=== PATIENT | male | born 1940 | race Caucasian/White ===

== ENCOUNTER 2019-08-12 15:34 | Outpatient (CLI) | payer MEDICARE, OTHER, SELFPAY ==
--- NOTE | 2019-08-12 21:04 | ONC CON_ITS ---
Dr. Noriega New Patient Note Patient: Isaiah Snyder Unit #: [id number]: 1940 Dicatated By: Jony Noriega M.D.Date of Visit: Aug 12, 2019 Onc MED New Patient/Consult Referring Physician: Dylon Perla MD Chief Complaint: Lung cancer. 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 He was found to have a 2.5 cm right upper lobe lung mass in 2011. He had mediastinal and hilar node involvement by trans-bronchial needle aspiration biopsy in May of 2011, with pathology reporting metastatic poorly differentiated non-small cell carcinoma. He was given neoadjuvant chemotherapy with 2 cycles of carboplatin/Taxol. He was found to have a complete pathologic response at [facility] He completed 2 additional cycles of chemotherapy postoperatively, and he was then given radiation to the hilar/mediastinal node regions to a total dose of 50.4 Gy, which he completed on 02/13/12. He did have problems following his surgery, mainly due to a prolonged post thoracotomy pain syndrome. He also developed significant neuropathy with the chemotherapy, but he did show gradual recovery during subsequent follow-up on observation/expectant management. His surveillance CT of the chest on 08/15/2016 showed postoperative changes of right upper lobectomy. There was stable loculated pleural effusion at the right lung base with chronic right atelectasis. There ws no mediastinal or hilar lymphadenopathy or other evidence of disease progression. He was advised to continue observation/expectant anagement. As he was 5 years out from completion of his treatment, I had recommended that he just continue his regular follow-up at the [facility]. I had seen him for a visit again on 01/19/2018. [facility] abnormalitites at the right lung base, but on review these were not significantly changed compared to prior studies. He continued on observation/expectant management. He has otherwise been in good health. 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 He does have a history of smoking 2 packs of cigarettes daily for approximately 40 years. He quit smoking in 1999. He indicated that he had significant asbestos exposure during service in the [employer]. INTERIM HISTORY: He had seen Dr. Perla in June with complaints of pain on both sides of his mid back radiating around to the epigastric area. Evaluation was delayed to the pandemic restrictions. His CT abdomen/pelvis on 08/09/2019 showed a 3.1 x 2.8 x 2.6 cm mass near the gregory hepatis, concerning for neoplasm. An osteolytic lesion in the T8 vertebral body was concerning for metastatic disease. There was moderate sized right pleural effusion. There was a small amount of atelectasis or consolidation in the right lower lobe and the lingula, pneumonia not excluded. A 2.0 x 1.3 x 1.7 cm heterogeneous lesion in the inferior pole of the left kidney was indeterminate. An L4 vertebral compression fracture was of indeterminate age. He is seen now for a followup visit. He continues to have significant pain up and down his back, from the base of his skull to his lower back. The most signicant pain is in the mid back area and on both sides of the rib cage. He says it feels like muscle spasms. It is worse when he bends over. It limits his activity, but he is still doing work outside. His ECOG score is 1. He does not have much appetite. His weight is down about 5 lbs. He thinks he may have some low-grade fever last weekend. He says he had sweating last night. He has shortness of breath with activity. He has a little bit of phlegm, but otherwise he does not have cough. He does not complain of chest pain. He has had some constipation since he started his pain medication. He has no other GI complaints. Has some urinary frequency and he also complains of some dribbling. He does not complain of headache or dizziness. He has had some numbness in his right ring finger since undergoing shoulder surgery in April. He has no other focal neurologic symptoms. Past Medical History: Mr. Snyder's medical history consists of hstory of pancreatitis, Meniere's Disease, peripheral neuropathy due to chemotherapy, and non-small cell lung cancer in 2011 (Treated: surgery,chemo/readition). Past Surgical History: His surgical/procedural history includes right shoulder surgery in 2019, thoractotomy with right upper lobectomy and mediastinal lymph node dissection in 2011, bronchoscopy in 2011, and TURP in 2002. Medications: Flonase 2 [place](s) (of 50 mcg/act) Suspension Nasal daily PRN, HYDROcodone-Acetaminophen 1 Tablet (of 5-325 mg) Oral q 8 hours PRN, Neurontin 2 Tablet (of 300 mg) Oral t.i.d., Pantoprazole Sodium 1 Tablet (of 40 mg) Tablet, enteric coated Oral daily, Vitamin B6 1 Tablet Oral daily, Vitamin D3 1 Tablet (of 50 mcg ) Oral daily Allergies: Flomax Social History: Mr. Snyder is and he is retired. He has a history of smoking 2 packs of cigarettes daily for 40 years. He quit smoking in 1999. Alcohol use is estimated 2 beers daily. He reports having had asbestos exposure during the [employer]. Family History: Father of stroke at age 89. A brother of lung cancer and another brother of melanoma. Review Of Symptoms: Constitutional - His energy level is okay. His activity is limited by pain, but he still does some outside work. His appetite is okay and weight is stable. He has had a recent low grade fever with chills. He is having sweating episodes. ECOG score is 1, ENMT - He has some sinus drainage. His mouth is dry. No sore throat or difficulty swallowing, Hematologic/Lymphatic - He bruises easily, Respiratory - He has shortness of breath with exertion. He has an occasional cough. No pleuritic pain or hemoptysis, Cardiovascular - No angina pain. No palpitations, Gastrointestinal - No nausea or vomiting. His heartburn is well controlled with Protonix. No diarrhea. He has had constipation with his pain medication. No blood in the stool. He had episode of black stool on Te[place], Genitourinary (M) - No dysuria or hematuria. He has urinary frequency and he has dribbling. No urgency or incontinence, Musculoskeletal - He is having significant pain in his back from the base of his skull all the way into lower back, Integumentary - No skin complications, Neurologic - No headache or dizziness. He has some numbness in his right ring finger. He has no other focal neurologic symptoms, Psychiatric - No anxiety or depression. No insomnia. Vital Signs: Performed on Aug 12, 2019 15:45: 2, 25.91, 2.00 sq.m, 70.00 in, 97 %, 82 /min, 26 /min, 132/76 mm(hg), 97.7 F (LOW), 180.6 lbs (LOW), and Performed on Aug 16, 2015 11:10: 0. Physical Examination: Constitutional - He appears to be in some discomfort, but he does not appear acutely ill, Eyes - Sclerae nonicteric. Conjunctivae clear, ENMT - No lesions noted in the oral cavity, Hematologic/Lymphatic - No cervical, clavicular or axillary adenopathy, Respiratory - Lungs sound clear with good air movement bilaterally, Cardiovascular - Heart rhythm is regular. There is no murmur, gallop, or rub noted, Abdomen - Soft. Liver and spleen are not enlarged. There is no abdominal mass or ascites noted and there is no inguinal adenopathy, Back/Spine - There is no significant bony tenderness in the spine, Extremities - No edema, Neurologic - He does not appear to have any focal neurologic deficit. Impression: 1. Patient with poorly differentiated non-small cell carcinoma of the right lung, stage IIIA. 2. He had a complete pathologic response to neoadjuvant chemotherapy with 2 cycles of carboplatin/Taxol. 3. He underwent right upper lobectomy/mediastinal lymph node dissection in August 2011. 4. Postoperatively he was given 2 additional cycles of chemotherapy followed by radiation to the hilar/mediastinal node region, which he completed in January 2012. 5. He initially had difficulty following the surgery due to post thoracotomy pain and to chemotherapy-induced neuropathy. He eventually did have a good recovery. 6. He has since then been followed on observation/expectant mangement. His other medical pulses include: 7. 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 8. Benign prostatic hypertrophy. For the past month he has had increasing pain in his entire back, but mainly in the mid back on both sides radiating around to the abdomen. The pain is significant enough to limit his activity. His CT abdomen/pelvis shows a mass in the area of the hepatic John which is suspicious for neoplasm. An osteolytic lesion in the T8 vertebral body appeared suspicious for metastasis, and it appears to correlate with his pain. Overall, the probability is very high that he has metastatic disease. At this point it is uncertain whether this is metastatic lung cancer or from some other primary source. Plan: He will be scheduled for MRI of the cervical, thoracic, and lumbar spine and he will be scheduled for a restaging PET/CT. He will have further evaluation as indicated. Ideally, he should have a biopsy to establish a tissue diagnosis and to help guide his further treatment. In the meantime, his pain medication will be increased to hydrocodone 7.5, and he will be given instructions for a bowel regimen. Signed By: Jony Noriega M.D. <<Signature on File>>
== END 2019-08-12 15:35 | disposition home or self-care (01) ==
LOC: ONCMED 15:42
PROVIDERS: PCP Family Medicine; Visit Provider Internal Medicine Medical Oncology
DX: R93.7 Abnormal findings on diagnostic imaging of other parts of musculoskeletal system (principal); R93.3 Abnormal findings on diagnostic imaging of other parts of digestive tract; M54.6 Pain in thoracic spine; M54.5 Low back pain; Z85.118 Personal history of other malignant neoplasm of bronchus and lung; H81.09 Meniere's disease, unspecified ear; N40.1 Benign prostatic hyperplasia with lower urinary tract symptoms; R35.0 Frequency of micturition; Z90.2 Acquired absence of lung [part of]; Z92.3 Personal history of irradiation; Z92.21 Personal history of antineoplastic chemotherapy; Z79.891 Long term (current) use of opiate analgesic; Z87.891 Personal history of nicotine dependence
CPT/HCPCS: 99215

== ENCOUNTER 2019-08-16 07:45 | Outpatient (CLI) | payer MEDICARE, OTHER, SELFPAY ==
--- NOTE | 2019-08-16 | MR_ITS ---
WS: [id number] MRI THORACIC SPINE with and without contrast HISTORY: LUNG CANCER, BACK PAIN, DESTRUCTIVE LESION T8 COMPARISON: PET CT 08/14/2019 TECHNIQUE: Multiplanar sequences are performed in sagittal and axial planes. Study performed with and without contrast. Abnormal signal within the majority of the T8 vertebral body. Marked decreased signal intensity on th e T1 sequences with increased on the STIR and T2 sequences and enhancement. There is enhancement thro ughout the majority of the T8 vertebral body with extension of the tumor into the posterior elements. There is retropulsion of the posterior endplate by 3 mm with mild compression upon the RIGHT lateral thecal sac. Moderate stenosis of the T8-9 foramen due to tumor and bone expansion. Significant soft tissue tumor enhancement within the T8-9 foramen. Extension of tumor enhancement into the superior endplate of T9. Abnormal signal extends across the T 8-9 disc space. There is dural enhancement at the T7-8 through T8-9 levels. Mild facet joint arthritis throughout the thoracic spine. No large disc herniations. Superior pole RIGHT renal cyst measures 3.0 cm. Pleural thickening and nodularity in the RIGHT upper thorax. Small to moderate layering RIGHT pleural effusion. Visualized adrenal glands are negative. MR/MR thoracic spine wo/w [id number] IMPRESSION: 1. Metastatic involvement throughout the T8 vertebral body with extension into the posterior elements. Expansion of the vertebral body with mild compression along the RIGHT lateral thecal sac and moderate narrowing of the T8-9 foramen. Very minimal deformity and compression of the RIGHT lateral thecal sac. Signifi cant tumor in burden within the RIGHT T8-9 foramen. 2. Extension of tumor involvement across the disc space to involve the superio r aspect of the T9 vertebral body. 3. Dural enhancement from the T7-8 disc level through the T9 vertebral body le carole. 4. [id number] RIGHT pleural effusion with pleural thickening and nodula rity on the RIGHT. This has been previously described on a recent PET/CT from .
--- NOTE | 2019-08-16 | MR_ITS ---
WS: [id number] MRI CERVICAL SPINE with and without contrast HISTORY: LUNG CANCER, BACK PAIN, DESTRUCTIVE LESION T8 COMPARISON: PET CT 08/14/2019 MRI cervical spine is performed with and without contrast. Normal cervical alignment. Small amount of reactive marrow edema in the superior endplate of C7. No c ompression fractures. Mild disc space narrowing and desiccation at C5-6, C6-7 and C7-T1. Signal within the cervical cord is normal. Visualized posterior fossa is unremarkable. Craniocervical junction, C1 and C2 relationship, odontoid process and soft tissues are normal. C2-C3: Small central disc protrusion and mild osteophytic ridging. No stenosis. C3-C4: Small LEFT paracentral osteophyte. No stenosis. C4-C5: Normal. C5-C6: Mild annular disc bulging and osteophytic ridging. Minimal narrowing of the LEFT foramen. C6-C7: Mild osteophytic ridging and annular disc bulge. No significant stenosis. Very mild effacement of ventral CSF. C7-T1: Mild osteophytic ridging. There is no significant stenosis. Less than 2 mm anterolisthesis of C7. Paraspinal soft tissues are normal. There is no evidence for enhancement of the vertebral bodies or t he discs. No evidence for osteomyelitis or metastatic disease. MR/MR cervical spine wo/w [id number] IMPRESSION: 1. No evidence for metastatic disease to the cervical spine. 2. Mild multilevel degenerative disc disease and osteophytic ridging without s ignificant stenosis. 3. Mild effacement of ventral CSF at C6-7.
== END 2019-08-16 07:46 | disposition home or self-care (01) ==
PROVIDERS: PCP Family Medicine; Visit Provider Internal Medicine Medical Oncology
DX: C79.51 Secondary malignant neoplasm of bone (principal); M50.30 Other cervical disc degeneration, unspecified cervical region; Z85.118 Personal history of other malignant neoplasm of bronchus and lung
CPT/HCPCS: 72156; 72157; A9579

== ENCOUNTER 2019-08-18 09:01 | Outpatient (CLI) | payer MEDICARE, OTHER, SELFPAY ==
--- NOTE | 2019-08-18 | MR_ITS ---
WS: [id number] MRI LUMBAR SPINE WITH AND WITHOUT CONTRAST HISTORY: LUNG CANCER, BACK PAIN, DESTRUCTIVE LESION T8 COMPARISON: PET/CT 08/14/2019 TECHNIQUE: Sagittal and axial multisequence imaging is submitted. Sagittal and axial T1 fat sat seque nces post-ProHance 17 cc IV. Normal lumbar alignment. Disc space narrowing and mild desiccation throughout the lumbar spine. Signal changes within the post erior inferior L2 endplate and the superior posterior L3 endplate. There is some enhancement within t he vertebral body changes. The largest area of involvement is the posterior superior L3 endplate asif uring 10 mm. There is mild sclerosis noted on the CT. Slight increased uptake on the PET scan. Simila r finding in the inferior endplate of L1. Conus terminates normally at L1-2 disc level. L1-L2: Mild disc bulging with facet and ligamentum flavum arthritis. L2-L3: Diffuse osteophytic ridging. Mild ligamentum flavum disease and facet arthritis. Mild encroach ment upon the subarticular recesses. L3-L4: Mild facet and ligamentum flavum arthritis. L4-L5: Mild annular disc bulging with ligamentum flavum arthritis and facet disease. There is a very shallow central disc protrusion. Mild RIGHT foraminal stenosis. L5-S1: Shallow central disc protrusion. There is slight contact on the S1 nerve roots bilaterally, RI GHT greater than LEFT. No foraminal stenosis. No retroperitoneal adenopathy. MR/MR lumbar spine wo/w con [id number] IMPRESSION: 1. Minimal marrow signal changes with mild enhancement involving the endplates of L1, L2 and L3. Suspicious but not diagnostic for metastatic disease. Most c oncerning endplate changes are minimal at the L2-3 level. No retropulsion of ve rtebral bodies. These changes may represent early metastatic disease or acute S chmorl's node defects or acute reactive inflammatory changes. 2. Mild RIGHT foraminal stenosis at L4-5. 3. Minimal encroachment upon the S1 nerve roots bilaterally. 4. Mild encroachment upon the subarticular recesses at L2-3.
== END 2019-08-18 09:02 | disposition home or self-care (01) ==
LOC: ONCMED 09:06 → RADSHAW 09:17
PROVIDERS: PCP Family Medicine; Visit Provider Internal Medicine Medical Oncology
DX: C34.11 Malignant neoplasm of upper lobe, right bronchus or lung (principal); C79.51 Secondary malignant neoplasm of bone; M54.5 Low back pain; M48.061 Spinal stenosis, lumbar region without neurogenic claudication
CPT/HCPCS: 72158; A9579

== ENCOUNTER 2019-08-27 07:59 | Outpatient (CLI) | payer MEDICARE, OTHER, SELFPAY ==
--- NOTE | 2019-08-28 16:59 | ONC FU_ITS ---
Dr. Noriega Patient Follow-Up Note Patient: Isaiah Snyder Unit #: [id number]: 1940 Dicatated By: Jony Noriega M.D.Date of Visit:August 27, 2019 Onc Med Follow-up/Prog Note Chief Complaint: Lung cancer. 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 He now has evidence of metastatic disease on imaging studies. He was found to have a 2.5 cm right upper lobe lung mass in 2011. He had mediastinal and hilar node involvement by trans-bronchial needle aspiration biopsy in May of 2011, with pathology reporting metastatic poorly differentiated non-small cell carcinoma. He was given neoadjuvant chemotherapy with 2 cycles of carboplatin/Taxol. He was found to have a complete pathologic response at [facility] He completed 2 additional cycles of chemotherapy postoperatively, and he was then given radiation to the hilar/mediastinal node regions to a total dose of 50.4 Gy, which he completed on 02/13/12. He did have problems following his surgery, mainly due to a prolonged post thoracotomy pain syndrome. He also developed significant neuropathy with the chemotherapy, but he did show gradual recovery during subsequent follow-up on observation/expectant management. His surveillance CT of the chest on 08/15/2016 showed postoperative changes of right upper lobectomy. There was stable loculated pleural effusion at the right lung base with chronic right atelectasis. There ws no mediastinal or hilar lymphadenopathy or other evidence of disease progression. He was advised to continue observation/expectant anagement. As he was 5 years out from completion of his treatment, I had recommended that he just continue his regular follow-up at the [facility]. I had seen him for a visit again on 01/19/2018. [facility] abnormalitites at the right lung base, but on review these were not significantly changed compared to prior studies. He continued on observation/expectant management. He has otherwise been in good health. 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 He does have a history of smoking 2 packs of cigarettes daily for approximately 40 years. He quit smoking in 1999. He indicated that he had significant asbestos exposure during service in the [employer]. INTERIM HISTORY: He had seen Dr. Perla in June with complaints of pain on both sides of his mid back radiating around to the epigastric area. Evaluation was delayed to the pandemic restrictions. His CT abdomen/pelvis on 08/09/2019 showed a 3.1 x 2.8 x 2.6 cm mass near the gregory hepatis, concerning for neoplasm. An osteolytic lesion in the T8 vertebral body was concerning for metastatic disease. There was moderate sized right pleural effusion. There was a small amount of atelectasis or consolidation in the right lower lobe and the lingula, pneumonia not excluded. A 2.0 x 1.3 x 1.7 cm heterogeneous lesion in the inferior pole of the left kidney was indeterminate. An L4 vertebral compression fracture was of indeterminate age. He was seen for a visit here on 08/12/2019. He had further evaluation with PET/CT on 08/14/2019. It showed evidence of an FDG avid spiculated left upper lobe mass measuring 3.4 x 2.2 cm, SUV 20.8. A medial right middle lobe subcentimeter nodule adjacent to the mediastinum was also FDG positive as were bilateral hilar lymph nodes, consistent with metastatic adenopathy. There were 2 sites of diffuse activity in the body of the pancreas, felt to be more likely inflammatory in origin. A 3 cm hypodense mass in the central right hepatic lobe at the gregory hepatis head SUV 9.2, consistent with metastatic disease. A lytic osseous lesion at T8 had SUV of 17.2, consistent with metastatic disease. There were no other osseous lesions noted. MRI of the spine on 08/16/2019 showed abnormal signal within the majority of the T8 vertebral body with extension of tumor into the posterior elements. There was retropulsion of the posterior endplate by 3 mm with mild compression on the right lateral thecal sac. There was moderate stenosis of the T8-9 foramen due to tumor and bone expansion. There was significant soft tissue tumor enhancement within the T8-9 foramen. There was mild facet joint arthritis throughout the thoracic spine and there were degenerative changes noted in the cervical and lumbar spine. There were no other sites of metastatic disease noted. He is seen for a follow-up visit. He is still having significant pain despite taking 2 tablets of hydrocodone 7.5/APAP 325 on a very regular basis. The medication does take the edge off, the point that he is getting by. However, it is still in significant discomfort. He says his bowels and bladder are not working. He has had some bowel movement since he started taking MiraLAX. He continues to have difficulty voiding. He has had some bladder problems in the past and at one point he was treated with Flomax, but he did stop taking it because of side effects, mainly joint pain. He is still doing light work outside, and he has good appetite. He has no shortness of breath, cough, or chest pain. He does not complain of headache or dizziness, and he has no focal neurologic symptoms. Medications: Flonase 2 [place](s) (of 50 mcg/act) Suspension Nasal daily PRN, HYDROcodone-Acetaminophen 1 Tablet (of 7.5-325 mg) Oral q 8 hours PRN, Neurontin 2 Tablet (of 300 mg) Oral t.i.d., Pantoprazole Sodium 1 Tablet (of 40 mg) Tablet, enteric coated Oral daily, Vitamin B6 1 Tablet Oral daily, Vitamin D3 1 Tablet (of 50 mcg ) Oral daily Allergies: Flomax Review of Systems: Constitutional - His energy level is okay. His activity is limited by pain, but he still does some outside work. His appetite is okay and weight is stable. ECOG score is 1, ENMT - He has some sinus drainage. His mouth is dry. No sore throat or difficulty swallowing, Hematologic/Lymphatic - He bruises easily, Respiratory - He has shortness of breath with exertion. No cough. No pleuritic pain or hemoptysis, Cardiovascular - No angina pain. No palpitations, Gastrointestinal - No nausea or vomiting. His heartburn is well controlled with Protonix. No diarrhea. He has had constipation with his pain medication. No blood in the stool. He had episode of black stool on Friday, Genitourinary (M) - He is having difficulty voiding. No dysuria or hematuria. No urgency or incontinence, Musculoskeletal - He is having significant pain in his back from the base of his skull all the way into lower back, Integumentary - No skin complications, Neurologic - No headache or dizziness. He has no focal neurologic symptoms, Psychiatric - No anxiety or depression. He states that he only sleeps for 2-3 hours at a time. Vital Signs: Performed on August 27, 2019 08:15 Height - 70.00 in Weight - 178.8 lbs (LOW) BSA - 1.99 sq.m BMI - 25.66 Temperature - 97.7 F (LOW) Pulse - 63 /min Respiration - 18 /min BP - 132/68 mm(hg) O2 Sat - 96 % Pain - 5 Physical Examination: Constitutional - He still appears to be in significant discomfort, Eyes - Sclerae nonicteric. Conjunctivae clear, ENMT - No lesions noted in the oral cavity, Hematologic/Lymphatic - No cervical, clavicular, or axillary adenopathy, Respiratory - Lungs sound clear with good air movement bilaterally, Cardiovascular - Heart rhythm is regular. There is no murmur, gallop, or rub noted, Abdomen - Mildly distended and tympanic. Liver and spleen are not enlarged. There is no abdominal mass or ascites noted and there is no inguinal adenopathy, Extremities - No edema, Neurologic - No focal neurologic deficits noted. Impression: 1. Patient with poorly differentiated non-small cell carcinoma of the right lung, stage IIIA. 2. He had a complete pathologic response to neoadjuvant chemotherapy with 2 cycles of carboplatin/Taxol. 3. He underwent right upper lobectomy/mediastinal lymph node dissection in August 2011. 4. Postoperatively he was given 2 additional cycles of chemotherapy followed by radiation to the hilar/mediastinal node region, which he completed in January 2012. 5. He initially had difficulty following the surgery due to post thoracotomy pain and to chemotherapy-induced neuropathy. He eventually did have a good recovery. 6. He was then followed on observation/expectant mangement. His other medical pulses include: 7. 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 8. Benign prostatic hypertrophy. For the past month he has had increasing pain in his entire back, but mainly in the mid back on both sides radiating around to the abdomen. The pain is significant enough to limit his activity. His CT abdomen/pelvis shows a mass in the area of the hepatic John which is suspicious for neoplasm. An osteolytic lesion in the T8 vertebral body appeared suspicious for metastasis, and it appeared to correlate with his pain. Restaging PET/CT on 08/14/2019 showed new FDG avid mass in the upper lobe of the left lung and some associated hilar and mediastinal adenopathy. This is most likely new primary malignancy. An FDG avid lesion was noted in the area of the gregory hepatis, and a T8 lesion was also FDG avid. There were no other sites of metastatic bone involvement either by PET/CT or by MRI of the spine. The MRI, though, did show significant metastatic involvement at the T8/T9 level. Plan: I will arrange for him to be seen by the radiation oncologist on Friday for palliative radiation to the thoracic spine lesion. I also will review the PET/CT with Dr. Puckett, as I would like to get a biopsy to verify the tissue diagnosis on the left lung lesion. In the meantime, his pain medication will be changed to immediate release oxycodone 30 mg. He is also advised that he can restart ibuprofen 800 mg up to 3 times a day. He is advised to continue taking senna along with the MiraLAX. For now he prefers not to try any other medication for his bladder symptoms. Signed By: Jony Noriega M.D. <<Signature on File>>
== END 2019-08-27 08:00 | disposition home or self-care (01) ==
LOC: ONCMED 07:59
PROVIDERS: PCP Family Medicine; Visit Provider Internal Medicine Medical Oncology
DX: C79.51 Secondary malignant neoplasm of bone (principal); H81.03 Meniere's disease, bilateral; N40.0 Benign prostatic hyperplasia without lower urinary tract symptoms; M54.9 Dorsalgia, unspecified; G89.3 Neoplasm related pain (acute) (chronic); R91.8 Other nonspecific abnormal finding of lung field; Z85.118 Personal history of other malignant neoplasm of bronchus and lung; Z90.2 Acquired absence of lung [part of]; Z92.21 Personal history of antineoplastic chemotherapy; Z92.3 Personal history of irradiation
CPT/HCPCS: 99214

== ENCOUNTER 2019-09-03 06:04 | Day surgery (SDC) | payer MEDICARE, OTHER, SELFPAY ==
[2019-09-02 13:25] VITALS: BMI 25.1
[2019-09-03] VITALS (8 sets, daily range): BP systolic 121–141; BP diastolic 73–119; PULSE 57–73; RESP 12–18; TEMP 36.2–36.8; O2SAT 97–100
--- NOTE | 2019-09-03 05:48 | ECG_ITS ---
Measurements Intervals Curtis Rate: 69 P: 45 MS: 192 QRS: -29 QRSD: 86 T: 41 QT: 371 QTc: 398 SINUS RHYTHM BORDERLINE LEFT AXIS DEVIATION [QRS AXIS < -20] LOW QRS VOLTAGE IN PRECORDIAL LEADS [QRS DEFLECTION < 1.0 mV IN CHEST LEADS] No previous ECG available for comparison Electronically Signed On 09-03-2019 13:09:40 CDT by Alfredo So M.D. [email or web address]
[2019-09-03] MEDS: sodium chloride 0.9% 1,000 ML 30 ML IV (05:59)
--- NOTE | 2019-09-03 06:21 | P.ANESASSM_ITS ---
Pre-Anesthetic Assessment Pre-Anesthetic Assessment: Height/Weight: Height 1.78 m Weight 79.379 kg Temp Pulse Resp BP Pulse Ox 98.2 F 72 18 134/73 97 09/03/19 05:42 09/03/19 05:42 09/03/19 05:42 09/03/19 05:42 09/03/19 05:42 Preop Diagnosis: Lung mass Proposed Procedure: Operation Date: 09/03/19 07:00 Proposed Procedures p Navigational Bronchoscopy(Not Applicable) - Tim Puckett MD s Ebus(Not Applicable) - Tim Puckett MD Familial anesthetic complications: None Was Beta Zahra taken within 24 hours: N/A Last intake: Intake Last Liquid Date 09/02/19 Last Liquid Time 19:00 Last Solid Date 09/02/19 Last Solid Time 19:00 Social: Social History: Alcohol (1-2 beers a day) Comment: former Exam: Pre-Anes Outpt Exam: alert, oriented x 3, clear to auscultation bilaterally and regular rate & rhythm Airway: Cervical ROM: WNL MP: 4 Dentition: False Pulmonary: Comments: lung cancer s/p chemo, ,radiation and surgery 2011 CV/HEM: CV/HEM: None reported : : None reported Hepatic: Hepatic: None reported GI: GI: GERD Metabolic: Metabolic: None reported Musc/skel: Musc/skel: None reported Neuropsych: Neuropsych: None reported Anesthetic Plan: ASA status: 3 Anesthesia: General Risk of > 500 ml blood loss (7ml/kg in children): No Meds/Allergies Current Medications: Current Medications Generic Name Dose Route Start Last Admin Trade Name Freq PRN Reason Stop Dose Admin Sodium Chloride 1,000 mls @ 30 ml s/hr 09/03/19 05:45 09/03/19 05:59 Sodium Chloride 0.9% IV 09/04/19 05:44 30 mls/hr .Q24H BJ Administration PFSH Anesthesia 2 PFSH: Medical History (Updated 09/02/19 @ 09:21 by Tim Puckett MD) Collagen vascular disease Malignant neoplasm of upper lobe, right bronchus or lung Meniere disease Nicotine dependence, cigarettes, in remission Non-small cell lung cancer Peripheral neuropathy due to chemotherapy Personal history of other malignant neoplasm of bronchus and lung Secondary malignant neoplasm of bone Surgical History H/O shoulder surgery History of bronchoscopy History of thoracotomy Family History Father , Age 89 Stroke Brother , Age 70 - Lung Cancer Cancer Brother , Age 32 - Melanoma Cancer Brother , Prostate Cancer Cancer Social History Smoking and tobacco status: former smoker Quit status (tobacco): has quit using tobacco Year quit tobacco: 2006 - 2PPD x 40 Years Alcohol intake: current Alcohol intake frequency: 0-2 Drinks per Day Lives independently: Yes Household members: spouse Marital status: service: Yes Current occupational status: retired History of recent travel: No Current gender identity: Male Data Anesthesia Cardiac Studies: No Data to Display
--- NOTE | 2019-09-03 06:43 | CT_ITS ---
WS: [id number] Chest CT noncontrast. Study was performed for Dr. Puckett prior to navigational bronchoscopy.
--- NOTE | 2019-09-03 06:55 | W.PM.OPSUD ---
Surgery/Procedure H&P Update DATE OF PROCEDURE: September 03, 2019 DATE H&P PERFORMED: 09/02/19 H&P UPDATE INFORMATION: I have reviewed H&P completed within last 30 days, I have examined patient prior to procedure and No changes to prior documentation PREOP DIAGNOSIS: Lung mass PLANNED PROCEDURE: Operation Date: 09/03/19 07:00 Proposed Procedures p Navigational Bronchoscopy(Not Applicable) - Tim Puckett MD s Ebus(Not Applicable) - Tim Puckett MD
[2019-09-03] MEDS: lidocaine 1% INJ 20 mL INJECTION (07:26)
--- NOTE | 2019-09-03 08:33 | PM.OP ---
Operative Report Date of procedure: September 03, 2019 Pre-op Diagnosis: Lung mass Post-op diagnosis: same Brief History: 79-year-old gentleman with history of lung cancer diagnosed in 2012 now comes in with a left upper lobe lung mass. Procedure: Name of the procedure: Bronchoscopy with inspection of the airway, bronchoalveolar lavage, endobronchial biopsies, transbronchial core biopsies, endobronchial ultrasound-guided transbronchial needle aspiration of lymph nodes, navigational bronchoscopy guided fine-needle aspiration and control of bleeding. Indication: Left upper lobe lung mass Anesthesia: General anesthesia. Local anesthesia: The fanny in the right and left mainstem bronchi were anesthetized with 1% lidocaine, 3 mL. Description of the procedure: The procedure was explained to the patient and the consent was obtained. The patient was brought to the OR. The patient underwent endotracheal intubation for general anesthesia. Following induction of general anesthesia, the bronchoscope was advanced through the ET tube. The lower trachea appeared to be normal. The fanny was sharp. The fanny, the right and left mainstem bronchi are anesthetized with 1% lidocaine. In a systematic manner bilateral bronchial tree was then examined. The bronchoscope was advanced into the left mainstem bronchus. There was no erythema or cobblestoning, mild mucus noted. The left upper lobe proper appeared normal. There was mucosal irregularity in the lingular bronchus. The left lower lobe bronchus was normal. The bronchoscope was then introduced into the right mainstem bronchus. The right upper lobe and middle lobe bronchi stump was noted consistent with prior right upper and middle lobectomy. The right lower lobe bronchus and the segments were examined up to the third subsegmental level and no abnormalities were identified. Endobronchial biopsies were performed from the lingula. 3 samples are obtained. Using navigational bronchoscopy core needle biopsies were obtained from the left upper lobe lung mass. Fine-needle aspiration was performed from the left upper lobe lung mass. Bronchoalveolar lavage was performed from the superior segment of the lingula. 60 mL of normal saline is instilled 5 mL of bloody fluid return. The endobronchial ultrasound was introduced through the ET tube. Left mediastinal mass was identified. Transbronchial needle aspiration was performed from the left hilar mass and 10 L lymph node groups. Samples: 1. Bronchoalveolar lavage specimen was sent for cytology. 2. The endobronchial biopsies were sent for histopathology. 3. The transbronchial core needle biopsies were sent for histopathology. 4. The transbronchial needle aspiration of the aforementioned lymph node groups were sent for cytology. 5. The fine-needle aspiration from left upper lobe nodule was sent for cytology. Complications: There was no immediate complications. The patient was extubated and brought to the PACU in stable condition. Follow-up: 1. Please follow-up with me in 2 weeks time.
--- NOTE | 2019-09-03 08:53 | SUR.PHASEI ---
PT ON RA TRIAL PT AWAKE ALERT VERBALIZES APPROP VSS NO OBVIOUS DISTRESS , NO COUGHING , WITH GOOD RESP NOTED PT SATS ARE 98%
== END 2019-09-03 09:45 | disposition home or self-care (01) ==
PROVIDERS: PCP Family Medicine; Visit Provider Internal Medicine Critical Care Medicine
PROC: 0BJ08ZZ Inspection of Tracheobronchial Tree, Via Natural or Artificial Opening Endoscopic (ICD-10-PCS; CPT 31622; principal; 2019-09-03 07:00)
PROC: BB4BZZZ Ultrasonography of Pleura (ICD-10-PCS; 2019-09-03 07:00)
DX: R91.1 Solitary pulmonary nodule (principal); K21.9 Gastro-esophageal reflux disease without esophagitis; Z80.1 Family history of malignant neoplasm of trachea, bronchus and lung; H81.09 Meniere's disease, unspecified ear; Z85.830 Personal history of malignant neoplasm of bone; Z87.891 Personal history of nicotine dependence
CPT/HCPCS: 12345; 31625; 31627; 71250; 80500; 88112; 88305; 88307; 88341; 88342; 93005; J0330; J1100; J2001; J2370; J2704; J3010; J3490; J7030

== ENCOUNTER 2019-09-16 06:46 | Outpatient (RCR) | payer MEDICARE, OTHER, SELFPAY ==
--- NOTE | 2019-08-30 | CT_ITS ---
Radiation Therapy Planning CT images; total exam DLP: 389.93 mGy-cm MTDD
--- NOTE | 2019-08-31 14:25 | N.ONRAD NP_ITS ---
Radiation Oncology New Patient Visit Patient: Isaiah Snyder MR#: [id number] : 1940> Age: 79> Sex: Male> Dictated by: Dr. Dayton Fontaine Date of Service: 08/30/2019 Referring Physician(s) : Jony Noriega M.D. 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 Radiotherapy to date: Previous treatment here December to January 2012 treating the right hilar and mediastinal region to 50.4 Gy following chemotherapy and surgical resection. Chief Complaint / History of Present Illness: Previous history of stage IIIa (T1b N2 M0) non-small cell carcinoma of the right upper lobe. In 2011 he underwent 2 cycles of neoadjuvant chemotherapy followed by lobectomy and mediastinal and hilar resection at [facility] with a CR followed by additional postoperative chemotherapy for 2 cycles and 50.4 Gy of right hilar and mediastinal radiation therapy completed here in January 2012. Following this he was free of recurrence and did well. Now since April 2019 he has had bilateral mid chest pain along the ribs and mid thoracic back initially felt to be muscle spasm pain occurring after rotator cuff and biceps repair of the right shoulder done earlier in April 2019. His back pain is gotten progressively worse. He has had no lower extremity numbness tingling or weakness. Pain is worse when bending over. Despite pain he has been relatively active at home. He is active chopping firewood that he gives away to other people. He is weight and appetite and energy level are stable. He has some chronic shortness of breath. He has no headache nausea or vomiting. Since beginning narcotic pain medications he has had some constipation. He underwent a CT scan of the abdomen and pelvis on August 09, 2019 this revealed a 3 cm mass in the gregory-hepatis concerning for malignancy there was an osteolytic lesion of T8 vertebral body worrisome for metastatic disease, right pleural effusion Follow-up PET CT scan from August 14, 2019 was reviewed as well it revealed a 3.4 cm spiculated left upper lobe mass with an SUV of 20.8 likely likely representing malignancy of medial right middle lobe subcentimeter nodule adjacent to the mediastinum which was FDG avid bilateral hilar adenopathy FDG positive consistent with malignant adenopathy,- a 3 cm mass in the central right hepatic lobe at the gregory hepatis SUV of 9.2 and obvious lytic osseous metastatic disease at T8 with an SUV of 17.2 all these findings were consistent with malignancy on my review MRI of the thoracic spine from August 18, 2019 revealed revealed abnormal signal with enhancement at T8 and T9 consistent with metastatic disease extending into the posterior elements bilaterally worse on the right side with mild compression along the right lateral thecal sac narrowing of the T8-T9 foramen consistent with metastatic disease involving both T8 and T9 and modest compromise of the canal due to compression of the thecal sac. Dr. Noriega has reviewed these findings with me and he now has scheduled the patient to undergo pulmonary evaluation for possible lung biopsy most likely along the left hilar region Current Medications: Flonase, hYDROcodone-Acetaminophen, neurontin, oxyCODONE HCl, pantoprazole Sodium, uroxatral, vitamin B6, vitamin D3. Allergies: Flomax. Medical History: - History of pancreatitis, - Meniere's Disease, - non-small cell lung cancer on 05/28/2011, - peripheral neuropathy due to chemotherapy. No history of collagen vascular disease. No previous radiation therapy. Surgical History: Bronchoscopy on 06/13/2011, right shoulder surgery in 04/2019, thoractotomy with right upper lobectomy and mediastinal lymph node dissection on 09/18/2011 and tURP in 2002. Family History: Father is at age 89 having experienced stroke. Brother is at age 70 having experienced Lung Cancer. Brother is at age 32 having experienced Melanoma Cancer. Father of stroke at age 89. A brother of lung cancer and another brother of melanoma. Social History: Last screened on 08/27/2019 - Yes - but has quit for 13 years. Smoked 2.0 packs/day for 40 years (80 pack years). Last screened on 08/27/2019 - Active drinker 2 drinks/day. Contact indicated with the following hazardous materials: asbestos. Patient indicated use of the following products: cigarettes. Patient indicated access to the following support systems: Lives with spouse, significant other, family, or friends, Lives in own house, Supportive family/friends willing to assist with needs, and Adequate transportation available for expected visits. Patient indicated the following nutritional habits: Regular meals. Patient indicated participation in the following forms of activity: Daily activities. 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 Denies lack of appetite, fever, night sweats and change in weight. Eyes - Denies blurred vision and double vision. ENMT - Complains of mouth dryness and tinnitus. Denies dysphagia, ear pain, stomatitis and altered taste. Neck - Denies neck pain. Integumentary - Denies rash. Cardiovascular - Complains of arrhythmias. Denies chest pain and edema. Respiratory - Complains of dyspnea associated with normal activity. Complains of mild wheezing. Gastrointestinal - Complains of constipation and heartburn / dyspepsia. Denies abdominal pain, diarrhea, hemorrhoids, nausea and vomiting. Genitourinary (M) - Denies dysuria, frequency, hematuria, incontinence, nocturia and urgency. Musculoskeletal - Complains of bone pain In the middle to lower spine. Complains of severe joint pain mid to lower back that radiates the front. Started around 2019. Denies muscle weakness. Neurologic - Denies dizziness, abnormal gait and headaches. Endocrine - Denies diabetes and thyroid disease. Hematologic/Lymphatic - Complains of easy bruising. Denies tender or enlarged lymph nodes.. Vital Signs: Performed on 08/30/2019 1:20 PM BMI - 25.627 kg/m2 (high), Height - 70.00 in, Weight - 178.6 lbs, Temperature - 98.4 f, Pulse - 72, Respiration - 18, O2 Sat - 95 % (low), Pain - 6 and BP - 130/ 74 mm(hg). Physical Exam: Pleasant conversant alert gentleman in no acute distress HEENT examination unremarkable. He had no scleral icterus. Lymph nodes he had no palpable cervical or supraclavicular adenopathy. Lungs clear to auscultation. Heart regular without murmur gallop. Abdominal examination unremarkable no hepatomegaly masses or tenderness. Spine no percussion or palpation tenderness across the thoracic spine. Extremities revealed no clubbing cyanosis or edema. Neurologic examination lower extremity strength reflexes and sensation intact. Gait intact no antalgia Performance Status: 90 Pathology: Primary, c79.51 - secondary malignant neoplasm of bone, Diagnosed 08/27/2019 (active), Primary, z85.118 - personal history of other malignant neoplasm of bronchus and lung, Diagnosed 01/19/2018 (active), Primary, f17.211 - nicotine dependence, cigarettes, in remission, Diagnosed 08/16/2015 (active) and Primary, c34.11 - malignant neoplasm of upper lobe, right bronchus or lung, Diagnosed 12/16/2011 (active) stage iiia, t1b, n2, m0. Lab: Current laboratory studies not available. Imaging: See HPI Impression: In summary my impression is that of prior history of stage IIIa non-small cell carcinoma of the right upper lobe. He had a complete response to neoadjuvant chemotherapy at the time of surgical resection in 2011. Following surgical resection he had additional chemotherapy and consolidative hilar and mediastinal radiation therapy. He then was followed with no evidence of recurrence. He now has malignancy involving both hilar regions gregory hepatis and T8-T9. This could be a de caesar lung cancer or carcinoma of unknown primary. Given the 8 years since his last diagnosis it is unlikely product support representative of recurrence from his prior malignancy. He has significant pain and risk for neurologic compromise due to his T8-T9 metastasis. This is an area that has received previous radiation. I have reviewed the dosimetry and he reviewed received at most 40 Gy to this region 12 years ago. Previous treatment planning did exclude the spinal cord from the full 50 Burden of treatment prescribed at that time. I do feel it is important to retreat him to this site to preserve bone integrity reduce pain and prevent neurologic compromise due to disease progression. Retreatment does entail some risk of transverse myelopathy which could result in paralysis or paresis sometime in the future. Given his short anticipated prognosis from this advanced malignancy I feel the short-term benefit of retreatment outweighs the long-term risk of retreatment with regard to chronic spinal cord toxicity. I reviewed this in detail with the patient and his as well. We anticipate simulation to occur soon as possible and following this proceed with a 10-day course of palliative radiation. During this time Dr. Noriega will proceed with securing a tissue diagnosis to allow for appropriate systemic treatment management. I had discussed the treatability but incurability of his overall presentation I advised that he pursue advanced directives to pursue a conservative treatment management approach. I recommended a DNR status and he agreed . I also discuss his as his DURABLE POWER OF FIGURE MODEL for medical decision-making in the future. He apparently has already made these decisions as a part of his general life planning. Plan: Signed by: 08/31/2019 2:23:35 PM <<Signature on File>> Time spent with patient: 60 min 60 CPT Code: CPT Code:
--- NOTE | 2019-09-08 13:03 | ONCRAD TMN_ITS ---
Radiation Oncology Weekly Treatment Management Patient: Isaiah Snyder MR#: [id number] : 1940> Age: 79> Sex: Male Dictated by: Dr. Dayton Fontaine Date of Service: 09/08/2019 Referring Physician(s) : Jony Noriega M.D. Primary Diagnosis: C79.51 - Secondary malignant neoplasm of bone, Diagnosed 08/27/2019 (Active) Z85.118 - Personal history of other malignant neoplasm of bronchus and lung, Diagnosed 01/19/2018 (Active) F17.211 - Nicotine dependence, cigarettes, in remission, Diagnosed 08/16/2015 (Active) C34.11 - Malignant neoplasm of upper lobe, right bronchus or lung, Diagnosed 12/16/2011 (Active) Stage IIIA, T1b, N2, M0 Radiotherapy to date: Course: [id number], Treatment Site: [id number], Ref. ID: [id number], Energy: 15X, Dose/Fx (cGy): 300, #Fx: 5 / 10, Dose Correction (cGy): 0, Total Dose (cGy): 1,500, Start Date: 09/02/2019, Elapsed Days: 6 Current Complaints/Interval History: Since completing palliative treatment to his T8-T9 region his pain is markedly improved from 8-9 down to 4 on a 10 scale. He manages his pain with ibuprofen 800 mg 3 times a day. He is eating well with no sore throat his energy level remains stable. He underwent bronchoscopy here on September 03, 2019 it revealed left upper lobe normal mucosal irregularity in the lingular bronchus. Endoscopic endobronchial biopsies were performed of the lingula. 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 He is scheduled to see Dr. Noriega on August 2019 to address systemic treatment. Constitutional Complains of mild fatigue. Complains of night sweats which occur occasionally. Denies lack of appetite, fever and change in weight. Cardiovascular Denies chest pain. Respiratory Complains of a moderate cough which is productive. Complains of a scant amount of hemoptysis over the weekend after the bronchoscopy.. Complains of wheezing. Musculoskeletal Complains of bone pain in the middle back that has improved significantly. Denies muscle weakness. Current Medications: Flonase, hYDROcodone-Acetaminophen, miraLax, neurontin, oxyCODONE HCl, pantoprazole Sodium, uroxatral, vitamin B6, vitamin D3. Allergies: Flomax. Vital Signs: Performed on 09/08/2019 11:11 AM BMI - 25.541 kg/m2 (high), Height - 70.00 in, Weight - 178.0 lbs, Temperature - 98.2 f, Pulse - 80, Respiration - 20, O2 Sat - 95 % (low), Pain - 4 and BP - 135/ 81 mm(hg). Physical Exam: Appears stable, no skin erythema or desquamation. Performance Status: 0 - Fully active, able to carry on all predisease activities without restrictions. (ECOG) Lab: None pending in Radiation Oncology. Imaging: No new diagnostic imaging was performed since the last weekly treatment visit. All radiation therapy related imaging (including but not limited to kV, MV, and CBCT generated images) was reviewed. Appropriate changes, if any, were made to assure accurate target localization. Impression/Plan: Tolerating treatment well with expected side effects. Continue treatment as planned. He has exhibited pain improvement already. 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 He has disease involvement in the left lung and liver as well as thoracic spine. He will see Dr. Noriega to address systemic treatment with follow-up scheduled on September 15 CPT: 95409 Signed by: Dr. Dayton Fontaine>09/08/2019 1:03:02 PM <<Signature on File>>
--- NOTE | 2019-09-14 15:00 | ONCRAD TMN_ITS ---
Radiation Oncology Weekly Treatment Management Patient: Isaiah Snyder MR#: [id number] : 1940> Age: 79> Sex: Male Dictated by: Dr. Dayton Fontaine Date of Service: 09/14/2019 Referring Physician(s) : Jony Noriega M.D. Primary Diagnosis: C79.51 - Secondary malignant neoplasm of bone, Diagnosed 08/27/2019 (Active) Z85.118 - Personal history of other malignant neoplasm of bronchus and lung, Diagnosed 01/19/2018 (Active) F17.211 - Nicotine dependence, cigarettes, in remission, Diagnosed 08/16/2015 (Active) C34.11 - Malignant neoplasm of upper lobe, right bronchus or lung, Diagnosed 12/16/2011 (Active) Stage IIIA, T1b, N2, M0 Radiotherapy to date: Course: [id number], Treatment Site: [id number], Ref. ID: [id number], Energy: 15X, Dose/Fx (cGy): 300, #Fx: , Dose Correction (cGy): 0, Total Dose (cGy): 2,400, Start Date: 09/02/2019, Elapsed Days: 12 Current Complaints/Interval History: Back pain comes and goes. Overall it is much better.. He rates it as 4 on a 10 scale of pain. He uses 800 mg of ibuprofen 3 times a day. He is eating well with no sore throat. 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 He was careful not to lift heavy objects. He is scheduled to see Dr. Noriega in follow-up on September 15 Constitutional Complains of mild fatigue. Complains of night sweats which occur every night. Denies lack of appetite and fever. ENMT Denies dysphagia. Cardiovascular Denies chest pain. Respiratory Complains of cough. Complains of mild dyspnea. Denies wheezing. Musculoskeletal Complains of bone pain in the middle of the back but the pain has improved significantly. Current Medications: Flonase, hYDROcodone-Acetaminophen, miraLax, neurontin, oxyCODONE HCl, pantoprazole Sodium, uroxatral, vitamin B6, vitamin D3. Allergies: Flomax. Vital Signs: Performed on 09/14/2019 11:11 AM BMI - 28.353 kg/m2 (high), Height - 70.00 in, Weight - 197.6 lbs, Temperature - 97.8 f, Pulse - 85, Respiration - 18, O2 Sat - 95 % (low), Pain - 4 and BP - 149/ 74 mm(hg)(high/). Physical Exam: Appears stable, no skin erythema or desquamation. Performance Status: 1 - No physically strenuous activity, but ambulatory and able to carry out light or sedentary work (e.g. office work, light house work). (ECOG) Lab: None pending in Radiation Oncology. Imaging: No new diagnostic imaging was performed since the last weekly treatment visit. All radiation therapy related imaging (including but not limited to kV, MV, and CBCT generated images) was reviewed. Appropriate changes, if any, were made to assure accurate target localization. Impression/Plan: Tolerating treatment well with expected side effects. Continue treatment as planned. He will return to Dr. Noriega to address systemic treatment and follow-up as scheduled on September 15 CPT: 51479 Signed by: Dr. Dayton Fontaine>09/14/2019 2:58:55 PM <<Signature on File>>
== END 2019-09-19 23:59 | disposition home or self-care (01) ==
LOC: ONCMED 06:46
PROVIDERS: Absent Provider Radiology Radiation Oncology; PCP Family Medicine; Visit Provider Internal Medicine Medical Oncology
DX: Z51.0 Encounter for antineoplastic radiation therapy (principal); C34.11 Malignant neoplasm of upper lobe, right bronchus or lung; R93.3 Abnormal findings on diagnostic imaging of other parts of digestive tract; R93.7 Abnormal findings on diagnostic imaging of other parts of musculoskeletal system; H81.03 Meniere's disease, bilateral; G62.9 Polyneuropathy, unspecified; F17.211 Nicotine dependence, cigarettes, in remission; K86.1 Other chronic pancreatitis; Z85.118 Personal history of other malignant neoplasm of bronchus and lung
CPT/HCPCS: 77290; 77295; 77300; 77334; 77336; 77387; 77412; 99205

== ENCOUNTER 2019-10-19 15:00 | Outpatient (CLI) | payer MEDICARE, OTHER, SELFPAY ==
--- NOTE | 2019-10-20 13:01 | ONC FU_ITS ---
Dr. Noriega Patient Follow-Up Note Patient: Isaiah Snyder Unit #: [id number]: 1940 Dicatated By: Jony Noriega M.D.Date of Visit:Oct 19, 2019 Onc Med Follow-up/Prog Note Chief Complaint: Lung cancer. 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 He now has evidence of metastatic disease on imaging studies. He was found to have a 2.5 cm right upper lobe lung mass in 2011. He had mediastinal and hilar node involvement by trans-bronchial needle aspiration biopsy in May of 2011, with pathology reporting metastatic poorly differentiated non-small cell carcinoma. He was given neoadjuvant chemotherapy with 2 cycles of carboplatin/Taxol. He was found to have a complete pathologic response at [facility]. He completed 2 additional cycles of chemotherapy postoperatively, and he was then given radiation to the hilar/mediastinal node regions to a total dose of 50.4 Gy, which he completed on 02/13/12. He did have problems following his surgery, mainly due to a prolonged post thoracotomy pain syndrome. He also developed significant neuropathy with the chemotherapy, but he did show gradual recovery during subsequent follow-up on observation/expectant management. His surveillance CT of the chest on 08/15/2016 showed postoperative changes of right upper lobectomy. There was stable loculated pleural effusion at the right lung base with chronic right atelectasis. There ws no mediastinal or hilar lymphadenopathy or other evidence of disease progression. He was advised to continue observation/expectant anagement. As he was 5 years out from completion of his treatment, I had recommended that he just continue his regular follow[place] [facility] [place]. I had seen him for a visit again on 01/19/2018. [facility] abnormalitites at the right lung base, but on review these were not significantly changed compared to prior studies. He continued on observation/expectant management. He has otherwise been in good health. 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 He does have a history of smoking 2 packs of cigarettes daily for approximately 40 years. He quit smoking in 1999. He indicated that he had significant asbestos exposure during service in the [employer]. INTERIM HISTORY: He had seen Dr. Perla in June with complaints of pain on both sides of his mid back radiating around to the epigastric area. Evaluation was delayed to the pandemic restrictions. His CT abdomen/pelvis on 08/09/2019 showed a 3.1 x 2.8 x 2.6 cm mass near the gregory hepatis, concerning for neoplasm. An osteolytic lesion in the T8 vertebral body was concerning for metastatic disease. There was moderate sized right pleural effusion. There was a small amount of atelectasis or consolidation in the right lower lobe and the lingula, pneumonia not excluded. A 2.0 x 1.3 x 1.7 cm heterogeneous lesion in the inferior pole of the left kidney was indeterminate. An L4 vertebral compression fracture was of indeterminate age. He was seen for a visit here on 08/12/2019. He had further evaluation with PET/CT on 08/14/2019. It showed evidence of an FDG avid spiculated left upper lobe mass measuring 3.4 x 2.2 cm, SUV 20.8. A medial right middle lobe subcentimeter nodule adjacent to the mediastinum was also FDG positive as were bilateral hilar lymph nodes, consistent with metastatic adenopathy. There were 2 sites of diffuse activity in the body of the pancreas, felt to be more likely inflammatory in origin. A 3 cm hypodense mass in the central right hepatic lobe at the gregory hepatis head SUV 9.2, consistent with metastatic disease. A lytic osseous lesion at T8 had SUV of 17.2, consistent with metastatic disease. There were no other osseous lesions noted. MRI of the spine on 08/16/2019 showed abnormal signal within the majority of the T8 vertebral body with extension of tumor into the posterior elements. There was retropulsion of the posterior endplate by 3 mm with mild compression on the right lateral thecal sac. There was moderate stenosis of the T8-9 foramen due to tumor and bone expansion. There was significant soft tissue tumor enhancement within the T8-9 foramen. There was mild facet joint arthritis throughout the thoracic spine and there were degenerative changes noted in the cervical and lumbar spine. There were no other sites of metastatic disease noted. Given his symptoms and the findings on the imaging studies, he was referred for palliative radiation. He completed course of treatment from T7-T10 on 09/16/2019 to a total dose of 3000 cGy. During that time, he had also been seen in consultation by Dr. Puckett, and on 09/03/2019 he underwent bronchoscopy/EBUS with endobronchial biopsies and with transbronchial FNA biopsy of mediastinal lymph nodes. 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 The next generation sequencing study showed positive PD-L1 expression for 22c3 at 2%. There were no actionable mutations identified. He is seen for a follow-up visit. He has noted significant improvement in his pain following the radiation, though it has not completely resolved. He still has some pain across the mid back/upper abdomen. He is doing some work, but less than he had been. His ECOG score is 1. He says his appetite is gone downhill. He has had a weight loss of 6 pounds. He complains of his nose runs every morning. He was having sore throat, but that is better. He has just occasional cough. He does not complain of shortness of breath or chest pain. He had some vomiting after breakfast this morning. He otherwise has not had nausea. His acid reflux is adequately managed with medication. Bowel and bladder function have been okay. He has no other joint or bone pain. He has some numbness in his right ring finger. He has no other focal neurologic symptoms. Medications: Flonase 2 [place]oy(s) (of 50 mcg/act) Suspension Nasal daily PRN, Ibuprofen 1 Tablet (of 800 mg) Tablet Oral t.i.d., MiraLax 1 Powder Oral daily, Neurontin 2 Tablet (of 300 mg) Oral t.i.d., Pantoprazole Sodium 1 Tablet (of 40 mg) Tablet, enteric coated Oral daily, Vitamin B6 1 Tablet Oral daily, Vitamin D3 1 Tablet (of 50 mcg ) Oral daily Allergies: Flomax Review of Systems: Constitutional - He is still doing work at home, but not as much as he had been. His appetite is gone downhill. He has had a weight loss of 6 pounds. He does not have fever or night sweats. ECOG score is 1, ENMT - He says his nose tends to run in the mornings. No mouth sores. No sore throat or difficulty swallowing, Hematologic/Lymphatic - He has easy bruising, Respiratory - No shortness of breath. He has just occasional cough. No pleuritic pain or hemoptysis, Cardiovascular - No angina pain. No palpitations, Gastrointestinal - He had some vomiting after breakfast this morning. He otherwise has not had nausea. Acid reflux is adequately managed with medication. No diarrhea or constipation. No blood in the stool or black stools, Genitourinary (M) - No dysuria or hematuria. No urinary frequency. No urgency or incontinence, Musculoskeletal - He still has a little pain in the mid back and across his upper abdomen, in the same area as before. He has no other joint or bone pain, Integumentary - No skin rash, Neurologic - No headache or dizziness. He has numbness in his right ring finger. He has no other focal neurologic symptoms, Psychiatric - No anxiety or depression. He is able to sleep 4 to 5 hours at night. Vital Signs: Performed on Oct 19, 2019 13:53 Height - 70.00 in Weight - 172.2 lbs (LOW) BSA - 1.96 sq.m BMI - 24.71 Temperature - 98.4 F Pulse - 98 /min Respiration - 18 /min BP - 139/74 mm(hg) O2 Sat - 96 % Pain - 0 Physical Examination: Constitutional - He looks pretty good generally, Eyes - Sclerae nonicteric. Conjunctivae clear, ENMT - No lesions noted in the oral cavity, Hematologic/Lymphatic - No cervical, clavicular, or axillary adenopathy, Respiratory - Lungs sound clear with good air movement bilaterally, Cardiovascular - Heart rhythm is regular. There is no murmur, gallop, or rub noted, Abdomen - Soft. Liver and spleen are not enlarged. There is no abdominal mass or ascites noted and there is no inguinal adenopathy, Extremities - No edema. There are 2 soft nodules on the ventral aspect of the distal left forearm/left wrist, Neurologic - No focal neurologic deficits noted. Impression: 1. 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 This appears to be new primary malignancy. By clinical evaluation, his disease is stage IVB (T2a, N3, M1c). His PD-L1 expression was positive at 2%. 2. He had presented with metastatic involvement in the T8 vertebral body. He has had significant symptomatic improvement following palliative radiation, completed on 09/16/2019 to a total dose of 3000 cGy. 3. He has a prior history of differentiated non-small cell carcinoma of the right lung, stage IIIA with complete pathologic response to neoadjuvant chemotherapy with 2 cycles of carboplatin/Taxol. He then underwent right upper lobectomy/mediastinal lymph node dissection in August 2011 followed by 2 additional cycles of chemotherapy and radiation to the hilar/mediastinal node region, which he completed in January 2012. His other medical pulses include: 4. 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 5. Benign prostatic hypertrophy. Plan: Is now completed his palliative radiation. As noted, he has had a good symptomatic response. With low positive PD-L1 expression (2%) and with no actionable mutation identified on his next generation sequencing, he is recommended now to begin a trial of systemic therapy with combined chemotherapy/immunotherapy. The options would be a dual immunotherapy regimen with 2 cycles of chemotherapy or single agent immunotherapy with 4 cycles of chemotherapy. In his situation, I would favor using carboplatin/pemetrexed for the chemotherapy regimen in spite of the adenosquamous histology, as he had experienced significant neuropathy during his previous treatment with carboplatin/paclitaxel. Considering his age and performance status and the risks of toxicity with dual immunotherapy, we have opted to proceed with the carboplatin/pemetrexed/pembrolizumab combination. Treatment will begin as soon as we have verification of insurance coverage. Signed By: Jony Noriega M.D. <<Signature on File>>
== END 2019-10-19 15:01 | disposition home or self-care (01) ==
LOC: ONCMED 15:03
PROVIDERS: PCP Family Medicine; Visit Provider Internal Medicine Medical Oncology
DX: C34.11 Malignant neoplasm of upper lobe, right bronchus or lung (principal); C79.51 Secondary malignant neoplasm of bone; H81.09 Meniere's disease, unspecified ear; N40.0 Benign prostatic hyperplasia without lower urinary tract symptoms; Z92.3 Personal history of irradiation; Z90.2 Acquired absence of lung [part of]; Z92.21 Personal history of antineoplastic chemotherapy; Z85.118 Personal history of other malignant neoplasm of bronchus and lung
CPT/HCPCS: 99214

== ENCOUNTER 2019-11-01 14:53 | Outpatient (CLI) | payer MEDICARE, OTHER, SELFPAY ==
[2019-11-01 15:14] LABS: Basophils # 0.1 10^3/uL (0.0-0.1); Eosinophils # 0.2 10^3/uL (0.0-0.8); Eosinophils % 4.8 %; Hematocrit 43.1 % (42.0-52.0); Hemoglobin 13.9 g/dL (11.7-16.6); Lymphocytes # 0.8 10^3/uL (0.8-4.8); Mean Corpuscular HGB Conc 32.3 g/dL (30.0-36.0); Mean Corpuscular Hemoglobin 28.5 pg (28.0-34.0); Mean Corpuscular Volume 88.5 fL (80-94); Mean Platelet Volume 9.8 fL (7.4-10.4); Monocytes # 0.4 10^3/uL (0.2-0.9); Monocytes % 7.4 %; Neutrophils # 3.58 10^3/uL (1.8-7.7); Neutrophils % 71.6 %; Nucleated Red Blood Cells % 0 %; Platelet Count 238 10^3/cmm (130-400); Red Blood Count 4.87 10^6/uL (4.1-5.3); Red Cell Distribution Width 13.7 % (12.1-15.1)
[2019-11-01 15:44] LABS: Alanine Aminotransferase 21 U/L (0-41); Albumin Level 4.3 g/dL (3.5-5.2); Alkaline Phosphatase 106 IU/L (40-130); Aspartate Amino Transferase 25 U/L (0-40); Blood Urea Nitrogen 17 mg/dL (8-23); Calcium 9.7 mg/dL (8.5-10.5); Carbon Dioxide 24 mmol/L (22-29); Chloride 104 mmol/L (98-107); Globulin 2.8 g/dL (1.3-4.6); Glucose 119 mg/dL (65-115); Osmolality Calculated 284 mOsm/kg (285-295); Sodium 138 mmol/L (136-145); Total Bilirubin 0.4 mg/dL (0.15-1.2); Total Protein 7.1 g/dL (6.6-8.7)
== END 2019-11-01 14:54 | disposition home or self-care (01) ==
LOC: ONCMED 14:57
PROVIDERS: PCP Family Medicine; Visit Provider Internal Medicine Medical Oncology
DX: C34.12 Malignant neoplasm of upper lobe, left bronchus or lung (principal); C79.51 Secondary malignant neoplasm of bone; F17.211 Nicotine dependence, cigarettes, in remission
CPT/HCPCS: 36415; 80053; 85025

== ENCOUNTER 2019-11-03 10:20 | Outpatient (CLI) | payer MEDICARE, OTHER, SELFPAY ==
[2019-11-03] MEDS: sodium chloride 0.9% 250 ML 999 ML IV (11:53)
== END 2019-11-03 10:21 | disposition home or self-care (01) ==
LOC: ONCMED 10:22
PROVIDERS: PCP Family Medicine; Visit Provider Internal Medicine Medical Oncology
DX: Z51.12 Encounter for antineoplastic immunotherapy (principal); Z51.11 Encounter for antineoplastic chemotherapy; C34.12 Malignant neoplasm of upper lobe, left bronchus or lung; C79.51 Secondary malignant neoplasm of bone; F17.211 Nicotine dependence, cigarettes, in remission; H81.03 Meniere's disease, bilateral; G62.0 Drug-induced polyneuropathy; T45.1X5A Adverse effect of antineoplastic and immunosuppressive drugs, initial encounter
CPT/HCPCS: 96367; 96413; 96417; J1100; J1200; J1453; J2469; J3490; J7050; J9045; J9271; J9305

== ENCOUNTER 2019-11-17 06:43 | Outpatient (RCR) | payer MEDICARE, OTHER, SELFPAY ==
[2019-11-09 11:58] LABS: Basophils % 0.7 %; Eosinophils # 0.3 10^3/uL (0.0-0.8); Eosinophils % 7.5 %; Hemoglobin 14.7 g/dL (11.7-16.6); Lymphocytes # 0.8 10^3/uL (0.8-4.8); Lymphocytes % 16.6 %; Mean Corpuscular HGB Conc 32.7 g/dL (30.0-36.0); Mean Corpuscular Hemoglobin 28.9 pg (28.0-34.0); Mean Corpuscular Volume 88.4 fL (80-94); Mean Platelet Volume 10.3 fL (7.4-10.4); Monocytes # 0.1 10^3/uL (0.2-0.9); Neutrophils # 3.29 10^3/uL (1.8-7.7); Nucleated Red Blood Cells % 0 %; Platelet Count 226 10^3/cmm (130-400); Red Blood Count 5.09 10^6/uL (4.1-5.3); White Blood Count 4.5 10^3/uL (4.0-10.0)
--- NOTE | 2019-11-12 15:07 | ONC FU_ITS ---
[facility] Patient Note Patient: Isaiah Snyder Unit #: [id number]: [id number] Dictated By: Minh MclaughlinDate of Visit: Nov 11, 2019 Onc MED Follow-Up/Prog Note Chief Complaint: Lung cancer. 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 He now has evidence of metastatic disease on imaging studies. He was found to have a 2.5 cm right upper lobe lung mass in 2011. He had mediastinal and hilar node involvement by trans-bronchial needle aspiration biopsy in May of 2011, with pathology reporting metastatic poorly differentiated non-small cell carcinoma. He was given neoadjuvant chemotherapy with 2 cycles of carboplatin/Taxol. He was found to have a complete pathologic response at right upper lobectomy/mediastinal lymph node dissection at [facility] in August of 2011. He completed 2 additional cycles of chemotherapy postoperatively, and he was then given radiation to the hilar/mediastinal node regions to a total dose of 50.4 Gy, which he completed on 02/13/12. He did have problems following his surgery, mainly due to a prolonged post thoracotomy pain syndrome. He also developed significant neuropathy with the chemotherapy, but he did show gradual recovery during subsequent follow-up on observation/expectant management. His surveillance CT of the chest on 08/15/2016 showed postoperative changes of right upper lobectomy. There was stable loculated pleural effusion at the right lung base with chronic right atelectasis. There ws no mediastinal or hilar lymphadenopathy or other evidence of disease progression. He was advised to continue observation/expectant anagement. As he was 5 years out from completion of his treatment, Dr Noriega had recommended that he just continue his regular follow-up at the CT. Dr Noriega had seen him for a visit again on 01/19/2018. [facility] abnormalitites at the right lung base, but on review these were not significantly changed compared to prior studies. He continued on observation/expectant management. He has otherwise been in good health. 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 He does have a history of smoking 2 packs of cigarettes daily for approximately 40 years. He quit smoking in 1999. He indicated that he had significant asbestos exposure during service in the [employer]. INTERIM HISTORY: He had seen Dr. Perla in June with complaints of pain on both sides of his mid back radiating around to the epigastric area. Evaluation was delayed to the pandemic restrictions. His CT abdomen/pelvis on 08/09/2019 showed a 3.1 x 2.8 x 2.6 cm mass near the gregory hepatis, concerning for neoplasm. An osteolytic lesion in the T8 vertebral body was concerning for metastatic disease. There was moderate sized right pleural effusion. There was a small amount of atelectasis or consolidation in the right lower lobe and the lingula, pneumonia not excluded. A 2.0 x 1.3 x 1.7 cm heterogeneous lesion in the inferior pole of the left kidney was indeterminate. An L4 vertebral compression fracture was of indeterminate age. He was seen for a visit here on 08/12/2019. He had further evaluation with PET/CT on 08/14/2019. It showed evidence of an FDG avid spiculated left upper lobe mass measuring 3.4 x 2.2 cm, SUV 20.8. A medial right middle lobe subcentimeter nodule adjacent to the mediastinum was also FDG positive as were bilateral hilar lymph nodes, consistent with metastatic adenopathy. There were 2 sites of diffuse activity in the body of the pancreas, felt to be more likely inflammatory in origin. A 3 cm hypodense mass in the central right hepatic lobe at the gregory hepatis head SUV 9.2, consistent with metastatic disease. A lytic osseous lesion at T8 had SUV of 17.2, consistent with metastatic disease. There were no other osseous lesions noted. MRI of the spine on 08/16/2019 showed abnormal signal within the majority of the T8 vertebral body with extension of tumor into the posterior elements. There was retropulsion of the posterior endplate by 3 mm with mild compression on the right lateral thecal sac. There was moderate stenosis of the T8-9 foramen due to tumor and bone expansion. There was significant soft tissue tumor enhancement within the T8-9 foramen. There was mild facet joint arthritis throughout the thoracic spine and there were degenerative changes noted in the cervical and lumbar spine. There were no other sites of metastatic disease noted. Given his symptoms and the findings on the imaging studies, he was referred for palliative radiation. He completed course of treatment from T7-T10 on 09/16/2019 to a total dose of 3000 cGy. During that time, he had also been seen in consultation by Dr. Puckett, and on 09/03/2019 he underwent bronchoscopy/EBUS with endobronchial biopsies and with transbronchial FNA biopsy of mediastinal lymph nodes. 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 The next generation sequencing study showed positive PD-L1 expression for 22c3 at 2%. There were no actionable mutations identified. Mr. Snyder is here for day 8 follow-up after cycle 1 carboplatin Alimta Keytruda began on 11/03/2019. He states today he is feeling pretty good. However he states Friday he was crashed . He states he just felt weak and washed out. He denies any nausea or vomiting. He had no fever or chills. He has had no diarrhea or constipation. He denies mouth sores, sore throat or difficulty swallowing. He denies any neuropathy symptoms. He states he just felt washed out and just could not get off the couch or the bed . That resolved on Friday and since then he is felt really good. He is remained active. He states he is eating good. He has no concerns today. He denies any pain. His ECOG is 0 today. Past Medical History: Hstory of pancreatitis Meniere's Disease Peripheral neuropathy due to chemotherapy Non-small cell lung cancer in 2011 (Treated: surgery,chemo/readition) Past Surgical History: Right shoulder surgery in 2019 Thoractotomy with right upper lobectomy and mediastinal lymph node dissection in 2012 Bronchoscopy in 2011 TURP in 2002 Allergies: Flomax Medications: Flonase 2 [place](s) (of 50 mcg/act) Suspension Nasal daily PRN Ibuprofen 1 Tablet (of 800 mg) Tablet Oral t.i.d. MiraLax 1 Powder Oral daily Neurontin 2 Tablet (of 300 mg) Oral t.i.d. Pantoprazole Sodium 1 Tablet (of 40 mg) Tablet, enteric coated Oral daily Vitamin B6 1 Tablet Oral daily Vitamin D3 1 Tablet (of 50 mcg ) Oral daily Family History: Mr. Snyder's father at age 89: stroke. Mr. Snyder has 2 brothers: 2 . Mr. Snyder's first brother's lung cancer. Another brother's melanoma cancer. Father of stroke at age 89. A brother of lung cancer and another brother of melanoma. Social History: Mr. Snyder is and he is retired. Mr. Snyder quit smoking 13 years ago but had smoked 2.0 packs/day for 40 years. He is an active drinker.He consumes 2 drinks/day. Mr. Snyder reports contact with the following hazardous materials: asbestos. He has indicated exposure to the following products: cigarettes. Mr. Snyder reports the following support systems: lives with spouse, significant other, family, or friends, lives in own house, supportive family/friends willing to assist with needs, and adequate transportation available for expected visits. His diet consists of regular meals. He indicates his activity level as: daily activities. He has a history of smoking 2 packs of cigarettes daily for 40 years. He quit smoking in 1999. Alcohol use is estimated 2 beers daily. He reports having had asbestos exposure during the [employer]. Review Of Symptoms: Constitutional Denies fevers, chills, night sweats, excessive fatigue or weight loss. Allergic/Immunologic No reactions. Eyes Denies significant visual changes. No diplopia. No amaurosis. ENMT Denies changes in hearing, sore throat, mouth sores, difficulty or changes in swallowing ability, and/or sinus drainage. Endocrine No diabetes, thyroid disease or hormone replacement. Denies hot flashes or night sweats. Hematologic/Lymphatic Denies easy bruising or bleeding. The patient denies any tender or palpable lymph nodes. Respiratory Denies dyspnea on exertion, chest pain, cough or hemoptysis. Denies orthopnea. Cardiovascular Denies anginal chest pain, palpitations or orthopnea. Gastrointestinal Denies nausea, vomiting, diarrhea, GI bleeding, or constipation. Denies change in bowel habits and/or stool color, no heartburn or early satiety. Genitourinary (M) Denies hematuria, dysuria, increased frequency, urgency, hesitancy or incontinence. Musculoskeletal Denies joint pain, swelling or redness. No decreased range of motion. Integumentary Denies chronic rashes, inflammation, ulcerations or skin changes. Neurologic Denies headache, blurred vision, and no areas of focal weakness or numbness. Normal gait. No sensory problems. Psychiatric Denies insomnia, depression, hortensia or mood swings. Vital Signs: Performed on Nov 11, 2019 11:03 Height - 70.00 in Weight - 168. lbs (LOW) BSA - 1.94 sq.m BMI - 24.11 Temperature - 98.7 F Pulse - 88 /min Respiration - 16 /min BP - 115/75 mm(hg) O2 Sat - 95 % (LOW) Pain - 0,0 - Fully active, able to carry on all predisease activities without restrictions. (ECOG) Physical Examination: Constitutional Alert, oriented, no acute distress. Skin pink, warm and dry. Head Normocephalic; atraumatic. Eyes Conjunctivae and sclerae are clear and without icterus. Pupils are reactive and equal. Neck Supple without masses or thyromegaly. No jugular venous distension. Hematologic/Lymphatic No petechiae or purpura. No tender or palpable lymph nodes in the cervical or supraclavicular areas. Respiratory Lungs are clear to auscultation without rhonchi or wheezing. Cardiovascular Regular rate and rhythm of heart without murmurs,clicks, gallops or rubs. Abdomen Non-tender, non-distended, no masses or ascites. Good bowel sounds noted in all quads. No guarding or rebound tenderness. No pulsatile masses. Back/Spine Non-tender to palpation. Extremities No visible deformities, no cyanosis, clubbing or edema. Musculoskeletal No tenderness or swelling, normal range of motion without obvious weakness. Integumentary No rashes or lesions. Neurologic No sensory or motor deficits, normal cerebellar function, normal gait. Psychiatric Alert and oriented times three. Coherent speech. Verbalizes understanding of our discussions today. Laboratory:Test performed on Nov 09, 2019 11:38 WBC 4.5 10 3/uL RBC 5.09 10 6/uL HGB 14.7 g/dL HCT 45.0 % MCV 88.4 fL MCH 28.9 pg MCHC 32.7 g/dL RDW 13.0 % Platelet Count 226 10 3/cmm MPV 10.3 fL Neutrophils 3.29 10 3/uL Lymphocytes 0.8 10 3/uL Monocytes 0.1 10 3/uL Eosinophils 0.3 10 3/uL Basophils 0.0 10 3/uL Neutrophil % 73.0 % Lymphocyte % 16.6 % Monocyte % 2.0 % Eosinophil % 7.5 % Basophils % 0.7 % NRBC % 0 % Test performed on Nov 01, 2019 15:05 Sodium 138 mmol/L Potassium 4.0 mmol/L Chloride 104 mmol/L CO2 24 mmol/L Anion Gap 14.0 BUN 17 mg/dL Creatinine 1.4 mg/dL Cr Clearance (Est) 48.0400 mL/min Glucose 119 mg/dL Calcium 9.7 mg/dL Protein, Total 7.1 g/dL Albumin 4.3 g/dL Globulin 2.8 g/dL Bilirubin, Total 0.4 mg/dL ALT (SGPT) 21 U/L AST (SGOT) 25 U/L Alkaline Phosphatase 106 IU/L Impression: 1. 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 This appears to be new primary malignancy. By clinical evaluation, his disease is stage IVB (T2a, N3, M1c). His PD-L1 expression was positive at 2%. 2. He had presented with metastatic involvement in the T8 vertebral body. He has had significant symptomatic improvement following palliative radiation, completed on 09/16/2019 to a total dose of 3000 cGy. 3. He has a prior history of differentiated non-small cell carcinoma of the right lung, stage IIIA with complete pathologic response to neoadjuvant chemotherapy with 2 cycles of carboplatin/Taxol. He then underwent right upper lobectomy/mediastinal lymph node dissection in August 2011 followed by 2 additional cycles of chemotherapy and radiation to the hilar/mediastinal node region, which he completed in January 2012. His other medical pulses include: 4. 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 5. Benign prostatic hypertrophy. Mr Snyder completed his palliative radiation. As noted, he has had a good symptomatic response. With low positive PD-L1 expression (2%) and with no actionable mutation identified on his next generation sequencing, he is recommended now to begin a trial of systemic therapy with combined chemotherapy/immunotherapy. The options would be a dual immunotherapy regimen with 2 cycles of chemotherapy or single agent immunotherapy with 4 cycles of chemotherapy. In his situation, Dr Noriega recommended using carboplatin/pemetrexed for the chemotherapy regimen in spite of the adenosquamous histology, as he had experienced significant neuropathy during his previous treatment with carboplatin/paclitaxel. Considering his age and performance status and the risks of toxicity with dual immunotherapy, we have opted to proceed with the carboplatin/pemetrexed/pembrolizumab combination. He began his first cycle on 11/03/2019. Plan: 1. Continue with cycle 1 plan of care. This is day 8. 2. Labs from November 09, 2019 were reviewed in detail and discussed with and Mrs. Snyder and a copy was given to them. WBC 4.5, hemoglobin 14.7 platelets 226,000 ANC is 3300. Creatinine/CMP was not performed. 3. He is recovering well from his first week. He did have a crash on Friday and Friday. I suspect this could have been from the chemo/steroid premed. We have discussed briefly about possible small steroid taper with cycle 2 to see if we can avoid this crash/washout feeling. He is now recovered from that and is able to do all his ADLs without assistance and feels good . 4. We will plan for weekly CBC CMP which will be done here instead of [facility] at Mr. Snyder's request. 5. We will see him back in 2 weeks with CBC. CMP, and TSH at which time he will be due for cycle 2 carbo Alimta/Keytruda. 5. Mr. Snyder was instructed to contact us in the interim should questions or problems arise. Signed By: Minh Mclaughlin-, [facility] Jony Noriega MD <<Signature on File>>
[2019-11-17 12:32] LABS: Eosinophils # 0.1 10^3/uL (0.0-0.8); Hematocrit 41.2 % (42.0-52.0); Hemoglobin 13.4 g/dL (11.7-16.6); Lymphocytes # 0.5 10^3/uL (0.8-4.8); Lymphocytes % 22.3 %; Mean Corpuscular HGB Conc 32.5 g/dL (30.0-36.0); Mean Corpuscular Hemoglobin 28.7 pg (28.0-34.0); Mean Corpuscular Volume 88.2 fL (80-94); Mean Platelet Volume 10.2 fL (7.4-10.4); Monocytes # 0.4 10^3/uL (0.2-0.9); Monocytes % 15.3 %; Neutrophils # 1.39 10^3/uL (1.8-7.7); Neutrophils % 57.4 %; Nucleated Red Blood Cells % 0 %; Platelet Count 174 10^3/cmm (130-400); Red Blood Count 4.67 10^6/uL (4.1-5.3); Red Cell Distribution Width 13.5 % (12.1-15.1); White Blood Count 2.4 10^3/uL (4.0-10.0)
[2019-11-17 13:14] LABS: Alanine Aminotransferase 23 U/L (0-41); Albumin Level 4.1 g/dL (3.5-5.2); Alkaline Phosphatase 118 IU/L (40-130); Anion Gap 15.2 (5-19); Aspartate Amino Transferase 29 U/L (0-40); Blood Urea Nitrogen 12 mg/dL (8-23); Calcium 9.8 mg/dL (8.5-10.5); Carbon Dioxide 24 mmol/L (22-29); Chloride 104 mmol/L (98-107); Globulin 2.6 g/dL (1.3-4.6); Glucose 101 mg/dL (65-115); Osmolality Calculated 284 mOsm/kg (285-295); Potassium 4.2 mmol/L (3.5-5.1); Sodium 139 mmol/L (136-145); Total Bilirubin 0.3 mg/dL (0.15-1.2); Total Protein 6.7 g/dL (6.6-8.7)
== END 2019-11-19 23:59 | disposition home or self-care (01) ==
LOC: ONCMED 06:43
PROVIDERS: PCP Family Medicine; Visit Provider Internal Medicine Medical Oncology
DX: C34.12 Malignant neoplasm of upper lobe, left bronchus or lung (principal); C79.51 Secondary malignant neoplasm of bone; H81.09 Meniere's disease, unspecified ear; N40.0 Benign prostatic hyperplasia without lower urinary tract symptoms; Z79.899 Other long term (current) drug therapy; Z79.52 Long term (current) use of systemic steroids; Z92.3 Personal history of irradiation
CPT/HCPCS: 80053; 85025; 99214

== ENCOUNTER 2019-12-15 05:42 | Outpatient (RCR) | payer MEDICARE, OTHER, SELFPAY ==
[2019-11-24 08:40] LABS: Basophils % 0.2 %; Hematocrit 44.3 % (42.0-52.0); Hemoglobin 14.7 g/dL (11.7-16.6); Lymphocytes # 0.6 10^3/uL (0.8-4.8); Lymphocytes % 9.5 %; Mean Corpuscular HGB Conc 33.2 g/dL (30.0-36.0); Mean Corpuscular Hemoglobin 29.4 pg (28.0-34.0); Mean Corpuscular Volume 88.6 fL (80-94); Mean Platelet Volume 9.8 fL (7.4-10.4); Monocytes # 0.4 10^3/uL (0.2-0.9); Monocytes % 6.4 %; Neutrophils # 4.84 10^3/uL (1.8-7.7); Neutrophils % 83.4 %; Nucleated Red Blood Cells % 0 %; Platelet Count 358 10^3/cmm (130-400); Red Cell Distribution Width 13.9 % (12.1-15.1); White Blood Count 5.8 10^3/uL (4.0-10.0)
[2019-11-24 09:12] LABS: Alanine Aminotransferase 24 U/L (0-41); Albumin Level 4.3 g/dL (3.5-5.2); Alkaline Phosphatase 111 IU/L (40-130); Aspartate Amino Transferase 25 U/L (0-40); Blood Urea Nitrogen 17 mg/dL (8-23); Calcium 9.7 mg/dL (8.5-10.5); Carbon Dioxide 24 mmol/L (22-29); Chloride 102 mmol/L (98-107); Globulin 3.4 g/dL (1.3-4.6); Glucose 138 mg/dL (65-115); Osmolality Calculated 283 mOsm/kg (285-295); Sodium 137 mmol/L (136-145); Total Bilirubin 0.3 mg/dL (0.15-1.2); Total Protein 7.7 g/dL (6.6-8.7)
[2019-11-24] MEDS: sodium chloride 0.9% 250 ML 999 ML IV (10:49)
--- NOTE | 2019-11-28 21:15 | ONC FU_ITS ---
[facility] Patient Note Patient: Isaiah Snyder Unit #: [id number]: 1940 Dictated By: Minh MclaughlinDate of Visit: Nov 24, 2019 Onc MED Follow-Up/Prog Note Chief Complaint: Lung cancer. 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 He now has evidence of metastatic disease on imaging studies. He was found to have a 2.5 cm right upper lobe lung mass in 2011. He had mediastinal and hilar node involvement by trans-bronchial needle aspiration biopsy in May of 2011, with pathology reporting metastatic poorly differentiated non-small cell carcinoma. He was given neoadjuvant chemotherapy with 2 cycles of carboplatin/Taxol. He was found to have a complete pathologic response at right upper lobectomy/mediastinal lymph node dissection at [facility] in August of 2011. He completed 2 additional cycles of chemotherapy postoperatively, and he was then given radiation to the hilar/mediastinal node regions to a total dose of 50.4 Gy, which he completed on 02/13/12. He did have problems following his surgery, mainly due to a prolonged post thoracotomy pain syndrome. He also developed significant neuropathy with the chemotherapy, but he did show gradual recovery during subsequent follow-up on observation/expectant management. His surveillance CT of the chest on 08/15/2016 showed postoperative changes of right upper lobectomy. There was stable loculated pleural effusion at the right lung base with chronic right atelectasis. There was no mediastinal or hilar lymphadenopathy or other evidence of disease progression. He was advised to continue observation/expectant management. As he was 5 years out from completion of his treatment, Dr Noriega had recommended that he just continue his regular follow-up at the [facility]. Dr Noriega had seen him for a visit again on 01/19/2018. [facility] abnormalities at the right lung base, but on review these were not significantly changed compared to prior studies. He continued on observation/expectant management. He has otherwise been in good health. 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 He does have a history of smoking 2 packs of cigarettes daily for approximately 40 years. He quit smoking in 1999. He indicated that he had significant asbestos exposure during service in the [employer]. INTERIM HISTORY: He had seen Dr. Perla in June with complaints of pain on both sides of his mid back radiating around to the epigastric area. Evaluation was delayed to the pandemic restrictions. His CT abdomen/pelvis on 08/09/2019 showed a 3.1 x 2.8 x 2.6 cm mass near the gregory hepatis, concerning for neoplasm. An osteolytic lesion in the T8 vertebral body was concerning for metastatic disease. There was moderate sized right pleural effusion. There was a small amount of atelectasis or consolidation in the right lower lobe and the lingula, pneumonia not excluded. A 2.0 x 1.3 x 1.7 cm heterogeneous lesion in the inferior pole of the left kidney was indeterminate. An L4 vertebral compression fracture was of indeterminate age. He was seen for a visit here on 08/12/2019. He had further evaluation with PET/CT on 08/14/2019. It showed evidence of an FDG avid spiculated left upper lobe mass measuring 3.4 x 2.2 cm, SUV 20.8. A medial right middle lobe subcentimeter nodule adjacent to the mediastinum was also FDG positive as were bilateral hilar lymph nodes, consistent with metastatic adenopathy. There were 2 sites of diffuse activity in the body of the pancreas, felt to be more likely inflammatory in origin. A 3 cm hypodense mass in the central right hepatic lobe at the gregory hepatis head SUV 9.2, consistent with metastatic disease. A lytic osseous lesion at T8 had SUV of 17.2, consistent with metastatic disease. There were no other osseous lesions noted. MRI of the spine on 08/16/2019 showed abnormal signal within the majority of the T8 vertebral body with extension of tumor into the posterior elements. There was retropulsion of the posterior endplate by 3 mm with mild compression on the right lateral thecal sac. There was moderate stenosis of the T8-9 foramen due to tumor and bone expansion. There was significant soft tissue tumor enhancement within the T8-9 foramen. There was mild facet joint arthritis throughout the thoracic spine and there were degenerative changes noted in the cervical and lumbar spine. There were no other sites of metastatic disease noted. Given his symptoms and the findings on the imaging studies, he was referred for palliative radiation. He completed course of treatment from T7-T10 on 09/16/2019 to a total dose of 3000 cGy. During that time, he had also been seen in consultation by Dr. Puckett, and on 09/03/2019 he underwent bronchoscopy/EBUS with endobronchial biopsies and with transbronchial FNA biopsy of mediastinal lymph nodes. 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 The next generation sequencing study showed positive PD-L1 expression for 22c3 at 2%. There were no actionable mutations identified. Mr. Snyder presented for day 8 follow-up on 11/11/2019 after cycle 1 carboplatin Alimta Keytruda began on 11/03/2019. He stated Friday, Friday and Friday after the chemo on 11/03/2019, he was crashed . He stated he just felt weak and washed out. That resolved by Friday and he has felt good since then. He denies any nausea or vomiting. He had no fever or chills. He has had no diarrhea or constipation. He denies mouth sores, sore throat or difficulty swallowing. He denies any neuropathy symptoms. He has remained active. He states he is eating good. He has no concerns today. He denies any pain. His ECOG is 0 today. Past Medical History: Hstory of pancreatitis Meniere's Disease Peripheral neuropathy due to chemotherapy Non-small cell lung cancer in 2011 (Treated: surgery,chemo/readition) Past Surgical History: Right shoulder surgery in 2019 Thoractotomy with right upper lobectomy and mediastinal lymph node dissection in 2011 Bronchoscopy in 2011 TURP in 2002 Allergies: Flomax Medications: Flonase 2 [place](s) (of 50 mcg/act) Suspension Nasal daily PRN Ibuprofen 1 Tablet (of 800 mg) Tablet Oral t.i.d. MiraLax 1 Powder Oral daily Neurontin 2 Tablet (of 300 mg) Oral t.i.d. Pantoprazole Sodium 1 Tablet (of 40 mg) Tablet, enteric coated Oral daily Vitamin B6 1 Tablet Oral daily Vitamin D3 1 Tablet (of 50 mcg ) Oral daily Family History: Mr. Snyder's father at age 89: stroke. Mr. Snyder has 2 brothers: 2 . Mr. Snyder's first brother's lung cancer. Another brother's melanoma cancer. Father of stroke at age 89. A brother of lung cancer and another brother of melanoma. Social History: Mr. Snyder is and he is retired. Mr. Snyder quit smoking 13 years ago but had smoked 2.0 packs/day for 40 years. He is an active drinker.He consumes 2 drinks/day. Mr. Snyder reports contact with the following hazardous materials: asbestos. He has indicated exposure to the following products: cigarettes. Mr. Snyder reports the following support systems: lives with spouse, significant other, family, or friends, lives in own house, supportive family/friends willing to assist with needs, and adequate transportation available for expected visits. His diet consists of regular meals. He indicates his activity level as: daily activities. Review Of Symptoms: Constitutional Denies fevers, chills, night sweats, excessive fatigue or weight loss. Allergic/Immunologic No reactions. Eyes Denies significant visual changes. No diplopia. No amaurosis. ENMT Denies changes in hearing, sore throat, mouth sores, difficulty or changes in swallowing ability, and/or sinus drainage. Endocrine No diabetes, thyroid disease or hormone replacement. Denies hot flashes or night sweats. Hematologic/Lymphatic Denies easy bruising or bleeding. The patient denies any tender or palpable lymph nodes. Respiratory Denies dyspnea on exertion, chest pain, cough or hemoptysis. Denies orthopnea. Cardiovascular Denies anginal chest pain, palpitations or orthopnea. Gastrointestinal Denies nausea, vomiting, diarrhea, GI bleeding, or constipation. Denies change in bowel habits and/or stool color, no heartburn or early satiety. Genitourinary (M) Denies hematuria, dysuria, increased frequency, urgency, hesitancy or incontinence. Musculoskeletal Denies joint pain, swelling or redness. No decreased range of motion. Integumentary Denies chronic rashes, inflammation, ulcerations or skin changes. Neurologic Denies headache, blurred vision, and no areas of focal weakness or numbness. Normal gait. No sensory problems. Psychiatric Denies insomnia, depression, hortensia or mood swings. Vital Signs: Performed on Nov 24, 2019 10:01 Height - 70.00 in Weight - 165.8 lbs (LOW) BSA - 1.93 sq.m BMI - 23.79 Temperature - 97.7 F (LOW) Pulse - 85 /min Respiration - 17 /min BP - 134/72 mm(hg) O2 Sat - 96 % Pain - 0,0 - Fully active, able to carry on all predisease activities without restrictions. (ECOG) Physical Examination: Constitutional Alert, oriented, no acute distress. Skin pink, warm and dry. Head Normocephalic; atraumatic. Eyes Conjunctivae and sclerae are clear and without icterus. Pupils are reactive and equal. Neck Supple without masses or thyromegaly. No jugular venous distension. Hematologic/Lymphatic No petechiae or purpura. No tender or palpable lymph nodes in the cervical or supraclavicular areas. Respiratory Lungs are clear to auscultation without rhonchi or wheezing. Cardiovascular Regular rate and rhythm of heart without murmurs,clicks, gallops or rubs. Abdomen Non-tender, non-distended, no masses or ascites. Good bowel sounds noted in all quads. No guarding or rebound tenderness. No pulsatile masses. Back/Spine Non-tender to palpation. Extremities No visible deformities, no cyanosis, clubbing or edema. Musculoskeletal No tenderness or swelling, normal range of motion without obvious weakness. Integumentary No rashes or lesions. Neurologic No sensory or motor deficits, normal cerebellar function, normal gait. Psychiatric Alert and oriented times three. Coherent speech. Verbalizes understanding of our discussions today. Laboratory:Test performed on Nov 24, 2019 08:23 Sodium 137 mmol/L Potassium 4.0 mmol/L Chloride 102 mmol/L CO2 24 mmol/L Anion Gap 15.0 BUN 17 mg/dL Creatinine 1.2 mg/dL Cr Clearance (Est) 56.0500 mL/min Glucose 138 mg/dL Calcium 9.7 mg/dL Protein, Total 7.7 g/dL Albumin 4.3 g/dL Globulin 3.4 g/dL Bilirubin, Total 0.3 mg/dL ALT (SGPT) 24 U/L AST (SGOT) 25 U/L Alkaline Phosphatase 111 IU/L WBC 5.8 10 3/uL RBC 5.00 10 6/uL HGB 14.7 g/dL HCT 44.3 % MCV 88.6 fL MCH 29.4 pg MCHC 33.2 g/dL RDW 13.9 % Platelet Count 358 10 3/cmm MPV 9.8 fL Neutrophils 4.84 10 3/uL Lymphocytes 0.6 10 3/uL Monocytes 0.4 10 3/uL Eosinophils 0.0 10 3/uL Basophils 0.0 10 3/uL Neutrophil % 83.4 % Lymphocyte % 9.5 % Monocyte % 6.4 % Eosinophil % 0.0 % Basophils % 0.2 % NRBC % 0 % Impression: 1. 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 This appears to be new primary malignancy. By clinical evaluation, his disease is stage IVB (T2a, N3, M1c). His PD-L1 expression was positive at 2%. 2. He had presented with metastatic involvement in the T8 vertebral body. He has had significant symptomatic improvement following palliative radiation, completed on 09/16/2019 to a total dose of 3000 cGy. 3. He has a prior history of differentiated non-small cell carcinoma of the right lung, stage IIIA with complete pathologic response to neoadjuvant chemotherapy with 2 cycles of carboplatin/Taxol. He then underwent right upper lobectomy/mediastinal lymph node dissection in August 2011 followed by 2 additional cycles of chemotherapy and radiation to the hilar/mediastinal node region, which he completed in January 2012. His other medical pulses include: 4. 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 5. Benign prostatic hypertrophy. Mr Snyder completed his palliative radiation. As noted, he has had a good symptomatic response. With low positive PD-L1 expression (2%) and with no actionable mutation identified on his next generation sequencing, he is recommended now to begin a trial of systemic therapy with combined chemotherapy/immunotherapy. The options would be a dual immunotherapy regimen with 2 cycles of chemotherapy or single agent immunotherapy with 4 cycles of chemotherapy. In his situation, Dr Noriega recommended using carboplatin/pemetrexed for the chemotherapy regimen in spite of the adenosquamous histology, as he had experienced significant neuropathy during his previous treatment with carboplatin/paclitaxel. Considering his age and performance status and the risks of toxicity with dual immunotherapy, we have opted to proceed with the carboplatin/pemetrexed/pembrolizumab combination. He began his first cycle on 11/03/2019. Plan: 1. Proceed with cycle 2 day 1 Carboplatin/Alimta/Keytruda 2. Labs from today were reviewed in detail and discussed with and Mrs. Snyder and a copy was given to them. WBC 5.8, hemoglobin 14.7 platelets 358,000 ANC is 4800. Creatinine 1.2,LFTs were normal. 3. Steroid taper starting day 2 after chemo: dexamethasone 4 m tablets on , 1 tablet on Friday and 1/2 tablet Friday and possilbly Friday if feeling weak/washed out, then may stop. If he feels good he may try stopping after Friday's dose. 4. We will plan for weekly CBC CMP which will be done here instead of [facility] at Mr. Snyder's request. 5. We will see him back in 3 weeks with CBC. CMP, and TSH at which time he will be due for cycle 3 carbo Alimta/Keytruda. 6. Mr. Snyder was instructed to contact us in the interim should questions or problems arise. 7. He was given a prescription (it was faxed to [facility]) for Ensure for nutritional supplementation. He states with a prescription, the [facility] will send it to him. Signed By: Minh Mclaughlin-, [facility] Jony Noreiga MD <<Signature on File>>
[2019-12-02 13:33] LABS: Eosinophils % 1.4 %; Hematocrit 38.8 % (42.0-52.0); Hemoglobin 12.9 g/dL (11.7-16.6); Lymphocytes # 0.8 10^3/uL (0.8-4.8); Lymphocytes % 26.4 %; Mean Corpuscular HGB Conc 33.2 g/dL (30.0-36.0); Mean Corpuscular Hemoglobin 29.7 pg (28.0-34.0); Mean Corpuscular Volume 89.4 fL (80-94); Mean Platelet Volume 10.2 fL (7.4-10.4); Monocytes # 0.1 10^3/uL (0.2-0.9); Monocytes % 4.5 %; Neutrophils # 1.96 10^3/uL (1.8-7.7); Nucleated Red Blood Cells % 0 %; Platelet Count 182 10^3/cmm (130-400); Red Blood Count 4.34 10^6/uL (4.1-5.3); Red Cell Distribution Width 13.2 % (12.1-15.1); White Blood Count 2.9 10^3/uL (4.0-10.0)
[2019-12-02 14:00] LABS: Alanine Aminotransferase 34 U/L (0-41); Albumin Level 3.9 g/dL (3.5-5.2); Alkaline Phosphatase 93 IU/L (40-130); Anion Gap 12.1 (5-19); Aspartate Amino Transferase 29 U/L (0-40); Blood Urea Nitrogen 23 mg/dL (8-23); Calcium 9.3 mg/dL (8.5-10.5); Carbon Dioxide 27 mmol/L (22-29); Chloride 102 mmol/L (98-107); Globulin 2.7 g/dL (1.3-4.6); Glucose 98 mg/dL (65-115); Osmolality Calculated 281 mOsm/kg (285-295); Potassium 4.1 mmol/L (3.5-5.1); Sodium 137 mmol/L (136-145); Total Bilirubin 0.3 mg/dL (0.15-1.2); Total Protein 6.6 g/dL (6.6-8.7)
[2019-12-07 12:49] LABS: Eosinophils % 1.3 %; Hematocrit 40.7 % (42.0-52.0); Lymphocytes # 0.6 10^3/uL (0.8-4.8); Lymphocytes % 24.2 %; Mean Corpuscular HGB Conc 31.9 g/dL (30.0-36.0); Mean Corpuscular Hemoglobin 28.4 pg (28.0-34.0); Mean Corpuscular Volume 88.9 fL (80-94); Mean Platelet Volume 10.3 fL (7.4-10.4); Monocytes # 0.5 10^3/uL (0.2-0.9); Monocytes % 19.2 %; Neutrophils # 1.32 10^3/uL (1.8-7.7); Neutrophils % 54.9 %; Nucleated Red Blood Cells % 0 %; Platelet Count 106 10^3/cmm (130-400); Red Blood Count 4.58 10^6/uL (4.1-5.3); Red Cell Distribution Width 13.9 % (12.1-15.1); White Blood Count 2.4 10^3/uL (4.0-10.0)
[2019-12-07 13:06] LABS: Alanine Aminotransferase 25 U/L (0-41); Albumin Level 3.9 g/dL (3.5-5.2); Alkaline Phosphatase 106 IU/L (40-130); Anion Gap 12.4 (5-19); Aspartate Amino Transferase 30 U/L (0-40); Blood Urea Nitrogen 18 mg/dL (8-23); Calcium 9.6 mg/dL (8.5-10.5); Carbon Dioxide 27 mmol/L (22-29); Chloride 103 mmol/L (98-107); Globulin 2.9 g/dL (1.3-4.6); Glucose 94 mg/dL (65-115); Osmolality Calculated 282 mOsm/kg (285-295); Potassium 4.4 mmol/L (3.5-5.1); Sodium 138 mmol/L (136-145); Total Bilirubin 0.3 mg/dL (0.15-1.2); Total Protein 6.8 g/dL (6.6-8.7)
[2019-12-15 11:00] LABS: Basophils % 0.2 %; Hematocrit 41.2 % (42.0-52.0); Hemoglobin 13.7 g/dL (11.7-16.6); Lymphocytes # 0.4 10^3/uL (0.8-4.8); Lymphocytes % 8.3 %; Mean Corpuscular HGB Conc 33.3 g/dL (30.0-36.0); Mean Corpuscular Hemoglobin 29.7 pg (28.0-34.0); Mean Corpuscular Volume 89.4 fL (80-94); Mean Platelet Volume 9.5 fL (7.4-10.4); Monocytes # 0.3 10^3/uL (0.2-0.9); Monocytes % 6.8 %; Neutrophils # 4.08 10^3/uL (1.8-7.7); Neutrophils % 84.3 %; Nucleated Red Blood Cells % 0 %; Platelet Count 312 10^3/cmm (130-400); Red Blood Count 4.61 10^6/uL (4.1-5.3); Red Cell Distribution Width 14.7 % (12.1-15.1); White Blood Count 4.8 10^3/uL (4.0-10.0)
[2019-12-15 12:08] LABS: Alanine Aminotransferase 20 U/L (0-41); Albumin Level 3.8 g/dL (3.5-5.2); Alkaline Phosphatase 109 IU/L (40-130); Anion Gap 14.4 (5-19); Aspartate Amino Transferase 26 U/L (0-40); Blood Urea Nitrogen 15 mg/dL (8-23); Calcium 9.7 mg/dL (8.5-10.5); Carbon Dioxide 23 mmol/L (22-29); Chloride 104 mmol/L (98-107); Globulin 2.7 g/dL (1.3-4.6); Glucose 122 mg/dL (65-115); Osmolality Calculated 282 mOsm/kg (285-295); Potassium 4.4 mmol/L (3.5-5.1); Sodium 137 mmol/L (136-145); Total Bilirubin 0.3 mg/dL (0.15-1.2); Total Protein 6.5 g/dL (6.6-8.7)
[2019-12-15] MEDS: sodium chloride 0.9% 250 ML 999 ML IV (12:35)
--- NOTE | 2019-12-19 12:32 | ONC FU_ITS ---
[facility] Patient Note Patient: Isaiah Snyder Unit #: [id number]: 1940 Dictated By: Minh MclaughlinDate of Visit: Dec 15, 2019 Onc MED Follow-Up/Prog Note Chief Complaint: Lung cancer. 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 He now has evidence of metastatic disease on imaging studies. He was found to have a 2.5 cm right upper lobe lung mass in 2011. He had mediastinal and hilar node involvement by trans-bronchial needle aspiration biopsy in May of 2011, with pathology reporting metastatic poorly differentiated non-small cell carcinoma. He was given neoadjuvant chemotherapy with 2 cycles of carboplatin/Taxol. He was found to have a complete pathologic response at right upper lobectomy/mediastinal lymph node dissection at [facility] in August of 2011. He completed 2 additional cycles of chemotherapy postoperatively, and he was then given radiation to the hilar/mediastinal node regions to a total dose of 50.4 Gy, which he completed on 02/13/12. He did have problems following his surgery, mainly due to a prolonged post thoracotomy pain syndrome. He also developed significant neuropathy with the chemotherapy, but he did show gradual recovery during subsequent follow-up on observation/expectant management. His surveillance CT of the chest on 08/15/2016 showed postoperative changes of right upper lobectomy. There was stable loculated pleural effusion at the right lung base with chronic right atelectasis. There was no mediastinal or hilar lymphadenopathy or other evidence of disease progression. He was advised to continue observation/expectant management. As he was 5 years out from completion of his treatment, Dr Noriega had recommended that he just continue his regular follow-up at the [facility] Noriega had seen him for a visit again on 01/19/2018. [facility] abnormalities at the right lung base, but on review these were not significantly changed compared to prior studies. He continued on observation/expectant management. Mr. Snyder is here today for follow-up. He has now completed 2 cycles of the carboplatin Alimta/Keytruda. He states overall he is feeling good. He states that he feels the steroid taper helped with cycle 2 and that he did not get his washed out and feel as bad as he did with the first 1. He states overall he feels good. He is eating good. His energy is good. He is able to do all his activities of daily living without any assistance. 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 He denies any shortness of breath orthopnea. He denies cough. He is had no hemoptysis. He denies fever or chills. He states he has had no nausea or vomiting. His bowels have been good for him. He has had no lower extremity edema. He denies any neuropathy symptoms. He denies any abdominal pain or severe diarrhea. His ECOG is 0. He has otherwise been in good health. 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 He does have a history of smoking 2 packs of cigarettes daily for approximately 40 years. He quit smoking in 1999. He indicated that he had significant asbestos exposure during service in the [employer]. INTERIM HISTORY: He had seen Dr. Perla in June with complaints of pain on both sides of his mid back radiating around to the epigastric area. Evaluation was delayed to the pandemic restrictions. His CT abdomen/pelvis on 08/09/2019 showed a 3.1 x 2.8 x 2.6 cm mass near the gregory hepatis, concerning for neoplasm. An osteolytic lesion in the T8 vertebral body was concerning for metastatic disease. There was moderate sized right pleural effusion. There was a small amount of atelectasis or consolidation in the right lower lobe and the lingula, pneumonia not excluded. A 2.0 x 1.3 x 1.7 cm heterogeneous lesion in the inferior pole of the left kidney was indeterminate. An L4 vertebral compression fracture was of indeterminate age. He was seen for a visit here on 08/12/2019. He had further evaluation with PET/CT on 08/14/2019. It showed evidence of an FDG avid spiculated left upper lobe mass measuring 3.4 x 2.2 cm, SUV 20.8. A medial right middle lobe subcentimeter nodule adjacent to the mediastinum was also FDG positive as were bilateral hilar lymph nodes, consistent with metastatic adenopathy. There were 2 sites of diffuse activity in the body of the pancreas, felt to be more likely inflammatory in origin. A 3 cm hypodense mass in the central right hepatic lobe at the gregory hepatis head SUV 9.2, consistent with metastatic disease. A lytic osseous lesion at T8 had SUV of 17.2, consistent with metastatic disease. There were no other osseous lesions noted. MRI of the spine on 08/16/2019 showed abnormal signal within the majority of the T8 vertebral body with extension of tumor into the posterior elements. There was retropulsion of the posterior endplate by 3 mm with mild compression on the right lateral thecal sac. There was moderate stenosis of the T8-9 foramen due to tumor and bone expansion. There was significant soft tissue tumor enhancement within the T8-9 foramen. There was mild facet joint arthritis throughout the thoracic spine and there were degenerative changes noted in the cervical and lumbar spine. There were no other sites of metastatic disease noted. Given his symptoms and the findings on the imaging studies, he was referred for palliative radiation. He completed course of treatment from T7-T10 on 09/16/2019 to a total dose of 3000 cGy. During that time, he had also been seen in consultation by Dr. Puckett, and on 09/03/2019 he underwent bronchoscopy/EBUS with endobronchial biopsies and with transbronchial FNA biopsy of mediastinal lymph nodes. 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 The next generation sequencing study showed positive PD-L1 expression for 22c3 at 2%. There were no actionable mutations identified. Mr. Snyder presented for day 8 follow-up on 11/11/2019 after cycle 1 carboplatin Alimta Keytruda began on 11/03/2019. He stated Friday, Friday and Friday after the chemo on 11/03/2019, he was crashed . He stated he just felt weak and washed out. That resolved by Friday. Past Medical History: Hstory of pancreatitis Meniere's Disease Peripheral neuropathy due to chemotherapy Non-small cell lung cancer in 2011 (Treated: surgery,chemo/readition) Past Surgical History: Right shoulder surgery in 2019 Thoractotomy with right upper lobectomy and mediastinal lymph node dissection in 2011 Bronchoscopy in 2011 TURP in 2002 Allergies: Flomax Medications: Flonase 2 [place](s) (of 50 mcg/act) Suspension Nasal daily PRN Ibuprofen 1 Tablet (of 800 mg) Tablet Oral t.i.d. MiraLax 1 Powder Oral daily Neurontin 2 Tablet (of 300 mg) Oral t.i.d. Pantoprazole Sodium 1 Tablet (of 40 mg) Tablet, enteric coated Oral daily Vitamin B6 1 Tablet Oral daily Vitamin D3 1 Tablet (of 50 mcg ) Oral daily Family History: Mr. Kellys father at age 89: stroke. Mr. Snyder has 2 brothers: 2 . Mr. Snyder's first brother's lung cancer. Another brother's melanoma cancer. Father of stroke at age 89. A brother of lung cancer and another brother of melanoma. Social History: Mr. Snyder is and he is retired. Mr. Snyder quit smoking 13 years ago but had smoked 2.0 packs/day for 40 years. He is an active drinker.He consumes 2 drinks/day. Mr. Snyder reports contact with the following hazardous materials: asbestos. He has indicated exposure to the following products: cigarettes. Mr. Snyder reports the following support systems: lives with spouse, significant other, family, or friends, lives in own house, supportive family/friends willing to assist with needs, and adequate transportation available for expected visits. His diet consists of regular meals. He indicates his activity level as: daily activities. Review Of Symptoms: Constitutional Denies fevers, chills, night sweats, excessive fatigue or weight loss. Allergic/Immunologic No reactions. Eyes Denies significant visual changes. No diplopia. No amaurosis. ENMT Denies changes in hearing, sore throat, mouth sores, difficulty or changes in swallowing ability, and/or sinus drainage. Endocrine No diabetes, thyroid disease or hormone replacement. Denies hot flashes or night sweats. Hematologic/Lymphatic Denies easy bruising or bleeding. The patient denies any tender or palpable lymph nodes. Respiratory Denies dyspnea on exertion, chest pain, cough or hemoptysis. Denies orthopnea. Cardiovascular Denies anginal chest pain, palpitations or orthopnea. Gastrointestinal Denies nausea, vomiting, diarrhea, GI bleeding, or constipation. Denies change in bowel habits and/or stool color, no heartburn or early satiety. Genitourinary (M) Denies hematuria, dysuria, increased frequency, urgency, hesitancy or incontinence. Musculoskeletal Denies joint pain, swelling or redness. No decreased range of motion. Integumentary Denies chronic rashes, inflammation, ulcerations or skin changes. Neurologic Denies headache, blurred vision, and no areas of focal weakness or numbness. Normal gait. No sensory problems. Psychiatric Denies insomnia, depression, hortensia or mood swings. Vital Signs: Performed on Dec 15, 2019 11:27 Height - 70.00 in Weight - 167.8 lbs (HIGH) BSA - 1.94 sq.m BMI - 24.08 Temperature - 97.8 F (LOW) Pulse - 97 /min Respiration - 18 /min BP - 125/78 mm(hg) O2 Sat - 97 % Pain - 0,1 - No physically strenuous activity, but ambulatory and able to carry out light or sedentary work (e.g. office work, light house work). (ECOG) Physical Examination: Constitutional Alert, oriented, no acute distress. Skin pink, warm and dry. Head Normocephalic; atraumatic. Eyes Conjunctivae and sclerae are clear and without icterus. Pupils are reactive and equal. Neck Supple without masses or thyromegaly. No jugular venous distension. Hematologic/Lymphatic No petechiae or purpura. No tender or palpable lymph nodes in the cervical or supraclavicular areas. Respiratory Lungs are clear to auscultation without rhonchi or wheezing. Cardiovascular Regular rate and rhythm of heart without murmurs,clicks, gallops or rubs. Abdomen Non-tender, non-distended, no masses or ascites. Good bowel sounds noted in all quads. No guarding or rebound tenderness. No pulsatile masses. Back/Spine Non-tender to palpation. Extremities No visible deformities, no cyanosis, clubbing or edema. Musculoskeletal No tenderness or swelling, normal range of motion without obvious weakness. Integumentary No rashes or lesions. Neurologic No sensory or motor deficits, normal cerebellar function, normal gait. Psychiatric Alert and oriented times three. Coherent speech. Verbalizes understanding of our discussions today. Laboratory:Test performed on Dec 15, 2019 12:12 Creatinine 1.1 mg/dL Cr Clearance (Est) 61.15 mL/min Test performed on Dec 15, 2019 11:20 Sodium 137 mmol/L Potassium 4.4 mmol/L Chloride 104 mmol/L CO2 23 mmol/L Anion Gap 14.4 BUN 15 mg/dL Glucose 122 mg/dL Calcium 9.7 mg/dL Protein, Total 6.5 g/dL Albumin 3.8 g/dL Globulin 2.7 g/dL Bilirubin, Total 0.3 mg/dL ALT (SGPT) 20 U/L AST (SGOT) 26 U/L Alkaline Phosphatase 109 IU/L Test performed on Dec 15, 2019 10:45 WBC 4.8 10 3/uL RBC 4.61 10 6/uL HGB 13.7 g/dL HCT 41.2 % MCV 89.4 fL MCH 29.7 pg MCHC 33.3 g/dL RDW 14.7 % Platelet Count 312 10 3/cmm MPV 9.5 fL Neutrophils 4.08 10 3/uL Lymphocytes 0.4 10 3/uL Monocytes 0.3 10 3/uL Eosinophils 0.0 10 3/uL Basophils 0.0 10 3/uL Neutrophil % 84.3 % Lymphocyte % 8.3 % Monocyte % 6.8 % Eosinophil % 0.0 % Basophils % 0.2 % NRBC % 0 % Impression: 1. 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 This appears to be new primary malignancy. By clinical evaluation, his disease is stage IVB (T2a, N3, M1c). His PD-L1 expression was positive at 2%. 2. He had presented with metastatic involvement in the T8 vertebral body. He has had significant symptomatic improvement following palliative radiation, completed on 09/16/2019 to a total dose of 3000 cGy. 3. He has a prior history of differentiated non-small cell carcinoma of the right lung, stage IIIA with complete pathologic response to neoadjuvant chemotherapy with 2 cycles of carboplatin/Taxol. He then underwent right upper lobectomy/mediastinal lymph node dissection in August 2011 followed by 2 additional cycles of chemotherapy and radiation to the hilar/mediastinal node region, which he completed in January 2012. His other medical pulses include: 4. 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 5. Benign prostatic hypertrophy. Mr Snyder completed his palliative radiation. As noted, he has had a good symptomatic response. With low positive PD-L1 expression (2%) and with no actionable mutation identified on his next generation sequencing, he is recommended now to begin a trial of systemic therapy with combined chemotherapy/immunotherapy. The options would be a dual immunotherapy regimen with 2 cycles of chemotherapy or single agent immunotherapy with 4 cycles of chemotherapy. In his situation, Dr Noriega recommended using carboplatin/pemetrexed for the chemotherapy regimen in spite of the adenosquamous histology, as he had experienced significant neuropathy during his previous treatment with carboplatin/paclitaxel. Considering his age and performance status and the risks of toxicity with dual immunotherapy, we have opted to proceed with the carboplatin/pemetrexed/pembrolizumab combination. He began his first cycle on 11/03/2019. Plan: 1. Proceed with cycle 3 day 1 Carboplatin/Alimta/Keytruda 2. Labs from today were reviewed in detail and discussed with and Mrs. Snyder and a copy was given to them. WBC 4.8, hemoglobin 13.7 platelets 312,000 ANC is 4000. Creatinine 1.1 LFTs are normal. Weight is improved at 167.8 which is up 2 pounds. 3. Steroid taper starting day 2 after chemo: dexamethasone 4 m tablets on , 1 tablet on Friday and 1/2 tablet Friday and possilbly Friday if feeling weak/washed out, then may stop. If he feels good he may try stopping after Friday's dose. 4. We will plan for weekly CBC CMP which will be done here instead of [facility] at Mr. Snyder's request. 5. We will see him back in 3 weeks with CBC. CMP, and TSH at which time he will be due for cycle 4 carbo Alimta/Keytruda. He will have repeat imaging for restaging after this third cycle. A CT scan of the chest abdomen pelvis with contrast has been requested. 6. Mr. Snyder was instructed to contact us in the interim should questions or problems arise. Signed By: Minh Mclaughlin-, AOP Jony Noriega MD <<Signature on File>>
== END 2019-12-20 23:59 | disposition home or self-care (01) ==
LOC: ONCMED 05:42
PROVIDERS: PCP Family Medicine; Visit Provider Nurse Practitioner
DX: Z51.12 Encounter for antineoplastic immunotherapy (principal); Z51.11 Encounter for antineoplastic chemotherapy; C34.12 Malignant neoplasm of upper lobe, left bronchus or lung; C79.51 Secondary malignant neoplasm of bone; Z51.81 Encounter for therapeutic drug level monitoring; Z79.899 Other long term (current) drug therapy; H81.09 Meniere's disease, unspecified ear; N40.0 Benign prostatic hyperplasia without lower urinary tract symptoms; Z85.118 Personal history of other malignant neoplasm of bronchus and lung; Z90.2 Acquired absence of lung [part of]; Z77.090 Contact with and (suspected) exposure to asbestos; Z92.3 Personal history of irradiation; Z79.52 Long term (current) use of systemic steroids; Z87.891 Personal history of nicotine dependence
CPT/HCPCS: 36415; 80053; 85025; 96367; 96413; 96417; 99214; J1100; J1200; J1453; J2469; J3490; J7050; J9045; J9271; J9305

== ENCOUNTER 2020-01-05 05:34 | Outpatient (RCR) | payer MEDICARE, OTHER, SELFPAY ==
--- NOTE | 2020-01-03 | CT_ITS ---
WS: [id number] CT CHEST, ABDOMEN, AND PELVIS TECHNIQUE: Contrast-enhanced CT of the chest, abdomen, and pelvis with coronal and sagittal reformatt ed images. CLINICAL INFORMATION: LUNG CANCER/BONE CANCER METS F/U COMPARISON: CT chest September 03, 2019. CT of the pelvis August 09, 2019. PET CT August 14, 2019 DLP: 2210.[address] scans at [facility] use at least one of these dose optimization techniques: automat ed exposure control; mA and/or kV adjustment per patient size (includes targeted exams where dose is matched to clinical indication); or iterative reconstruction. CT CHEST: Again seen is the solid spiculated left upper lobe mass is decreased in size since the prior PET/CT A pri2019. Today this measures 2.7 x 2.1 cm compared to 3.4 x 2.2 cm previous. Right middle lobe nodule measuring 9 mm previously shown to be FDG avid is stable. No new suspicious pulmonary opacitie s. Pleural thickening along the left upper lobe fissure is unchanged. Proximal main pulmonary arteries are normal. Normal caliber thoracic aorta. No progressed mediastinal or hilar lymphadenopathy. No axillary lymphadenopathy. CT ABDOMEN AND PELVIS: Progressed heterogeneously enhancing mass in the central right hepatic lobe previously shown to be FD G avid and today measuring 3.4 x 3.1 cm. This measured approximately 3 cm previous. Stable lytic meta static osseous lesion involving the T8 vertebral body. Incidental fat-containing umbilical hernia. Small calculus or polyp at the gallbladder neck. Fatty atrophy of the pancreas. Adrenal glands are no rmal. Normal renal parenchymal enhancement. No hydronephrosis. Right renal cyst measuring 2.9 x 2.9 C M. No periaortic or inguinal lymphadenopathy. Prior prostate TURP defect. CT/CT chest abd pel w con* IMPRESSION: 1. Interval decrease in size of the spiculated left upper lobe mass today asif uring 2.7 x 2.1 cm. 2. Metastatic lesion in the central right hepatic lobe has progressed slightly compared to previous. 3. Stable lytic metastatic lesion T8 vertebral body. 4. Stable moderate right pleural effusion. 5. Previously described FDG avid right middle lobe lesion is stable measuring approximately 9 mm. 6. Small calculus or polyp in the gallbladder neck. This can be further evalua amol with ultrasound. 7. Heterogeneously enhancing prostate with TURP defect.Correlation PSA.
[2020-01-03] MEDS: iohexol 300 mg/mL 50 mL Btl IV (11:05)
[2020-01-05 09:59] LABS: Basophils % 0.2 %; Hematocrit 38.6 % (42.0-52.0); Hemoglobin 12.7 g/dL (11.7-16.6); Lymphocytes # 0.5 10^3/uL (0.8-4.8); Lymphocytes % 10.2 %; Mean Corpuscular HGB Conc 32.9 g/dL (30.0-36.0); Mean Corpuscular Hemoglobin 29.8 pg (28.0-34.0); Mean Corpuscular Volume 90.6 fL (80-94); Mean Platelet Volume 9.8 fL (7.4-10.4); Monocytes # 0.5 10^3/uL (0.2-0.9); Neutrophils # 4.11 10^3/uL (1.8-7.7); Nucleated Red Blood Cells % 0 %; Platelet Count 325 10^3/cmm (130-400); Red Blood Count 4.26 10^6/uL (4.1-5.3); Red Cell Distribution Width 15.7 % (12.1-15.1); White Blood Count 5.2 10^3/uL (4.0-10.0)
[2020-01-05 10:26] LABS: Alanine Aminotransferase 17 U/L (0-41); Alkaline Phosphatase 110 IU/L (40-130); Anion Gap 17.2 (5-19); Aspartate Amino Transferase 24 U/L (0-40); Blood Urea Nitrogen 16 mg/dL (8-23); Carbon Dioxide 24 mmol/L (22-29); Chloride 103 mmol/L (98-107); Globulin 3.1 g/dL (1.3-4.6); Glucose 140 mg/dL (65-115); Osmolality Calculated 289 mOsm/kg (285-295); Potassium 4.2 mmol/L (3.5-5.1); Sodium 140 mmol/L (136-145); Thyroid Stimulating Hormone 0.53 uIU/mL (0.27-4.20); Total Bilirubin 0.4 mg/dL (0.15-1.2); Total Protein 7.1 g/dL (6.6-8.7)
--- NOTE | 2020-01-08 13:13 | ONC FU_ITS ---
Dr. Noriega Patient Follow-Up Note Patient: Isaiah Snyder Unit #: [id number]: 1940 Dicatated By: Jony Noriega M.D.Date of Visit:Jan 05, 2020 Onc Med Follow-up/Prog Note Chief Complaint: Lung cancer. 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 He now has evidence of metastatic disease on imaging studies. He was found to have a 2.5 cm right upper lobe lung mass in 2011. He had mediastinal and hilar node involvement by trans-bronchial needle aspiration biopsy in May of 2011, with pathology reporting metastatic poorly differentiated non-small cell carcinoma. He was given neoadjuvant chemotherapy with 2 cycles of carboplatin/Taxol. He was found to have a complete pathologic response at [facility]. He completed 2 additional cycles of chemotherapy postoperatively, and he was then given radiation to the hilar/mediastinal node regions to a total dose of 50.4 Gy, which he completed on 02/13/12. He did have problems following his surgery, mainly due to a prolonged post thoracotomy pain syndrome. He also developed significant neuropathy with the chemotherapy, but he did show gradual recovery during subsequent follow-up on observation/expectant management. His surveillance CT of the chest on 08/15/2016 showed postoperative changes of right upper lobectomy. There was stable loculated pleural effusion at the right lung base with chronic right atelectasis. There ws no mediastinal or hilar lymphadenopathy or other evidence of disease progression. He was advised to continue observation/expectant anagement. As he was 5 years out from completion of his treatment, I had recommended that he just continue his regular follow-up at the [place]. I had seen him for a visit again on 01/19/2018. [facility] abnormalitites at the right lung base, but on review these were not significantly changed compared to prior studies. He continued on observation/expectant management. In June [address] Pelra with complaints of pain on both sides of his mid back radiating around to the epigastric area. Evaluation was delayed to the pandemic restrictions. His CT abdomen/pelvis on 08/09/2019 showed a 3.1 x 2.8 x 2.6 cm mass near the gregory hepatis, concerning for neoplasm. An osteolytic lesion in the T8 vertebral body was concerning for metastatic disease. There was moderate sized right pleural effusion. There was a small amount of atelectasis or consolidation in the right lower lobe and the lingula, pneumonia not excluded. A 2.0 x 1.3 x 1.7 cm heterogeneous lesion in the inferior pole of the left kidney was indeterminate. An L4 vertebral compression fracture was of indeterminate age. He was seen for a visit here on 08/12/2019. He had further evaluation with PET/CT on 08/14/2019. It showed evidence of an FDG avid spiculated left upper lobe mass measuring 3.4 x 2.2 cm, SUV 20.8. A medial right middle lobe subcentimeter nodule adjacent to the mediastinum was also FDG positive as were bilateral hilar lymph nodes, consistent with metastatic adenopathy. There were 2 sites of diffuse activity in the body of the pancreas, felt to be more likely inflammatory in origin. A 3 cm hypodense mass in the central right hepatic lobe at the gregory hepatis head SUV 9.2, consistent with metastatic disease. A lytic osseous lesion at T8 had SUV of 17.2, consistent with metastatic disease. There were no other osseous lesions noted. MRI of the spine on 08/16/2019 showed abnormal signal within the majority of the T8 vertebral body with extension of tumor into the posterior elements. There was retropulsion of the posterior endplate by 3 mm with mild compression on the right lateral thecal sac. There was moderate stenosis of the T8-9 foramen due to tumor and bone expansion. There was significant soft tissue tumor enhancement within the T8-9 foramen. There was mild facet joint arthritis throughout the thoracic spine and there were degenerative changes noted in the cervical and lumbar spine. There were no other sites of metastatic disease noted. Given his symptoms and the findings on the imaging studies, he was referred for palliative radiation. He completed course of treatment from T7-T10 on 09/16/2019 to a total dose of 3000 cGy. During that time, he had also been seen in consultation by Dr. Puckett, and on 09/03/2019 he underwent bronchoscopy/EBUS with endobronchial biopsies and with transbronchial FNA biopsy of mediastinal lymph nodes. 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 The next generation sequencing study showed positive PD-L1 expression for 22c3 at 2%. There were no actionable mutations identified. With those findings, he was recommended to undergo systemic therapy with carboplatin/pemetrexed chemotherapy in combination with pembrolizumab. He has otherwise been in good health. 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 He does have a history of smoking 2 packs of cigarettes daily for approximately 40 years. He quit smoking in 1999. He indicated that he had significant asbestos exposure during service in the [employer]. INTERIM HISTORY: He began cycle 1 of carboplatin/pemetrexed/pembrolizumab on 11/03/2019. He tolerated it with acceptable toxicity, and he continued with cycle 2 on 11/24/2019 and with cycle 3 on 12/15/2019. Restaging CT scans of the chest, abdomen, and pelvis on 01/03/2020 showed interval decrease in the size of the spiculated left upper lobe mass measuring 2.7 x 2.1 cm compared to 3.4 x 2.2 cm on the prior study. A 9 mm right middle lobe nodule appeared stable. The metastatic lesion in the central right hepatic lobe had progressed slightly measuring 3.4 x 3.1 cm compared to approximately 3 cm on the prior study. The lytic metastatic osseous lesion involving the T8 vertebral body appeared stable. He is seen for a follow-up visit. He has not been feeling is good generally. He complains that he has no power and he says he cannot walk across the street without running out of air. Yesterday he had an episode of fast heart rate and pain in his upper chest area, but it gradually resolved with rest. He is still able to do light work. His ECOG score is 1. His appetite is good. He has no fever or night sweats. He does not have much cough. He has had no hemoptysis. He has no GI complaints. His bladder function is not very good, but that is chronic. He is not having any significant joint or bone pain. His back pain pretty much resolved after the first radiation treatment. He does not complain of headache. He sometimes gets lightheaded. He occasionally has numbness in his fingers. He has no other focal neurologic symptoms. Medications: Dexamethasone (4 mg) Tablet Oral Take as Directed, Flonase 2 Coleman(s) (of 50 mcg/act) Suspension Nasal daily PRN, Folic Acid 1 Tablet Oral daily, Ibuprofen 1 Tablet (of 800 mg) Tablet Oral t.i.d., MiraLax 1 Powder Oral daily PRN, Neurontin 2 Tablet (of 300 mg) Oral t.i.d., Pantoprazole Sodium 1 Tablet (of 40 mg) Tablet, enteric coated Oral daily, Vitamin B6 1 Tablet Oral daily, Vitamin D3 1 Tablet (of 50 mcg ) Oral daily Allergies: Flomax Review of Systems: Constitutional - His energy is low. He is able to do some light work but gets tired very quickly. His appetite is good and his weight is stable. No fever, night sweats, or hot flashes. ECOG score is 1, ENMT - No sinus congestion/drainage. No mouth sores. No sore throat or difficulty swallowing, Hematologic/Lymphatic - No abnormal bruising or bleeding, Respiratory - He is having increase in of shortness of breath. No cough. No pleuritic pain or hemoptysis, Cardiovascular - He had some upper chest pain yesterday. He reports his heartrate was 130's at that time. No palpitations, Gastrointestinal - No nausea or vomiting. He heartburn is adequately No diarrhea or constipation. No blood in the stool or black stools, Genitourinary (M) - No dysuria or hematuria. No urinary frequency. No urgency or incontinence. He is having difficulty with urination, he believes it is from the Ensure, Musculoskeletal - The pain in his back subsided after his first radiation treatment, Integumentary - No skin complications, Neurologic - No headache. He has some occasional dizziness with positional changes. He has numbness and tingling in his fingertips. No other focal neurologic symptoms, Psychiatric - No anxiety or depression. No insomnia. Vital Signs: Performed on Jan 05, 2020 10:25 Height - 70.00 in Weight - 168.0 lbs (HIGH) BSA - 1.94 sq.m BMI - 24.11 Temperature - 97.3 F (LOW) Pulse - 81 /min Respiration - 20 /min BP - 140/75 mm(hg) O2 Sat - 98 % Pain - 0 Physical Examination: Constitutional - He appears somewhat weak generally, Eyes - Sclerae nonicteric. Conjunctivae clear, ENMT - No lesions noted in the oral cavity, Hematologic/Lymphatic - No cervical, clavicular, or axillary adenopathy, Respiratory - Lungs sound clear with good air movement bilaterally, Cardiovascular - Heart rhythm is regular. There is no murmur, gallop, or rub noted, Abdomen - Soft. Liver and spleen are not enlarged. There is no abdominal mass or ascites noted and there is no inguinal adenopathy, Extremities - No edema, Neurologic - No focal neurologic deficits noted. Lab/Imaging: Test performed on Jan 05, 2020 09:20 Sodium 140 mmol/L TSH 0.53 uIU/mL Potassium 4.2 mmol/L Chloride 103 mmol/L CO2 24 mmol/L Anion Gap 17.2 BUN 16 mg/dL Creatinine 1.0 mg/dL Cr Clearance (Est) 67.2600 mL/min Glucose 140 mg/dL Osmolality - Calculated 289 mOsm/kg Calcium 10.0 mg/dL Protein, Total 7.1 g/dL Albumin 4.0 g/dL Globulin 3.1 g/dL Bilirubin, Total 0.4 mg/dL ALT (SGPT) 17 U/L AST (SGOT) 24 U/L Alkaline Phosphatase 110 IU/L WBC 5.2 10 3/uL RBC 4.26 10 6/uL HGB 12.7 g/dL HCT 38.6 % MCV 90.6 fL MCH 29.8 pg MCHC 32.9 g/dL RDW 15.7 % Platelet Count 325 10 3/cmm MPV 9.8 fL Neutrophils 4.11 10 3/uL Lymphocytes 0.5 10 3/uL Monocytes 0.5 10 3/uL Eosinophils 0.0 10 3/uL Basophils 0.0 10 3/uL Neutrophil % 79.0 % Lymphocyte % 10.2 % Monocyte % 10.0 % Eosinophil % 0.0 % Basophils % 0.2 % NRBC % 0 % Impression: 1. 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 This appeared to be a new primary malignancy. By clinical evaluation, his disease was stage IVB (T2a, N3, M1c). His PD-L1 expression was positive at 2%. 2. He had presented with metastatic involvement in the T8 vertebral body. He had significant symptomatic improvement following palliative radiation, completed on 09/16/2019 to a total dose of 3000 cGy. 3. He has a prior history of differentiated non-small cell carcinoma of the right lung, stage IIIA with complete pathologic response to neoadjuvant chemotherapy with 2 cycles of carboplatin/Taxol. He then underwent right upper lobectomy/mediastinal lymph node dissection in August 2011 followed by 2 additional cycles of chemotherapy and radiation to the hilar/mediastinal node region, which he completed in January 2012. His other medical pulses include: 4. 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 5. Benign prostatic hypertrophy. His back pain has improved significantly following the radiation. With his tumor showing low PD-L1 expression, he was then recommended to begin systemic therapy with carboplatin/pemetrexed in combination with pembrolizumab. He began cycle 1 on 11/03/2019. He tolerated with acceptable toxicity and he was able to continue with cycle 2 on 11/24/2019 and with cycle 3 on 12/15/2019. His restaging CT scans are showing some evidence of response, with decrease in the primary tumor in the left upper lobe. The liver lesion has increased slightly. The significance of that finding is uncertain. He has had a significant decline in his performance status following 3 cycles of chemotherapy. Plan: As he does appear to be showing response, I will plan to stop chemotherapy now and to continue with maintenance pembrolizumab. However, I will give him a 3-week treatment break for further recovery before starting the first cycle of maintenance. Signed By: Jony Noriega M.D. <<Signature on File>>
== END 2020-01-19 23:59 | disposition home or self-care (01) ==
LOC: ONCMED 05:34
PROVIDERS: PCP Family Medicine; Visit Provider Internal Medicine Medical Oncology
DX: C34.12 Malignant neoplasm of upper lobe, left bronchus or lung (principal); C79.51 Secondary malignant neoplasm of bone; F17.211 Nicotine dependence, cigarettes, in remission; H81.03 Meniere's disease, bilateral; N40.0 Benign prostatic hyperplasia without lower urinary tract symptoms; G89.3 Neoplasm related pain (acute) (chronic); M54.9 Dorsalgia, unspecified; Z92.3 Personal history of irradiation
CPT/HCPCS: 36415; 71260; 74177; 80053; 84443; 85025; 99214; Q9967

== ENCOUNTER 2020-02-17 05:17 | Outpatient (RCR) | payer MEDICARE, OTHER, SELFPAY ==
[2020-01-26 11:47] LABS: Basophils # 0.1 10^3/uL (0.0-0.1); Basophils % 0.9 %; Eosinophils # 0.2 10^3/uL (0.0-0.8); Eosinophils % 3.5 %; Hematocrit 42.6 % (42.0-52.0); Hemoglobin 13.6 g/dL (11.7-16.6); Lymphocytes # 0.8 10^3/uL (0.8-4.8); Lymphocytes % 13.9 %; Mean Corpuscular HGB Conc 31.9 g/dL (30.0-36.0); Mean Corpuscular Hemoglobin 29.2 pg (28.0-34.0); Mean Corpuscular Volume 91.4 fL (80-94); Mean Platelet Volume 10.2 fL (7.4-10.4); Monocytes # 0.5 10^3/uL (0.2-0.9); Monocytes % 9.3 %; Neutrophils # 3.96 10^3/uL (1.8-7.7); Neutrophils % 72.2 %; Nucleated Red Blood Cells % 0 %; Platelet Count 203 10^3/cmm (130-400); Red Blood Count 4.66 10^6/uL (4.1-5.3); Red Cell Distribution Width 14.3 % (12.1-15.1); White Blood Count 5.5 10^3/uL (4.0-10.0)
[2020-01-26 12:28] LABS: Alanine Aminotransferase 16 U/L (0-41); Albumin Level 4.1 g/dL (3.5-5.2); Alkaline Phosphatase 109 IU/L (40-130); Anion Gap 16.3 (5-19); Aspartate Amino Transferase 28 U/L (0-40); Blood Urea Nitrogen 14 mg/dL (8-23); Calcium 10.1 mg/dL (8.5-10.5); Carbon Dioxide 24 mmol/L (22-29); Chloride 104 mmol/L (98-107); Free T4 Free Thyroxine 1.42 ng/dL (0.82-1.77); Globulin 2.6 g/dL (1.3-4.6); Glucose 100 mg/dL (65-115); Osmolality Calculated 291 mOsm/kg (285-295); Potassium 4.3 mmol/L (3.5-5.1); Sodium 140 mmol/L (136-145); Thyroid Stimulating Hormone 0.61 uIU/mL (0.27-4.20); Total Bilirubin 0.5 mg/dL (0.15-1.2); Total Protein 6.7 g/dL (6.6-8.7)
--- NOTE | 2020-01-30 15:35 | ONC FU_ITS ---
[facility] Patient Note Patient: Isaiah Snyder Unit #: [id number]: 1940 Dictated By: Minh MclaughlinDate of Visit: Jan 26, 2020 Onc MED Follow-Up/Prog Note Chief Complaint: Lung cancer. 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 He now has evidence of metastatic disease on imaging studies. He was found to have a 2.5 cm right upper lobe lung mass in 2011. He had mediastinal and hilar node involvement by trans-bronchial needle aspiration biopsy in May of 2011, with pathology reporting metastatic poorly differentiated non-small cell carcinoma. He was given neoadjuvant chemotherapy with 2 cycles of carboplatin/Taxol. He was found to have a complete pathologic response at right upper lobectomy/mediastinal lymph node dissection at [facility] in August of 2011. He completed 2 additional cycles of chemotherapy postoperatively, and he was then given radiation to the hilar/mediastinal node regions to a total dose of 50.4 Gy, which he completed on 02/13/12. He did have problems following his surgery, mainly due to a prolonged post thoracotomy pain syndrome. He also developed significant neuropathy with the chemotherapy, but he did show gradual recovery during subsequent follow-up on observation/expectant management. His surveillance CT of the chest on 08/15/2016 showed postoperative changes of right upper lobectomy. There was stable loculated pleural effusion at the right lung base with chronic right atelectasis. There ws no mediastinal or hilar lymphadenopathy or other evidence of disease progression. He was advised to continue observation/expectant anagement. As he was 5 years out from completion of his treatment, Dr Noriega had recommended that he just continue his regular follow-up at the [facility]. Dr Noriega had seen him for a visit again on 01/19/2018. [facility] abnormalitites at the right lung base, but on review these were not significantly changed compared to prior studies. He continued on observation/expectant management. In June [address] Perla with complaints of pain on both sides of his mid back radiating around to the epigastric area. Evaluation was delayed to the pandemic restrictions. His CT abdomen/pelvis on 08/09/2019 showed a 3.1 x 2.8 x 2.6 cm mass near the gregory hepatis, concerning for neoplasm. An osteolytic lesion in the T8 vertebral body was concerning for metastatic disease. There was moderate sized right pleural effusion. There was a small amount of atelectasis or consolidation in the right lower lobe and the lingula, pneumonia not excluded. A 2.0 x 1.3 x 1.7 cm heterogeneous lesion in the inferior pole of the left kidney was indeterminate. An L4 vertebral compression fracture was of indeterminate age. He was seen for a visit here on 08/12/2019. He had further evaluation with PET/CT on 08/14/2019. It showed evidence of an FDG avid spiculated left upper lobe mass measuring 3.4 x 2.2 cm, SUV 20.8. A medial right middle lobe subcentimeter nodule adjacent to the mediastinum was also FDG positive as were bilateral hilar lymph nodes, consistent with metastatic adenopathy. There were 2 sites of diffuse activity in the body of the pancreas, felt to be more likely inflammatory in origin. A 3 cm hypodense mass in the central right hepatic lobe at the gregory hepatis head SUV 9.2, consistent with metastatic disease. A lytic osseous lesion at T8 had SUV of 17.2, consistent with metastatic disease. There were no other osseous lesions noted. MRI of the spine on 08/16/2019 showed abnormal signal within the majority of the T8 vertebral body with extension of tumor into the posterior elements. There was retropulsion of the posterior endplate by 3 mm with mild compression on the right lateral thecal sac. There was moderate stenosis of the T8-9 foramen due to tumor and bone expansion. There was significant soft tissue tumor enhancement within the T8-9 foramen. There was mild facet joint arthritis throughout the thoracic spine and there were degenerative changes noted in the cervical and lumbar spine. There were no other sites of metastatic disease noted. Given his symptoms and the findings on the imaging studies, he was referred for palliative radiation. He completed course of treatment from T7-T10 on 09/16/2019 to a total dose of 3000 cGy. During that time, he had also been seen in consultation by Dr. Puckett, and on 09/03/2019 he underwent bronchoscopy/EBUS with endobronchial biopsies and with transbronchial FNA biopsy of mediastinal lymph nodes. 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 The next generation sequencing study showed positive PD-L1 expression for 22c3 at 2%. There were no actionable mutations identified. With those findings, he was recommended to undergo systemic therapy with carboplatin/pemetrexed chemotherapy in combination with pembrolizumab. He has otherwise been in good health. 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 He does have a history of smoking 2 packs of cigarettes daily for approximately 40 years. He quit smoking in 1999. He indicated that he had significant asbestos exposure during service in the [employer]. INTERIM HISTORY: He began cycle 1 of carboplatin/pemetrexed/pembrolizumab on 11/03/2019. He tolerated it with acceptable toxicity, and he continued with cycle 2 on 11/24/2019 and with cycle 3 on 12/15/2019. Restaging CT scans of the chest, abdomen, and pelvis on 01/03/2020 showed interval decrease in the size of the spiculated left upper lobe mass measuring 2.7 x 2.1 cm compared to 3.4 x 2.2 cm on the prior study. A 9 mm right middle lobe nodule appeared stable. The metastatic lesion in the central right hepatic lobe had progressed slightly measuring 3.4 x 3.1 cm compared to approximately 3 cm on the prior study. The lytic metastatic osseous lesion involving the T8 vertebral body appeared stable. Dr. Noriega has given him the option of pursuing single agent immunotherapy at this time. We will start his first cycle today. Mr. Snyder is here today for follow-up. He is due to start single agent pembrolizumab. He states overall he is feeling much better. His energy has improved his appetite is improved. He denies any new concerns. He denies any new pain. He states his breathing is some better he still short of breath with activity. He denies any fever or chills. He has had no symptoms of infection. He denies any known COVID exposure, symptoms or personal testing. He denies any nausea or vomiting. He states he is ready to try just the pembrolizumab and see how he does with that. His agrees that he is feeling better overall. His ECOG is 1. Past Medical History: Hstory of pancreatitis Meniere's Disease Peripheral neuropathy due to chemotherapy Non-small cell lung cancer in 2011 (Treated: surgery,chemo/readition) Past Surgical History: Right shoulder surgery in 2019 Thoractotomy with right upper lobectomy and mediastinal lymph node dissection in 2011 Bronchoscopy in 2011 TURP in 2002 Allergies: Flomax Medications: Dexamethasone (4 mg) Tablet Oral Take as Directed Flonase 2 [place](s) (of 50 mcg/act) Suspension Nasal daily PRN Ibuprofen 1 Tablet (of 800 mg) Tablet Oral t.i.d. MiraLax 1 Powder Oral daily PRN Neurontin 2 Tablet (of 300 mg) Oral t.i.d. Pantoprazole Sodium 1 Tablet (of 40 mg) Tablet, enteric coated Oral daily Vitamin B6 1 Tablet Oral daily Vitamin D3 1 Tablet (of 50 mcg ) Oral daily Family History: Mr. Snyder's father at age 89: stroke. Mr. Snyder has 2 brothers: 2 . Mr. Snyder's first brother's lung cancer. Another brother's melanoma cancer. Father of stroke at age 89. A brother of lung cancer and another brother of melanoma. Social History: Mr. Snyder is and he is retired. Mr. Snyder quit smoking 14 years ago but had smoked 2.0 packs/day for 40 years. He is an active drinker.He consumes 2 drinks/day. Mr. Snyder reports contact with the following hazardous materials: asbestos. He has indicated exposure to the following products: cigarettes. Mr. Snyder reports the following support systems: lives with spouse, significant other, family, or friends, lives in own house, supportive family/friends willing to assist with needs, and adequate transportation available for expected visits. His diet consists of regular meals. He indicates his activity level as: daily activities. Review Of Symptoms: Constitutional Denies fevers, chills, night sweats, excessive fatigue or weight loss. Allergic/Immunologic No reactions. Eyes Denies significant visual changes. No diplopia. No amaurosis. ENMT Denies changes in hearing, sore throat, mouth sores, difficulty or changes in swallowing ability, and/or sinus drainage. Hematologic/Lymphatic Denies easy bruising or bleeding. The patient denies any tender or palpable lymph nodes. Respiratory Denies dyspnea on exertion, chest pain, cough or hemoptysis. Denies orthopnea. Cardiovascular Denies anginal chest pain, palpitations or orthopnea. Gastrointestinal Denies nausea, vomiting, diarrhea, GI bleeding, or constipation. Denies change in bowel habits and/or stool color, no heartburn or early satiety. Genitourinary (M) Denies hematuria, dysuria, increased frequency, urgency, hesitancy or incontinence. Musculoskeletal Denies joint pain, swelling or redness. No decreased range of motion. Integumentary Denies chronic rashes, inflammation, ulcerations or skin changes. Neurologic Denies headache, blurred vision, and no areas of focal weakness or numbness. Normal gait. No sensory problems. Psychiatric Denies insomnia, depression, hortensia or mood swings. Vital Signs: Performed on Jan 26, 2020 12:55 Height - 70.00 in Weight - 167.2 lbs (LOW) BSA - 1.93 sq.m BMI - 23.99 Temperature - 98.0 F (LOW) Pulse - 94 /min Respiration - 18 /min BP - 124/73 mm(hg) O2 Sat - 95 % (LOW) Pain - 0,1 - No physically strenuous activity, but ambulatory and able to carry out light or sedentary work (e.g. office work, light house work). (ECOG) Physical Examination: Constitutional Alert, oriented, no acute distress. Skin pink, warm and dry. Head Normocephalic; atraumatic. Eyes Conjunctivae and sclerae are clear and without icterus. Pupils are reactive and equal. Neck Supple without masses or thyromegaly. No jugular venous distension. Hematologic/Lymphatic No petechiae or purpura. No tender or palpable lymph nodes in the cervical or supraclavicular areas. Respiratory Lungs are clear to auscultation without rhonchi or wheezing. Cardiovascular Regular rate and rhythm of heart without murmurs,clicks, gallops or rubs. Abdomen Non-tender, non-distended, no masses or ascites. Good bowel sounds noted in all quads. No guarding or rebound tenderness. No pulsatile masses. Back/Spine Non-tender to palpation. Extremities No visible deformities, no cyanosis, clubbing or edema. Musculoskeletal No tenderness or swelling, normal range of motion without obvious weakness. Integumentary No rashes or lesions. Neurologic No sensory or motor deficits, normal cerebellar function, normal gait. Psychiatric Alert and oriented times three. Coherent speech. Verbalizes understanding of our discussions today. Laboratory:Test performed on Jan 26, 2020 11:32 Sodium 140 mmol/L T4, Free 1.42 ng/dL TSH 0.61 uIU/mL Potassium 4.3 mmol/L Chloride 104 mmol/L CO2 24 mmol/L Anion Gap 16.3 BUN 14 mg/dL Creatinine 1.2 mg/dL Cr Clearance (Est) 54.42 mL/min Glucose 100 mg/dL Osmolality - Calculated 291 mOsm/kg Calcium 10.1 mg/dL Protein, Total 6.7 g/dL Albumin 4.1 g/dL Globulin 2.6 g/dL Bilirubin, Total 0.5 mg/dL ALT (SGPT) 16 U/L AST (SGOT) 28 U/L Alkaline Phosphatase 109 IU/L WBC 5.5 10 3/uL RBC 4.66 10 6/uL HGB 13.6 g/dL HCT 42.6 % MCV 91.4 fL MCH 29.2 pg MCHC 31.9 g/dL RDW 14.3 % Platelet Count 203 10 3/cmm MPV 10.2 fL Neutrophils 3.96 10 3/uL Lymphocytes 0.8 10 3/uL Monocytes 0.5 10 3/uL Eosinophils 0.2 10 3/uL Basophils 0.1 10 3/uL Neutrophil % 72.2 % Lymphocyte % 13.9 % Monocyte % 9.3 % Eosinophil % 3.5 % Basophils % 0.9 % NRBC % 0 % Impression: 1. 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 This appeared to be a new primary malignancy. By clinical evaluation, his disease was stage IVB (T2a, N3, M1c). His PD-L1 expression was positive at 2%. 2. He had presented with metastatic involvement in the T8 vertebral body. He had significant symptomatic improvement following palliative radiation, completed on 09/16/2019 to a total dose of 3000 cGy. 3. He has a prior history of differentiated non-small cell carcinoma of the right lung, stage IIIA with complete pathologic response to neoadjuvant chemotherapy with 2 cycles of carboplatin/Taxol. He then underwent right upper lobectomy/mediastinal lymph node dissection in August 2011 followed by 2 additional cycles of chemotherapy and radiation to the hilar/mediastinal node region, which he completed in January 2012. His other medical pulses include: 4. 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 5. Benign prostatic hypertrophy. His back pain has improved significantly following the radiation. With his tumor showing low PD-L1 expression, he was then recommended to begin systemic therapy with carboplatin/pemetrexed in combination with pembrolizumab. He began cycle 1 on 11/03/2019. He tolerated with acceptable toxicity and he was able to continue with cycle 2 on 11/24/2019 and with cycle 3 on 12/15/2019. His restaging CT scans are showing some evidence of response, with decrease in the primary tumor in the left upper lobe. The liver lesion has increased slightly. The significance of that finding is uncertain. He has had a significant decline in his performance status following [address] Noriega has given him the option of pursuing single agent immunotherapy at this time. We will start his first cycle today. Plan: 1. Proceed with single agent pembrolizumab. This will be his first cycle of single agent. We will start out at 200 mg every 3 weeks and see how he tolerates this. 2. He will remain off the folic acid and does not need the B12 injections any longer as he is off the Alimta his last dose was December 15, 2019. 3. Today's labs reviewed in detail discussed with . Mrs. Snyder and a copy was given to them. WBC 5.5, hemoglobin 13.6, platelets 203,000 ANC is 4000. Potassium 4.3 random glucose is 100 creatinine 1.2 LFTs are normal. His TSH today 0.61 with a free T4 of 1.42. 4. We will plan to see him back in 3 weeks with CBC CMP and TSH. 4. Mr. Snyder was instructed to contact us in the interim should questions or problems arise. 5. Specific side effects of immunotherapy discussed included but not limited to: ??? pneumonitis: new or worsening cough; chest pain; and shortness of breath. ??? Colitis: diarrhea or more bowel movements than usual; blood in stools or dark, tarry, sticky stools; and severe stomach area (abdomen) pain or tenderness. ??? hepatitis: jaundice; severe nausea or vomiting; pain on the right side of the abdomen; drowsiness; dark urine; bleeding or bruise more easily than normal. ??? nephritis and kidney failure: including decrease in the amount of urine; hematuria; lower extremity edema; and loss of appetite. ??? thyroid and pituitary changes that may include: headaches that will not go away or unusual headaches; extreme tiredness, weight gain or weight loss; changes in mood or behavior, such as decreased sex drive, irritability, or forgetfulness; dizziness or fainting; hair loss; feeling cold; constipation; and voice gets deeper. ???rash; changes in eyesight; severe or persistent muscle or joint pains; and severe muscle weakness. The majority of this visit was time spent face to face in review of plan of care, side effect identification and where to call for questions or concerns. Signed By: Minh Mclaughlin-, [facility] Jony Noriega MD <<Signature on File>>
[2020-02-17 09:33] LABS: Basophils % 0.7 %; Eosinophils # 0.2 10^3/uL (0.0-0.8); Eosinophils % 3.8 %; Hemoglobin 13.8 g/dL (11.7-16.6); Lymphocytes # 0.8 10^3/uL (0.8-4.8); Lymphocytes % 19.2 %; Mean Corpuscular HGB Conc 32.1 g/dL (30.0-36.0); Mean Corpuscular Hemoglobin 29.1 pg (28.0-34.0); Mean Corpuscular Volume 90.5 fL (80-94); Mean Platelet Volume 9.6 fL (7.4-10.4); Monocytes # 0.4 10^3/uL (0.2-0.9); Monocytes % 9.7 %; Neutrophils % 66.4 %; Nucleated Red Blood Cells % 0 %; Platelet Count 204 10^3/cmm (130-400); Red Blood Count 4.75 10^6/uL (4.1-5.3); Red Cell Distribution Width 12.6 % (12.1-15.1); White Blood Count 4.2 10^3/uL (4.0-10.0)
[2020-02-17 10:09] LABS: Alanine Aminotransferase 17 U/L (0-41); Albumin Level 4.1 g/dL (3.5-5.2); Alkaline Phosphatase 94 IU/L (40-130); Anion Gap 14.5 (5-19); Aspartate Amino Transferase 27 U/L (0-40); Blood Urea Nitrogen 12 mg/dL (8-23); Calcium 10.1 mg/dL (8.5-10.5); Carbon Dioxide 25 mmol/L (22-29); Chloride 103 mmol/L (98-107); Globulin 2.4 g/dL (1.3-4.6); Glucose 104 mg/dL (65-115); Osmolality Calculated 286 mOsm/kg (285-295); Potassium 4.5 mmol/L (3.5-5.1); Sodium 138 mmol/L (136-145); Total Bilirubin 0.5 mg/dL (0.15-1.2); Total Protein 6.5 g/dL (6.6-8.7)
--- NOTE | 2020-02-20 09:19 | ONC FU_ITS ---
Dr. Noriega Patient Follow-Up Note Patient: Isaiah Snyder Unit #: [id number]: 1940 Dicatated By: Jony Noriega M.D.Date of Visit:Feb 17, 2020 Onc Med Follow-up/Prog Note Chief Complaint: Lung cancer. 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 He now has evidence of metastatic disease on imaging studies. He was found to have a 2.5 cm right upper lobe lung mass in 2011. He had mediastinal and hilar node involvement by trans-bronchial needle aspiration biopsy in May of 2011, with pathology reporting metastatic poorly differentiated non-small cell carcinoma. He was given neoadjuvant chemotherapy with 2 cycles of carboplatin/Taxol. He was found to have a complete pathologic response at right upper [facility] [place]. He completed 2 additional cycles of chemotherapy postoperatively, and he was then given radiation to the hilar/mediastinal node regions to a total dose of 50.4 Gy, which he completed on 02/13/12. He did have problems following his surgery, mainly due to a prolonged post thoracotomy pain syndrome. He also developed significant neuropathy with the chemotherapy, but he did show gradual recovery during subsequent follow-up on observation/expectant management. His surveillance CT of the chest on 08/15/2016 showed postoperative changes of right upper lobectomy. There was stable loculated pleural effusion at the right lung base with chronic right atelectasis. There ws no mediastinal or hilar lymphadenopathy or other evidence of disease progression. He was advised to continue observation/expectant anagement. As he was 5 years out from completion of his treatment, I had recommended that he just continue his regular follow-up at the [facility]. I had seen him for a visit again on 01/19/2018. [facility] abnormalitites at the right lung base, but on review these were not significantly changed compared to prior studies. He continued on observation/expectant management. In June [address] Perla with complaints of pain on both sides of his mid back radiating around to the epigastric area. Evaluation was delayed to the pandemic restrictions. His CT abdomen/pelvis on 08/09/2019 showed a 3.1 x 2.8 x 2.6 cm mass near the gregory hepatis, concerning for neoplasm. An osteolytic lesion in the T8 vertebral body was concerning for metastatic disease. There was moderate sized right pleural effusion. There was a small amount of atelectasis or consolidation in the right lower lobe and the lingula, pneumonia not excluded. A 2.0 x 1.3 x 1.7 cm heterogeneous lesion in the inferior pole of the left kidney was indeterminate. An L4 vertebral compression fracture was of indeterminate age. He was seen for a visit here on 08/12/2019. He had further evaluation with PET/CT on 08/14/2019. It showed evidence of an FDG avid spiculated left upper lobe mass measuring 3.4 x 2.2 cm, SUV 20.8. A medial right middle lobe subcentimeter nodule adjacent to the mediastinum was also FDG positive as were bilateral hilar lymph nodes, consistent with metastatic adenopathy. There were 2 sites of diffuse activity in the body of the pancreas, felt to be more likely inflammatory in origin. A 3 cm hypodense mass in the central right hepatic lobe at the gregory hepatis head SUV 9.2, consistent with metastatic disease. A lytic osseous lesion at T8 had SUV of 17.2, consistent with metastatic disease. There were no other osseous lesions noted. MRI of the spine on 08/16/2019 showed abnormal signal within the majority of the T8 vertebral body with extension of tumor into the posterior elements. There was retropulsion of the posterior endplate by 3 mm with mild compression on the right lateral thecal sac. There was moderate stenosis of the T8-9 foramen due to tumor and bone expansion. There was significant soft tissue tumor enhancement within the T8-9 foramen. There was mild facet joint arthritis throughout the thoracic spine and there were degenerative changes noted in the cervical and lumbar spine. There were no other sites of metastatic disease noted. Given his symptoms and the findings on the imaging studies, he was referred for palliative radiation. He completed course of treatment from T7-T10 on 09/16/2019 to a total dose of 3000 cGy. During that time, he had also been seen in consultation by Dr. Puckett, and on 09/03/2019 he underwent bronchoscopy/EBUS with endobronchial biopsies and with transbronchial FNA biopsy of mediastinal lymph nodes. 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 The next generation sequencing study showed positive PD-L1 expression for 22c3 at 2%. There were no actionable mutations identified. With those findings, he was recommended to undergo systemic therapy with carboplatin/pemetrexed chemotherapy in combination with pembrolizumab. He has otherwise been in good health. 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 He does have a history of smoking 2 packs of cigarettes daily for approximately 40 years. He quit smoking in 1999. He indicated that he had significant asbestos exposure during service in the [employer]. INTERIM HISTORY: He began cycle 1 of carboplatin/pemetrexed/pembrolizumab on 11/03/2019. He tolerated it with acceptable toxicity, and he continued with cycle 2 on 11/24/2019 and with cycle 3 on 12/15/2019. Restaging CT scans of the chest, abdomen, and pelvis on 01/03/2020 showed interval decrease in the size of the spiculated left upper lobe mass measuring 2.7 x 2.1 cm compared to 3.4 x 2.2 cm on the prior study. A 9 mm right middle lobe nodule appeared stable. The metastatic lesion in the central right hepatic lobe had progressed slightly measuring 3.4 x 3.1 cm compared to approximately 3 cm on the prior study. The lytic metastatic osseous lesion involving the T8 vertebral body appeared stable. He was seen for a follow-up visit on 01/05/2020. At that time, he reported that he had developed significant fatigue and shortness of breath following his 3rd cycle of treatment. Given the CT findings, I assume this was most likely due to the chemotherapy. I opted to give him a treatment break and then transition him to maintenance immunotherapy. He returned on 01/26/2020 for his 1st cycle of maintenance pembrolizumab. At that point he was feeling much better. He is seen for a scheduled visit. He indicates that following his treatment 3 weeks ago he again developed severe shortness of breath and tachycardia with activity, to the point that he virtually could not go. He also was having some chest pain with it. Those symptoms have gradually improved. He is able to do light work now and his ECOG score is 1, but he still gets short of breath with activity. His appetite is still good. He has not had fever. He had a little bit of night sweating a couple of times. He has sinus drainage every morning and he has nonproductive cough. He currently has no GI or complaints. He has no significant joint or bone pain. He does not complain of headache or dizziness. He sometimes has numbness in his fingers. He has no other focal neurologic symptoms. Medications: Flonase 2 [place](s) (of 50 mcg/act) Suspension Nasal daily PRN, Ibuprofen 1 Tablet (of 800 mg) Tablet Oral t.i.d., MiraLax 1 Powder Oral daily PRN, Neurontin 2 Tablet (of 300 mg) Oral t.i.d., Pantoprazole Sodium 1 Tablet (of 40 mg) Tablet, enteric coated Oral daily, Vitamin B6 1 Tablet Oral daily, Vitamin D3 1 Tablet (of 50 mcg ) Oral daily Allergies: Flomax Review of Systems: Constitutional - He has had a decline in his activity tolerance following his last treatment, but he is still able to do light work. Appetite is good and his weight is stable. He has not had fever. He had a little bit of night sweating a couple of times. ECOG score is 1, ENMT - He has sinus drainage every morning. No mouth sores. No sore throat or difficulty swallowing, Hematologic/Lymphatic - He has easy bruising, Respiratory - He has shortness of breath with activity. He has nonproductive cough. No pleuritic pain or hemoptysis, Cardiovascular - He has had chest pain with the shortness of breath, and he has had rapid heart rate, Gastrointestinal - No nausea or vomiting. His acid reflux is adequately managed with medication. No diarrhea or constipation. No blood in the stool or black stools, Genitourinary (M) - No dysuria or hematuria. No urinary frequency. No urgency or incontinence, Musculoskeletal - He has no significant joint or bone pain, Integumentary - No skin rash, Neurologic - No headache or dizziness. He sometimes has numbness in his fingers. No other focal neurologic symptoms, Psychiatric - No anxiety or depression. No insomnia. Vital Signs: Performed on Feb 17, 2020 10:23 Height - 70.00 in Weight - 169.8 lbs (HIGH) BSA - 1.95 sq.m BMI - 24.36 Temperature - 97.9 F (LOW) Pulse - 72 /min Respiration - 20 /min BP - 136/80 mm(hg) O2 Sat - 98 % Pain - 0 Physical Examination: Constitutional - He does not appear acutely ill, Eyes - Sclerae nonicteric. Conjunctivae clear, ENMT - No lesions noted in the oral cavity, Hematologic/Lymphatic - No cervical, clavicular, or axillary adenopathy, Respiratory - Lungs sound clear with some decrease in air movement on the left, Cardiovascular - Heart rhythm is regular. There is no murmur, gallop, or rub noted, Abdomen - Soft. Liver and spleen are not enlarged. There is no abdominal mass or ascites noted and there is no inguinal adenopathy, Extremities - No edema, Neurologic - No focal neurologic deficits noted. Lab/Imaging: Test performed on Feb 17, 2020 09:15 Sodium 138 mmol/L TSH 1.00 uIU/mL Potassium 4.5 mmol/L Chloride 103 mmol/L CO2 25 mmol/L Anion Gap 14.5 BUN 12 mg/dL Creatinine 1.3 mg/dL Cr Clearance (Est) 51.02 mL/min Glucose 104 mg/dL Osmolality - Calculated 286 mOsm/kg Calcium 10.1 mg/dL Protein, Total 6.5 g/dL Albumin 4.1 g/dL Globulin 2.4 g/dL Bilirubin, Total 0.5 mg/dL ALT (SGPT) 17 U/L AST (SGOT) 27 U/L Alkaline Phosphatase 94 IU/L WBC 4.2 10 3/uL RBC 4.75 10 6/uL HGB 13.8 g/dL HCT 43.0 % MCV 90.5 fL MCH 29.1 pg MCHC 32.1 g/dL RDW 12.6 % Platelet Count 204 10 3/cmm MPV 9.6 fL Neutrophils 2.80 10 3/uL Lymphocytes 0.8 10 3/uL Monocytes 0.4 10 3/uL Eosinophils 0.2 10 3/uL Basophils 0.0 10 3/uL Neutrophil % 66.4 % Lymphocyte % 19.2 % Monocyte % 9.7 % Eosinophil % 3.8 % Basophils % 0.7 % NRBC % 0 % Impression: 1. 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 This appeared to be a new primary malignancy. By clinical evaluation, his disease was stage IVB (T2a, N3, M1c). His PD-L1 expression was positive at 2%. 2. He had presented with metastatic involvement in the T8 vertebral body. He had significant symptomatic improvement following palliative radiation, completed on 09/16/2019 to a total dose of 3000 cGy. 3. He has a prior history of differentiated non-small cell carcinoma of the right lung, stage IIIA with complete pathologic response to neoadjuvant chemotherapy with 2 cycles of carboplatin/Taxol. He then underwent right upper lobectomy/mediastinal lymph node dissection in August 2011 followed by 2 additional cycles of chemotherapy and radiation to the hilar/mediastinal node region, which he completed in January 2012. His other medical pulses include: 4. 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 5. Benign prostatic hypertrophy. His back pain has improved significantly following the radiation. With his tumor showing low PD-L1 expression, he was then recommended to begin systemic therapy with carboplatin/pemetrexed in combination with pembrolizumab. He began cycle 1 on 11/03/2019. He tolerated with acceptable toxicity and he was able to continue with cycle 2 on 11/24/2019 and with cycle 3 on 12/15/2019. His restaging CT scans are showing some evidence of response, with decrease in the primary tumor in the left upper lobe. The liver lesion had increased slightly, though the significance of that finding was uncertain. At his follow-up visit on 01/05/2020 he indicated that he had developed activity related shortness of breath and tachycardia following his 3rd cycle of treatment. At the time, I had assumed though symptoms were chemotherapy related. He was given a treatment break, and he then returned on 01/26/2020 to begin cycle 1 of maintenance pembrolizumab. Following that treatment, he again developed severe shortness of breath and tachycardia with activity, so that it now clearly appears to be an immunotherapy related toxicity, I assume pneumonitis, as he does have associated hypoxia. Plan: His treatment will be put on hold, I will start steroid therapy with prednisone, initially at 40 mg twice daily. I will also put in a request for home oxygen, as his resting room air oxygen saturation dropped from 98% to 86% after walking. With 2 L of oxygen per nasal cannula, he was able to maintain his oxygen saturation at 95% while walking. I will tentatively plan a follow-up visit in 6 weeks. He is to call, though, if his symptoms are not improving. Signed By: Jony Noriega M.D. <<Signature on File>>
== END 2020-02-19 23:59 | disposition home or self-care (01) ==
LOC: ONCMED 05:17
PROVIDERS: Nurse Practitioner; PCP Family Medicine; Visit Provider Internal Medicine Medical Oncology
DX: Z51.12 Encounter for antineoplastic immunotherapy (principal); C34.12 Malignant neoplasm of upper lobe, left bronchus or lung; C79.51 Secondary malignant neoplasm of bone; C77.1 Secondary and unspecified malignant neoplasm of intrathoracic lymph nodes; C78.7 Secondary malignant neoplasm of liver and intrahepatic bile duct; H81.09 Meniere's disease, unspecified ear; N40.0 Benign prostatic hyperplasia without lower urinary tract symptoms; Z79.899 Other long term (current) drug therapy; Z90.2 Acquired absence of lung [part of]; Z87.891 Personal history of nicotine dependence; Z92.3 Personal history of irradiation; Z77.090 Contact with and (suspected) exposure to asbestos
CPT/HCPCS: 36415; 80053; 84439; 84443; 85025; 96413; 99214; J7050; J9271

== ENCOUNTER 2020-03-20 09:58 | Outpatient (CLI) | payer MEDICARE, OTHER, SELFPAY ==
--- NOTE | 2020-03-20 10:45 | ONC FU_ITS ---
[facility]sal[facility] D[facility] Patient Note Patient: Isaiah Snyder Unit #: [id number]: 1940 Dictated By: Minh MclaughlinDate of Visit: Mar 20, 2020 Onc MED Follow-Up/Prog Note Chief Complaint: Lung cancer. 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 He has evidence of metastatic disease on imaging studies. He was found to have a 2.5 cm right upper lobe lung mass in 2011. He had mediastinal and hilar node involvement by trans-bronchial needle aspiration biopsy in May of 2011, with pathology reporting metastatic poorly differentiated non-small cell carcinoma. He was given neoadjuvant chemotherapy with 2 cycles of carboplatin/Taxol. He was found to have a complete pathologic response at right upper lobectomy/mediastinal lymph node dissection at [facility] in August of 2011. He completed 2 additional cycles of chemotherapy postoperatively, and he was then given radiation to the hilar/mediastinal node regions to a total dose of 50.4 Gy, which he completed on 02/13/12. He did have problems following his surgery, mainly due to a prolonged post thoracotomy pain syndrome. He also developed significant neuropathy with the chemotherapy, but he did show gradual recovery during subsequent follow-up on observation/expectant management. His surveillance CT of the chest on 08/15/2016 showed postoperative changes of right upper lobectomy. There was stable loculated pleural effusion at the right lung base with chronic right atelectasis. There was no mediastinal or hilar lymphadenopathy or other evidence of disease progression. He was advised to continue observation/expectant management. As he was 5 years out from completion of his treatment, Dr Noriega had recommended that he just continue his regular follow-up at the [facility]. [facility] Noriega had seen him for a visit again on 01/19/2018. [facility] abnormalities at the right lung base, but on review these were not significantly changed compared to prior studies. He continued on observation/expectant management. In June [address] Perla with complaints of pain on both sides of his mid back radiating around to the epigastric area. Evaluation was delayed to the pandemic restrictions. His CT abdomen/pelvis on 08/09/2019 showed a 3.1 x 2.8 x 2.6 cm mass near the gregory hepatis, concerning for neoplasm. An osteolytic lesion in the T8 vertebral body was concerning for metastatic disease. There was moderate sized right pleural effusion. There was a small amount of atelectasis or consolidation in the right lower lobe and the lingula, pneumonia not excluded. A 2.0 x 1.3 x 1.7 cm heterogeneous lesion in the inferior pole of the left kidney was indeterminate. An L4 vertebral compression fracture was of indeterminate age. He was seen for a visit here on 08/12/2019. He had further evaluation with PET/CT on 08/14/2019. It showed evidence of an FDG avid spiculated left upper lobe mass measuring 3.4 x 2.2 cm, SUV 20.8. A medial right middle lobe subcentimeter nodule adjacent to the mediastinum was also FDG positive as were bilateral hilar lymph nodes, consistent with metastatic adenopathy. There were 2 sites of diffuse activity in the body of the pancreas, felt to be more likely inflammatory in origin. A 3 cm hypodense mass in the central right hepatic lobe at the gregory hepatis head SUV 9.2, consistent with metastatic disease. A lytic osseous lesion at T8 had SUV of 17.2, consistent with metastatic disease. There were no other osseous lesions noted. MRI of the spine on 08/16/2019 showed abnormal signal within the majority of the T8 vertebral body with extension of tumor into the posterior elements. There was retropulsion of the posterior endplate by 3 mm with mild compression on the right lateral thecal sac. There was moderate stenosis of the T8-9 foramen due to tumor and bone expansion. There was significant soft tissue tumor enhancement within the T8-9 foramen. There was mild facet joint arthritis throughout the thoracic spine and there were degenerative changes noted in the cervical and lumbar spine. There were no other sites of metastatic disease noted. Given his symptoms and the findings on the imaging studies, he was referred for palliative radiation. He completed course of treatment from T7-T10 on 09/16/2019 to a total dose of 3000 cGy. During that time, he had also been seen in consultation by Dr. Puckett, and on 09/03/2019 he underwent bronchoscopy/EBUS with endobronchial biopsies and with transbronchial FNA biopsy of mediastinal lymph nodes. 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 The next generation sequencing study showed positive PD-L1 expression for 22c3 at 2%. There were no actionable mutations identified. With those findings, he was recommended to undergo systemic therapy with carboplatin/pemetrexed chemotherapy in combination with pembrolizumab. He has otherwise been in good health. 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 He does have a history of smoking 2 packs of cigarettes daily for approximately 40 years. He quit smoking in 1999. He indicated that he had significant asbestos exposure during service in the [employer]. INTERIM HISTORY: He began cycle 1 of carboplatin/pemetrexed/pembrolizumab on 11/03/2019. He tolerated it with acceptable toxicity, and he continued with cycle 2 on 11/24/2019 and with cycle 3 on 12/15/2019. Restaging CT scans of the chest, abdomen, and pelvis on 01/03/2020 showed interval decrease in the size of the spiculated left upper lobe mass measuring 2.7 x 2.1 cm compared to 3.4 x 2.2 cm on the prior study. A 9 mm right middle lobe nodule appeared stable. The metastatic lesion in the central right hepatic lobe had progressed slightly measuring 3.4 x 3.1 cm compared to approximately 3 cm on the prior study. The lytic metastatic osseous lesion involving the T8 vertebral body appeared stable. He was seen for a follow-up visit on 01/05/2020. At that time, he reported that he had developed significant fatigue and shortness of breath following his 3rd cycle of treatment. Given the CT findings, it was assumed that this was most likely due to the chemotherapy. Dr Noriega opted to give him a treatment break and then transition him to maintenance immunotherapy. He returned on 01/26/2020 for his 1st cycle of maintenance pembrolizumab. At that point he was feeling much better. He was seen for a scheduled visit on 02/17/2020. He indicated that following his treatment 3 weeks prior, he again developed severe shortness of breath and tachycardia with activity, to the point that he virtually could not go. He also was having some chest pain with it. Those symptoms gradually improved. His treatment was put on hold and he was started on steroid therapy with prednisone initially 40 mg twice daily. He was also given a prescription for home oxygen with 2 L of oxygen per nasal cannula. His O2 sat was 86% on room air after walking but with the 2 L per nasal cannula it maintained 95% while walking. Mr. Snyder is here today for follow-up. He states he has weaned off the prednisone completely. He stopped it about 2 days ago. He states overall he feels about the same. He states no worse no better . 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 He states he does not wear it much in the house because he does not need it because he really is not doing anything. Has any fever or chills. Denies any nausea or vomiting. States appetite is good. His energy is good. He denies any bowel or bladder concerns. He states his prostate has bothered him off and on but overall it has been better. He denies any new concerns. He states he does get short of breath but overall it is about the same. No productive cough of clear sputum. He denies any hemoptysis. He denies any chest pain or palpitations. His ECOG is 0. Past Medical History: Hstory of pancreatitis Meniere's Disease Peripheral neuropathy due to chemotherapy Non-small cell lung cancer in 2011 (Treated: surgery,chemo/readition) Past Surgical History: Right shoulder surgery in 2019 Thoractotomy with right upper lobectomy and mediastinal lymph node dissection in 2011 Bronchoscopy in 2011 TURP in 2002 Allergies: Flomax Medications: Flonase 2 [place](s) (of 50 mcg/act) Suspension Nasal daily PRN Ibuprofen 1 Tablet (of 800 mg) Tablet Oral t.i.d. MiraLax 1 Powder Oral daily PRN Neurontin 2 Tablet (of 300 mg) Oral t.i.d. Pantoprazole Sodium 1 Tablet (of 40 mg) Tablet, enteric coated Oral daily Vitamin B6 1 Tablet Oral daily Vitamin D3 1 Tablet (of 50 mcg ) Oral daily Family History: Mr. Snyder's father at age 89: stroke. Mr. Snyder has 2 brothers: 2 . Mr. Snyder's first brother's lung cancer. Another brother's melanoma cancer. Father of stroke at age 89. A brother of lung cancer and another brother of melanoma. Social History: Mr. Snyder is and he is retired. Mr. Snyder quit smoking 14 years ago but had smoked 2.0 packs/day for 40 years. He is an active drinker.He consumes 2 drinks/day. Mr. Snyder reports contact with the following hazardous materials: asbestos. He has indicated exposure to the following products: cigarettes. Mr. Snyder reports the following support systems: lives with spouse, significant other, family, or friends, lives in own house, supportive family/friends willing to assist with needs, and adequate transportation available for expected visits. His diet consists of regular meals. He indicates his activity level as: daily activities. Review Of Symptoms: Constitutional Denies fevers, chills, night sweats, excessive fatigue or weight loss. Allergic/Immunologic No reactions. Eyes Denies significant visual changes. No diplopia. No amaurosis. ENMT Denies changes in hearing, sore throat, mouth sores, difficulty or changes in swallowing ability, and/or sinus drainage. Endocrine No diabetes, thyroid disease or hormone replacement. Denies hot flashes or night sweats. Hematologic/Lymphatic Denies easy bruising or bleeding. The patient denies any tender or palpable lymph nodes. Respiratory Denies worsening dyspnea on exertion. He denies any chest pain, cough or hemoptysis. Denies orthopnea. Cardiovascular Denies anginal chest pain, palpitations or orthopnea. Gastrointestinal Denies nausea, vomiting, diarrhea, GI bleeding, or constipation. Denies change in bowel habits and/or stool color, no heartburn or early satiety. Genitourinary (M) Denies hematuria, dysuria, increased frequency, urgency, hesitancy or incontinence. Musculoskeletal Denies joint pain, swelling or redness. No decreased range of motion. Integumentary Denies chronic rashes, inflammation, ulcerations or skin changes. Neurologic Denies headache, blurred vision, and no areas of focal weakness or numbness. Normal gait. No sensory problems. Psychiatric Denies insomnia, depression, hortensia or mood swings. Vital Signs: Performed on Mar 20, 2020 10:11 Height - 70.00 in Weight - 169.2 lbs (LOW) BSA - 1.94 sq.m BMI - 24.28 Temperature - 97.4 F (LOW) Pulse - 82 /min Respiration - 20 /min BP - 138/71 mm(hg) O2 Sat - 96 % Pain - 0,0 - Fully active, able to carry on all predisease activities without restrictions. (ECOG) Physical Examination: Constitutional Alert, oriented, no acute distress. Skin pink, warm and dry. Head Normocephalic; atraumatic. Eyes Conjunctivae and sclerae are clear and without icterus. Pupils are reactive and equal. Neck Supple without masses or thyromegaly. No jugular venous distension. Hematologic/Lymphatic No petechiae or purpura. Respiratory Lungs are clear to auscultation without rhonchi or wheezing. Cardiovascular Regular rate and rhythm of heart without murmurs,clicks, gallops or rubs. Back/Spine Non-tender to palpation. Extremities No visible deformities, no cyanosis, clubbing or edema. Musculoskeletal No tenderness or swelling, normal range of motion without obvious weakness. Integumentary No rashes or lesions. Neurologic No sensory or motor deficits, normal cerebellar function, normal gait. Psychiatric Alert and oriented times three. Coherent speech. Verbalizes understanding of our discussions today. Laboratory:Test performed on Feb 17, 2020 09:15 Sodium 138 mmol/L TSH 1.00 uIU/mL Potassium 4.5 mmol/L Chloride 103 mmol/L CO2 25 mmol/L Anion Gap 14.5 BUN 12 mg/dL Creatinine 1.3 mg/dL Cr Clearance (Est) 51.02 mL/min Glucose 104 mg/dL Osmolality - Calculated 286 mOsm/kg Calcium 10.1 mg/dL Protein, Total 6.5 g/dL Albumin 4.1 g/dL Globulin 2.4 g/dL Bilirubin, Total 0.5 mg/dL ALT (SGPT) 17 U/L AST (SGOT) 27 U/L Alkaline Phosphatase 94 IU/L WBC 4.2 10 3/uL RBC 4.75 10 6/uL HGB 13.8 g/dL HCT 43.0 % MCV 90.5 fL MCH 29.1 pg MCHC 32.1 g/dL RDW 12.6 % Platelet Count 204 10 3/cmm MPV 9.6 fL Neutrophils 2.80 10 3/uL Lymphocytes 0.8 10 3/uL Monocytes 0.4 10 3/uL Eosinophils 0.2 10 3/uL Basophils 0.0 10 3/uL Neutrophil % 66.4 % Lymphocyte % 19.2 % Monocyte % 9.7 % Eosinophil % 3.8 % Basophils % 0.7 % NRBC % 0 % Impression: 1. 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 This appeared to be a new primary malignancy. By clinical evaluation, his disease was stage IVB (T2a, N3, M1c). His PD-L1 expression was positive at 2%. 2. He had presented with metastatic involvement in the T8 vertebral body. He had significant symptomatic improvement following palliative radiation, completed on 09/16/2019 to a total dose of 3000 cGy. 3. He has a prior history of differentiated non-small cell carcinoma of the right lung, stage IIIA with complete pathologic response to neoadjuvant chemotherapy with 2 cycles of carboplatin/Taxol. He then underwent right upper lobectomy/mediastinal lymph node dissection in August 2011 followed by 2 additional cycles of chemotherapy and radiation to the hilar/mediastinal node region, which he completed in January 2012. His other medical pulses include: 4. 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 5. Benign prostatic hypertrophy. His back pain has improved significantly following the radiation. With his tumor showing low PD-L1 expression, he was then recommended to begin systemic therapy with carboplatin/pemetrexed in combination with pembrolizumab. He began cycle 1 on 11/03/2019. He tolerated with acceptable toxicity and he was able to continue with cycle 2 on 11/24/2019 and with cycle 3 on 12/15/2019. His restaging CT scans are showing some evidence of response, with decrease in the primary tumor in the left upper lobe. The liver lesion had increased slightly, though the significance of that finding was uncertain. At his follow-up visit on 01/05/2020 he indicated that he had developed activity related shortness of breath and tachycardia following his 3rd cycle of treatment. At the time, I had assumed though symptoms were chemotherapy related. He was given a treatment break, and he then returned on 01/26/2020 to begin cycle 1 of maintenance pembrolizumab. Following that treatment, he again developed severe shortness of breath and tachycardia with activity, so that it now clearly appears to be an immunotherapy related toxicity, it was assumed to be pneumonitis, as he did have associated hypoxia. Plan: His pembrolizumab will remain on hold. He will continue just observation for now. 2. We will plan to see him back in 6 to 8 weeks for follow-up at the [facility]. I have asked that he have repeat CT chest abdomen pelvis with contrast for restaging. Also CBC CMP to be drawn same day as his CTs. We will plan for follow-up at that time and determine if he needs any further treatment plan based on the CTs. 3. Mr. Snyder was encouraged to contact us in interim should questions or problems arise. 4. He has weaned off of the prednisone as of 2 days ago. Signed By: Minh Mclaughlin-, AOCNP Jony Noriega MD <<Signature on File>>
== END 2020-03-20 09:59 | disposition home or self-care (01) ==
LOC: ONCMED 10:01
PROVIDERS: PCP Family Medicine; Visit Provider Internal Medicine Medical Oncology
DX: C34.12 Malignant neoplasm of upper lobe, left bronchus or lung (principal); C79.51 Secondary malignant neoplasm of bone; H81.09 Meniere's disease, unspecified ear; N40.0 Benign prostatic hyperplasia without lower urinary tract symptoms; T45.1X5D Adverse effect of antineoplastic and immunosuppressive drugs, subsequent encounter; Z87.891 Personal history of nicotine dependence; Z92.3 Personal history of irradiation; Z85.118 Personal history of other malignant neoplasm of bronchus and lung; Z90.2 Acquired absence of lung [part of]; Z79.899 Other long term (current) drug therapy
CPT/HCPCS: 99214

== ENCOUNTER 2020-05-02 09:40 | Outpatient (CLI) | payer MEDICARE, OTHER, SELFPAY ==
[2020-05-02 10:13] LABS: Basophils # 0.1 10^3/uL (0.0-0.1); Eosinophils # 0.3 10^3/uL (0.0-0.8); Eosinophils % 5.7 %; Hematocrit 45.9 % (42.0-52.0); Lymphocytes # 0.9 10^3/uL (0.8-4.8); Mean Corpuscular HGB Conc 32.7 g/dL (30.0-36.0); Mean Corpuscular Hemoglobin 28.6 pg (28.0-34.0); Mean Corpuscular Volume 87.4 fL (80-94); Mean Platelet Volume 9.7 fL (7.4-10.4); Monocytes # 0.5 10^3/uL (0.2-0.9); Neutrophils # 4.14 10^3/uL (1.8-7.7); Neutrophils % 68.8 %; Nucleated Red Blood Cells % 0 %; Platelet Count 270 10^3/cmm (130-400); Red Blood Count 5.25 10^6/uL (4.1-5.3); Red Cell Distribution Width 13.2 % (12.1-15.1)
[2020-05-02 10:29] LABS: Alanine Aminotransferase 13 U/L (0-41); Alkaline Phosphatase 106 IU/L (40-130); Anion Gap 13.4 (5-19); Aspartate Amino Transferase 25 U/L (0-40); Blood Urea Nitrogen 16 mg/dL (8-23); Calcium 9.9 mg/dL (8.5-10.5); Carbon Dioxide 26 mmol/L (22-29); Chloride 103 mmol/L (98-107); Globulin 2.9 g/dL (1.3-4.6); Glucose 94 mg/dL (65-115); Osmolality Calculated 287 mOsm/kg (285-295); Potassium 4.4 mmol/L (3.5-5.1); Sodium 138 mmol/L (136-145); Total Bilirubin 0.4 mg/dL (0.15-1.2); Total Protein 6.9 g/dL (6.6-8.7)
== END 2020-05-02 09:41 | disposition home or self-care (01) ==
LOC: ONCMED 09:43
PROVIDERS: PCP Family Medicine; Visit Provider Internal Medicine Medical Oncology
DX: C34.12 Malignant neoplasm of upper lobe, left bronchus or lung (principal); C79.51 Secondary malignant neoplasm of bone
CPT/HCPCS: 36415; 80053; 85025

== ENCOUNTER 2020-05-03 11:35 | Outpatient (CLI) | payer MEDICARE, OTHER, SELFPAY ==
--- NOTE | 2020-05-03 11:42 | CT_ITS ---
WS: [id number] CT CHEST, ABDOMEN AND PELVIS WITH CONTRAST. HISTORY: LUNG CANCER/BONE TECHNIQUE: Contiguous 5 mm axial imaging performed through the chest, abdomen and pelvis with IV cont rast, oral contrast has been provided. Coronal and sagittal reformats chest. Coronal and sagittal ref ormats through the abdomen and pelvis. All CT scans at [facility] use at least one of the se dose optimization techniques: automated exposure control; mA and/or kV adjustment per patient size (includes targeted exams where dose is matched to clinical indication); or iterative reconstruction. CONTRAST: Visipaque 320; 95 mL IV. DLP: 2446.63 mGycm COMPARISON: 01/03/2020 and 09/03/2019. Chest CT: Status post RIGHT upper lobectomy. New fluid entrapped along the fissure of the RIGHT lung. Atelectasis similar to the prior study along the medial RIGHT lower lobe. Moderate-sized RIGHT pleur al effusion has slightly increased in size since the prior study. Enhancing soft tissue mass with central necrosis in the LEFT upper lobe has slightly increased in siz e. Mass now extends over a length of 2.9 cm and transversely by 3.3 and anterior posterior by 2.5 cm. There is enhancement in the margins are irregular. There is additional soft tissue nodule measuring 1.4 cm abutting the pericardium over the LEFT ventricle. Enhancing soft tissue nodule measuring 1.0 c m at the LEFT hilum may be a lymph node. No additional or new nodules within the LEFT lung otherwise. No additional mediastinal lymph nodes. Mild atherosclerosis aorta. Heart size is normal. Previously described RIGHT middle lobe lesion does not appear to be changed or progressed since the prior study. Abdomen CT: Metastatic lesion in the central liver has increased in size now measuring 4.3 x 4.1 cm ( compared to 3.8 x 3.3 cm on from 01/03/2020). Mass is anterior to the RIGHT portal vein. Very mild dis montez bile duct dilatation suggests there is a very minimal component of biliary obstruction centrally. No additional metastatic nodules in the liver. Gallbladder is slightly contracted. Spleen is negativ e. No pancreas mass. No adrenal mass. Mild atherosclerosis aorta. RIGHT renal cysts with the largest in the superior pole measures 2.8 cm. No obstruction. No ascites or adenopathy. No GI tract obstructi on. Appendix is normal. Pelvic CT: No free fluid or adenopathy in the pelvis. Mild diffuse thickening of the urinary bladder wall may be due to partial outlet obstruction. Prostate gland is enlarged. Sclerotic focus involving the posterior T8 vertebral body has not significantly progressed. No new le sions in the spine. CT/CT chest abd pel w con* IMPRESSION: 1. Increase in size of the spiculated LEFT upper lobe mass now measuring 3.3 x 2.5 cm (compared to 2.7 x 2.1 cm on 01/03/2020. 2. New enhancing nodule abutting the pericardium of the LEFT ventricle suspici ous for metastatic deposit. 3. Additional indeterminate but suspicious lymph nodes at the LEFT hilum measu ring 1.0 cm. 4. Moderate but slightly increased RIGHT pleural effusion. 5. Status post RIGHT upper lobectomy. 6. Presenting described nodule in the RIGHT middle lobe is not definitely osborne ged. 7. Increase in size of the metastatic lesion in the central liver. 8. No change in the stable metastatic lesion at T8.
[2020-05-03] MEDS: iohexol 300 mg/mL 50 mL Btl PO (11:58)
[2020-05-03] MEDS: iodixanol 320 mg/mL 100mL Btl IV (13:31)
== END 2020-05-03 11:36 | disposition home or self-care (01) ==
LOC: RADWPI 11:37
PROVIDERS: PCP Family Medicine; Visit Provider Nurse Practitioner
DX: C34.12 Malignant neoplasm of upper lobe, left bronchus or lung (principal); C79.51 Secondary malignant neoplasm of bone; K76.9 Liver disease, unspecified; R91.1 Solitary pulmonary nodule; Z90.2 Acquired absence of lung [part of]; J90 Pleural effusion, not elsewhere classified
CPT/HCPCS: 71260; 74177; Q9967

== ENCOUNTER 2020-05-09 13:30 | Outpatient (CLI) | payer MEDICARE, OTHER, SELFPAY ==
--- NOTE | 2020-05-13 10:32 | ONC FU_ITS ---
Dr. Noriega Patient Follow-Up Note Patient: Isaiah Snyder Unit #: [id number]: 1940 Dicatated By: Jony Noriega M.D.Date of Visit:May 09, 2020 Onc Med Follow-up/Prog Note Chief Complaint: Lung cancer. 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 He now has evidence of metastatic disease on imaging studies. He was found to have a 2.5 cm right upper lobe lung mass in 2011. He had mediastinal and hilar node involvement by trans-bronchial needle aspiration biopsy in May of 2011, with pathology reporting metastatic poorly differentiated non-small cell carcinoma. He was given neoadjuvant chemotherapy with 2 cycles of carboplatin/Taxol. He was found to have a complete pathologic response at right [facility]. He completed 2 additional cycles of chemotherapy postoperatively, and he was then given radiation to the hilar/mediastinal node regions to a total dose of 50.4 Gy, which he completed on 02/13/12. He did have problems following his surgery, mainly due to a prolonged post thoracotomy pain syndrome. He also developed significant neuropathy with the chemotherapy, but he did show gradual recovery during subsequent follow-up on observation/expectant management. His surveillance CT of the chest on 08/15/2016 showed postoperative changes of right upper lobectomy. There was stable loculated pleural effusion at the right lung base with chronic right atelectasis. There ws no mediastinal or hilar lymphadenopathy or other evidence of disease progression. He was advised to continue observation/expectant anagement. As he was 5 years out from completion of his treatment, I had recommended that he just continue his regular follow-up at the [place]. I had seen him for a visit again on 01/19/2018. [facility] abnormalitites at the right lung base, but on review these were not significantly changed compared to prior studies. He continued on observation/expectant management. In June [address] Perla with complaints of pain on both sides of his mid back radiating around to the epigastric area. Evaluation was delayed to the pandemic restrictions. His CT abdomen/pelvis on 08/09/2019 showed a 3.1 x 2.8 x 2.6 cm mass near the gregory hepatis, concerning for neoplasm. An osteolytic lesion in the T8 vertebral body was concerning for metastatic disease. There was moderate sized right pleural effusion. There was a small amount of atelectasis or consolidation in the right lower lobe and the lingula, pneumonia not excluded. A 2.0 x 1.3 x 1.7 cm heterogeneous lesion in the inferior pole of the left kidney was indeterminate. An L4 vertebral compression fracture was of indeterminate age. He was seen for a visit here on 08/12/2019. He had further evaluation with PET/CT on 08/14/2019. It showed evidence of an FDG avid spiculated left upper lobe mass measuring 3.4 x 2.2 cm, SUV 20.8. A medial right middle lobe subcentimeter nodule adjacent to the mediastinum was also FDG positive as were bilateral hilar lymph nodes, consistent with metastatic adenopathy. There were 2 sites of diffuse activity in the body of the pancreas, felt to be more likely inflammatory in origin. A 3 cm hypodense mass in the central right hepatic lobe at the gregory hepatis head SUV 9.2, consistent with metastatic disease. A lytic osseous lesion at T8 had SUV of 17.2, consistent with metastatic disease. There were no other osseous lesions noted. MRI of the spine on 08/16/2019 showed abnormal signal within the majority of the T8 vertebral body with extension of tumor into the posterior elements. There was retropulsion of the posterior endplate by 3 mm with mild compression on the right lateral thecal sac. There was moderate stenosis of the T8-9 foramen due to tumor and bone expansion. There was significant soft tissue tumor enhancement within the T8-9 foramen. There was mild facet joint arthritis throughout the thoracic spine and there were degenerative changes noted in the cervical and lumbar spine. There were no other sites of metastatic disease noted. Given his symptoms and the findings on the imaging studies, he was referred for palliative radiation. He completed course of treatment from T7-T10 on 09/16/2019 to a total dose of 3000 cGy. During that time, he had also been seen in consultation by Dr. Puckett, and on 09/03/2019 he underwent bronchoscopy/EBUS with endobronchial biopsies and with transbronchial FNA biopsy of mediastinal lymph nodes. 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 The next generation sequencing study showed positive PD-L1 expression for 22c3 at 2%. There were no actionable mutations identified. With those findings, he was recommended to undergo systemic therapy with carboplatin/pemetrexed chemotherapy in combination with pembrolizumab. He has otherwise been in good health. 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 He does have a history of smoking 2 packs of cigarettes daily for approximately 40 years. He quit smoking in 1999. He indicated that he had significant asbestos exposure during service in the [employer]. INTERIM HISTORY: He began cycle 1 of carboplatin/pemetrexed/pembrolizumab on 11/03/2019. He tolerated it with acceptable toxicity, and he continued with cycle 2 on 11/24/2019 and with cycle 3 on 12/15/2019. Restaging CT scans of the chest, abdomen, and pelvis on 01/03/2020 showed interval decrease in the size of the spiculated left upper lobe mass measuring 2.7 x 2.1 cm compared to 3.4 x 2.2 cm on the prior study. A 9 mm right middle lobe nodule appeared stable. The metastatic lesion in the central right hepatic lobe had progressed slightly measuring 3.4 x 3.1 cm compared to approximately 3 cm on the prior study. The lytic metastatic osseous lesion involving the T8 vertebral body appeared stable. He was seen for a follow-up visit on 01/05/2020. At that time, he reported that he had developed significant fatigue and shortness of breath following his 3rd cycle of treatment. Given the CT findings, I assume this was most likely due to the chemotherapy. I opted to give him a treatment break and then transition him to maintenance immunotherapy. He returned on 01/26/2020. He was feeling much better. At that point he began cycle 1 of maintenance pembrolizumab. At his follow-up visit on 02/17/2020 he reported significant worsening of symptoms including weakness/fatigue and shortness of breath. He had become overtly hypoxic. His treatment was put on hold, and he was started on steroid therapy. During subsequent follow-up is symptoms did show some improvement, but he continued to have shortness of breath and limited activity tolerance. Restaging chest CT on 05/03/2020 showed increased in the left upper lobe lung mass measuring 3.5 x 2.5 cm. A new enhancing nodule abutting the pericardium of the left ventricle was suspicious for a metastatic deposit. There was moderate and slightly increased right pleural effusion. There was increase in size of the metastatic lesion in the central liver. There was no change in the appearance of the metastatic lesion involving the T8 vertebral body. He is seen for a followup visit. He continues to complain that he runs out of juice, but his energy is no worse. ECOG score is 1. He has good appetite. He has not had fever. Recently has had some night sweating. He reports having occasional nosebleeds. He has shortness of breath and cough. He does not complain of chest pain. He had diarrhea after his recent CT scan, but he thinks that was just a bug. He has no other GI complaints. Bladder function is the same. He has no significant joint or bone pain. He does not complain of headache or dizziness. 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 Medications: Flonase 2 Burt(s) (of 50 mcg/act) Suspension Nasal daily PRN, Ibuprofen 1 Tablet (of 800 mg) Tablet Oral t.i.d., MiraLax 1 Powder Oral daily PRN, Neurontin 2 Tablet (of 300 mg) Oral t.i.d., Pantoprazole Sodium 1 Tablet (of 40 mg) Tablet, enteric coated Oral daily, Vitamin B6 1 Tablet Oral daily, Vitamin D3 1 Tablet (of 50 mcg ) Oral daily Allergies: Flomax Vital Signs: Performed on May 09, 2020 13:29 Height - 70.00 in Weight - 170 lbs (HIGH) BSA - 1.95 sq.m BMI - 24.39 Temperature - 98.2 F (LOW) Pulse - 103 /min (HIGH) Respiration - 94 /min (HIGH) BP - 130/60 mm(hg) O2 Sat - 94 % (LOW) Pain - 0 Physical Examination: Constitutional - He looks pretty good generally, Eyes - Sclerae nonicteric. Conjunctivae clear, ENMT - No lesions noted in the oral cavity, Hematologic/Lymphatic - No cervical, clavicular, or axillary adenopathy, Respiratory - Lungs sound clear with some decrease in air movement bilaterally, Cardiovascular - Heart rhythm is regular. There is no murmur, gallop, or rub noted, Abdomen - Soft. Liver and spleen are not enlarged. There is no abdominal mass or ascites noted and there is no inguinal adenopathy, Extremities - No edema, Neurologic - No focal neurologic deficits noted. Lab/Imaging: Test performed on May 02, 2020 09:55 Sodium 138 mmol/L Potassium 4.4 mmol/L Chloride 103 mmol/L CO2 26 mmol/L Anion Gap 13.4 BUN 16 mg/dL Creatinine 1.2 mg/dL Cr Clearance (Est) 55.0700 mL/min Glucose 94 mg/dL Osmolality - Calculated 287 mOsm/kg Calcium 9.9 mg/dL Protein, Total 6.9 g/dL Albumin 4.0 g/dL Globulin 2.9 g/dL Bilirubin, Total 0.4 mg/dL ALT (SGPT) 13 U/L AST (SGOT) 25 U/L Alkaline Phosphatase 106 IU/L WBC 6.0 10 3/uL RBC 5.25 10 6/uL HGB 15.0 g/dL HCT 45.9 % MCV 87.4 fL MCH 28.6 pg MCHC 32.7 g/dL RDW 13.2 % Platelet Count 270 10 3/cmm MPV 9.7 fL Neutrophils 4.14 10 3/uL Lymphocytes 0.9 10 3/uL Monocytes 0.5 10 3/uL Eosinophils 0.3 10 3/uL Basophils 0.1 10 3/uL Neutrophil % 68.8 % Lymphocyte % 15.0 % Monocyte % 9.0 % Eosinophil % 5.7 % Basophils % 1.0 % NRBC % 0 % Restaging CT scans on 05/03/2020 showed increase in the spiculated left upper lobe mass measuring 3.3 x 2.5 cm. A new enhancing nodule abutting the pericardium of the left ventricle was suspicious for a metastatic deposit. There were additional indeterminate but suspicious lymph nodes in the left hilum and there was moderate but slightly increased right pleural effusion. There is increased in size of the metastatic lesion in the central liver measuring 4.3 x 4.1 cm. 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 This appeared to be a new primary malignancy. By clinical evaluation, his disease was stage IVB (T2a, N3, M1c). His PD-L1 expression was positive at 2%. 2. He had presented with metastatic involvement in the T8 vertebral body. He had significant symptomatic improvement following palliative radiation, completed on 09/16/2019 to a total dose of 3000 cGy. In October he began a trial of systemic therapy with carboplatin/pemetrexed in combination with pembrolizumab. He tolerated it very poorly. 3. History of differentiated non-small cell carcinoma of the right lung, stage IIIA with complete pathologic response to neoadjuvant chemotherapy with 2 cycles of carboplatin/Taxol. He then underwent right upper lobectomy/mediastinal lymph node dissection in August 2011 followed by 2 additional cycles of chemotherapy and radiation to the hilar/mediastinal node region, which he completed in January 2012. 4. 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 5. Benign prostatic hypertrophy. 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 He had presented with symptomatic metastatic involvement in the T8 vertebral body. His PD-L1 expression was positive at 2%. 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 He initially completed palliative radiation to the T8 vertebral body metastasis. He had very poor tolerance to subsequent treatment with carboplatin/pemetrexed chemotherapy in combination with pembrolizumab. He continues to have significant fatigue despite having stopped treatment back in January. His current CT scans are showing significant disease progression. Given his poor tolerance for both chemotherapy and immunotherapy, his further treatment options are very limited. With the plG12C KRAS mutation, I am going to look into the availability of treatment with sotorasib, either in the context of a clinical trial or on a compassionate use basis. Signed By: Jony Noriega M.D. <<Signature on File>>
== END 2020-05-09 13:31 | disposition home or self-care (01) ==
LOC: ONCMED 05-10 09:59
PROVIDERS: PCP Family Medicine; Visit Provider Internal Medicine Medical Oncology
DX: C34.12 Malignant neoplasm of upper lobe, left bronchus or lung (principal); C79.51 Secondary malignant neoplasm of bone; F17.211 Nicotine dependence, cigarettes, in remission; H81.03 Meniere's disease, bilateral; N40.0 Benign prostatic hyperplasia without lower urinary tract symptoms; Z79.899 Other long term (current) drug therapy
CPT/HCPCS: 99214

== ENCOUNTER 2020-06-02 11:41 | Outpatient (CLI) | payer MEDICARE, OTHER, SELFPAY ==
[2020-06-02 12:17] LABS: Basophils # 0.1 10^3/uL (0.0-0.1); Basophils % 0.7 %; Eosinophils # 0.2 10^3/uL (0.0-0.8); Eosinophils % 2.4 %; Hemoglobin 14.6 g/dL (11.7-16.6); Lymphocytes # 0.9 10^3/uL (0.8-4.8); Lymphocytes % 12.8 %; Mean Corpuscular HGB Conc 32.4 g/dL (30.0-36.0); Mean Corpuscular Hemoglobin 27.7 pg (28.0-34.0); Mean Corpuscular Volume 85.2 fL (80-94); Mean Platelet Volume 10.2 fL (7.4-10.4); Monocytes # 0.5 10^3/uL (0.2-0.9); Monocytes % 7.1 %; Neutrophils # 5.53 10^3/uL (1.8-7.7); Neutrophils % 76.7 %; Nucleated Red Blood Cells % 0 %; Platelet Count 290 10^3/cmm (130-400); Red Blood Count 5.28 10^6/uL (4.1-5.3); Red Cell Distribution Width 12.8 % (12.1-15.1); White Blood Count 7.2 10^3/uL (4.0-10.0)
[2020-06-02 12:38] LABS: Alanine Aminotransferase 15 U/L (0-41); Albumin Level 4.2 g/dL (3.5-5.2); Alkaline Phosphatase 102 IU/L (40-130); Anion Gap 16.1 (5-19); Aspartate Amino Transferase 26 U/L (0-40); Blood Urea Nitrogen 15 mg/dL (8-23); Calcium 9.8 mg/dL (8.5-10.5); Carbon Dioxide 25 mmol/L (22-29); Chloride 99 mmol/L (98-107); Globulin 3.2 g/dL (1.3-4.6); Glucose 96 mg/dL (65-115); Osmolality Calculated 283 mOsm/kg (285-295); Potassium 4.1 mmol/L (3.5-5.1); Sodium 136 mmol/L (136-145); Total Bilirubin 0.5 mg/dL (0.15-1.2); Total Protein 7.4 g/dL (6.6-8.7)
== END 2020-06-02 11:42 | disposition home or self-care (01) ==
PROVIDERS: PCP Family Medicine; Visit Provider Nurse Practitioner
DX: C34.12 Malignant neoplasm of upper lobe, left bronchus or lung (principal)
CPT/HCPCS: 36415; 80053; 85025

== ENCOUNTER 2020-06-20 10:44 | Outpatient (CLI) | payer MEDICARE, OTHER, SELFPAY ==
--- NOTE | 2020-06-21 07:18 | ONC FU_ITS ---
Dr. Noriega Patient Follow-Up Note Patient: Isaiah Snyder Unit #: [id number]: 1940 Dicatated By: Jony Noriega M.D.Date of Visit:Jun 20, 2020 Onc Med Follow-up/Prog Note Chief Complaint: Lung cancer. 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 He was found to have a 2.5 cm right upper lobe lung mass in 2011. He had mediastinal and hilar node involvement by trans-bronchial needle aspiration biopsy in May of 2011, with pathology reporting metastatic poorly differentiated non-small cell carcinoma. He was given neoadjuvant chemotherapy with 2 cycles of carboplatin/Taxol. He was found to have a complete pathologic response at right upper lobectomy/mediastinal lymph node dissection at [facility] in August of 2011. He completed 2 additional cycles of chemotherapy postoperatively, and he was then given radiation to the hilar/mediastinal node regions to a total dose of 50.4 Gy, which he completed on 02/13/12. He did have problems following his surgery, mainly due to a prolonged post thoracotomy pain syndrome. He also developed significant neuropathy with the chemotherapy, but he did show gradual recovery during subsequent follow-up on observation/expectant management. His surveillance CT of the chest on 08/15/2016 showed postoperative changes of right upper lobectomy. There was stable loculated pleural effusion at the right lung base with chronic right atelectasis. There ws no mediastinal or hilar lymphadenopathy or other evidence of disease progression. He was advised to continue observation/expectant anagement. As he was 5 years out from completion of his treatment, I had recommended that he just continue his regular follow-up at the [facility]. I had seen him for a visit again on 01/19/2018. His surveillance chest xray thru the [facility] had reported abnormalitites at the right lung base, but on review these were not significantly changed compared to prior studies. He continued on observation/expectant management. In June [address] Perla with complaints of pain on both sides of his mid back radiating around to the epigastric area. Evaluation was delayed to the pandemic restrictions. His CT abdomen/pelvis on 08/09/2019 showed a 3.1 x 2.8 x 2.6 cm mass near the gregory hepatis, concerning for neoplasm. An osteolytic lesion in the T8 vertebral body was concerning for metastatic disease. There was moderate sized right pleural effusion. There was a small amount of atelectasis or consolidation in the right lower lobe and the lingula, pneumonia not excluded. A 2.0 x 1.3 x 1.7 cm heterogeneous lesion in the inferior pole of the left kidney was indeterminate. An L4 vertebral compression fracture was of indeterminate age. He was seen for a visit here on 08/12/2019. He had further evaluation with PET/CT on 08/14/2019. It showed evidence of an FDG avid spiculated left upper lobe mass measuring 3.4 x 2.2 cm, SUV 20.8. A medial right middle lobe subcentimeter nodule adjacent to the mediastinum was also FDG positive as were bilateral hilar lymph nodes, consistent with metastatic adenopathy. There were 2 sites of diffuse activity in the body of the pancreas, felt to be more likely inflammatory in origin. A 3 cm hypodense mass in the central right hepatic lobe at the gregory hepatis head SUV 9.2, consistent with metastatic disease. A lytic osseous lesion at T8 had SUV of 17.2, consistent with metastatic disease. There were no other osseous lesions noted. MRI of the spine on 08/16/2019 showed abnormal signal within the majority of the T8 vertebral body with extension of tumor into the posterior elements. There was retropulsion of the posterior endplate by 3 mm with mild compression on the right lateral thecal sac. There was moderate stenosis of the T8-9 foramen due to tumor and bone expansion. There was significant soft tissue tumor enhancement within the T8-9 foramen. There was mild facet joint arthritis throughout the thoracic spine and there were degenerative changes noted in the cervical and lumbar spine. There were no other sites of metastatic disease noted. Given his symptoms and the findings on the imaging studies, he was referred for palliative radiation. He completed course of treatment from T7-T10 on 09/16/2019 to a total dose of 3000 cGy. During that time, he had also been seen in consultation by Dr. Puckett, and on 09/03/2019 he underwent bronchoscopy/EBUS with endobronchial biopsies and with transbronchial FNA biopsy of mediastinal lymph nodes. 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 The next generation sequencing study showed positive PD-L1 expression for 22c3 at 2%. There were no actionable mutations identified. With those findings, he was recommended to undergo systemic therapy with carboplatin/pemetrexed chemotherapy in combination with pembrolizumab. He has otherwise been in good health. 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 He does have a history of smoking 2 packs of cigarettes daily for approximately 40 years. He quit smoking in 1999. He indicated that he had significant asbestos exposure during service in the [employer]. INTERIM HISTORY: He began cycle 1 of carboplatin/pemetrexed/pembrolizumab on 11/03/2019. He tolerated it with acceptable toxicity, and he continued with cycle 2 on 11/24/2019 and with cycle 3 on 12/15/2019. Restaging CT scans of the chest, abdomen, and pelvis on 01/03/2020 showed interval decrease in the size of the spiculated left upper lobe mass measuring 2.7 x 2.1 cm compared to 3.4 x 2.2 cm on the prior study. A 9 mm right middle lobe nodule appeared stable. The metastatic lesion in the central right hepatic lobe had progressed slightly measuring 3.4 x 3.1 cm compared to approximately 3 cm on the prior study. The lytic metastatic osseous lesion involving the T8 vertebral body appeared stable. He was seen for a follow-up visit on 01/05/2020. At that time, he reported that he had developed significant fatigue and shortness of breath following his 3rd cycle of treatment. Given the CT findings, I assume this was most likely due to the chemotherapy. I opted to give him a treatment break and then transition him to maintenance immunotherapy. He returned on 01/26/2020. He was feeling much better. At that point he began cycle 1 of maintenance pembrolizumab. At his follow-up visit on 02/17/2020 he reported significant worsening of symptoms including weakness/fatigue and shortness of breath. He had become overtly hypoxic. His treatment was put on hold, and he was started on steroid therapy. During subsequent follow-up is symptoms did show some improvement, but he continued to have shortness of breath and limited activity tolerance. Restaging chest CT on 05/03/2020 showed increased in the left upper lobe lung mass measuring 3.5 x 2.5 cm. A new enhancing nodule abutting the pericardium of the left ventricle was suspicious for a metastatic deposit. There was moderate and slightly increased right pleural effusion. There was increase in size of the metastatic lesion in the central liver. There was no change in the appearance of the metastatic lesion involving the T8 vertebral body. On next generation sequencing, his tumor was noted to harbor a KRAS G12C mutation, and with that finding he was referred to [facility] for consideration of participation in a clinical trial. He unfortunately was deemed ineligible for the trial due to his borderline renal function. He is seen for a followup visit. He continues to have very limited activity tolerance, though he is able to do some light work. His ECOG score is 1. His appetite is not good, but he does eat. Weight is down just a couple of pounds. He does not have fever or night sweats. He has shortness of breath with activity. He has just occasional cough. He does get chest pain with activity, but it goes away after he rests long enough for his breathing to ease up. He has no GI complaints. He does have some difficulty voiding, but that is not new. He has joint pain, but it is adequately managed with his medication. He does not complain of headache or dizziness. He still has some numbness/tingling in his fingers. Medications: Flonase 2 [place](s) (of 50 mcg/act) Suspension Nasal daily PRN, Ibuprofen 1 Tablet (of 800 mg) Tablet Oral t.i.d., MiraLax 1 Powder Oral daily PRN, Neurontin 2 Tablet (of 300 mg) Oral t.i.d., Pantoprazole Sodium 1 Tablet (of 40 mg) Tablet, enteric coated Oral daily, Vitamin B6 1 Tablet Oral daily, Vitamin D3 1 Tablet (of 50 mcg ) Oral daily Allergies: Flomax Vital Signs: Performed on Jun 20, 2020 10:50 Height - 70.00 in Weight - 167 lbs (LOW) BSA - 1.93 sq.m BMI - 23.96 Temperature - 98.2 F (LOW) Pulse - 98 /min Respiration - 17 /min BP - 110/71 mm(hg) O2 Sat - 96 % Pain - 0 Physical Examination: Constitutional - He appears somewhat weak generally, Eyes - Sclerae nonicteric. Conjunctivae clear, ENMT - No lesions noted in the oral cavity, Hematologic/Lymphatic - No cervical, clavicular, or axillary adenopathy, Respiratory - Lungs sound clear with diminished air movement bilaterally, Cardiovascular - Heart rhythm is regular. There is no murmur, gallop, or rub noted, Abdomen - Soft. Liver and spleen are not enlarged. There is no abdominal mass or ascites noted and there is no inguinal adenopathy, Extremities - No edema, Neurologic - No focal neurologic deficits noted. Lab/Imaging: Test performed on May 02, 2020 09:55 Sodium 138 mmol/L Potassium 4.4 mmol/L Chloride 103 mmol/L CO2 26 mmol/L Anion Gap 13.4 BUN 16 mg/dL Creatinine 1.2 mg/dL Cr Clearance (Est) 55.0700 mL/min Glucose 94 mg/dL Osmolality - Calculated 287 mOsm/kg Calcium 9.9 mg/dL Protein, Total 6.9 g/dL Albumin 4.0 g/dL Globulin 2.9 g/dL Bilirubin, Total 0.4 mg/dL ALT (SGPT) 13 U/L AST (SGOT) 25 U/L Alkaline Phosphatase 106 IU/L WBC 6.0 10 3/uL RBC 5.25 10 6/uL HGB 15.0 g/dL HCT 45.9 % MCV 87.4 fL MCH 28.6 pg MCHC 32.7 g/dL RDW 13.2 % Platelet Count 270 10 3/cmm MPV 9.7 fL Neutrophils 4.14 10 3/uL Lymphocytes 0.9 10 3/uL Monocytes 0.5 10 3/uL Eosinophils 0.3 10 3/uL Basophils 0.1 10 3/uL Neutrophil % 68.8 % Lymphocyte % 15.0 % Monocyte % 9.0 % Eosinophil % 5.7 % Basophils % 1.0 % NRBC % 0 % 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 This appeared to be a new primary malignancy. By clinical evaluation, his disease was stage IVB (T2a, N3, M1c). His PD-L1 expression was positive at 2%. 2. He had presented with metastatic involvement in the T8 vertebral body. He had significant symptomatic improvement following palliative radiation, completed on 09/16/2019 to a total dose of 3000 cGy. In October he began a trial of systemic therapy with carboplatin/pemetrexed in combination with pembrolizumab. He tolerated it very poorly. 3. History of differentiated non-small cell carcinoma of the right lung, stage IIIA with complete pathologic response to neoadjuvant chemotherapy with 2 cycles of carboplatin/Taxol. He then underwent right upper lobectomy/mediastinal lymph node dissection in August 2011 followed by 2 additional cycles of chemotherapy and radiation to the hilar/mediastinal node region, which he completed in January 2012. 4. 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 5. Benign prostatic hypertrophy. 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 He had presented with symptomatic metastatic involvement in the T8 vertebral body. His PD-L1 expression was positive at 2%. 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 He initially completed palliative radiation to the T8 vertebral body metastasis. He did show some response to a trial of systemic therapy with carboplatin/pemetrexed chemotherapy in combination with pembrolizumab. However, he tolerated the treatment poorly, and during maintenance pembrolizumab his treatment was put on hold due to worsening shortness of breath. His restaging CT scans on 05/03/2020 showed evidence of disease progression with increase in the left upper lobe lung mass, development of a new enhancing nodule abutting the pericardium, and increase in the size of a metastatic lesion in the central liver. At that point he was evaluated at [facility] for consideration and a clinical trial, but he was deemed ineligible due to borderline renal function. At this point he continues to have somewhat limited activity tolerance, but his ECOG performance score is still 1. As he does wish to continue further treatment for the lung cancer, he will not be scheduled for trial of salvage chemotherapy with docetaxel as a single agent. It will be administered on a 3-week dosing schedule. I reviewed anticipated side effects which may include nausea/vomiting, fatigue, alopecia, low blood counts, and peripheral neuropathy, among others. Signed By: Jony Noriega M.D. <<Signature on File>>
== END 2020-06-20 10:45 | disposition home or self-care (01) ==
PROVIDERS: PCP Family Medicine; Visit Provider Internal Medicine Medical Oncology
DX: C34.12 Malignant neoplasm of upper lobe, left bronchus or lung (principal); C79.51 Secondary malignant neoplasm of bone; C78.7 Secondary malignant neoplasm of liver and intrahepatic bile duct; Z90.2 Acquired absence of lung [part of]; Z92.3 Personal history of irradiation
CPT/HCPCS: 99214

== ENCOUNTER 2020-06-21 12:50 | Day surgery (SDC) | payer MEDICARE, OTHER, SELFPAY ==
--- NOTE | 2020-06-21 | SCC_ITS ---
Procedure Done: Placement of PowerPort in the left subclavian vein Fluoroscopic guidance and interpretation for placement of catheter 41.1 seconds of fluoroscopic guidance, for a cumulative dose of 4.56 mGy, was provided to Dr. Osborne by the radiology department. C-arm images of the chest were saved for the patient's permanent record. [facility]
--- NOTE | 2020-06-21 13:09 | PM.HP ---
Providers/Chief Complaint Primary Care Provider: Dylon Perla Chief Complaint: Lung Cancer History of Present Illness Isaiah Snyder is a 80 year old male diagnosed with metastatic non-small cell lung cancer who needs central venous access for chemotherapy. Patient denies history of clavicle fracture or central line placement Review of Systems General: Reports: 10 or more systems reviewed and unremarkable except in HPI and below Medications/Allergies Home Medications Medication Instructions Recorded Confirmed Last Taken Type Glucosamine Chondroitin 1 cap PO DAILY 09/02/19 09/03/19 09/02/19 History cholecalciferol (vitamin D3) 50 50 mcg PO DAILY 09/02/19 09/03/19 09/02/19 History mcg (2,000 unit) capsule fluticasone propionate 50 2 spray INTRANASAL DAILY 09/02/19 09/03/19 09/02/19 History mcg/actuation nasal spray,suspension gabapentin 300 mg capsule 600 mg PO TID cap 09/02/19 09/03/19 09/02/19 History ibuprofen 800 mg tablet 800 mg PO TID PRN 09/02/19 09/03/19 09/01/19 History oxycodone 30 mg tablet 30 mg PO Q8H PRN 09/02/19 09/03/19 09/02/19 History pantoprazole 40 mg tablet,delayed 40 mg PO DAILY 09/02/19 09/03/19 09/02/19 History release polyethylene glycol 3350 17 17 gm PO DAILY 09/02/19 09/02/19 Unknown History gram/dose oral powder pyridoxine (vitamin B6) 50 mg 50 mg PO DAILY 09/02/19 09/03/19 09/02/19 History capsule sennosides 8.6 mg capsule 8.6 mg PO BID PRN 09/02/19 09/02/19 Unknown History albuterol sulfate 90 mcg/actuation 2 puff INHALATION Q6H PRN 90 Days 09/06/19 Unknown Rx aerosol inhaler #18 gm Allergies Allergy/AdvReac Type Severity Reaction Status Date / Time tamsulosin [From Flomax] Allergy Severe ALGY-Joint Verified 09/02/19 08:49 Pain PFSH Acute PFSH: Medical History Collagen vascular disease Meniere disease 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 Surgical History H/O shoulder surgery History of bronchoscopy History of thoracotomy Family History Father , Age 89 Stroke Brother , Age 70 - Lung Cancer Cancer Brother , Age 32 - Melanoma Cancer Brother , Prostate Cancer Cancer Social History Smoking and tobacco status: former smoker Quit status (tobacco): has quit using tobacco Year quit tobacco: 2006 - 2PPD x 40 Years Alcohol intake: current Alcohol intake frequency: 0-2 Drinks per Day Lives independently: Yes Household members: spouse Marital status: service: Yes Current occupational status: retired History of recent travel: No Current gender identity: Male Physical Exam Narrative: EXAM NARRATIVE: HEENT: Normocephalic Eye: Sclera /conjunctiva normal Respiratory and chest: Bilateral clear breath sounds on auscultation Cardiovascular: Normal S1 and S2 heart sounds Abdomen: Soft to palpation Neurological: Oriented to place person and time Skin: Intact, no lesions appreciated on gross exam A&P Assessment and plan (1) Non-small cell lung cancer metastatic to bone: 80-year-old male with metastatic small non-small cell lung cancer who needs central venous access for chemotherapy Plan for PowerPort placement under [facility] Procedure, risks, benefits and alternatives have been discussed with the patient who wishes to proceed with surgery. Status: Acute Attestations Medical Necessity Statement*: Placement of PowerPort Coding Level of Care Code Acute Search Consultant for Chg Fwd Diagnoses Non-small cell lung cancer metastatic to bone C34.90; C79.51
[2020-06-21 13:10] VITALS: BP 122/68; PULSE 91; RESP 18; TEMP 36.3; O2SAT 94
--- NOTE | 2020-06-21 13:25 | ANES.PREANE2 ---
Pre-Anesthetic Assessment Pre-Anesthetic Assessment: Height/Weight: Height 1.78 m Temp Pulse Resp BP Pulse Ox 97.3 F L 91 18 122/68 94 06/21/20 13:10 06/21/20 13:10 06/21/20 13:10 06/21/20 13:10 06/21/20 13:10 Preop Diagnosis: Lung mass Proposed Procedure: Operation Date: 06/21/20 14:00 Proposed Procedures p Portacath Placement 40787 C34.90(Not Applicable) - Rodrigo Osborne MD Familial anesthetic complications: None Was Beta Zahra taken within 24 hours: N/A Last intake: Fried egg sandwich at 0600 (will proceed at 1400) Social: Social History: Alcohol and Tobacco Comment: drinks 1 -2 beers a day Exam: Pre-Anes Outpt Exam: alert, oriented x 3, clear to auscultation bilaterally and regular rate & rhythm Airway: Cervical ROM: WNL MP: 4 Dentition: False Pulmonary: Comments: DAYDAY mass and s/p R upper lobectomy GI: GI: GERD Anesthetic Plan: ASA status: 4 Anesthesia: MAC Risk of > 500 ml blood loss (7ml/kg in children): No PFSH Anesthesia PFSH: Medical History (Updated 06/21/20 @ 13:13 by Rodrigo Osborne MD) Collagen vascular disease Meniere disease 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 Surgical History (Updated 06/21/20 @ 13:13 by Rodrigo Osborne MD) H/O shoulder surgery History of bronchoscopy History of thoracotomy Port-A-Cath in place (06/21/20) Family History Father , Age 89 Stroke Brother , Age 70 - Lung Cancer Cancer Brother , Age 32 - Melanoma Cancer Brother , Prostate Cancer Cancer Social History Smoking and tobacco status: former smoker Quit status (tobacco): has quit using tobacco Year quit tobacco: 2006 - 2PPD x 40 Years Alcohol intake: current Alcohol intake frequency: 0-2 Drinks per Day Lives independently: Yes Household members: spouse Marital status: service: Yes Current occupational status: retired History of recent travel: No Current gender identity: Male Data Anesthesia Cardiac Studies: No Data to Display
[2020-06-21] MEDS: sodium chloride 0.9% 1,000 ML 30 ML IV (13:35)
[2020-06-21 13:37] VITALS: BMI 24.3
[2020-06-21] MEDS: lidocaine 1% INJ 20 mL SUBCUT (14:10)
--- NOTE | 2020-06-21 14:11 | SC_ITS ---
WS: [id number] C-arm fluoroscopy of the left chest for Port-A-Cath insertion, 06/21/2020 Clinical Data: gregory cath placement Comparison: PA and lateral chest, 01/02/2018. Findings: The Port-A-Cath has been inserted and the distal portion is within the superior vena cava. SC/C-arm FL for CVA [id number] Impression: Satisfactory insertion of Port-A-Cath.
[2020-06-21] MEDS: heparin, porcine 1,000 unit/mL INJ 10 mL 10000 UNIT INJECTION (14:25)
--- NOTE | 2020-06-21 14:38 | PM.OP ---
Operative Report Date of procedure: June 21, 2020 Pre-op Diagnosis: Non-small cell lung cancer Post-op diagnosis: same Procedure Done: Placement of PowerPort in the left subclavian vein Fluoroscopic guidance and interpretation for placement of catheter Pathology: none sent Surgeon: Rodrigo Osborne Anesthesia: MAC Condition: stable Disposition: PACU Procedure: The patient was taken to the Operating Room and the chest and neck bilaterally were prepped and draped in a sterile manner after the antibiotic had been administered and shoulder rolls had been placed. A total of 10 mL of 1% lidocaine with 0.5% Marcaine was infiltrated under the clavicle on the left side at the site of the planned entry into the subclavian vein. An introducer needle was then used to access the subclavian vein under the clavicle and after withdrawing blood syringe was removed and a guidewire passed under fluoroscopy into the superior vena cava. The site of the planned port was then marked on the chest and a 15 blade was used to make a 3 cm skin incision this was extended into the subcutaneous tissue using electrocautery and a subcutaneous pocket over the pectoralis fascia was created 2-0 Vicryl suture was used to suture the port to the pectoral fascia in the pocket on 3 sides. The catheter, after having been flushed with hep saline, was attached to the tunneler and a tunnel created between the port site and the subclavian vein entry site. Under fluoroscopy the dilator sheath was passed over the guidewire into the proximal superior vena cava. The inner dilator was removed and the sheath left behind and~ the catheter was introduced through the peel-away sheath with the tip in the superior vena cava. The peel-away sheath was removed. The proximal end of the catheter was cut to the right size and was attached to the port. Using a Giron needle the port was accessed, it withdrew blood easily and flushed easily. A final 5cc of heparin was used to flush the PowerPort. The subcutaneous tissue was approximated using interrupted 3-0 Vicryl sutures and the skin at the introducer site and the port site was closed using subcuticular running 4-0 Monocryl sutures. Surgical glue was applied and the patient was stable throughout the procedure. Fluoroscopic guidance and interpretation was performed for introduction of the guidewire in the left subclavian vein, passage of dilator and placement of catheter tip in the distal superior vena cava.
[2020-06-21 14:39] VITALS: BP 119/69; PULSE 91; RESP 16; TEMP 37.2; O2SAT 92
[2020-06-21 14:45] VITALS: BP 119/65; PULSE 89; RESP 18; O2SAT 92
[2020-06-21 14:50] VITALS: BP 142/72; PULSE 90; RESP 17; TEMP 37.1; O2SAT 93
[2020-06-21 15:00] VITALS: BP 120/72; PULSE 90; RESP 18; TEMP 37.2; O2SAT 93
[2020-06-21 15:26] VITALS: BP 140/81; PULSE 90; RESP 18; O2SAT 93
--- NOTE | 2020-06-21 16:00 | ANE.PACU2 ---
Inpatient post-anesthesia follow up: Airway intact: Yes Vital signs: Temperature 98.9 F Pulse Rate 90 Respiratory Rate 18 Blood Pressure 140/81 Pulse Oximetry 93 Oxygen Delivery Me thod Room Air Oxygen Flow Rate Fraction of Inspir ed Oxygen Hydration adequate: Yes Nausea and vomiting: No Pain level: 3 Mental status: Baseline
[2020-06-21 16:47] LABS: Basophils % 0.6 %; Eosinophils # 0.3 10^3/uL (0.0-0.8); Eosinophils % 5.1 %; Hematocrit 48.3 % (42.0-52.0); Hemoglobin 15.8 g/dL (11.7-16.6); Lymphocytes # 1.2 10^3/uL (0.8-4.8); Lymphocytes % 18.5 %; Mean Corpuscular HGB Conc 32.7 g/dL (30.0-36.0); Mean Corpuscular Hemoglobin 28.1 pg (28.0-34.0); Mean Corpuscular Volume 85.9 fL (80-94); Mean Platelet Volume 10.6 fL (7.4-10.4); Monocytes # 0.4 10^3/uL (0.2-0.9); Monocytes % 6.2 %; Neutrophils # 4.36 10^3/uL (1.8-7.7); Neutrophils % 69.4 %; Nucleated Red Blood Cells % 0 %; Platelet Count 267 10^3/cmm (130-400); Red Blood Count 5.62 10^6/uL (4.1-5.3); Red Cell Distribution Width 12.9 % (12.1-15.1); White Blood Count 6.3 10^3/uL (4.0-10.0)
[2020-06-21 17:10] LABS: Alanine Aminotransferase 23 U/L (0-41); Albumin Level 4.5 g/dL (3.5-5.2); Alkaline Phosphatase 134 IU/L (40-130); Anion Gap 15.8 (5-19); Aspartate Amino Transferase 32 U/L (0-40); Blood Urea Nitrogen 13 mg/dL (8-23); Carbon Dioxide 24 mmol/L (22-29); Chloride 98 mmol/L (98-107); Glucose 114 mg/dL (65-115); Osmolality Calculated 279 mOsm/kg (285-295); Potassium 3.8 mmol/L (3.5-5.1); Sodium 134 mmol/L (136-145); Total Bilirubin 0.5 mg/dL (0.15-1.2); Total Protein 7.5 g/dL (6.6-8.7)
== END 2020-06-21 16:10 | disposition home or self-care (01) ==
PROVIDERS: Internal Medicine Medical Oncology; PCP Family Medicine; Visit Provider Surgery
PROC: (CPT 36561; principal; 2020-06-21 14:00)
DX: C34.90 Malignant neoplasm of unspecified part of unspecified bronchus or lung (principal); C79.51 Secondary malignant neoplasm of bone; Z90.2 Acquired absence of lung [part of]; Z87.891 Personal history of nicotine dependence
CPT/HCPCS: 36561; 36415; 77001; 80053; 85025; C1788; J0690; J1644; J2250; J2704; J3010; J3490; J7030

== ENCOUNTER 2020-06-30 05:36 | Outpatient (RCR) | payer MEDICARE, OTHER, SELFPAY ==
[2020-06-22] MEDS: sodium chloride 0.9% 250 ML 75 ML IV (09:00)
[2020-06-22] MEDS: famotidine 20 mg/2 mL INJ IVP (09:03)
[2020-06-22] MEDS: diphenhydrAMINE 50 mg/mL SDV 1mL 25 MG IV (09:04)
[2020-06-22] MEDS: ondansetron 2 mg/ML SDV 2 mL 8 MG IV (09:17)
[2020-06-28 12:50] LABS: Basophils % 5.6 %; Eosinophils # 0.1 10^3/uL (0.0-0.8); Eosinophils % 11.1 %; Hematocrit 42.7 % (42.0-52.0); Hemoglobin 13.8 g/dL (11.7-16.6); Lymphocytes # 0.5 10^3/uL (0.8-4.8); Lymphocytes % 69.4 %; Mean Corpuscular HGB Conc 32.3 g/dL (30.0-36.0); Mean Corpuscular Hemoglobin 27.5 pg (28.0-34.0); Mean Corpuscular Volume 85.2 fL (80-94); Mean Platelet Volume 10.7 fL (7.4-10.4); Monocytes % 2.8 %; Neutrophils % 8.3 %; Nucleated Red Blood Cells % 0 %; Platelet Count 210 10^3/cmm (130-400); Red Blood Count 5.01 10^6/uL (4.1-5.3); Red Cell Distribution Width 12.5 % (12.1-15.1)
[2020-06-28 13:00] LABS: Neutrophils # 0.06 10^3/uL (1.8-7.7); White Blood Count 0.7 10^3/uL (4.0-10.0)
[2020-06-28 13:25] LABS: Alanine Aminotransferase 28 U/L (0-41); Albumin Level 3.8 g/dL (3.5-5.2); Alkaline Phosphatase 100 IU/L (40-130); Anion Gap 11.3 (5-19); Aspartate Amino Transferase 40 U/L (0-40); Blood Urea Nitrogen 19 mg/dL (8-23); Calcium 9.4 mg/dL (8.5-10.5); Carbon Dioxide 26 mmol/L (22-29); Chloride 105 mmol/L (98-107); Globulin 2.5 g/dL (1.3-4.6); Glucose 119 mg/dL (65-115); Osmolality Calculated 289 mOsm/kg (285-295); Potassium 4.3 mmol/L (3.5-5.1); Sodium 138 mmol/L (136-145); Total Bilirubin 0.6 mg/dL (0.15-1.2); Total Protein 6.3 g/dL (6.6-8.7)
[2020-06-30 09:37] LABS: Basophils % 1.7 %; Eosinophils % 2.6 %; Hematocrit 39.2 % (42.0-52.0); Lymphocytes # 0.7 10^3/uL (0.8-4.8); Lymphocytes % 62.1 %; Mean Corpuscular HGB Conc 33.2 g/dL (30.0-36.0); Mean Corpuscular Hemoglobin 27.9 pg (28.0-34.0); Mean Corpuscular Volume 84.1 fL (80-94); Mean Platelet Volume 10.4 fL (7.4-10.4); Monocytes # 0.3 10^3/uL (0.2-0.9); Neutrophils % 7.7 %; Nucleated Red Blood Cells % 0 %; Platelet Count 193 10^3/cmm (130-400); Red Blood Count 4.66 10^6/uL (4.1-5.3); Red Cell Distribution Width 12.6 % (12.1-15.1); White Blood Count 1.2 10^3/uL (4.0-10.0)
[2020-06-30] MEDS: sodium chloride 0.9% 500 ML 999 ML IV (09:55)
[2020-06-30 09:58] LABS: Slide Review Slide Review Perform
[2020-06-30 09:59] LABS: Neutrophils # 0.09 10^3/uL (1.8-7.7)
[2020-07-01 10:35] VITALS: BP 98/65; PULSE 107; RESP 18; O2SAT 97
--- NOTE | 2020-07-09 22:08 | ONC FU_ITS ---
[facility] Patient Note Patient: Isaiah Snyder Unit #: [id number]: 1940 Dictated By: Minh MclaughlinDate of Visit: Jun 28, 2020 Onc MED Follow-Up/Prog Note Chief Complaint: Lung cancer. 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 He was found to have a 2.5 cm right upper lobe lung mass in 2011. He had mediastinal and hilar node involvement by trans-bronchial needle aspiration biopsy in May of 2011, with pathology reporting metastatic poorly differentiated non-small cell carcinoma. He was given neoadjuvant chemotherapy with 2 cycles of carboplatin/Taxol. He was found to have a complete pathologic response at right upper lobectomy/mediastinal lymph node dissection at [facility] in August of 2011. He completed 2 additional cycles of chemotherapy postoperatively, and he was then given radiation to the hilar/mediastinal node regions to a total dose of 50.4 Gy, which he completed on 02/13/12. He did have problems following his surgery, mainly due to a prolonged post thoracotomy pain syndrome. He also developed significant neuropathy with the chemotherapy, but he did show gradual recovery during subsequent follow-up on observation/expectant management. His surveillance CT of the chest on 08/15/2016 showed postoperative changes of right upper lobectomy. There was stable loculated pleural effusion at the right lung base with chronic right atelectasis. There ws no mediastinal or hilar lymphadenopathy or other evidence of disease progression. He was advised to continue observation/expectant anagement. As he was 5 years out from completion of his treatment, Dr Noriega had recommended that he just continue his regular follow-up at the [facility]. Dr Noriega had seen him for a visit again on 01/19/2018. His surveillance chest xray thru the [facility] had reported abnormalitites at the right lung base, but on review these were not significantly changed compared to prior studies. He continued on observation/expectant management. In June [address] Perla with complaints of pain on both sides of his mid back radiating around to the epigastric area. Evaluation was delayed to the pandemic restrictions. His CT abdomen/pelvis on 08/09/2019 showed a 3.1 x 2.8 x 2.6 cm mass near the gregory hepatis, concerning for neoplasm. An osteolytic lesion in the T8 vertebral body was concerning for metastatic disease. There was moderate sized right pleural effusion. There was a small amount of atelectasis or consolidation in the right lower lobe and the lingula, pneumonia not excluded. A 2.0 x 1.3 x 1.7 cm heterogeneous lesion in the inferior pole of the left kidney was indeterminate. An L4 vertebral compression fracture was of indeterminate age. He was seen for a visit here on 08/12/2019. He had further evaluation with PET/CT on 08/14/2019. It showed evidence of an FDG avid spiculated left upper lobe mass measuring 3.4 x 2.2 cm, SUV 20.8. A medial right middle lobe subcentimeter nodule adjacent to the mediastinum was also FDG positive as were bilateral hilar lymph nodes, consistent with metastatic adenopathy. There were 2 sites of diffuse activity in the body of the pancreas, felt to be more likely inflammatory in origin. A 3 cm hypodense mass in the central right hepatic lobe at the gregory hepatis head SUV 9.2, consistent with metastatic disease. A lytic osseous lesion at T8 had SUV of 17.2, consistent with metastatic disease. There were no other osseous lesions noted. MRI of the spine on 08/16/2019 showed abnormal signal within the majority of the T8 vertebral body with extension of tumor into the posterior elements. There was retropulsion of the posterior endplate by 3 mm with mild compression on the right lateral thecal sac. There was moderate stenosis of the T8-9 foramen due to tumor and bone expansion. There was significant soft tissue tumor enhancement within the T8-9 foramen. There was mild facet joint arthritis throughout the thoracic spine and there were degenerative changes noted in the cervical and lumbar spine. There were no other sites of metastatic disease noted. Given his symptoms and the findings on the imaging studies, he was referred for palliative radiation. He completed course of treatment from T7-T10 on 09/16/2019 to a total dose of 3000 cGy. During that time, he had also been seen in consultation by Dr. Puckett, and on 09/03/2019 he underwent bronchoscopy/EBUS with endobronchial biopsies and with transbronchial FNA biopsy of mediastinal lymph nodes. 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 The next generation sequencing study showed positive PD-L1 expression for 22c3 at 2%. There were no actionable mutations identified. With those findings, he was recommended to undergo systemic therapy with carboplatin/pemetrexed chemotherapy in combination with pembrolizumab. He has otherwise been in good health. 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 He does have a history of smoking 2 packs of cigarettes daily for approximately 40 years. He quit smoking in 1999. He indicated that he had significant asbestos exposure during service in the [employer]. INTERIM HISTORY: He began cycle 1 of carboplatin/pemetrexed/pembrolizumab on 11/03/2019. He tolerated it with acceptable toxicity, and he continued with cycle 2 on 11/24/2019 and with cycle 3 on 12/15/2019. Restaging CT scans of the chest, abdomen, and pelvis on 01/03/2020 showed interval decrease in the size of the spiculated left upper lobe mass measuring 2.7 x 2.1 cm compared to 3.4 x 2.2 cm on the prior study. A 9 mm right middle lobe nodule appeared stable. The metastatic lesion in the central right hepatic lobe had progressed slightly measuring 3.4 x 3.1 cm compared to approximately 3 cm on the prior study. The lytic metastatic osseous lesion involving the T8 vertebral body appeared stable. He was seen for a follow-up visit on 01/05/2020. At that time, he reported that he had developed significant fatigue and shortness of breath following his 3rd cycle of treatment. Given the CT findings, it was assumed this was most likely due to the chemotherapy. Dr Noriega opted to give him a treatment break and then transition him to maintenance immunotherapy. He returned on 01/26/2020. He was feeling much better. At that point he began cycle 1 of maintenance pembrolizumab. At his follow-up visit on 02/17/2020 he reported significant worsening of symptoms including weakness/fatigue and shortness of breath. He had become overtly hypoxic. His treatment was put on hold, and he was started on steroid therapy. During subsequent follow-up is symptoms did show some improvement, but he continued to have shortness of breath and limited activity tolerance. Restaging chest CT on 05/03/2020 showed increased in the left upper lobe lung mass measuring 3.5 x 2.5 cm. A new enhancing nodule abutting the pericardium of the left ventricle was suspicious for a metastatic deposit. There was moderate and slightly increased right pleural effusion. There was increase in size of the metastatic lesion in the central liver. There was no change in the appearance of the metastatic lesion involving the T8 vertebral body. 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 He unfortunately was deemed ineligible for the trial due to his borderline renal function. Restaging CT scans from May 03, 2020 showed evidence of disease progression with increase in the left upper lobe lung mass, development of a new enhancing nodule abutting the pericardium and increase in the size of the metastatic lesion in the central liver. He was evaluated at [facility] for consideration of a clinical trial but was deemed ineligible due to borderline renal function. He was offered salvage chemotherapy with docetaxel single agent. It is on his 3-week dosing. He began his first cycle on June 22, 2020. Mr. Snyder is here today for day 8 follow-up. Reports overall he seems to be doing okay. He did have diarrhea for about 3 days after his chemotherapy but did not try any antidiarrheal agents. The diarrhea has now resolved on its own. He states he did have some aching in his legs and hips and bone somewhat but that only lasted a couple of days and that is gone as well now 2. He denies any fever or chills. He states his appetite is okay not great but okay . He denies any worsening of his shortness of breath. He states he thinks it may be even a little bit better. He denies any cough or hemoptysis. He denies any nausea or vomiting. He denies any constipation. He has had no neuropathy symptoms. He did have a little insomnia with the steroid premedication but that has resolved as well. His ECOG is 1. Past Medical History: Hstory of pancreatitis Meniere's Disease Peripheral neuropathy due to chemotherapy Non-small cell lung cancer in 2011 (Treated: surgery,chemo/readition) Past Surgical History: Right shoulder surgery in 2019 Thoractotomy with right upper lobectomy and mediastinal lymph node dissection in 2011 Bronchoscopy in 2011 TURP in 2002 Allergies: Flomax Medications: Flonase 2 Butler(s) (of 50 mcg/act) Suspension Nasal daily PRN Ibuprofen 1 Tablet (of 800 mg) Tablet Oral t.i.d. MiraLax 1 Powder Oral daily PRN Neurontin 2 Tablet (of 300 mg) Oral t.i.d. Pantoprazole Sodium 1 Tablet (of 40 mg) Tablet, enteric coated Oral daily Vitamin B6 1 Tablet Oral daily Vitamin D3 1 Tablet (of 50 mcg ) Oral daily Family History: Mr. Snyder's father at age 89: stroke. Mr. Snyder has 2 brothers: 2 . Mr. Snyder's first brother's lung cancer. Another brother's melanoma cancer. Father of stroke at age 89. A brother of lung cancer and another brother of melanoma. Social History: Mr. Snyder is and he is retired. Mr. Snyder quit smoking 14 years ago but had smoked 2.0 packs/day for 40 years. He is an active drinker.He consumes 2 drinks/day. Mr. Snyder reports contact with the following hazardous materials: asbestos. He has indicated exposure to the following products: cigarettes. Mr. Snyder reports the following support systems: lives with spouse, significant other, family, or friends, lives in own house, supportive family/friends willing to assist with needs, and adequate transportation available for expected visits. His diet consists of regular meals. He indicates his activity level as: daily activities. Review Of Symptoms: Constitutional Denies fevers, chills, night sweats, excessive fatigue or weight loss. Allergic/Immunologic No reactions. Eyes Denies significant visual changes. No diplopia. No amaurosis. ENMT Denies changes in hearing, sore throat, mouth sores, difficulty or changes in swallowing ability, and/or sinus drainage. Endocrine No diabetes, thyroid disease or hormone replacement. Denies hot flashes or night sweats. Hematologic/Lymphatic Denies easy bruising or bleeding. The patient denies any tender or palpable lymph nodes. Respiratory Denies worsening dyspnea on exertion. He denies any chest pain, cough or hemoptysis. Denies orthopnea. Cardiovascular Denies anginal chest pain, palpitations or orthopnea. Gastrointestinal Denies nausea, vomiting, GI bleeding, or constipation. He states he did have diarrhea for 3 days after his treatment but did not try any antidiarrheal agents. It has resolved currently. Genitourinary (M) Denies hematuria, dysuria, increased frequency, urgency, hesitancy or incontinence. Musculoskeletal Denies joint pain, swelling or redness. No decreased range of motion. Integumentary Denies chronic rashes, inflammation, ulcerations or skin changes. Neurologic Denies headache, blurred vision, and no areas of focal weakness or numbness. Normal gait. No sensory problems. Psychiatric Denies insomnia, depression, hortensia or mood swings. Vital Signs: Performed on Jun 28, 2020 14:06 Height - 70.00 in Weight - 163.6 lbs (LOW) BSA - 1.92 sq.m BMI - 23.47 Temperature - 97.7 F (LOW) Pulse - 99 /min Respiration - 18 /min BP - 136/73 mm(hg) O2 Sat - 94 % (LOW) Pain - 8,1 - No physically strenuous activity, but ambulatory and able to carry out light or sedentary work (e.g. office work, light house work). (ECOG) Physical Examination: Constitutional Alert, oriented, no acute distress. Skin pink, warm and dry. Head Normocephalic; atraumatic. Eyes Conjunctivae and sclerae are clear and without icterus. Pupils are reactive and equal. Neck Supple without masses or thyromegaly. No jugular venous distension. Hematologic/Lymphatic No petechiae or purpura. Respiratory Lungs are clear to auscultation without rhonchi or wheezing. Cardiovascular Regular rate and rhythm of heart without murmurs,clicks, gallops or rubs. Abdomen Non-tender, non-distended, no masses or ascites. Good bowel sounds noted in all quads. No guarding or rebound tenderness. No pulsatile masses. Back/Spine Non-tender to palpation. Extremities No visible deformities, no cyanosis, clubbing or edema. Musculoskeletal No tenderness or swelling, normal range of motion without obvious weakness. Integumentary No rashes or lesions. Neurologic No sensory or motor deficits, normal cerebellar function, normal gait. Psychiatric Alert and oriented times three. Coherent speech. Verbalizes understanding of our discussions today. Laboratory:Test performed on Jun 30, 2020 09:25 WBC 1.2 10 3/uL RBC 4.66 10 6/uL HGB 13.0 g/dL HCT 39.2 % MCV 84.1 fL MCH 27.9 pg MCHC 33.2 g/dL RDW 12.6 % Platelet Count 193 10 3/cmm MPV 10.4 fL Neutrophils 0.09 10 3/uL Lymphocytes 0.7 10 3/uL Monocytes 0.3 10 3/uL Eosinophils 0.0 10 3/uL Basophils 0.0 10 3/uL Neutrophil % 7.7 % Lymphocyte % 62.1 % Monocyte % 25.0 % Eosinophil % 2.6 % Basophils % 1.7 % NRBC % 0 % CBC Slide Review Slide Review Perform SLIDE REVIEW AGREES WITH AUTOMATED RESULTS ST Test performed on Jun 28, 2020 12:35 Sodium 138 mmol/L Potassium 4.3 mmol/L Chloride 105 mmol/L CO2 26 mmol/L Anion Gap 11.3 BUN 19 mg/dL Creatinine 0.9 mg/dL Cr Clearance (Est) 71.3100 mL/min Glucose 119 mg/dL Osmolality - Calculated 289 mOsm/kg Calcium 9.4 mg/dL Protein, Total 6.3 g/dL Albumin 3.8 g/dL Globulin 2.5 g/dL Bilirubin, Total 0.6 mg/dL ALT (SGPT) 28 U/L AST (SGOT) 40 U/L Alkaline Phosphatase 100 IU/L Test performed on Feb 17, 2020 09:15 TSH 1.00 uIU/mL Test performed on Jan 26, 2020 11:32 T4, Free 1.42 ng/dL Impression: 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 This appeared to be a new primary malignancy. By clinical evaluation, his disease was stage IVB (T2a, N3, M1c). His PD-L1 expression was positive at 2%. 2. He had presented with metastatic involvement in the T8 vertebral body. He had significant symptomatic improvement following palliative radiation, completed on 09/16/2019 to a total dose of 3000 cGy. In October he began a trial of systemic therapy with carboplatin/pemetrexed in combination with pembrolizumab. He tolerated it very poorly. 3. History of differentiated non-small cell carcinoma of the right lung, stage IIIA with complete pathologic response to neoadjuvant chemotherapy with 2 cycles of carboplatin/Taxol. He then underwent right upper lobectomy/mediastinal lymph node dissection in August 2011 followed by 2 additional cycles of chemotherapy and radiation to the hilar/mediastinal node region, which he completed in January 2012. 4. 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 5. Benign prostatic hypertrophy. Plan: PROBLEMS ADDRESSED TODAY 1. 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 He had presented with symptomatic metastatic involvement in the T8 vertebral body. His PD-L1 expression was positive at 2%. 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 He initially completed palliative radiation to the T8 vertebral body metastasis. He did show some response to a trial of systemic therapy with carboplatin/pemetrexed chemotherapy in combination with pembrolizumab. However, he tolerated the treatment poorly, and during maintenance pembrolizumab his treatment was put on hold due to worsening shortness of breath. His restaging CT scans on 05/03/2020 showed evidence of disease progression with increase in the left upper lobe lung mass, development of a new enhancing nodule abutting the pericardium, and increase in the size of a metastatic lesion in the central liver. At that point he was evaluated at [facility] for consideration and a clinical trial, but he was deemed ineligible due to borderline renal function. At this point he continues to have somewhat limited activity tolerance, but his ECOG performance score is still 1. As he does wish to continue further treatment for the lung cancer, he began a trial of salvage chemotherapy with docetaxel as a single agent on June 22, 2020. A. Proceed with cycle 1 single agent docetaxel on if 21-day cycle. This is day 8. B. Today's labs reviewed in detail and discussed with Mr. Mrs. Snyder and a copy was given to them. WBC 0.7, hemoglobin 13.8, platelets 210,000, ANC is 60. Potassium 4.3 creatinine 0.9, LFTs are normal. C. He has been advised to use Imodium if he has any recurrent diarrhea. If this is not controlled that he will need Lomotil. We did go and send a prescription for Lomotil to have on hand at his pharmacy in the event that he should need it over the weekend. 2. Chemotherapy induced neutropenia???severe with an ANC on day 8 of cycle 1 of 60. He did not receive prophylactic growth factors. A. Proceed with prior authorization request for Neupogen 480 mcg until his blood counts recover. B. We will start him on Levaquin 750 p.o. daily for prophylaxis. C. I did request a prior authorization for initiation of Neulasta on pro with cycle 2. As he is already having some bone aches will need to make sure that he is aware to take the Claritin with the Neulasta shot if it is approved. D. He is to call if he has any trouble with mouth sores we could initiate famciclovir if needed and Magic mouthwash also. States his mouth is little tender today but has had no sores. 3. Follow-up plan A. We will request a CBC on June 30, 2020 to see if he needs Neupogen over the weekend. B. He prefers to present [facility] for his Neupogen should he require it over the weekend. C. He is due back for cycle 2 follow-up with CBC CMP in 2 weeks. D. Mr. Snyder has been instructed to contact us in the interim should questions or problems arise. Signed By: Minh Mclaughlin <<Signature on File>>
== END 2020-07-01 06:00 | disposition home or self-care (01) ==
LOC: ONCMED 05:36
PROVIDERS: Nurse Practitioner; PCP Family Medicine; Visit Provider Internal Medicine Medical Oncology
DX: Z51.11 Encounter for antineoplastic chemotherapy (principal); C34.11 Malignant neoplasm of upper lobe, right bronchus or lung; C34.12 Malignant neoplasm of upper lobe, left bronchus or lung; C79.51 Secondary malignant neoplasm of bone; F17.211 Nicotine dependence, cigarettes, in remission; H81.03 Meniere's disease, bilateral; N40.0 Benign prostatic hyperplasia without lower urinary tract symptoms; Z79.899 Other long term (current) drug therapy
CPT/HCPCS: 36591; 80053; 85025; 96360; 96367; 96372; 96375; 96413; 99214; J1100; J1200; J1442; J2405; J3490; J7040; J7050; J9171

== ENCOUNTER 2020-07-01 10:53 | Outpatient (RCR) | payer MEDICARE, OTHER, SELFPAY ==
[2020-07-01 10:30] VITALS: BP 98/60; PULSE 107; RESP 18; TEMP 36.6; O2SAT 98
[2020-07-01] MEDS: sodium chloride 0.9% 500 ML IV (11:00)
[2020-07-01 11:33] VITALS: BMI 24.3
[2020-07-02] MEDS: sodium chloride 0.9% 500 ML IV (10:45)
[2020-07-02 10:51] VITALS: BP 128/66; PULSE 97; RESP 18; TEMP 36.8; O2SAT 98
== END 2020-07-19 23:59 | disposition home or self-care (01) ==
LOC: OPS 10:53
PROVIDERS: PCP Family Medicine; Visit Provider Nurse Practitioner
DX: C34.12 Malignant neoplasm of upper lobe, left bronchus or lung (principal)
CPT/HCPCS: 96360; 96372; J1442; J7040

== ENCOUNTER 2020-07-19 05:38 | Outpatient (RCR) | payer MEDICARE, OTHER, SELFPAY ==
[2020-07-03] MEDS: sodium chloride 0.9% 500 ML IV (09:30)
[2020-07-03 10:22] LABS: Basophils % 0.1 %; Eosinophils % 0.1 %; Hematocrit 39.5 % (42.0-52.0); Hemoglobin 12.8 g/dL (11.7-16.6); Lymphocytes # 1.3 10^3/uL (0.8-4.8); Lymphocytes % 5.1 %; Mean Corpuscular HGB Conc 32.4 g/dL (30.0-36.0); Mean Corpuscular Hemoglobin 27.7 pg (28.0-34.0); Mean Corpuscular Volume 85.5 fL (80-94); Mean Platelet Volume 10.3 fL (7.4-10.4); Monocytes # 1.8 10^3/uL (0.2-0.9); Monocytes % 6.7 %; Neutrophils # 20.67 10^3/uL (1.8-7.7); Neutrophils % 78.8 %; Nucleated Red Blood Cells % 0.1 %; Platelet Count 205 10^3/cmm (130-400); Red Blood Count 4.62 10^6/uL (4.1-5.3); Red Cell Distribution Width 13.6 % (12.1-15.1); White Blood Count 26.2 10^3/uL (4.0-10.0)
[2020-07-03 10:52] LABS: Slide Review Slide Review Perform
[2020-07-10 08:57] LABS: Basophils % 0.8 %; Hematocrit 41.9 % (42.0-52.0); Hemoglobin 13.6 g/dL (11.7-16.6); Lymphocytes # 0.5 10^3/uL (0.8-4.8); Lymphocytes % 9.1 %; Mean Corpuscular HGB Conc 32.5 g/dL (30.0-36.0); Mean Corpuscular Hemoglobin 27.7 pg (28.0-34.0); Mean Corpuscular Volume 85.3 fL (80-94); Mean Platelet Volume 10.2 fL (7.4-10.4); Monocytes # 0.4 10^3/uL (0.2-0.9); Monocytes % 7.9 %; Neutrophils # 4.28 10^3/uL (1.8-7.7); Neutrophils % 80.9 %; Nucleated Red Blood Cells % 0 %; Platelet Count 279 10^3/cmm (130-400); Red Blood Count 4.91 10^6/uL (4.1-5.3); Red Cell Distribution Width 14.4 % (12.1-15.1); White Blood Count 5.3 10^3/uL (4.0-10.0)
[2020-07-10] MEDS: sodium chloride 0.9% 1,000 ML 999 ML IV (09:00)
[2020-07-10 09:14] LABS: Alanine Aminotransferase 23 U/L (0-41); Albumin Level 3.7 g/dL (3.5-5.2); Alkaline Phosphatase 101 IU/L (40-130); Anion Gap 13.7 (5-19); Aspartate Amino Transferase 37 U/L (0-40); Blood Urea Nitrogen 14 mg/dL (8-23); Calcium 8.9 mg/dL (8.5-10.5); Carbon Dioxide 22 mmol/L (22-29); Chloride 104 mmol/L (98-107); Globulin 2.6 g/dL (1.3-4.6); Glucose 90 mg/dL (65-115); Osmolality Calculated 282 mOsm/kg (285-295); Potassium 3.7 mmol/L (3.5-5.1); Sodium 136 mmol/L (136-145); Total Bilirubin 0.5 mg/dL (0.15-1.2); Total Protein 6.3 g/dL (6.6-8.7)
[2020-07-12 13:18] LABS: Basophils # 0.1 10^3/uL (0.0-0.1); Basophils % 1.1 %; Eosinophils % 0.2 %; Hematocrit 40.6 % (42.0-52.0); Hemoglobin 12.8 g/dL (11.7-16.6); Lymphocytes # 0.8 10^3/uL (0.8-4.8); Lymphocytes % 16.7 %; Mean Corpuscular HGB Conc 31.5 g/dL (30.0-36.0); Mean Corpuscular Volume 85.7 fL (80-94); Monocytes # 0.4 10^3/uL (0.2-0.9); Monocytes % 7.5 %; Neutrophils # 3.45 10^3/uL (1.8-7.7); Neutrophils % 73.9 %; Nucleated Red Blood Cells % 0 %; Platelet Count 395 10^3/cmm (130-400); Red Blood Count 4.74 10^6/uL (4.1-5.3); Red Cell Distribution Width 14.4 % (12.1-15.1); White Blood Count 4.7 10^3/uL (4.0-10.0)
[2020-07-12 13:32] LABS: Alanine Aminotransferase 28 U/L (0-41); Albumin Level 3.6 g/dL (3.5-5.2); Alkaline Phosphatase 144 IU/L (40-130); Anion Gap 14.1 (5-19); Aspartate Amino Transferase 44 U/L (0-40); Blood Urea Nitrogen 16 mg/dL (8-23); Calcium 9.1 mg/dL (8.5-10.5); Carbon Dioxide 23 mmol/L (22-29); Chloride 106 mmol/L (98-107); Globulin 2.6 g/dL (1.3-4.6); Glucose 87 mg/dL (65-115); Osmolality Calculated 289 mOsm/kg (285-295); Potassium 4.1 mmol/L (3.5-5.1); Sodium 139 mmol/L (136-145); Total Bilirubin 0.4 mg/dL (0.15-1.2); Total Protein 6.2 g/dL (6.6-8.7)
[2020-07-14] MEDS: sodium chloride 0.9% (100 ml) 100 ML 999 ML (09:45)
[2020-07-14] MEDS: sodium chloride 0.9% 500 ML 999 ML IV (09:45)
[2020-07-17] MEDS: sodium chloride 0.9% 1,000 ML 999 ML IV (09:15)
--- NOTE | 2020-07-23 22:44 | ONC FU_ITS ---
[facility] Patient Note Patient: Isaiah Snyder Unit #: [id number]: 1940 Dictated By: Minh MclaughlinDate of Visit: Jul 12, 2020 Onc MED Follow-Up/Prog Note Chief Complaint: Lung cancer. 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 He was found to have a 2.5 cm right upper lobe lung mass in 2011. He had mediastinal and hilar node involvement by trans-bronchial needle aspiration biopsy in May of 2011, with pathology reporting metastatic poorly differentiated non-small cell carcinoma. He was given neoadjuvant chemotherapy with 2 cycles of carboplatin/Taxol. He was found to have a complete pathologic response at right upper lobectomy/mediastinal lymph node dissection at [facility] in August of 2011. He completed 2 additional cycles of chemotherapy postoperatively, and he was then given radiation to the hilar/mediastinal node regions to a total dose of 50.4 Gy, which he completed on 02/13/12. He did have problems following his surgery, mainly due to a prolonged post thoracotomy pain syndrome. He also developed significant neuropathy with the chemotherapy, but he did show gradual recovery during subsequent follow-up on observation/expectant management. His surveillance CT of the chest on 08/15/2016 showed postoperative changes of right upper lobectomy. There was stable loculated pleural effusion at the right lung base with chronic right atelectasis. There ws no mediastinal or hilar lymphadenopathy or other evidence of disease progression. He was advised to continue observation/expectant anagement. As he was 5 years out from completion of his treatment, Dr Noriega had recommended that he just continue his regular follow-up at the [facility]. Dr Noriega had seen him for a visit again on 01/19/2018. His surveillance chest xray thru the [facility] had reported abnormalitites at the right lung base, but on review these were not significantly changed compared to prior studies. He continued on observation/expectant management. In June [address] Perla with complaints of pain on both sides of his mid back radiating around to the epigastric area. Evaluation was delayed to the pandemic restrictions. His CT abdomen/pelvis on 08/09/2019 showed a 3.1 x 2.8 x 2.6 cm mass near the gregory hepatis, concerning for neoplasm. An osteolytic lesion in the T8 vertebral body was concerning for metastatic disease. There was moderate sized right pleural effusion. There was a small amount of atelectasis or consolidation in the right lower lobe and the lingula, pneumonia not excluded. A 2.0 x 1.3 x 1.7 cm heterogeneous lesion in the inferior pole of the left kidney was indeterminate. An L4 vertebral compression fracture was of indeterminate age. He was seen for a visit here on 08/12/2019. He had further evaluation with PET/CT on 08/14/2019. It showed evidence of an FDG avid spiculated left upper lobe mass measuring 3.4 x 2.2 cm, SUV 20.8. A medial right middle lobe subcentimeter nodule adjacent to the mediastinum was also FDG positive as were bilateral hilar lymph nodes, consistent with metastatic adenopathy. There were 2 sites of diffuse activity in the body of the pancreas, felt to be more likely inflammatory in origin. A 3 cm hypodense mass in the central right hepatic lobe at the gregory hepatis head SUV 9.2, consistent with metastatic disease. A lytic osseous lesion at T8 had SUV of 17.2, consistent with metastatic disease. There were no other osseous lesions noted. MRI of the spine on 08/16/2019 showed abnormal signal within the majority of the T8 vertebral body with extension of tumor into the posterior elements. There was retropulsion of the posterior endplate by 3 mm with mild compression on the right lateral thecal sac. There was moderate stenosis of the T8-9 foramen due to tumor and bone expansion. There was significant soft tissue tumor enhancement within the T8-9 foramen. There was mild facet joint arthritis throughout the thoracic spine and there were degenerative changes noted in the cervical and lumbar spine. There were no other sites of metastatic disease noted. Given his symptoms and the findings on the imaging studies, he was referred for palliative radiation. He completed course of treatment from T7-T10 on 09/16/2019 to a total dose of 3000 cGy. During that time, he had also been seen in consultation by Dr. Puckett, and on 09/03/2019 he underwent bronchoscopy/EBUS with endobronchial biopsies and with transbronchial FNA biopsy of mediastinal lymph nodes. 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 The next generation sequencing study showed positive PD-L1 expression for 22c3 at 2%. There were no actionable mutations identified. With those findings, he was recommended to undergo systemic therapy with carboplatin/pemetrexed chemotherapy in combination with pembrolizumab. He has otherwise been in good health. 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 He does have a history of smoking 2 packs of cigarettes daily for approximately 40 years. He quit smoking in 1999. He indicated that he had significant asbestos exposure during service in the [employer]. INTERIM HISTORY: He began cycle 1 of carboplatin/pemetrexed/pembrolizumab on 11/03/2019. He tolerated it with acceptable toxicity, and he continued with cycle 2 on 11/24/2019 and with cycle 3 on 12/15/2019. Restaging CT scans of the chest, abdomen, and pelvis on 01/03/2020 showed interval decrease in the size of the spiculated left upper lobe mass measuring 2.7 x 2.1 cm compared to 3.4 x 2.2 cm on the prior study. A 9 mm right middle lobe nodule appeared stable. The metastatic lesion in the central right hepatic lobe had progressed slightly measuring 3.4 x 3.1 cm compared to approximately 3 cm on the prior study. The lytic metastatic osseous lesion involving the T8 vertebral body appeared stable. He was seen for a follow-up visit on 01/05/2020. At that time, he reported that he had developed significant fatigue and shortness of breath following his 3rd cycle of treatment. Given the CT findings, it was assumed this was most likely due to the chemotherapy. Dr Noriega opted to give him a treatment break and then transition him to maintenance immunotherapy. He returned on 01/26/2020. He was feeling much better. At that point he began cycle 1 of maintenance pembrolizumab. At his follow-up visit on 02/17/2020 he reported significant worsening of symptoms including weakness/fatigue and shortness of breath. He had become overtly hypoxic. His treatment was put on hold, and he was started on steroid therapy. During subsequent follow-up is symptoms did show some improvement, but he continued to have shortness of breath and limited activity tolerance. Restaging chest CT on 05/03/2020 showed increased in the left upper lobe lung mass measuring 3.5 x 2.5 cm. A new enhancing nodule abutting the pericardium of the left ventricle was suspicious for a metastatic deposit. There was moderate and slightly increased right pleural effusion. There was increase in size of the metastatic lesion in the central liver. There was no change in the appearance of the metastatic lesion involving the T8 vertebral body. 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 He unfortunately was deemed ineligible for the trial due to his borderline renal function. Restaging CT scans from May 03, 2020 showed evidence of disease progression with increase in the left upper lobe lung mass, development of a new enhancing nodule abutting the pericardium and increase in the size of the metastatic lesion in the central liver. He was evaluated at [facility] for consideration of a clinical trial but was deemed ineligible due to borderline renal function. He was offered salvage chemotherapy with docetaxel single agent. It is on his 3-week dosing. He began his first cycle on June 22, 2020. Mr. Snyder is here today for follow-up. His last treatment with docetaxel was on June 22, 2020. He became neutropenic on day 6 with an ANC of 60. He required 6 doses of Neupogen 480 mcg 2 have recovery. He did receive Neupogen over the weekend and when his blood counts were rechecked the following Friday his ANC was noted to be 20,670. It is 3450 today. His family had called in requesting not to pursue treatment at this time. They feel that is too hard on him. He was not aware of the call. However when Mrs. Snyder presented with him we did discuss holding his treatment indefinitely. He is agreeable to that as if she. We will plan to hold it for at least the next 2 to 3 weeks and then reassess him at that point. He has had generalized weakness persistent diarrhea and is declined in general overall. His ECOG is 2. He denies any new pain. He said no lower extremity edema. He denies any hemoptysis or productive cough. He denies any fever or chills. He states that he has felt better since has not had any chemo in the last 3 weeks. Past Medical History: Hstory of pancreatitis Meniere's Disease Peripheral neuropathy due to chemotherapy Non-small cell lung cancer in 2011 (Treated: surgery,chemo/readition) Past Surgical History: Right shoulder surgery in 2019 Thoractotomy with right upper lobectomy and mediastinal lymph node dissection in 2011 Bronchoscopy in 2011 TURP in 2002 Allergies: Flomax Medications: Flonase 2 [place](s) (of 50 mcg/act) Suspension Nasal daily PRN Ibuprofen 1 Tablet (of 800 mg) Tablet Oral t.i.d. MiraLax 1 Powder Oral daily PRN Neurontin 2 Tablet (of 300 mg) Oral t.i.d. Pantoprazole Sodium 1 Tablet (of 40 mg) Tablet, enteric coated Oral daily Vitamin B6 1 Tablet Oral daily Vitamin D3 1 Tablet (of 50 mcg ) Oral daily Family History: Mr. Snyder's father at age 89: stroke. Mr. Snyder has 2 brothers: 2 . Mr. Snyder's first brother's lung cancer. Another brother's melanoma cancer. Father of stroke at age 89. A brother of lung cancer and another brother of melanoma. Social History: Mr. Snyder is and he is retired. Mr. Snyder quit smoking 14 years ago but had smoked 2.0 packs/day for 40 years. He is an active drinker.He consumes 2 drinks/day. Mr. Snyder reports contact with the following hazardous materials: asbestos. He has indicated exposure to the following products: cigarettes. Mr. Snyder reports the following support systems: lives with spouse, significant other, family, or friends, lives in own house, supportive family/friends willing to assist with needs, and adequate transportation available for expected visits. His diet consists of regular meals. He indicates his activity level as: daily activities. Review Of Symptoms: Constitutional Denies fevers, chills, night sweats. He seemed to tolerate it well. He states he is just tired and washed out. Allergic/Immunologic No reactions. Eyes Denies significant visual changes. No diplopia. No amaurosis. ENMT Denies changes in hearing, sore throat, mouth sores, difficulty or changes in swallowing ability, and/or sinus drainage. Hematologic/Lymphatic Denies easy bruising or bleeding. The patient denies any tender or palpable lymph nodes. Respiratory Denies worsening dyspnea on exertion. He denies any chest pain, cough or hemoptysis. Denies orthopnea. Cardiovascular Denies anginal chest pain, palpitations or orthopnea. Gastrointestinal Denies nausea, vomiting, GI bleeding, or constipation. He states he did have diarrhea for 4-5 days after his treatment but did take OTC Imodium. He states it did help but did not relieve it completely but it has resolved at this point. Genitourinary (M) Denies hematuria, dysuria, increased frequency, urgency, hesitancy or incontinence. Musculoskeletal Denies joint pain, swelling or redness. No decreased range of motion. Integumentary Denies chronic rashes, inflammation, ulcerations or skin changes. Neurologic Denies headache, blurred vision, and no areas of focal weakness or numbness. Normal gait. No sensory problems. Psychiatric Denies insomnia, depression, hortensia or mood swings. Vital Signs: Performed on Jul 12, 2020 14:40 Height - 70.00 in Weight - 158.6 lbs (LOW) BSA - 1.89 sq.m BMI - 22.76 Temperature - 97.7 F (LOW) Pulse - 102 /min (HIGH) Respiration - 21 /min BP - 116/74 mm(hg) O2 Sat - 93 % (LOW) Pain - 0,2 - Ambulatory/capable of all self-care, unable to perform any work activities. Up and about more than 50% of waking hours. (ECOG) Physical Examination: Constitutional Alert, oriented, no acute distress. Skin pink, warm and dry. Head Normocephalic; atraumatic. Eyes Conjunctivae and sclerae are clear and without icterus. Pupils are reactive and equal. Neck Supple without masses or thyromegaly. No jugular venous distension. Hematologic/Lymphatic No petechiae or purpura. Respiratory Lungs are clear to auscultation without rhonchi or wheezing. Cardiovascular Regular rate and rhythm of heart without murmurs,clicks, gallops or rubs. Abdomen Non-tender, non-distended, no masses or ascites. Good bowel sounds noted in all quads. No guarding or rebound tenderness. No pulsatile masses. Back/Spine Non-tender to palpation. Extremities No visible deformities, no cyanosis, clubbing or edema. Musculoskeletal No tenderness or swelling, normal range of motion without obvious weakness. Integumentary No rashes or lesions. Neurologic No sensory or motor deficits, normal cerebellar function, normal gait. Psychiatric Alert and oriented times three. Coherent speech. Verbalizes understanding of our discussions today. Laboratory:Test performed on Jul 12, 2020 12:30 Sodium 139 mmol/L Potassium 4.1 mmol/L Chloride 106 mmol/L CO2 23 mmol/L Anion Gap 14.1 BUN 16 mg/dL Creatinine 0.9 mg/dL Cr Clearance (Est) 71.3100 mL/min Glucose 87 mg/dL Osmolality - Calculated 289 mOsm/kg Calcium 9.1 mg/dL Protein, Total 6.2 g/dL Albumin 3.6 g/dL Globulin 2.6 g/dL Bilirubin, Total 0.4 mg/dL ALT (SGPT) 28 U/L AST (SGOT) 44 U/L Alkaline Phosphatase 144 IU/L WBC 4.7 10 3/uL RBC 4.74 10 6/uL HGB 12.8 g/dL HCT 40.6 % MCV 85.7 fL MCH 27.0 pg MCHC 31.5 g/dL RDW 14.4 % Platelet Count 395 10 3/cmm MPV 10.0 fL Neutrophils 3.45 10 3/uL Lymphocytes 0.8 10 3/uL Monocytes 0.4 10 3/uL Eosinophils 0.0 10 3/uL Basophils 0.1 10 3/uL Neutrophil % 73.9 % Lymphocyte % 16.7 % Monocyte % 7.5 % Eosinophil % 0.2 % Basophils % 1.1 % NRBC % 0 % Impression: 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 This appeared to be a new primary malignancy. By clinical evaluation, his disease was stage IVB (T2a, N3, M1c). His PD-L1 expression was positive at 2%. 2. He had presented with metastatic involvement in the T8 vertebral body. He had significant symptomatic improvement following palliative radiation, completed on 09/16/2019 to a total dose of 3000 cGy. In October he began a trial of systemic therapy with carboplatin/pemetrexed in combination with pembrolizumab. He tolerated it very poorly. 3. History of differentiated non-small cell carcinoma of the right lung, stage IIIA with complete pathologic response to neoadjuvant chemotherapy with 2 cycles of carboplatin/Taxol. He then underwent right upper lobectomy/mediastinal lymph node dissection in August 2011 followed by 2 additional cycles of chemotherapy and radiation to the hilar/mediastinal node region, which he completed in January 2012. 4. 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 5. Benign prostatic hypertrophy. Plan: PROBLEMS ADDRESSED TODAY 1. 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 He had presented with symptomatic metastatic involvement in the T8 vertebral body. His PD-L1 expression was positive at 2%. 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 He initially completed palliative radiation to the T8 vertebral body metastasis. He did show some response to a trial of systemic therapy with carboplatin/pemetrexed chemotherapy in combination with pembrolizumab. However, he tolerated the treatment poorly, and during maintenance pembrolizumab his treatment was put on hold due to worsening shortness of breath. His restaging CT scans on 05/03/2020 showed evidence of disease progression with increase in the left upper lobe lung mass, development of a new enhancing nodule abutting the pericardium, and increase in the size of a metastatic lesion in the central liver. At that point he was evaluated at [facility] for consideration and a clinical trial, but he was deemed ineligible due to borderline renal function. At this point he continues to have somewhat limited activity tolerance, but his ECOG performance score is still 1. As he does wish to continue further treatment for the lung cancer, he began a trial of salvage chemotherapy with docetaxel as a single agent on June 22, 2020. A. Hold planned docetaxel today. He has only received 1 cycle and that was on June 22, 2020. He had significant change in his performance status due to generalized weakness and poor tolerance of the chemotherapy. He also had chemotherapy induced severe neutropenia with an ANC of 60. He required 5 doses of Neupogen 480 mcg 2 have recovery of his neutrophil count. He states he would like to not do the treatment today . He states he is just now starting to feel better. B. Today's labs reviewed in detail and discussed with . Mrs. Snyder and a copy was given to them. WBC 4.7, hemoglobin 12.8, platelets 395,000 ANC is 3450. Sodium 139 potassium 4.1 random glucose 87 creatinine 0.9 his ALT is 26 AST is 44 alk phos is 144 presumably due to the Neupogen. C. He has been advised to use Imodium if he has any recurrent diarrhea. If this is not controlled, that he will need Lomotil. D. He will continue to use dexamethasone 2 mg once or twice daily for appetite and intermittent nausea. E. He may also continue lorazepam 0.5 mg every 4-6 hours prn anxiety and may utilize it for insomnia. 2. Chemotherapy induced neutropenia???severe with an ANC on day 8 of cycle 1 of 60. He did not receive prophylactic growth factors. A. He did recover with 5 days of Neupogen 480 mcg. B. We did start him on Levaquin 750 p.o. daily for prophylaxis. C. I did request a prior authorization for initiation of Neulasta on pro with cycle 2. As he did have some bone aches with the Neupogen, we will need to make sure that he is aware to take the Claritin with the Neulasta shot if it is approved and we pursue a cycle 2. D. He is to call if he has any trouble with mouth sores as we could initiate famciclovir if needed and Magic mouthwash also. 3. Follow-up plan A. weekly CBC, CMP B. Plan for supportive ccare: he may receive hydration and antibiotics/antiemetics 2-3 times a week as neeced. C. He is due back for discussion of possible cycle 2 follow-up with CBC CMP in 2 weeks. D. Mr. Snyder has been instructed to contact us in the interim should questions or problems arise. Signed By: Amna MclaughlinP.-KESHIA, AOCNP Jony Noriega MD <<Signature on File>>
== END 2020-07-19 23:59 | disposition home or self-care (01) ==
LOC: ONCMED 05:38
PROVIDERS: Nurse Practitioner; PCP Family Medicine; Visit Provider Internal Medicine Medical Oncology
DX: C34.12 Malignant neoplasm of upper lobe, left bronchus or lung (principal); C79.51 Secondary malignant neoplasm of bone; C78.7 Secondary malignant neoplasm of liver and intrahepatic bile duct; D70.1 Agranulocytosis secondary to cancer chemotherapy; T45.1X5A Adverse effect of antineoplastic and immunosuppressive drugs, initial encounter; R11.0 Nausea; R19.7 Diarrhea, unspecified; F41.9 Anxiety disorder, unspecified; G47.00 Insomnia, unspecified; Z85.118 Personal history of other malignant neoplasm of bronchus and lung; Z79.899 Other long term (current) drug therapy; Z90.2 Acquired absence of lung [part of]; Z92.3 Personal history of irradiation
CPT/HCPCS: 80053; 85025; 96360; 99215; J7030; J7040

== ENCOUNTER 2020-08-18 05:40 | Outpatient (RCR) | payer MEDICARE, OTHER, SELFPAY ==
[2020-07-21] MEDS: sodium chloride 0.9% 1,000 ML 999 ML IV (09:35)
[2020-07-26 09:04] LABS: Basophils % 0.1 %; Hematocrit 44.3 % (42.0-52.0); Hemoglobin 14.1 g/dL (11.7-16.6); Lymphocytes # 0.9 10^3/uL (0.8-4.8); Mean Corpuscular HGB Conc 31.8 g/dL (30.0-36.0); Mean Corpuscular Hemoglobin 27.3 pg (28.0-34.0); Mean Corpuscular Volume 85.9 fL (80-94); Mean Platelet Volume 10.2 fL (7.4-10.4); Monocytes # 0.5 10^3/uL (0.2-0.9); Monocytes % 4.2 %; Neutrophils % 88.4 %; Nucleated Red Blood Cells % 0 %; Platelet Count 289 10^3/cmm (130-400); Red Blood Count 5.16 10^6/uL (4.1-5.3); White Blood Count 12.3 10^3/uL (4.0-10.0)
[2020-07-26 09:30] LABS: Alanine Aminotransferase 19 U/L (0-41); Alkaline Phosphatase 110 IU/L (40-130); Aspartate Amino Transferase 30 U/L (0-40); Blood Urea Nitrogen 18 mg/dL (8-23); Carbon Dioxide 25 mmol/L (22-29); Globulin 2.6 g/dL (1.3-4.6); Glucose 131 mg/dL (65-115); Total Bilirubin 0.4 mg/dL (0.15-1.2); Total Protein 6.6 g/dL (6.6-8.7)
[2020-07-26 09:50] LABS: Anion Gap 14.3 (5-19); Chloride 101 mmol/L (98-107); Osmolality Calculated 286 mOsm/kg (285-295); Potassium 4.3 mmol/L (3.5-5.1); Sodium 136 mmol/L (136-145)
[2020-07-26] MEDS: sodium chloride 0.9% 250 ML 75 ML IV (10:50)
[2020-07-26] MEDS: famotidine 20 mg/2 mL INJ IVP (10:51)
[2020-07-26] MEDS: ondansetron 2 mg/ML SDV 2 mL 8 MG IV (10:53)
[2020-07-26] MEDS: diphenhydrAMINE 50 mg/mL SDV 1mL 25 MG IVP (10:55)
[2020-07-26] MEDS: pegfilgrastim 6 mg/0.6 mL Kit (onpro) SUBCUT (12:24)
[2020-07-31] MEDS: sodium chloride 0.9% 1,000 ML 999 ML IV (10:08)
[2020-08-02] MEDS: sodium chloride 0.9% 1,000 ML 999 ML IV (11:15)
[2020-08-02 11:43] LABS: Basophils % 0.4 %; Eosinophils # 0.2 10^3/uL (0.0-0.8); Eosinophils % 2.4 %; Hematocrit 41.2 % (42.0-52.0); Hemoglobin 13.4 g/dL (11.7-16.6); Lymphocytes # 0.9 10^3/uL (0.8-4.8); Lymphocytes % 12.9 %; Mean Corpuscular HGB Conc 32.5 g/dL (30.0-36.0); Mean Corpuscular Hemoglobin 27.6 pg (28.0-34.0); Mean Corpuscular Volume 84.8 fL (80-94); Mean Platelet Volume 10.9 fL (7.4-10.4); Monocytes # 0.7 10^3/uL (0.2-0.9); Monocytes % 9.2 %; Neutrophils # 4.86 10^3/uL (1.8-7.7); Neutrophils % 68.1 %; Nucleated Red Blood Cells % 0 %; Platelet Count 191 10^3/cmm (130-400); Red Blood Count 4.86 10^6/uL (4.1-5.3); White Blood Count 7.1 10^3/uL (4.0-10.0)
[2020-08-02 11:59] LABS: Alanine Aminotransferase 17 U/L (0-41); Albumin Level 3.4 g/dL (3.5-5.2); Alkaline Phosphatase 111 IU/L (40-130); Anion Gap 11.1 (5-19); Aspartate Amino Transferase 34 U/L (0-40); Blood Urea Nitrogen 10 mg/dL (8-23); Calcium 8.6 mg/dL (8.5-10.5); Carbon Dioxide 25 mmol/L (22-29); Chloride 105 mmol/L (98-107); Globulin 2.1 g/dL (1.3-4.6); Glucose 98 mg/dL (65-115); Osmolality Calculated 283 mOsm/kg (285-295); Potassium 4.1 mmol/L (3.5-5.1); Sodium 137 mmol/L (136-145); Total Bilirubin 0.4 mg/dL (0.15-1.2); Total Protein 5.5 g/dL (6.6-8.7)
[2020-08-02 12:10] LABS: Slide Review Slide Review Perform
[2020-08-04] MEDS: sodium chloride 0.9% 1,000 ML 999 ML IV (09:30)
--- NOTE | 2020-08-06 20:17 | ONC FU_ITS ---
[facility] Patient Note Patient: Isaiah Snyder Unit #: [id number]: 1940 Dictated By: Minh MclaughlinDate of Visit: Jul 26, 2020 Onc MED Follow-Up/Prog Note Chief Complaint: Lung cancer. 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 He was found to have a 2.5 cm right upper lobe lung mass in 2011. He had mediastinal and hilar node involvement by trans-bronchial needle aspiration biopsy in May of 2011, with pathology reporting metastatic poorly differentiated non-small cell carcinoma. He was given neoadjuvant chemotherapy with 2 cycles of carboplatin/Taxol. He was found to have a complete pathologic response at right upper lobectomy/mediastinal lymph node dissection at [facility] in August of 2011. He completed 2 additional cycles of chemotherapy postoperatively, and he was then given radiation to the hilar/mediastinal node regions to a total dose of 50.4 Gy, which he completed on 02/13/12. He did have problems following his surgery, mainly due to a prolonged post thoracotomy pain syndrome. He also developed significant neuropathy with the chemotherapy, but he did show gradual recovery during subsequent follow-up on observation/expectant management. His surveillance CT of the chest on 08/15/2016 showed postoperative changes of right upper lobectomy. There was stable loculated pleural effusion at the right lung base with chronic right atelectasis. There ws no mediastinal or hilar lymphadenopathy or other evidence of disease progression. He was advised to continue observation/expectant anagement. As he was 5 years out from completion of his treatment, Dr Noriega had recommended that he just continue his regular follow-up at the [facility]. Dr Noriega had seen him for a visit again on 01/19/2018. His surveillance chest xray thru the [facility] had reported abnormalitites at the right lung base, but on review these were not significantly changed compared to prior studies. He continued on observation/expectant management. In June [address] Perla with complaints of pain on both sides of his mid back radiating around to the epigastric area. Evaluation was delayed to the pandemic restrictions. His CT abdomen/pelvis on 08/09/2019 showed a 3.1 x 2.8 x 2.6 cm mass near the gregory hepatis, concerning for neoplasm. An osteolytic lesion in the T8 vertebral body was concerning for metastatic disease. There was moderate sized right pleural effusion. There was a small amount of atelectasis or consolidation in the right lower lobe and the lingula, pneumonia not excluded. A 2.0 x 1.3 x 1.7 cm heterogeneous lesion in the inferior pole of the left kidney was indeterminate. An L4 vertebral compression fracture was of indeterminate age. He was seen for a visit here on 08/12/2019. He had further evaluation with PET/CT on 08/14/2019. It showed evidence of an FDG avid spiculated left upper lobe mass measuring 3.4 x 2.2 cm, SUV 20.8. A medial right middle lobe subcentimeter nodule adjacent to the mediastinum was also FDG positive as were bilateral hilar lymph nodes, consistent with metastatic adenopathy. There were 2 sites of diffuse activity in the body of the pancreas, felt to be more likely inflammatory in origin. A 3 cm hypodense mass in the central right hepatic lobe at the gregory hepatis head SUV 9.2, consistent with metastatic disease. A lytic osseous lesion at T8 had SUV of 17.2, consistent with metastatic disease. There were no other osseous lesions noted. MRI of the spine on 08/16/2019 showed abnormal signal within the majority of the T8 vertebral body with extension of tumor into the posterior elements. There was retropulsion of the posterior endplate by 3 mm with mild compression on the right lateral thecal sac. There was moderate stenosis of the T8-9 foramen due to tumor and bone expansion. There was significant soft tissue tumor enhancement within the T8-9 foramen. There was mild facet joint arthritis throughout the thoracic spine and there were degenerative changes noted in the cervical and lumbar spine. There were no other sites of metastatic disease noted. Given his symptoms and the findings on the imaging studies, he was referred for palliative radiation. He completed course of treatment from T7-T10 on 09/16/2019 to a total dose of 3000 cGy. During that time, he had also been seen in consultation by Dr. Puckett, and on 09/03/2019 he underwent bronchoscopy/EBUS with endobronchial biopsies and with transbronchial FNA biopsy of mediastinal lymph nodes. 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 The next generation sequencing study showed positive PD-L1 expression for 22c3 at 2%. There were no actionable mutations identified. With those findings, he was recommended to undergo systemic therapy with carboplatin/pemetrexed chemotherapy in combination with pembrolizumab. He has otherwise been in good health. 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 He does have a history of smoking 2 packs of cigarettes daily for approximately 40 years. He quit smoking in 1999. He indicated that he had significant asbestos exposure during service in the [employer]. INTERIM HISTORY: He began cycle 1 of carboplatin/pemetrexed/pembrolizumab on 11/03/2019. He tolerated it with acceptable toxicity, and he continued with cycle 2 on 11/24/2019 and with cycle 3 on 12/15/2019. Restaging CT scans of the chest, abdomen, and pelvis on 01/03/2020 showed interval decrease in the size of the spiculated left upper lobe mass measuring 2.7 x 2.1 cm compared to 3.4 x 2.2 cm on the prior study. A 9 mm right middle lobe nodule appeared stable. The metastatic lesion in the central right hepatic lobe had progressed slightly measuring 3.4 x 3.1 cm compared to approximately 3 cm on the prior study. The lytic metastatic osseous lesion involving the T8 vertebral body appeared stable. He was seen for a follow-up visit on 01/05/2020. At that time, he reported that he had developed significant fatigue and shortness of breath following his 3rd cycle of treatment. Given the CT findings, it was assumed this was most likely due to the chemotherapy. Dr Noriega opted to give him a treatment break and then transition him to maintenance immunotherapy. He returned on 01/26/2020. He was feeling much better. At that point he began cycle 1 of maintenance pembrolizumab. At his follow-up visit on 02/17/2020 he reported significant worsening of symptoms including weakness/fatigue and shortness of breath. He had become overtly hypoxic. His treatment was put on hold, and he was started on steroid therapy. During subsequent follow-up is symptoms did show some improvement, but he continued to have shortness of breath and limited activity tolerance. Restaging chest CT on 05/03/2020 showed increased in the left upper lobe lung mass measuring 3.5 x 2.5 cm. A new enhancing nodule abutting the pericardium of the left ventricle was suspicious for a metastatic deposit. There was moderate and slightly increased right pleural effusion. There was increase in size of the metastatic lesion in the central liver. There was no change in the appearance of the metastatic lesion involving the T8 vertebral body. 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 He unfortunately was deemed ineligible for the trial due to his borderline renal function. Restaging CT scans from May 03, 2020 showed evidence of disease progression with increase in the left upper lobe lung mass, development of a new enhancing nodule abutting the pericardium and increase in the size of the metastatic lesion in the central liver. He was evaluated at [facility] for consideration of a clinical trial but was deemed ineligible due to borderline renal function. He was offered salvage chemotherapy with docetaxel single agent. It is on his 3-week dosing. He began his first cycle on June 22, 2020. Mr. Snyder is here today for follow-up. His treatment with docetaxel on June 22, 2020 resulted in him becoming neutropenic on day 6 with an ANC of 60. He required 6 doses of Neupogen 480 mcg before recovery. He did receive Neupogen over the weekend and when his blood counts were rechecked the following Friday his ANC was noted to be 20,670. It recovered to 3450 on his 07/12/2020 visit. His family had called in requesting not to pursue treatment at this time. They feel that is too hard on him. He was not aware of the call. However when Mrs. Snyder presented with him we did discuss holding his treatment indefinitely. He is agreeable to that if she is. His treatment has been placed on hold for additional 2 weeks and he is back for reassessment of that interval break. Again his last treatment with the docetaxel was June 22, 2020. He had only received 1 treatment at that time. Prior to the additional time off he had been having significant problems with generalized weakness, poor performance status and persistent diarrhea. He required frequent hydration which responded to well. He states overall he feels really good. His last hydration was July 21, 2020. He states he is eating better. He is not having any fever or chills. He denies any nausea or vomiting. He did have a little diarrhea off and on but states for the most part it has gone. He thinks the diarrhea was associated with something that he ate. He denies any nausea or vomiting. He has slight residual neuropathy with states is nothing that is worrisome or bothersome to him at this point. He is strength is building but his ECOG remains at 2. Past Medical History: Hstory of pancreatitis Meniere's Disease Peripheral neuropathy due to chemotherapy Non-small cell lung cancer in 2011 (Treated: surgery,chemo/readition) Past Surgical History: Right shoulder surgery in 2019 Thoractotomy with right upper lobectomy and mediastinal lymph node dissection in 2011 Bronchoscopy in 2011 TURP in 2002 Allergies: Flomax Medications: Flonase 2 [place](s) (of 50 mcg/act) Suspension Nasal daily PRN Ibuprofen 1 Tablet (of 800 mg) Tablet Oral t.i.d. MiraLax 1 Powder Oral daily PRN Neurontin 2 Tablet (of 300 mg) Oral t.i.d. Pantoprazole Sodium 1 Tablet (of 40 mg) Tablet, enteric coated Oral daily Vitamin B6 1 Tablet Oral daily Vitamin D3 1 Tablet (of 50 mcg ) Oral daily Family History: Mr. Snyder's father at age 89: stroke. Mr. Snyder has 2 brothers: 2 . Mr. Snyder's first brother's lung cancer. Another brother's melanoma cancer. Father of stroke at age 89. A brother of lung cancer and another brother of melanoma. Social History: Mr. Snyder is and he is retired. Mr. Snyder quit smoking 14 years ago but had smoked 2.0 packs/day for 40 years. He is an active drinker.He consumes 2 drinks/day. Mr. Snyder reports contact with the following hazardous materials: asbestos. He has indicated exposure to the following products: cigarettes. Mr. Snyder reports the following support systems: lives with spouse, significant other, family, or friends, lives in own house, supportive family/friends willing to assist with needs, and adequate transportation available for expected visits. His diet consists of regular meals. He indicates his activity level as: daily activities. Review Of Symptoms: Vital Signs: Performed on Jul 26, 2020 12:25 Height - 70.00 in Temperature - 98.2 F (LOW) Pulse - 80 /min Respiration - 18 /min BP - 131/81 mm(hg) O2 Sat - 97 % Performed on Jul 26, 2020 10:00 Height - 70.00 in Weight - 157.6 lbs (LOW) BSA - 1.89 sq.m BMI - 22.61 Temperature - 98.1 F (LOW) Pulse - 81 /min Respiration - 17 /min BP - 121/73 mm(hg) O2 Sat - 94 % (LOW) Pain - 0,2 - Ambulatory/capable of all self-care, unable to perform any work activities. Up and about more than 50% of waking hours. (ECOG) Physical Examination: Constitutional Alert, oriented, no acute distress. Skin pink, warm and dry. Head Normocephalic; atraumatic. Eyes Conjunctivae and sclerae are clear and without icterus. Pupils are reactive and equal. Neck Supple without masses or thyromegaly. No jugular venous distension. Hematologic/Lymphatic No petechiae or purpura. Respiratory Lungs are clear to auscultation without rhonchi or wheezing. Cardiovascular Regular rate and rhythm of heart without murmurs,clicks, gallops or rubs. Abdomen Non-tender, non-distended, no masses or ascites. Good bowel sounds noted in all quads. No guarding or rebound tenderness. No pulsatile masses. Back/Spine Non-tender to palpation. Extremities No visible deformities, no cyanosis, clubbing or edema. Musculoskeletal No tenderness or swelling, normal range of motion without obvious weakness. Integumentary No rashes or lesions. Neurologic No sensory or motor deficits, normal cerebellar function, normal gait. Psychiatric Alert and oriented times three. Coherent speech. Verbalizes understanding of our discussions today. Laboratory:Test performed on Jul 26, 2020 08:40 Sodium 136 mmol/L Potassium 4.3 mmol/L Chloride 101 mmol/L CO2 25 mmol/L Anion Gap 14.3 BUN 18 mg/dL Creatinine 0.9 mg/dL Cr Clearance (Est) 71.3100 mL/min Glucose 131 mg/dL Osmolality - Calculated 286 mOsm/kg Calcium 10.0 mg/dL Protein, Total 6.6 g/dL Albumin 4.0 g/dL Globulin 2.6 g/dL Bilirubin, Total 0.4 mg/dL ALT (SGPT) 19 U/L AST (SGOT) 30 U/L Alkaline Phosphatase 110 IU/L WBC 12.3 10 3/uL RBC 5.16 10 6/uL HGB 14.1 g/dL HCT 44.3 % MCV 85.9 fL MCH 27.3 pg MCHC 31.8 g/dL RDW 15.0 % Platelet Count 289 10 3/cmm MPV 10.2 fL Neutrophils 10.90 10 3/uL Lymphocytes 0.9 10 3/uL Monocytes 0.5 10 3/uL Eosinophils 0.0 10 3/uL Basophils 0.0 10 3/uL Neutrophil % 88.4 % Lymphocyte % 7.0 % Monocyte % 4.2 % Eosinophil % 0.0 % Basophils % 0.1 % NRBC % 0 % Test performed on Jun 30, 2020 09:25 CBC Slide Review Slide Review Perform SLIDE REVIEW AGREES WITH AUTOMATED RESULTS ST Test performed on Feb 17, 2020 09:15 TSH 1.00 uIU/mL Impression: 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 This appeared to be a new primary malignancy. By clinical evaluation, his disease was stage IVB (T2a, N3, M1c). His PD-L1 expression was positive at 2%. 2. He had presented with metastatic involvement in the T8 vertebral body. He had significant symptomatic improvement following palliative radiation, completed on 09/16/2019 to a total dose of 3000 cGy. In October he began a trial of systemic therapy with carboplatin/pemetrexed in combination with pembrolizumab. He tolerated it very poorly. 3. History of differentiated non-small cell carcinoma of the right lung, stage IIIA with complete pathologic response to neoadjuvant chemotherapy with 2 cycles of carboplatin/Taxol. He then underwent right upper lobectomy/mediastinal lymph node dissection in August 2011 followed by 2 additional cycles of chemotherapy and radiation to the hilar/mediastinal node region, which he completed in January 2012. 4. 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 5. Benign prostatic hypertrophy. Plan: PROBLEMS ADDRESSED TODAY 1. 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 He had presented with symptomatic metastatic involvement in the T8 vertebral body. His PD-L1 expression was positive at 2%. 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 He initially completed palliative radiation to the T8 vertebral body metastasis. He did show some response to a trial of systemic therapy with carboplatin/pemetrexed chemotherapy in combination with pembrolizumab. However, he tolerated the treatment poorly, and during maintenance pembrolizumab his treatment was put on hold due to worsening shortness of breath. His restaging CT scans on 05/03/2020 showed evidence of disease progression with increase in the left upper lobe lung mass, development of a new enhancing nodule abutting the pericardium, and increase in the size of a metastatic lesion in the central liver. At that point he was evaluated at [facility] for consideration and a clinical trial, but he was deemed ineligible due to borderline renal function. At this point he continues to have somewhat limited activity tolerance, and his ECOG performance score is still 2, but he is improving performance status hi. As he does wish to continue further treatment for the lung cancer, he began a trial of salvage chemotherapy with docetaxel as a single agent on June 22, 2020. A. We will proceed with dose reduced docetaxel today. He has only received 1 cycle and that was on June 22, 2020. He had significant change in his performance status due to generalized weakness and poor tolerance of the chemotherapy. He also had chemotherapy induced severe neutropenia with an ANC of 60. He required 5 doses of Neupogen 480 mcg 2 have recovery of his neutrophil count. B. We will do growth factor support with Neulasta on pro. C. Premed steroid compliance confirmed D. Today's labs reviewed in detail and discussed with Mr. Mrs. Snyder and a copy was given to them. WBC 12.3, hemoglobin 14.1, platelets 289,000 ANC is 10,900. Potassium 4.3 random glucose 131 creatinine 0.9 LFTs are normal. Alk phos is 110. His weight is stable at 157.6. E. He has been advised to use Imodium if he has any recurrent diarrhea. If this is not controlled, that he will need Lomotil. 2. Chemotherapy induced neutropenia???severe with an ANC on day 8 of cycle 1 of 60. He did not receive prophylactic growth factors with cycle 1. A. He did recover with 5 days of Neupogen 480 mcg. B. Growth factor support now with Neulasta 6 mg???on pro. C. He has been advised to use Claritin daily to prevent bone pain with the Neulasta. 3. Follow-up plan A. weekly CBC, CMP B. Plan for supportive ccare: he may receive hydration and antibiotics/antiemetics 2-3 times a week as needed. C. He is due back for possible cycle 3 follow-up with CBC CMP in 3 weeks. The conversation today was that he would like to try 1 more cycle if he feels as bad as he did with the first cycle he states he will be done with the treatment. At that point we may want to repeat CT imaging to determine if any response to the 2 treatments. However if he tolerates it well with a dose reduction and Neulasta support we may try to get 3 cycles of treatment and and then repeat his imaging. D. Mr. Snyder has been instructed to contact us in the interim should questions or problems arise. Signed By: Minh Mclaughlin-, AOP Jony Noriega MD <<Signature on File>>
[2020-08-09] MEDS: sodium chloride 0.9% 1,000 ML 999 ML IV (09:45)
[2020-08-09 09:51] LABS: Basophils # 0.1 10^3/uL (0.0-0.1); Basophils % 0.4 %; Eosinophils % 0.2 %; Hematocrit 43.6 % (42.0-52.0); Hemoglobin 13.8 g/dL (11.7-16.6); Lymphocytes # 1.1 10^3/uL (0.8-4.8); Mean Corpuscular HGB Conc 31.7 g/dL (30.0-36.0); Mean Corpuscular Hemoglobin 27.4 pg (28.0-34.0); Mean Corpuscular Volume 86.7 fL (80-94); Mean Platelet Volume 9.8 fL (7.4-10.4); Monocytes # 0.5 10^3/uL (0.2-0.9); Monocytes % 3.9 %; Neutrophils # 10.58 10^3/uL (1.8-7.7); Neutrophils % 85.9 %; Nucleated Red Blood Cells % 0 %; Platelet Count 198 10^3/cmm (130-400); Red Blood Count 5.03 10^6/uL (4.1-5.3); Red Cell Distribution Width 16.5 % (12.1-15.1); White Blood Count 12.3 10^3/uL (4.0-10.0)
[2020-08-09 10:18] LABS: Alanine Aminotransferase 27 U/L (0-41); Alkaline Phosphatase 147 IU/L (40-130); Anion Gap 14.2 (5-19); Aspartate Amino Transferase 40 U/L (0-40); Blood Urea Nitrogen 9 mg/dL (8-23); Carbon Dioxide 24 mmol/L (22-29); Chloride 105 mmol/L (98-107); Globulin 2.4 g/dL (1.3-4.6); Glucose 101 mg/dL (65-115); Osmolality Calculated 287 mOsm/kg (285-295); Potassium 4.2 mmol/L (3.5-5.1); Sodium 139 mmol/L (136-145); Total Bilirubin 0.4 mg/dL (0.15-1.2); Total Protein 6.4 g/dL (6.6-8.7)
[2020-08-09 11:10] LABS: Thyroid Stimulating Hormone 0.83 uIU/mL (0.27-4.20)
[2020-08-16] MEDS: sodium chloride 0.9% 1,000 ML 999 ML IV (11:13)
[2020-08-16 11:59] LABS: Basophils % 0.1 %; Hematocrit 40.9 % (42.0-52.0); Hemoglobin 13.3 g/dL (11.7-16.6); Lymphocytes # 1.1 10^3/uL (0.8-4.8); Lymphocytes % 6.4 %; Mean Corpuscular HGB Conc 32.5 g/dL (30.0-36.0); Mean Corpuscular Hemoglobin 28.2 pg (28.0-34.0); Mean Corpuscular Volume 86.7 fL (80-94); Mean Platelet Volume 10.2 fL (7.4-10.4); Monocytes % 5.7 %; Neutrophils # 14.83 10^3/uL (1.8-7.7); Neutrophils % 87.4 %; Nucleated Red Blood Cells % 0 %; Platelet Count 415 10^3/cmm (130-400); Red Blood Count 4.72 10^6/uL (4.1-5.3); Red Cell Distribution Width 17.2 % (12.1-15.1)
[2020-08-16 12:16] LABS: Alanine Aminotransferase 16 U/L (0-41); Alkaline Phosphatase 106 IU/L (40-130); Anion Gap 15.2 (5-19); Aspartate Amino Transferase 30 U/L (0-40); Blood Urea Nitrogen 18 mg/dL (8-23); Calcium 9.3 mg/dL (8.5-10.5); Carbon Dioxide 24 mmol/L (22-29); Chloride 102 mmol/L (98-107); Globulin 2.3 g/dL (1.3-4.6); Glucose 120 mg/dL (65-115); Osmolality Calculated 287 mOsm/kg (285-295); Potassium 4.2 mmol/L (3.5-5.1); Sodium 137 mmol/L (136-145); Total Bilirubin 0.3 mg/dL (0.15-1.2); Total Protein 6.3 g/dL (6.6-8.7)
[2020-08-16] MEDS: sodium chloride 0.9% 250 ML 75 ML IV (13:16)
[2020-08-16] MEDS: famotidine 20 mg/2 mL INJ IVP (13:16)
[2020-08-16] MEDS: ondansetron 2 mg/ML SDV 2 mL 8 MG IVP (13:18)
[2020-08-16] MEDS: diphenhydrAMINE 50 mg/mL SDV 1mL 25 MG IVP (13:22)
[2020-08-18] MEDS: sodium chloride 0.9% 1,000 ML 999 ML IV (09:00)
--- NOTE | 2020-08-29 09:45 | ONC FU_ITS ---
[facility] Patient Note Patient: Isaiah Snyder Unit #: [id number]: 1940 Dictated By: Minh MclaughlinDate of Visit: Aug 16, 2020 Onc MED Follow-Up/Prog Note Chief Complaint: Lung cancer. 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 He was found to have a 2.5 cm right upper lobe lung mass in 2011. He had mediastinal and hilar node involvement by trans-bronchial needle aspiration biopsy in May of 2011, with pathology reporting metastatic poorly differentiated non-small cell carcinoma. He was given neoadjuvant chemotherapy with 2 cycles of carboplatin/Taxol. He was found to have a complete pathologic response at right upper lobectomy/mediastinal lymph node dissection at [facility] in August of 2011. He completed 2 additional cycles of chemotherapy postoperatively, and he was then given radiation to the hilar/mediastinal node regions to a total dose of 50.4 Gy, which he completed on 02/13/12. He did have problems following his surgery, mainly due to a prolonged post thoracotomy pain syndrome. He also developed significant neuropathy with the chemotherapy, but he did show gradual recovery during subsequent follow-up on observation/expectant management. His surveillance CT of the chest on 08/15/2016 showed postoperative changes of right upper lobectomy. There was stable loculated pleural effusion at the right lung base with chronic right atelectasis. There ws no mediastinal or hilar lymphadenopathy or other evidence of disease progression. He was advised to continue observation/expectant anagement. As he was 5 years out from completion of his treatment, Dr Noriega had recommended that he just continue his regular follow-up at the [facility]. Dr Noriega had seen him for a visit again on 01/19/2018. His surveillance chest xray thru the [facility] had reported abnormalitites at the right lung base, but on review these were not significantly changed compared to prior studies. He continued on observation/expectant management. In June [address] Perla with complaints of pain on both sides of his mid back radiating around to the epigastric area. Evaluation was delayed to the pandemic restrictions. His CT abdomen/pelvis on 08/09/2019 showed a 3.1 x 2.8 x 2.6 cm mass near the gregory hepatis, concerning for neoplasm. An osteolytic lesion in the T8 vertebral body was concerning for metastatic disease. There was moderate sized right pleural effusion. There was a small amount of atelectasis or consolidation in the right lower lobe and the lingula, pneumonia not excluded. A 2.0 x 1.3 x 1.7 cm heterogeneous lesion in the inferior pole of the left kidney was indeterminate. An L4 vertebral compression fracture was of indeterminate age. He was seen for a visit here on 08/12/2019. He had further evaluation with PET/CT on 08/14/2019. It showed evidence of an FDG avid spiculated left upper lobe mass measuring 3.4 x 2.2 cm, SUV 20.8. A medial right middle lobe subcentimeter nodule adjacent to the mediastinum was also FDG positive as were bilateral hilar lymph nodes, consistent with metastatic adenopathy. There were 2 sites of diffuse activity in the body of the pancreas, felt to be more likely inflammatory in origin. A 3 cm hypodense mass in the central right hepatic lobe at the gregory hepatis head SUV 9.2, consistent with metastatic disease. A lytic osseous lesion at T8 had SUV of 17.2, consistent with metastatic disease. There were no other osseous lesions noted. MRI of the spine on 08/16/2019 showed abnormal signal within the majority of the T8 vertebral body with extension of tumor into the posterior elements. There was retropulsion of the posterior endplate by 3 mm with mild compression on the right lateral thecal sac. There was moderate stenosis of the T8-9 foramen due to tumor and bone expansion. There was significant soft tissue tumor enhancement within the T8-9 foramen. There was mild facet joint arthritis throughout the thoracic spine and there were degenerative changes noted in the cervical and lumbar spine. There were no other sites of metastatic disease noted. Given his symptoms and the findings on the imaging studies, he was referred for palliative radiation. He completed course of treatment from T7-T10 on 09/16/2019 to a total dose of 3000 cGy. During that time, he had also been seen in consultation by Dr. Puckett, and on 09/03/2019 he underwent bronchoscopy/EBUS with endobronchial biopsies and with transbronchial FNA biopsy of mediastinal lymph nodes. 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 The next generation sequencing study showed positive PD-L1 expression for 22c3 at 2%. There were no actionable mutations identified. With those findings, he was recommended to undergo systemic therapy with carboplatin/pemetrexed chemotherapy in combination with pembrolizumab. He has otherwise been in good health. 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 He does have a history of smoking 2 packs of cigarettes daily for approximately 40 years. He quit smoking in 1999. He indicated that he had significant asbestos exposure during service in the [employer]. INTERIM HISTORY: He began cycle 1 of carboplatin/pemetrexed/pembrolizumab on 11/03/2019. He tolerated it with acceptable toxicity, and he continued with cycle 2 on 11/24/2019 and with cycle 3 on 12/15/2019. Restaging CT scans of the chest, abdomen, and pelvis on 01/03/2020 showed interval decrease in the size of the spiculated left upper lobe mass measuring 2.7 x 2.1 cm compared to 3.4 x 2.2 cm on the prior study. A 9 mm right middle lobe nodule appeared stable. The metastatic lesion in the central right hepatic lobe had progressed slightly measuring 3.4 x 3.1 cm compared to approximately 3 cm on the prior study. The lytic metastatic osseous lesion involving the T8 vertebral body appeared stable. He was seen for a follow-up visit on 01/05/2020. At that time, he reported that he had developed significant fatigue and shortness of breath following his 3rd cycle of treatment. Given the CT findings, it was assumed this was most likely due to the chemotherapy. Dr Noriega opted to give him a treatment break and then transition him to maintenance immunotherapy. He returned on 01/26/2020. He was feeling much better. At that point he began cycle 1 of maintenance pembrolizumab. At his follow-up visit on 02/17/2020 he reported significant worsening of symptoms including weakness/fatigue and shortness of breath. He had become overtly hypoxic. His treatment was put on hold, and he was started on steroid therapy. During subsequent follow-up is symptoms did show some improvement, but he continued to have shortness of breath and limited activity tolerance. Restaging chest CT on 05/03/2020 showed increased in the left upper lobe lung mass measuring 3.5 x 2.5 cm. A new enhancing nodule abutting the pericardium of the left ventricle was suspicious for a metastatic deposit. There was moderate and slightly increased right pleural effusion. There was increase in size of the metastatic lesion in the central liver. There was no change in the appearance of the metastatic lesion involving the T8 vertebral body. 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 He unfortunately was deemed ineligible for the trial due to his borderline renal function. Restaging CT scans from May 03, 2020 showed evidence of disease progression with increase in the left upper lobe lung mass, development of a new enhancing nodule abutting the pericardium and increase in the size of the metastatic lesion in the central liver. He was evaluated at [facility] for consideration of a clinical trial but was deemed ineligible due to borderline renal function. He was offered salvage chemotherapy with docetaxel single agent. It is a 3-week dosing. He began his first cycle on June 22, 2020. Mr. Snyder is here today for follow-up. His treatment with docetaxel on June 22, 2020 resulted in him becoming neutropenic on day 6 with an ANC of 60. He required 6 doses of Neupogen 480 mcg before recovery. He did receive Neupogen over the weekend and when his blood counts were rechecked the following Friday his ANC was noted to be 20,670. It recovered to 3450 on his 07/12/2020 visit. His family had called in requesting not to pursue treatment at this time. They felt that it was too hard on him. He was not aware of the call. However when Mrs. Snyder presented with him we did discuss holding his treatment indefinitely. He was agreeable to that if she was. His treatment was been placed on hold for additional 2 weeks. Prior to the additional time off he had been having significant problems with generalized weakness, poor performance status and persistent diarrhea. He required frequent hydration to which he responded to well. When he presented for follow-up on July 26, 2020, he had felt much better after the delay and wanted to resume treatment. He had taken his premed steroids and therefore we did resume his treatment. Since then he has required frequent supportive care with hydration. His last hydration documented in our records was August 09, 2020 at which time he just received 1 L of normal saline. His blood counts have held well as he did have Neulasta on pro support. He reports that overall he feels pretty good although he is weak in general. He states he is really not doing a whole lot of activity. He denies any nausea or vomiting. His appetite count of comes and goes. He is trying to do more around the house but wears out easily. He denies any hemoptysis. She denies any cough. He denies any orthopnea. He states his bowels and bladder are normal for him. He continues to have some residual neuropathy but states is no worse. He is wondering if the chemotherapy is actually doing anything for him. We discussed pursuing this third cycle of every 3-week docetaxel and then restaging him. His ECOG remains at 2. Past Medical History: Hstory of pancreatitis Meniere's Disease Peripheral neuropathy due to chemotherapy Non-small cell lung cancer in 2011 (Treated: surgery,chemo/readition) Past Surgical History: Right shoulder surgery in 2019 Thoractotomy with right upper lobectomy and mediastinal lymph node dissection in 2011 Bronchoscopy in 2011 TURP in 2002 Allergies: Flomax Medications: Flonase 2 Colmar(s) (of 50 mcg/act) Suspension Nasal daily PRN Ibuprofen 1 Tablet (of 800 mg) Tablet Oral t.i.d. MiraLax 1 Powder Oral daily PRN Neurontin 2 Tablet (of 300 mg) Oral t.i.d. Pantoprazole Sodium 1 Tablet (of 40 mg) Tablet, enteric coated Oral daily Vitamin B6 1 Tablet Oral daily Vitamin D3 1 Tablet (of 50 mcg ) Oral daily Family History: Mr. Snyder's father at age 89: stroke. Mr. Snyder has 2 brothers: 2 . Mr. Snyder's first brother's lung cancer. Another brother's melanoma cancer. Father of stroke at age 89. A brother of lung cancer and another brother of melanoma. Social History: Mr. Snyder is and he is retired. Mr. Snyder quit smoking 14 years ago but had smoked 2.0 packs/day for 40 years. He is an active drinker.He consumes 2 drinks/day. Mr. Snyder reports contact with the following hazardous materials: asbestos. He has indicated exposure to the following products: cigarettes. Mr. Snyder reports the following support systems: lives with spouse, significant other, family, or friends, lives in own house, supportive family/friends willing to assist with needs, and adequate transportation available for expected visits. His diet consists of regular meals. He indicates his activity level as: daily activities. Review Of Symptoms: <See Above> Vital Signs: Performed on Aug 16, 2020 14:42 Height - 70.00 in Temperature - 97.3 F (LOW) Pulse - 82 /min Respiration - 16 /min BP - 132/81 mm(hg) O2 Sat - 97 % Pain - 0 Fatigue - 0,2 - Ambulatory/capable of all self-care, unable to perform any work activities. Up and about more than 50% of waking hours. (ECOG) Physical Examination: Constitutional Alert, oriented, no acute distress. Skin pink, warm and dry. Head Normocephalic; atraumatic. Eyes Conjunctivae and sclerae are clear and without icterus. Pupils are reactive and equal. Neck Supple without masses or thyromegaly. No jugular venous distension. Hematologic/Lymphatic No petechiae or purpura. Respiratory Lungs are clear to auscultation without rhonchi or wheezing. Cardiovascular Regular rate and rhythm of heart without murmurs,clicks, gallops or rubs. Abdomen Non-tender, non-distended, no masses or ascites. Good bowel sounds noted in all quads. No guarding or rebound tenderness. No pulsatile masses. Back/Spine Non-tender to palpation. Extremities No visible deformities, no cyanosis, clubbing or edema. Musculoskeletal No tenderness or swelling, normal range of motion without obvious weakness. Integumentary No rashes or lesions. Neurologic No sensory or motor deficits, normal cerebellar function, normal gait. Psychiatric Alert and oriented times three. Coherent speech. Verbalizes understanding of our discussions today. Laboratory:Test performed on Aug 16, 2020 11:05 Sodium 137 mmol/L Potassium 4.2 mmol/L Chloride 102 mmol/L CO2 24 mmol/L Anion Gap 15.2 BUN 18 mg/dL Creatinine 1.0 mg/dL Cr Clearance (Est) 64.1800 mL/min Glucose 120 mg/dL Osmolality - Calculated 287 mOsm/kg Calcium 9.3 mg/dL Protein, Total 6.3 g/dL Albumin 4.0 g/dL Globulin 2.3 g/dL Bilirubin, Total 0.3 mg/dL ALT (SGPT) 16 U/L AST (SGOT) 30 U/L Alkaline Phosphatase 106 IU/L WBC 17.0 10 3/uL RBC 4.72 10 6/uL HGB 13.3 g/dL HCT 40.9 % MCV 86.7 fL MCH 28.2 pg MCHC 32.5 g/dL RDW 17.2 % Platelet Count 415 10 3/cmm MPV 10.2 fL Neutrophils 14.83 10 3/uL Lymphocytes 1.1 10 3/uL Monocytes 1.0 10 3/uL Eosinophils 0.0 10 3/uL Basophils 0.0 10 3/uL Neutrophil % 87.4 % Lymphocyte % 6.4 % Monocyte % 5.7 % Eosinophil % 0.0 % Basophils % 0.1 % NRBC % 0 % Impression: 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 This appeared to be a new primary malignancy. By clinical evaluation, his disease was stage IVB (T2a, N3, M1c). His PD-L1 expression was positive at 2%. 2. He had presented with metastatic involvement in the T8 vertebral body. He had significant symptomatic improvement following palliative radiation, completed on 09/16/2019 to a total dose of 3000 cGy. In October he began a trial of systemic therapy with carboplatin/pemetrexed in combination with pembrolizumab. He tolerated it very poorly. 3. History of differentiated non-small cell carcinoma of the right lung, stage IIIA with complete pathologic response to neoadjuvant chemotherapy with 2 cycles of carboplatin/Taxol. He then underwent right upper lobectomy/mediastinal lymph node dissection in August 2011 followed by 2 additional cycles of chemotherapy and radiation to the hilar/mediastinal node region, which he completed in January 2012. 4. 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 5. Benign prostatic hypertrophy. Plan/Problems Addressed at this Visit: 1. 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 He had presented with symptomatic metastatic involvement in the T8 vertebral body. His PD-L1 expression was positive at 2%. 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 He initially completed palliative radiation to the T8 vertebral body metastasis. He did show some response to a trial of systemic therapy with carboplatin/pemetrexed chemotherapy in combination with pembrolizumab. However, he tolerated the treatment poorly, and during maintenance pembrolizumab his treatment was put on hold due to worsening shortness of breath. His restaging CT scans on 05/03/2020 showed evidence of disease progression with increase in the left upper lobe lung mass, development of a new enhancing nodule abutting the pericardium, and increase in the size of a metastatic lesion in the central liver. At that point he was evaluated at [facility] for consideration and a clinical trial, but he was deemed ineligible due to borderline renal function. At this point he continues to have somewhat limited activity tolerance, and his ECOG performance score is still 2, but he is improving performance status hi. As he does wish to continue further treatment for the lung cancer, he began a trial of salvage chemotherapy with docetaxel as a single agent on June 22, 2020. A. We will proceed with dose reduced docetaxel today. He has received 2 cycles. He had significant change in his performance status due to generalized weakness and poor tolerance of the first cycle chemotherapy. He also had chemotherapy induced severe neutropenia with an ANC of 60. He required 5 doses of Neupogen 480 mcg 2 have recovery of his neutrophil count. He was given Neulasta OnPro with cycle 2. He did not have recurrent chemotherapy-induced neutropenia. However his performance status has still been marginal. B. We hold growth factor support with Neulasta on pro with this cycle as his ANC today is 14,830. C. Premed steroid compliance confirmed D. Today's labs reviewed in detail and discussed with Mr. Mrs. Snyder and a copy was given to them. WBC 17.0, hemoglobin 13.3, platelets 4 and 15,000, ANC is 14 830. Potassium 4.2 random glucose 120 creatinine 1.0 LFTs are normal. E. He has been advised to use Imodium if he has any recurrent diarrhea. If this is not controlled, that he will need Lomotil. F. He will continue with supportive care with hydration 3 times weekly as needed. G. I have asked for restaging imaging with CT of the chest with contrast as well as CT of the abdomen and pelvis with contrast for metastatic lung disease for evaluation after 3 cycles of docetaxel as well as a 3-month follow-up and compare to April 2020. If he is not responding to the docetaxel he may need referral for hospice as he is having declining performance status with the chemotherapy. 2. Chemotherapy induced neutropenia???severe with an ANC on day 8 of cycle 1 of 60. He did not receive prophylactic growth factors with cycle 1. A. He did recover with 5 days of Neupogen 480 mcg. B. Growth factor support with Neulasta 6 mg???on pro with cycle 2 and no evidence of chemotherapy induced neutropenia. C. I did not request the Neulasta on pro today due to an ANC of 14,000 830 today. 3. Follow-up plan A. weekly CBC, CMP B. Plan for supportive ccare: he may receive hydration and antibiotics/antiemetics 2-3 times a week as needed. C. He is due back for possible cycle 4 follow-up with CBC CMP in 3 weeks. I have requested restaging as indicated above D. Mr. Snyder has been instructed to contact us in the interim should questions or problems arise. Signed By: Minh Mclaughlin-, AOCNP Jony Noriega MD <<Signature on File>>
== END 2020-08-18 23:59 | disposition home or self-care (01) ==
LOC: ONCMED 05:40
PROVIDERS: Nurse Practitioner; PCP Family Medicine; Visit Provider Internal Medicine Medical Oncology
DX: Z51.11 Encounter for antineoplastic chemotherapy (principal); C34.12 Malignant neoplasm of upper lobe, left bronchus or lung; C79.51 Secondary malignant neoplasm of bone; H81.03 Meniere's disease, bilateral; G62.0 Drug-induced polyneuropathy; T45.1X5A Adverse effect of antineoplastic and immunosuppressive drugs, initial encounter; Z79.899 Other long term (current) drug therapy
CPT/HCPCS: 80053; 84443; 85025; 96360; 96361; 96367; 96372; 96375; 96413; 99214; J1100; J1200; J2405; J2505; J3490; J7030; J7050; J9171

== ENCOUNTER 2020-09-15 05:33 | Outpatient (RCR) | payer MEDICARE, OTHER, SELFPAY ==
[2020-08-21] MEDS: sodium chloride 0.9% 1,000 ML 999 ML IV (09:20)
[2020-08-23] MEDS: sodium chloride 0.9% 1,000 ML 999 ML IV (09:15)
[2020-08-25] MEDS: sodium chloride 0.9% 1,000 ML 999 ML IV (09:06)
[2020-08-28] MEDS: sodium chloride 0.9% 1,000 ML 999 ML IV (09:00)
[2020-08-30] MEDS: sodium chloride 0.9% 1,000 ML 999 ML IV (08:55)
[2020-09-01] MEDS: sodium chloride 0.9% 1,000 ML 999 ML IV (08:50)
[2020-09-01] MEDS: alteplase 1 mg/mL SDV 2 mL 2 MG IV (10:30)
--- NOTE | 2020-09-04 09:54 | CT_ITS ---
WS: [id number] CT CHEST, ABDOMEN AND PELVIS WITH CONTRAST. HISTORY: METASTATIC LUNG CA 3 MO F/U TECHNIQUE: Contiguous 5 mm axial imaging performed through the chest, abdomen and pelvis with IV cont rast, oral contrast has been provided. Coronal and sagittal reformats chest. Coronal and sagittal ref ormats through the abdomen and pelvis. All CT scans at [facility] use at least one of the se dose optimization techniques: automated exposure control; mA and/or kV adjustment per patient size (includes targeted exams where dose is matched to clinical indication); or iterative reconstruction. CONTRAST: Omnipaque 300; 95 mL IV. DLP: 668.09 mGy.cm COMPARISON: 05/03/[address]: Status post RIGHT upper lobectomy. Again noted is fluid along the RIGHT fissure towards the apex which is similar to the prior examination. Moderate size layering RIGHT pleural effusion has no t significantly changed. There is continued very mild bronchial wall thickening at the RIGHT hilum is similar to prior studies. There is a new 7 mm pleural-based nodule in the RIGHT middle lobe, image 3 2 of series 5. Previously described mass in the LEFT upper lobe abutting the pericardium has signific antly decreased in size. Mass now measures 1.4 x 1.9 cm. Partial obstruction of the bronchi resulting in mild postobstructive atelectasis. Previously described nodule abutting the pericardium is no long er present. Size is normal. Left-sided Mediport. No adenopathy. Described indeterminate nodule at the LEFT hilum is decreased in size now measuring 6.[address]: Metastatic lesion in the central liver extends into the LEFT and RIGHT lobes. Mass has in creased in size now measuring 5.2 x 6.5 cm. Mass abuts the portal vein with slight displacement of th e LEFT portal vein. Partial displacement of the RIGHT middle hepatic vein. Very slight distal bile du ct dilatation. No additional hepatic masses. Gallbladder is contracted. Spleen is normal size. Normal pancreas and adrenal glands. Mild atherosclerosis aorta. Mild renal atrophy. No change in the cyst a ssociated with the RIGHT kidney. No ascites. Small periaortic lymph nodes. No mesenteric or retroperitoneal adenopathy. No GI tract obstruction. Pelvic CT: Well-distended urinary bladder. No free fluid in the pelvis. No adenopathy. Sclerotic lesi on in T8 is unchanged. No additional osteoblastic lesions. CT/CT chest abd pel w con* IMPRESSION: 1. Status post RIGHT upper lobectomy. 2. Significant decrease in size of the spiculated mass in the LEFT upper lobe. Mass now measures 1.4 x 1.9 cm. 3. Previously described nodule abutting the pericardium is no longer present. LEFT hilar lymph node is decreased in size. 4. New 7 mm pleural-based nodule in the RIGHT middle lobe may be an area of sc ar atelectasis or early neoplasm. 5. No change in the moderate RIGHT pleural effusion. 6. Significant increase in size of the central metastatic mass in the liver no w measuring 5.2 x 6.5 cm (compared to 4.3 x 4.1 cm). 7. No enlarging mesenteric or retroperitoneal lymph nodes. 8. No ascites. 9. Stable T8 osteoblastic metastatic lesion.
[2020-09-04] MEDS: iohexol 300 mg/mL 50 mL Btl PO (10:08)
[2020-09-04] MEDS: iohexol 350 mg/mL 100 mL Btl IV (11:50)
[2020-09-06] MEDS: sodium chloride 0.9% 1,000 ML 999 ML IV (09:04)
[2020-09-06 09:12] LABS: Basophils % 0.1 %; Hematocrit 41.9 % (42.0-52.0); Hemoglobin 13.5 g/dL (11.7-16.6); Lymphocytes # 0.8 10^3/uL (0.8-4.8); Lymphocytes % 6.8 %; Mean Corpuscular HGB Conc 32.2 g/dL (30.0-36.0); Mean Corpuscular Hemoglobin 27.5 pg (28.0-34.0); Mean Corpuscular Volume 85.3 fL (80-94); Mean Platelet Volume 9.8 fL (7.4-10.4); Monocytes # 0.3 10^3/uL (0.2-0.9); Monocytes % 2.6 %; Neutrophils # 11.03 10^3/uL (1.8-7.7); Neutrophils % 89.9 %; Nucleated Red Blood Cells % 0 %; Platelet Count 355 10^3/cmm (130-400); Red Blood Count 4.91 10^6/uL (4.1-5.3); White Blood Count 12.3 10^3/uL (4.0-10.0)
[2020-09-06 09:30] LABS: Alanine Aminotransferase 19 U/L (0-41); Albumin Level 3.8 g/dL (3.5-5.2); Alkaline Phosphatase 115 IU/L (40-130); Anion Gap 15.6 (5-19); Aspartate Amino Transferase 32 U/L (0-40); Blood Urea Nitrogen 15 mg/dL (8-23); Calcium 9.1 mg/dL (8.5-10.5); Carbon Dioxide 24 mmol/L (22-29); Chloride 103 mmol/L (98-107); Globulin 2.6 g/dL (1.3-4.6); Glucose 174 mg/dL (65-115); Osmolality Calculated 291 mOsm/kg (285-295); Potassium 4.6 mmol/L (3.5-5.1); Sodium 138 mmol/L (136-145); Total Bilirubin 0.3 mg/dL (0.15-1.2); Total Protein 6.4 g/dL (6.6-8.7)
[2020-09-06] MEDS: famotidine 20 mg/2 mL INJ IVP (11:20)
[2020-09-06] MEDS: sodium chloride 0.9% 250 ML 75 ML IV (11:20)
[2020-09-06] MEDS: ondansetron 2 mg/ML SDV 2 mL 8 MG IVP (11:22)
[2020-09-06] MEDS: diphenhydrAMINE 50 mg/mL SDV 1mL 25 MG IVP (11:25)
[2020-09-08] MEDS: sodium chloride 0.9% 1,000 ML 999 ML IV (09:30)
[2020-09-11] MEDS: sodium chloride 0.9% 1,000 ML 999 ML IV (08:48)
[2020-09-13] MEDS: sodium chloride 0.9% 1,000 ML 999 ML IV (08:51)
--- NOTE | 2020-09-14 10:49 | ONC FU_ITS ---
[facility] Patient Note Patient: Isaiah Snyder Unit #: [id number]: 1940 Dictated By: Minh MclaughlinDate of Visit: September 06, 2020 Onc MED Follow-Up/Prog Note Chief Complaint: Lung cancer. 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 He was found to have a 2.5 cm right upper lobe lung mass in 2011. He had mediastinal and hilar node involvement by trans-bronchial needle aspiration biopsy in May of 2011, with pathology reporting metastatic poorly differentiated non-small cell carcinoma. He was given neoadjuvant chemotherapy with 2 cycles of carboplatin/Taxol. He was found to have a complete pathologic response at right upper lobectomy/mediastinal lymph node dissection at [facility] in August of 2011. He completed 2 additional cycles of chemotherapy postoperatively, and he was then given radiation to the hilar/mediastinal node regions to a total dose of 50.4 Gy, which he completed on 02/13/12. He did have problems following his surgery, mainly due to a prolonged post thoracotomy pain syndrome. He also developed significant neuropathy with the chemotherapy, but he did show gradual recovery during subsequent follow-up on observation/expectant management. His surveillance CT of the chest on 08/15/2016 showed postoperative changes of right upper lobectomy. There was stable loculated pleural effusion at the right lung base with chronic right atelectasis. There ws no mediastinal or hilar lymphadenopathy or other evidence of disease progression. He was advised to continue observation/expectant anagement. As he was 5 years out from completion of his treatment, Dr Noriega had recommended that he just continue his regular follow-up at [facility]. Dr Noriega had seen him for a visit again on 01/19/2018. His surveillance chest xray thru the [facility] had reported abnormalitites at the right lung base, but on review these were not significantly changed compared to prior studies. He continued on observation/expectant management. In June [address] Perla with complaints of pain on both sides of his mid back radiating around to the epigastric area. Evaluation was delayed to the pandemic restrictions. His CT abdomen/pelvis on 08/09/2019 showed a 3.1 x 2.8 x 2.6 cm mass near the gregory hepatis, concerning for neoplasm. An osteolytic lesion in the T8 vertebral body was concerning for metastatic disease. There was moderate sized right pleural effusion. There was a small amount of atelectasis or consolidation in the right lower lobe and the lingula, pneumonia not excluded. A 2.0 x 1.3 x 1.7 cm heterogeneous lesion in the inferior pole of the left kidney was indeterminate. An L4 vertebral compression fracture was of indeterminate age. He was seen for a visit here on 08/12/2019. He had further evaluation with PET/CT on 08/14/2019. It showed evidence of an FDG avid spiculated left upper lobe mass measuring 3.4 x 2.2 cm, SUV 20.8. A medial right middle lobe subcentimeter nodule adjacent to the mediastinum was also FDG positive as were bilateral hilar lymph nodes, consistent with metastatic adenopathy. There were 2 sites of diffuse activity in the body of the pancreas, felt to be more likely inflammatory in origin. A 3 cm hypodense mass in the central right hepatic lobe at the gregory hepatis head SUV 9.2, consistent with metastatic disease. A lytic osseous lesion at T8 had SUV of 17.2, consistent with metastatic disease. There were no other osseous lesions noted. MRI of the spine on 08/16/2019 showed abnormal signal within the majority of the T8 vertebral body with extension of tumor into the posterior elements. There was retropulsion of the posterior endplate by 3 mm with mild compression on the right lateral thecal sac. There was moderate stenosis of the T8-9 foramen due to tumor and bone expansion. There was significant soft tissue tumor enhancement within the T8-9 foramen. There was mild facet joint arthritis throughout the thoracic spine and there were degenerative changes noted in the cervical and lumbar spine. There were no other sites of metastatic disease noted. Given his symptoms and the findings on the imaging studies, he was referred for palliative radiation. He completed course of treatment from T7-T10 on 09/16/2019 to a total dose of 3000 cGy. During that time, he had also been seen in consultation by Dr. Puckett, and on 09/03/2019 he underwent bronchoscopy/EBUS with endobronchial biopsies and with transbronchial FNA biopsy of mediastinal lymph nodes. 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 The next generation sequencing study showed positive PD-L1 expression for 22c3 at 2%. There were no actionable mutations identified. With those findings, he was recommended to undergo systemic therapy with carboplatin/pemetrexed chemotherapy in combination with pembrolizumab. He has otherwise been in good health. 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 He does have a history of smoking 2 packs of cigarettes daily for approximately 40 years. He quit smoking in 1999. He indicated that he had significant asbestos exposure during service in the [employer]. INTERIM HISTORY: He began cycle 1 of carboplatin/pemetrexed/pembrolizumab on 11/03/2019. He tolerated it with acceptable toxicity, and he continued with cycle 2 on 11/24/2019 and with cycle 3 on 12/15/2019. Restaging CT scans of the chest, abdomen, and pelvis on 01/03/2020 showed interval decrease in the size of the spiculated left upper lobe mass measuring 2.7 x 2.1 cm compared to 3.4 x 2.2 cm on the prior study. A 9 mm right middle lobe nodule appeared stable. The metastatic lesion in the central right hepatic lobe had progressed slightly measuring 3.4 x 3.1 cm compared to approximately 3 cm on the prior study. The lytic metastatic osseous lesion involving the T8 vertebral body appeared stable. He was seen for a follow-up visit on 01/05/2020. At that time, he reported that he had developed significant fatigue and shortness of breath following his 3rd cycle of treatment. Given the CT findings, it was assumed this was most likely due to the chemotherapy. Dr Noriega opted to give him a treatment break and then transition him to maintenance immunotherapy. He returned on 01/26/2020. He was feeling much better. At that point he began cycle 1 of maintenance pembrolizumab. At his follow-up visit on 02/17/2020 he reported significant worsening of symptoms including weakness/fatigue and shortness of breath. He had become overtly hypoxic. His treatment was put on hold, and he was started on steroid therapy. During subsequent follow-up is symptoms did show some improvement, but he continued to have shortness of breath and limited activity tolerance. Restaging chest CT on 05/03/2020 showed increased in the left upper lobe lung mass measuring 3.5 x 2.5 cm. A new enhancing nodule abutting the pericardium of the left ventricle was suspicious for a metastatic deposit. There was moderate and slightly increased right pleural effusion. There was increase in size of the metastatic lesion in the central liver. There was no change in the appearance of the metastatic lesion involving the T8 vertebral body. 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 He unfortunately was deemed ineligible for the trial due to his borderline renal function. Restaging CT scans from May 03, 2020 showed evidence of disease progression with increase in the left upper lobe lung mass, development of a new enhancing nodule abutting the pericardium and increase in the size of the metastatic lesion in the central liver. He was evaluated at [facility] for consideration of a clinical trial but was deemed ineligible due to borderline renal function. He was offered salvage chemotherapy with docetaxel single agent. It is a 3-week dosing. He began his first cycle on June 22, 2020. His treatment with docetaxel on June 22, 2020 resulted in him becoming neutropenic on day 6 with an ANC of 60. He required 6 doses of Neupogen 480 mcg before recovery. He did receive Neupogen over the weekend and when his blood counts were rechecked the following Friday his ANC was noted to be 20,670. It recovered to 3450 on his 07/12/2020 visit. His family had called in requesting not to pursue treatment at this time. They felt that it was too hard on him. He was not aware of the call. However when Mrs. Snyder presented with him we did discuss holding his treatment indefinitely. He was agreeable to that if she was. His treatment was been placed on hold for additional 2 weeks. Prior to the additional time off he had been having significant problems with generalized weakness, poor performance status and persistent diarrhea. He required frequent hydration to which he responded to well. When he presented for follow-up on July 26, 2020, he had felt much better after the delay and wanted to resume treatment. He had taken his premed steroids and therefore we did resume his treatment. Since then he has required frequent supportive care with hydration. His last hydration documented in our records was September 06, 2020 at which time he just received 1 L of normal saline. His blood counts have held well as he did have Neulasta Onpro support. Mr. Snyder is here today for follow-up. He is also here to discuss his CT of the chest/abdomen/pelvis with contrast from 09/04/2020. The impression reads significant decrease in the size of the spiculated mass in the left upper lobe. Mass now measures 1.4 x 1.9 cm. Previously described nodule abutting the pericardium is no longer present. Left hilar lymph node is decreased in size. New 7 mm pleural-based nodule in the right middle lobe may be an area of scar/atelectasis or early neoplasm. No change in the moderate right pleural effusion. Significant increase in the central metastatic mass in the liver now measuring 5.2 x 6.5 cm compared to 4.3 x 4.1 cm on prior exam. No enlarging mesenteric or retroperitoneal lymph nodes. No ascites. Stable T8 osteoblastic metastatic lesion. Mr. Snyder states that he feels good since doing the hydration. He states he is tolerating treatment much better. We discussed the above findings of the CT. He states he did take his steroids today and wants to pursue treatment. We have discussed that there is a new treatment that we hope to have approved soon???this is a when he was referred to for clinical trial and [facility] that he was unable to pursue. He states he is aware and is willing to can continue with current therapy as long as he is feeling good. He denies any nausea or vomiting. He said no fever or chills. He states his breathing is about the same, he states is certainly no worse. He reports that he has had some allergy with his eyes watering and occasional nose drainage. It has been clear. He denies any cough states is intermittent. He denies any cough or hemoptysis. He denies any mouth sores, sore throat or difficulty swallowing. He states he has not had any chest pain or palpitations. He denies nausea or vomiting. He is eating good and his energy is fair at home. Mrs. Snyder states that he does not mow the yard but he never has . She states that he does try to be active around the house though. He tolerates this reasonably well but rest frequently. He denies any neuropathy symptoms. His ECOG is 1. Past Medical History: Hstory of pancreatitis Meniere's Disease Peripheral neuropathy due to chemotherapy Non-small cell lung cancer in 2011 (Treated: surgery,chemo/readition) Past Surgical History: Right shoulder surgery in 2019 Thoractotomy with right upper lobectomy and mediastinal lymph node dissection in 2011 Bronchoscopy in 2011 TURP in 2002 Allergies: Flomax Medications: Flonase 2 Massey(s) (of 50 mcg/act) Suspension Nasal daily PRN Ibuprofen 1 Tablet (of 800 mg) Tablet Oral t.i.d. MiraLax 1 Powder Oral daily PRN Neurontin 2 Tablet (of 300 mg) Oral t.i.d. Pantoprazole Sodium 1 Tablet (of 40 mg) Tablet, enteric coated Oral daily Vitamin B6 1 Tablet Oral daily Vitamin D3 1 Tablet (of 50 mcg ) Oral daily Family History: Mr. Snyder's father at age 89: stroke. Mr. Snyder has 2 brothers: 2 . Mr. Snyder's first brother's lung cancer. Another brother's melanoma cancer. Father of stroke at age 89. A brother of lung cancer and another brother of melanoma. Social History: Mr. Snyder is and he is retired. Mr. Snyder quit smoking 14 years ago but had smoked 2.0 packs/day for 40 years. He is an active drinker.He consumes 2 drinks/day. Mr. Snyder reports contact with the following hazardous materials: asbestos. He has indicated exposure to the following products: cigarettes. Mr. Snyder reports the following support systems: lives with spouse, significant other, family, or friends, lives in own house, supportive family/friends willing to assist with needs, and adequate transportation available for expected visits. His diet consists of regular meals. He indicates his activity level as: daily activities. Review Of Symptoms: <See Above> Vital Signs: Performed on September 06, 2020 10:42 Height - 70.00 in Weight - 163.6 lbs (HIGH) BSA - 1.92 sq.m BMI - 23.47 Temperature - 97.6 F (LOW) Pulse - 99 /min Respiration - 16 /min BP - 132/75 mm(hg) O2 Sat - 95 % (LOW) Pain - 0,1 - No physically strenuous activity, but ambulatory and able to carry out light or sedentary work (e.g. office work, light house work). (ECOG) Physical Examination: Constitutional Alert, oriented, no acute distress. Skin pink, warm and dry. Head Normocephalic; atraumatic. Eyes Conjunctivae and sclerae are clear and without icterus. Pupils are reactive and equal. ENMT No oral exudates, ulcers, masses, thrush or mucositis. Oropharynx clear. Tongue normal. Neck Supple without masses or thyromegaly. No jugular venous distension. Hematologic/Lymphatic No petechiae or purpura. Respiratory Lungs are clear to auscultation without rhonchi or wheezing. Cardiovascular Regular rate and rhythm of heart without murmurs,clicks, gallops or rubs. Abdomen Non-tender, non-distended, no masses or ascites. Good bowel sounds noted in all quads. No guarding or rebound tenderness. No pulsatile masses. Back/Spine Non-tender to palpation. Extremities No visible deformities, no cyanosis, clubbing or edema. Musculoskeletal No tenderness or swelling, normal range of motion without obvious weakness. Integumentary No rashes or lesions. Neurologic No sensory or motor deficits, normal cerebellar function, normal gait. Psychiatric Alert and oriented times three. Coherent speech. Verbalizes understanding of our discussions today. Laboratory:Test performed on September 06, 2020 08:54 Sodium 138 mmol/L Potassium 4.6 mmol/L Chloride 103 mmol/L CO2 24 mmol/L Anion Gap 15.6 BUN 15 mg/dL Creatinine 0.9 mg/dL Cr Clearance (Est) 71.3100 mL/min Glucose 174 mg/dL Osmolality - Calculated 291 mOsm/kg Calcium 9.1 mg/dL Protein, Total 6.4 g/dL Albumin 3.8 g/dL Globulin 2.6 g/dL Bilirubin, Total 0.3 mg/dL ALT (SGPT) 19 U/L AST (SGOT) 32 U/L Alkaline Phosphatase 115 IU/L WBC 12.3 10 3/uL RBC 4.91 10 6/uL HGB 13.5 g/dL HCT 41.9 % MCV 85.3 fL MCH 27.5 pg MCHC 32.2 g/dL RDW 17.0 % Platelet Count 355 10 3/cmm MPV 9.8 fL Neutrophils 11.03 10 3/uL Lymphocytes 0.8 10 3/uL Monocytes 0.3 10 3/uL Eosinophils 0.0 10 3/uL Basophils 0.0 10 3/uL Neutrophil % 89.9 % Lymphocyte % 6.8 % Monocyte % 2.6 % Eosinophil % 0.0 % Basophils % 0.1 % NRBC % 0 % Test performed on Aug 02, 2020 11:05 CBC Slide Review Slide Review Perform Impression: 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 This appeared to be a new primary malignancy. By clinical evaluation, his disease was stage IVB (T2a, N3, M1c). His PD-L1 expression was positive at 2%. 2. He had presented with metastatic involvement in the T8 vertebral body. He had significant symptomatic improvement following palliative radiation, completed on 09/16/2019 to a total dose of 3000 cGy. In October he began a trial of systemic therapy with carboplatin/pemetrexed in combination with pembrolizumab. He tolerated it very poorly. 3. History of differentiated non-small cell carcinoma of the right lung, stage IIIA with complete pathologic response to neoadjuvant chemotherapy with 2 cycles of carboplatin/Taxol. He then underwent right upper lobectomy/mediastinal lymph node dissection in August 2011 followed by 2 additional cycles of chemotherapy and radiation to the hilar/mediastinal node region, which he completed in January 2012. 4. 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 5. Benign prostatic hypertrophy. Plan/Problems Addressed at this Visit: 1. 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 He had presented with symptomatic metastatic involvement in the T8 vertebral body. His PD-L1 expression was positive at 2%. 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 He initially completed palliative radiation to the T8 vertebral body metastasis. He did show some response to a trial of systemic therapy with carboplatin/pemetrexed chemotherapy in combination with pembrolizumab. However, he tolerated the treatment poorly, and during maintenance pembrolizumab his treatment was put on hold due to worsening shortness of breath. His restaging CT scans on 05/03/2020 showed evidence of disease progression with increase in the left upper lobe lung mass, development of a new enhancing nodule abutting the pericardium, and increase in the size of a metastatic lesion in the central liver. At that point he was evaluated at [facility] for consideration and a clinical trial, but he was deemed ineligible due to borderline renal function. At this point he continues to have somewhat limited activity tolerance, and his ECOG performance score is still 2, but he is improving performance status hi. As he does wish to continue further treatment for the lung cancer, he began a trial of salvage chemotherapy with docetaxel as a single agent on June 22, 2020. Followup CT of the chest/abdomen/pelvis with contrast from 09/04/2020. The impression reads significant decrease in the size of the spiculated mass in the left upper lobe. Mass now measures 1.4 x 1.9 cm. Previously described nodule abutting the pericardium is no longer present. Left hilar lymph node is decreased in size. New 7 mm pleural-based nodule in the right middle lobe may be an area of scar/atelectasis or early neoplasm. No change in the moderate right pleural effusion. Significant increase in the central metastatic mass in the liver now measuring 5.2 x 6.5 cm compared to 4.3 x 4.1 cm on prior exam. No enlarging mesenteric or retroperitoneal lymph nodes. No ascites. Stable T8 osteoblastic metastatic lesion . Mr Snyder was informed that some areas are better but the liver is worse. Treatment options are at this time to continue with current plan of care or observation/hospice. He is aware that we are watching for new drug approval for him. This was the same drug he is referred to [facility] for the clinical trial that he was unable to pursue. A. We will proceed with dose reduced docetaxel today. He has received 3 cycles. He had significant change in his performance status due to generalized weakness and poor tolerance after the first cycle chemotherapy. He also had chemotherapy induced severe neutropenia with an ANC of 60. He required 5 doses of Neupogen 480 mcg 2 have recovery of his neutrophil count. He was given Neulasta OnPro with cycle 2. He did not have recurrent chemotherapy-induced neutropenia. He has begin receiving intermittent hydration here in the clinic and overall his performance status has improved. He request to proceed with chemotherapy today. A. Proceed with cycle 4-day 1 docetaxel at same dosing. B. Steroid compliance confirmed. C. We hold growth factor support with Neulasta on pro with this cycle as his ANC today is 11,000. D. Today's labs and the CTS from 09/04/2020 were reviewed in detail and discussed with . Mrs. Snyder and a copy of each report was given to them. WBC 12.3, hemoglobin 13.5, platelets 355,000, ANC is 11,000. Potassium 4.6, random glucose 174, creatinine 0.9 LFTs are normal. Weight is 163.6. E. He has been advised to use Imodium if he has any recurrent diarrhea. If this is not controlled, that he will need Lomotil. F. He will continue with supportive care with hydration 3 times weekly as needed. G. He may use [id number] antihistamine as needed for seasonal allergies. H. Monitor left chest wall port access site as it is mildly erythemic today. No warmth or exudate noted. 2. Chemotherapy induced neutropenia???severe with an ANC on day 8 of cycle 1 of 60. He did not receive prophylactic growth factors with cycle 1. A. He did recover with 5 days of Neupogen 480 mcg. B. Growth factor support with Neulasta 6 mg???on pro with cycle 2 and no evidence of chemotherapy induced neutropenia. C. I did not request the Neulasta on pro today due to an ANC of 11,000 today. 3. Follow-up plan A. weekly CBC, CMP B. Plan for supportive ccare: he may receive hydration and antiemetics 2-3 times a week as needed. C. He is due back for possible cycle 5 follow-up with CBC CMP in 3 weeks. D. Mr. Snyder has been instructed to contact us in the interim should questions or problems arise. Signed By: Minh Mclaughlin-, AOP Jony Noriega MD <<Signature on File>>
[2020-09-15] MEDS: sodium chloride 0.9% 1,000 ML 999 ML IV (08:40)
== END 2020-09-18 23:59 | disposition home or self-care (01) ==
LOC: ONCMED 05:33
PROVIDERS: Nurse Practitioner; PCP Family Medicine; Visit Provider Internal Medicine Medical Oncology
DX: Z51.11 Encounter for antineoplastic chemotherapy (principal); C34.12 Malignant neoplasm of upper lobe, left bronchus or lung; C79.51 Secondary malignant neoplasm of bone; F17.211 Nicotine dependence, cigarettes, in remission; K85.90 Acute pancreatitis without necrosis or infection, unspecified; H81.03 Meniere's disease, bilateral; G62.0 Drug-induced polyneuropathy; T45.1X5A Adverse effect of antineoplastic and immunosuppressive drugs, initial encounter; Z79.899 Other long term (current) drug therapy
CPT/HCPCS: 36593; 71260; 74177; 80053; 85025; 96360; 96361; 96367; 96374; 96375; 96413; 99214; J1100; J1200; J2405; J2997; J3490; J7030; J7050; J9171; Q9967

== ENCOUNTER 2020-10-02 08:51 | Outpatient (RCR) | payer MEDICARE, OTHER, SELFPAY ==
[2020-09-20] MEDS: sodium chloride 0.9% 1,000 ML 999 ML IV (09:03)
[2020-09-22] MEDS: sodium chloride 0.9% 1,000 ML 999 ML IV (09:15)
[2020-09-27] MEDS: sodium chloride 0.9% 1,000 ML 999 ML IV (10:00)
[2020-09-27 10:26] LABS: Basophils # 0.1 10^3/uL (0.0-0.1); Basophils % 0.9 %; Eosinophils % 0.2 %; Hematocrit 39.3 % (42.0-52.0); Hemoglobin 12.5 g/dL (11.7-16.6); Lymphocytes # 0.8 10^3/uL (0.8-4.8); Lymphocytes % 12.3 %; Mean Corpuscular HGB Conc 31.8 g/dL (30.0-36.0); Mean Corpuscular Volume 88.1 fL (80-94); Monocytes # 0.6 10^3/uL (0.2-0.9); Monocytes % 9.5 %; Neutrophils # 4.91 10^3/uL (1.8-7.7); Neutrophils % 76.6 %; Nucleated Red Blood Cells % 0 %; Platelet Count 303 10^3/cmm (130-400); Red Blood Count 4.46 10^6/uL (4.1-5.3); Red Cell Distribution Width 18.1 % (12.1-15.1); White Blood Count 6.4 10^3/uL (4.0-10.0)
[2020-09-27 10:39] LABS: Alanine Aminotransferase 13 U/L (0-41); Albumin Level 3.6 g/dL (3.5-5.2); Alkaline Phosphatase 132 IU/L (40-130); Anion Gap 14.5 (5-19); Aspartate Amino Transferase 38 U/L (0-40); Blood Urea Nitrogen 10 mg/dL (8-23); Calcium 8.3 mg/dL (8.5-10.5); Carbon Dioxide 23 mmol/L (22-29); Chloride 106 mmol/L (98-107); Globulin 1.8 g/dL (1.3-4.6); Glucose 115 mg/dL (65-115); Osmolality Calculated 288 mOsm/kg (285-295); Potassium 4.5 mmol/L (3.5-5.1); Sodium 139 mmol/L (136-145); Total Bilirubin 0.4 mg/dL (0.15-1.2); Total Protein 5.4 g/dL (6.6-8.7)
[2020-09-29] MEDS: sodium chloride 0.9% 1,000 ML 999 ML IV (09:00)
[2020-10-02] MEDS: sodium chloride 0.9% 1,000 ML 999 ML IV (09:05)
--- NOTE | 2020-10-15 12:19 | ONC FU_ITS ---
[facility] Patient Note Patient: Isaiah Snyder Unit #: [id number]: 1940 Dictated By: Minh MclaughlinDate of Visit: Sep 27, 2020 Onc MED Follow-Up/Prog Note Chief Complaint: Lung cancer. 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 He was found to have a 2.5 cm right upper lobe lung mass in 2011. He had mediastinal and hilar node involvement by trans-bronchial needle aspiration biopsy in May of 2011, with pathology reporting metastatic poorly differentiated non-small cell carcinoma. He was given neoadjuvant chemotherapy with 2 cycles of carboplatin/Taxol. He was found to have a complete pathologic response at right upper lobectomy/mediastinal lymph node dissection at [facility] in August of 2011. He completed 2 additional cycles of chemotherapy postoperatively, and he was then given radiation to the hilar/mediastinal node regions to a total dose of 50.4 Gy, which he completed on 02/13/12. He did have problems following his surgery, mainly due to a prolonged post thoracotomy pain syndrome. He also developed significant neuropathy with the chemotherapy, but he did show gradual recovery during subsequent follow-up on observation/expectant management. His surveillance CT of the chest on 08/15/2016 showed postoperative changes of right upper lobectomy. There was stable loculated pleural effusion at the right lung base with chronic right atelectasis. There ws no mediastinal or hilar lymphadenopathy or other evidence of disease progression. He was advised to continue observation/expectant anagement. As he was 5 years out from completion of his treatment, Dr Noriega had recommended that he just continue his regular follow-up at the [facility]. Dr Noriega had seen him for a visit again on 01/19/2018. His surveillance chest xray thru the [facility] had reported abnormalitites at the right lung base, but on review these were not significantly changed compared to prior studies. He continued on observation/expectant management. In June [address] Perla with complaints of pain on both sides of his mid back radiating around to the epigastric area. Evaluation was delayed to the pandemic restrictions. His CT abdomen/pelvis on 08/09/2019 showed a 3.1 x 2.8 x 2.6 cm mass near the gregory hepatis, concerning for neoplasm. An osteolytic lesion in the T8 vertebral body was concerning for metastatic disease. There was moderate sized right pleural effusion. There was a small amount of atelectasis or consolidation in the right lower lobe and the lingula, pneumonia not excluded. A 2.0 x 1.3 x 1.7 cm heterogeneous lesion in the inferior pole of the left kidney was indeterminate. An L4 vertebral compression fracture was of indeterminate age. He was seen for a visit here on 08/12/2019. He had further evaluation with PET/CT on 08/14/2019. It showed evidence of an FDG avid spiculated left upper lobe mass measuring 3.4 x 2.2 cm, SUV 20.8. A medial right middle lobe subcentimeter nodule adjacent to the mediastinum was also FDG positive as were bilateral hilar lymph nodes, consistent with metastatic adenopathy. There were 2 sites of diffuse activity in the body of the pancreas, felt to be more likely inflammatory in origin. A 3 cm hypodense mass in the central right hepatic lobe at the gregory hepatis head SUV 9.2, consistent with metastatic disease. A lytic osseous lesion at T8 had SUV of 17.2, consistent with metastatic disease. There were no other osseous lesions noted. MRI of the spine on 08/16/2019 showed abnormal signal within the majority of the T8 vertebral body with extension of tumor into the posterior elements. There was retropulsion of the posterior endplate by 3 mm with mild compression on the right lateral thecal sac. There was moderate stenosis of the T8-9 foramen due to tumor and bone expansion. There was significant soft tissue tumor enhancement within the T8-9 foramen. There was mild facet joint arthritis throughout the thoracic spine and there were degenerative changes noted in the cervical and lumbar spine. There were no other sites of metastatic disease noted. Given his symptoms and the findings on the imaging studies, he was referred for palliative radiation. He completed course of treatment from T7-T10 on 09/16/2019 to a total dose of 3000 cGy. During that time, he had also been seen in consultation by Dr. Puckett, and on 09/03/2019 he underwent bronchoscopy/EBUS with endobronchial biopsies and with transbronchial FNA biopsy of mediastinal lymph nodes. 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 The next generation sequencing study showed positive PD-L1 expression for 22c3 at 2%. There were no actionable mutations identified. With those findings, he was recommended to undergo systemic therapy with carboplatin/pemetrexed chemotherapy in combination with pembrolizumab. He has otherwise been in good health. 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 He does have a history of smoking 2 packs of cigarettes daily for approximately 40 years. He quit smoking in 1999. He indicated that he had significant asbestos exposure during service in the [employer]. INTERIM HISTORY: He began cycle 1 of carboplatin/pemetrexed/pembrolizumab on 11/03/2019. He tolerated it with acceptable toxicity, and he continued with cycle 2 on 11/24/2019 and with cycle 3 on 12/15/2019. Restaging CT scans of the chest, abdomen, and pelvis on 01/03/2020 showed interval decrease in the size of the spiculated left upper lobe mass measuring 2.7 x 2.1 cm compared to 3.4 x 2.2 cm on the prior study. A 9 mm right middle lobe nodule appeared stable. The metastatic lesion in the central right hepatic lobe had progressed slightly measuring 3.4 x 3.1 cm compared to approximately 3 cm on the prior study. The lytic metastatic osseous lesion involving the T8 vertebral body appeared stable. He was seen for a follow-up visit on 01/05/2020. At that time, he reported that he had developed significant fatigue and shortness of breath following his 3rd cycle of treatment. Given the CT findings, it was assumed this was most likely due to the chemotherapy. Dr Noriega opted to give him a treatment break and then transition him to maintenance immunotherapy. He returned on 01/26/2020. He was feeling much better. At that point he began cycle 1 of maintenance pembrolizumab. At his follow-up visit on 02/17/2020 he reported significant worsening of symptoms including weakness/fatigue and shortness of breath. He had become overtly hypoxic. His treatment was put on hold, and he was started on steroid therapy. During subsequent follow-up is symptoms did show some improvement, but he continued to have shortness of breath and limited activity tolerance. Restaging chest CT on 05/03/2020 showed increased in the left upper lobe lung mass measuring 3.5 x 2.5 cm. A new enhancing nodule abutting the pericardium of the left ventricle was suspicious for a metastatic deposit. There was moderate and slightly increased right pleural effusion. There was increase in size of the metastatic lesion in the central liver. There was no change in the appearance of the metastatic lesion involving the T8 vertebral body. 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 for consideration of participation in a clinical trial. He unfortunately was deemed ineligible for the trial due to his borderline renal function. Restaging CT scans from May 03, 2020 showed evidence of disease progression with increase in the left upper lobe lung mass, development of a new enhancing nodule abutting the pericardium and increase in the size of the metastatic lesion in the central liver. He was evaluated at [facility] for consideration of a clinical trial but was deemed ineligible due to borderline renal function. He was offered salvage chemotherapy with docetaxel single agent. It is a 3-week dosing. He began his first cycle on June 22, 2020. His treatment with docetaxel on June 22, 2020 resulted in him becoming neutropenic on day 6 with an ANC of 60. He required 6 doses of Neupogen 480 mcg before recovery. He did receive Neupogen over the weekend and when his blood counts were rechecked the following Friday his ANC was noted to be 20,670. It recovered to 3450 on his 07/12/2020 visit. His family had called in requesting not to pursue treatment at this time. They felt that it was too hard on him. He was not aware of the call. However when Mrs. Snyder presented with him we did discuss holding his treatment indefinitely. He was agreeable to that if she was. His treatment was been placed on hold for additional 2 weeks. Prior to the additional time off he had been having significant problems with generalized weakness, poor performance status and persistent diarrhea. He required frequent hydration to which he responded to well. When he presented for follow-up on July 26, 2020, he had felt much better after the delay and wanted to resume treatment. He had taken his premed steroids and therefore we did resume his treatment. Since then he has required frequent supportive care with hydration. His last hydration documented in our records was September 06, 2020 at which time he just received 1 L of normal saline. His blood counts have held well as he did have Neulasta Onpro support. Followup CT of the chest/abdomen/pelvis with contrast from 09/04/2020 reported significant decrease in the size of the spiculated mass in the left upper lobe. Mass now measures 1.4 x 1.9 cm. Previously described nodule abutting the pericardium is no longer present. Left hilar lymph node is decreased in size. New 7 mm pleural-based nodule in the right middle lobe may be an area of scar/atelectasis or early neoplasm. No change in the moderate right pleural effusion. Significant increase in the central metastatic mass in the liver now measuring 5.2 x 6.5 cm compared to 4.3 x 4.1 cm on prior exam. No enlarging mesenteric or retroperitoneal lymph nodes. No ascites. Stable T8 osteoblastic metastatic lesion. Mr. Snyder states that he feels good since doing the hydration multiple time a week. He states he is tolerating treatment much better. He states he is due to see Dr. Reynolds next week or so to finalize plan for radioembolization. He is wanting to take a break from the chemotherapy until he sees Dr. Reynolds for further instructions. He denies any fever or chills. He denies any mouth sores, sore throat or difficulty swallowing. He has had no neuropathy symptoms. He denies any new shortness of breath or orthopnea. He is had no hemoptysis. He denies diarrhea or constipation. He states his bladder is normal for him as well. His ECOG is 1. Past Medical History: Hstory of pancreatitis Meniere's Disease Peripheral neuropathy due to chemotherapy Non-small cell lung cancer in 2011 (Treated: surgery,chemo/readition) Past Surgical History: Right shoulder surgery in 2019 Thoractotomy with right upper lobectomy and mediastinal lymph node dissection in 2011 Bronchoscopy in 2011 TURP in 2002 Allergies: Flomax Medications: Flonase 2 [place](s) (of 50 mcg/act) Suspension Nasal daily PRN Ibuprofen 1 Tablet (of 800 mg) Tablet Oral t.i.d. MiraLax 1 Powder Oral daily PRN Neurontin 2 Tablet (of 300 mg) Oral t.i.d. Pantoprazole Sodium 1 Tablet (of 40 mg) Tablet, enteric coated Oral daily Vitamin B6 1 Tablet Oral daily Vitamin D3 1 Tablet (of 50 mcg ) Oral daily Family History: Mr. Snyder's father at age 89: stroke. Mr. Snyder has 2 brothers: 2 . Mr. Snyder's first brother's lung cancer. Another brother's melanoma cancer. Father of stroke at age 89. A brother of lung cancer and another brother of melanoma. Social History: Mr. Snyder is and he is retired. Mr. Snyder quit smoking 14 years ago but had smoked 2.0 packs/day for 40 years. He is an active drinker.He consumes 2 drinks/day. Mr. Snyder reports contact with the following hazardous materials: asbestos. He has indicated exposure to the following products: cigarettes. Mr. Snyder reports the following support systems: lives with spouse, significant other, family, or friends, lives in own house, supportive family/friends willing to assist with needs, and adequate transportation available for expected visits. His diet consists of regular meals. He indicates his activity level as: daily activities. Review Of Symptoms: <See Above> Vital Signs: Performed on Sep 27, 2020 12:18 Height - 70.00 in Weight - 171.8 lbs (HIGH) BSA - 1.96 sq.m BMI - 24.65 Temperature - 97.7 F (LOW) Pulse - 66 /min Respiration - 18 /min BP - 135/73 mm(hg) O2 Sat - 96 % Pain - 0,1 - No physically strenuous activity, but ambulatory and able to carry out light or sedentary work (e.g. office work, light house work). (ECOG) Physical Examination: Constitutional Alert, oriented, no acute distress. Skin pink, warm and dry. Head Normocephalic; atraumatic. Eyes Conjunctivae and sclerae are clear and without icterus. Pupils are reactive and equal. Neck Supple without masses or thyromegaly. No jugular venous distension. Hematologic/Lymphatic No petechiae or purpura. Respiratory Lungs are clear to auscultation without rhonchi or wheezing. Cardiovascular Regular rate and rhythm of heart without murmurs,clicks, gallops or rubs. Back/Spine Non-tender to palpation. Extremities No visible deformities, no cyanosis, clubbing or edema. Musculoskeletal No tenderness or swelling, normal range of motion without obvious weakness. Integumentary No rashes or lesions. Neurologic No sensory or motor deficits, normal cerebellar function, normal gait. Psychiatric Alert and oriented times three. Coherent speech. Verbalizes understanding of our discussions today. Laboratory:Test performed on Sep 27, 2020 09:55 Sodium 139 mmol/L Potassium 4.5 mmol/L Chloride 106 mmol/L CO2 23 mmol/L Anion Gap 14.5 BUN 10 mg/dL Creatinine 0.9 mg/dL Cr Clearance (Est) 71.3100 mL/min Glucose 115 mg/dL Osmolality - Calculated 288 mOsm/kg Calcium 8.3 mg/dL Protein, Total 5.4 g/dL Albumin 3.6 g/dL Globulin 1.8 g/dL Bilirubin, Total 0.4 mg/dL ALT (SGPT) 13 U/L AST (SGOT) 38 U/L Alkaline Phosphatase 132 IU/L WBC 6.4 10 3/uL RBC 4.46 10 6/uL HGB 12.5 g/dL HCT 39.3 % MCV 88.1 fL MCH 28.0 pg MCHC 31.8 g/dL RDW 18.1 % Platelet Count 303 10 3/cmm MPV 10.0 fL Neutrophils 4.91 10 3/uL Lymphocytes 0.8 10 3/uL Monocytes 0.6 10 3/uL Eosinophils 0.0 10 3/uL Basophils 0.1 10 3/uL Neutrophil % 76.6 % Lymphocyte % 12.3 % Monocyte % 9.5 % Eosinophil % 0.2 % Basophils % 0.9 % NRBC % 0 % Test performed on Aug 02, 2020 11:05 CBC Slide Review Slide Review Perform Impression: 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 This appeared to be a new primary malignancy. By clinical evaluation, his disease was stage IVB (T2a, N3, M1c). His PD-L1 expression was positive at 2%. 2. He had presented with metastatic involvement in the T8 vertebral body. He had significant symptomatic improvement following palliative radiation, completed on 09/16/2019 to a total dose of 3000 cGy. In October he began a trial of systemic therapy with carboplatin/pemetrexed in combination with pembrolizumab. He tolerated it very poorly. 3. History of differentiated non-small cell carcinoma of the right lung, stage IIIA with complete pathologic response to neoadjuvant chemotherapy with 2 cycles of carboplatin/Taxol. He then underwent right upper lobectomy/mediastinal lymph node dissection in August 2011 followed by 2 additional cycles of chemotherapy and radiation to the hilar/mediastinal node region, which he completed in January 2012. 4. 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 5. Benign prostatic hypertrophy. Plan/Problems Addressed at this Visit: 1. 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 He had presented with symptomatic metastatic involvement in the T8 vertebral body. His PD-L1 expression was positive at 2%. 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 He initially completed palliative radiation to the T8 vertebral body metastasis. He did show some response to a trial of systemic therapy with carboplatin/pemetrexed chemotherapy in combination with pembrolizumab. However, he tolerated the treatment poorly, and during maintenance pembrolizumab his treatment was put on hold due to worsening shortness of breath. His restaging CT scans on 05/03/2020 showed evidence of disease progression with increase in the left upper lobe lung mass, development of a new enhancing nodule abutting the pericardium, and increase in the size of a metastatic lesion in the central liver. At that point he was evaluated at [facility] for consideration and a clinical trial, but he was deemed ineligible due to borderline renal function. At this point he continues to have somewhat limited activity tolerance, and his ECOG performance score is still 2, but he is improving performance status hi. As he does wish to continue further treatment for the lung cancer, he began a trial of salvage chemotherapy with docetaxel as a single agent on June 22, 2020. Followup CT of the chest/abdomen/pelvis with contrast from 09/04/2020. The impression reads significant decrease in the size of the spiculated mass in the left upper lobe. Mass now measures 1.4 x 1.9 cm. Previously described nodule abutting the pericardium is no longer present. Left hilar lymph node is decreased in size. New 7 mm pleural-based nodule in the right middle lobe may be an area of scar/atelectasis or early neoplasm. No change in the moderate right pleural effusion. Significant increase in the central metastatic mass in the liver now measuring 5.2 x 6.5 cm compared to 4.3 x 4.1 cm on prior exam. No enlarging mesenteric or retroperitoneal lymph nodes. No ascites. Stable T8 osteoblastic metastatic lesion . Mr Snyder was informed that some areas are better but the liver is worse. Treatment options are at this time to continue with current plan of care or observation/hospice. He is aware that we are watching for new drug approval for him. This was the same drug he is referred to [place] for the clinical trial that he was unable to pursue. .A. Hold cycle 5 docetaxel at patient request. He is to see Dr. Reynolds within the next week or so for follow-up on possible treatment for his liver lesion. He is considering radio embolization with Dr. Reynolds. He plans to visit with him later in the next week or so to finalize these plans. Mr. Snyder would like to hold his treatment in the interim. B. Today's labs reviewed in detail and discussed with . Mrs. Snyder and a copy was given to them. WBC 6.4, hemoglobin 12.5, platelets 203,000 ANC is 4910. 4.5 random glucose 115 creatinine 0.9 and LFTs are normal. His weight is improved at 171.8. C. He will continue with supportive care with hydration 3 times weekly as needed. 2. Follow-up plan A. Followup plan to be established after he consults with Dr Reynolds regarding his liver lesion. B. Plan for supportive ccare: he may receive hydration and antiemetics 2-3 times a week as needed. C. Mr. Snyder has been instructed to contact us in the interim should questions or problems arise. Signed By: Gregor Mclaughlin.N.P. <<Signature on File>>
== END 2020-10-18 23:59 | disposition home or self-care (01) ==
LOC: ONCMED 08:51
PROVIDERS: Nurse Practitioner; PCP Family Medicine; Visit Provider Internal Medicine Medical Oncology
DX: C34.12 Malignant neoplasm of upper lobe, left bronchus or lung (principal); C79.51 Secondary malignant neoplasm of bone; C78.01 Secondary malignant neoplasm of right lung; H81.03 Meniere's disease, bilateral; N40.0 Benign prostatic hyperplasia without lower urinary tract symptoms; Z79.899 Other long term (current) drug therapy; Z92.21 Personal history of antineoplastic chemotherapy
CPT/HCPCS: 80053; 85025; 96360; 96361; 99214; J7030

== ENCOUNTER 2020-11-13 05:41 | Outpatient (RCR) | payer MEDICARE, OTHER, SELFPAY ==
[2020-11-10 10:11] LABS: Basophils % 0.5 %; Eosinophils # 0.3 10^3/uL (0.0-0.8); Eosinophils % 5.5 %; Hemoglobin 13.5 g/dL (11.7-16.6); Lymphocytes # 0.3 10^3/uL (0.8-4.8); Lymphocytes % 5.1 %; Mean Corpuscular HGB Conc 31.4 g/dL (30.0-36.0); Mean Corpuscular Hemoglobin 27.7 pg (28.0-34.0); Mean Corpuscular Volume 88.1 fL (80-94); Mean Platelet Volume 10.2 fL (7.4-10.4); Monocytes # 0.5 10^3/uL (0.2-0.9); Monocytes % 9.3 %; Neutrophils # 4.34 10^3/uL (1.8-7.7); Neutrophils % 79.4 %; Nucleated Red Blood Cells % 0 %; Platelet Count 227 10^3/cmm (130-400); Red Blood Count 4.88 10^6/uL (4.1-5.3); Red Cell Distribution Width 15.2 % (12.1-15.1); White Blood Count 5.5 10^3/uL (4.0-10.0)
[2020-11-10 10:18] LABS: Anion Gap 12.9 (5-19); Blood Urea Nitrogen 14 mg/dL (8-23); Carbon Dioxide 25 mmol/L (22-29); Chloride 105 mmol/L (98-107); Potassium 4.9 mmol/L (3.5-5.1); Sodium 138 mmol/L (136-145)
[2020-11-10 10:19] LABS: Alanine Aminotransferase 20 U/L (0-41); Albumin Level 3.6 g/dL (3.5-5.2); Alkaline Phosphatase 179 IU/L (40-130); Aspartate Amino Transferase 48 U/L (0-40); Globulin 2.2 g/dL (1.3-4.6); Glucose 109 mg/dL (65-115); Osmolality Calculated 287 mOsm/kg (285-295); Total Bilirubin 0.4 mg/dL (0.15-1.2); Total Protein 5.8 g/dL (6.6-8.7)
[2020-11-13] MEDS: morphine 4 mg/mL SDV 1 mL IV ×2 (08:54→09:20)
[2020-11-13] MEDS: sodium chloride 0.9% 500 ML 999 ML IV (08:57)
--- NOTE | 2020-11-13 14:07 | ONC FU_ITS ---
Dr. Noriega Patient Follow-Up Note Patient: Isaiah Snyder Unit #: [id number]: 1940 Dicatated By: Jony Noriega M.D.Date of Visit:Nov 13, 2020 Onc Med Follow-up/Prog Note Chief Complaint: Lung cancer. 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 He was found to have a 2.5 cm right upper lobe lung mass in 2011. He had mediastinal and hilar node involvement by trans-bronchial needle aspiration biopsy in May of 2011, with pathology reporting metastatic poorly differentiated non-small cell carcinoma. He was given neoadjuvant chemotherapy with 2 cycles of carboplatin/Taxol. He was found to have a complete pathologic response at right upper lobectomy/mediastinal lymph node dissection at [facility] in August of 2011. He completed 2 additional cycles of chemotherapy postoperatively, and he was then given radiation to the hilar/mediastinal node regions to a total dose of 50.4 Gy, which he completed on 02/13/12. He did have problems following his surgery, mainly due to a prolonged post thoracotomy pain syndrome. He also developed significant neuropathy with the chemotherapy, but he did show gradual recovery during subsequent follow-up on observation/expectant management. His surveillance CT of the chest on 08/15/2016 showed postoperative changes of right upper lobectomy. There was stable loculated pleural effusion at the right lung base with chronic right atelectasis. There ws no mediastinal or hilar lymphadenopathy or other evidence of disease progression. He was advised to continue observation/expectant anagement. As he was 5 years out from completion of his treatment, I had recommended that he just continue his regular follow-up at the [facility]. I had seen him for a visit again on 01/19/2018. His surveillance chest xray thru the [facility] had reported abnormalitites at the right lung base, but on review these were not significantly changed compared to prior studies. He continued on observation/expectant management. In June [address] Perla with complaints of pain on both sides of his mid back radiating around to the epigastric area. Evaluation was delayed to the pandemic restrictions. His CT abdomen/pelvis on 08/09/2019 showed a 3.1 x 2.8 x 2.6 cm mass near the gregory hepatis, concerning for neoplasm. An osteolytic lesion in the T8 vertebral body was concerning for metastatic disease. There was moderate sized right pleural effusion. There was a small amount of atelectasis or consolidation in the right lower lobe and the lingula, pneumonia not excluded. A 2.0 x 1.3 x 1.7 cm heterogeneous lesion in the inferior pole of the left kidney was indeterminate. An L4 vertebral compression fracture was of indeterminate age. He was seen for a visit here on 08/12/2019. He had further evaluation with PET/CT on 08/14/2019. It showed evidence of an FDG avid spiculated left upper lobe mass measuring 3.4 x 2.2 cm, SUV 20.8. A medial right middle lobe subcentimeter nodule adjacent to the mediastinum was also FDG positive as were bilateral hilar lymph nodes, consistent with metastatic adenopathy. There were 2 sites of diffuse activity in the body of the pancreas, felt to be more likely inflammatory in origin. A 3 cm hypodense mass in the central right hepatic lobe at the gregory hepatis head SUV 9.2, consistent with metastatic disease. A lytic osseous lesion at T8 had SUV of 17.2, consistent with metastatic disease. There were no other osseous lesions noted. MRI of the spine on 08/16/2019 showed abnormal signal within the majority of the T8 vertebral body with extension of tumor into the posterior elements. There was retropulsion of the posterior endplate by 3 mm with mild compression on the right lateral thecal sac. There was moderate stenosis of the T8-9 foramen due to tumor and bone expansion. There was significant soft tissue tumor enhancement within the T8-9 foramen. There was mild facet joint arthritis throughout the thoracic spine and there were degenerative changes noted in the cervical and lumbar spine. There were no other sites of metastatic disease noted. Given his symptoms and the findings on the imaging studies, he was referred for palliative radiation. He completed course of treatment from T7-T10 on 09/16/2019 to a total dose of 3000 cGy. During that time, he had also been seen in consultation by Dr. Puckett, and on 09/03/2019 he underwent bronchoscopy/EBUS with endobronchial biopsies and with transbronchial FNA biopsy of mediastinal lymph nodes. 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 The next generation sequencing study showed positive PD-L1 expression for 22c3 at 2%. There were no actionable mutations identified. With those findings, he was recommended to undergo systemic therapy with carboplatin/pemetrexed chemotherapy in combination with pembrolizumab. He has otherwise been in good health. 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 He does have a history of smoking 2 packs of cigarettes daily for approximately 40 years. He quit smoking in 1999. He indicated that he had significant asbestos exposure during service in the [employer]. INTERIM HISTORY: He began cycle 1 of carboplatin/pemetrexed/pembrolizumab on 11/03/2019. He tolerated it with acceptable toxicity, and he continued with cycle 2 on 11/24/2019 and with cycle 3 on 12/15/2019. Restaging CT scans of the chest, abdomen, and pelvis on 01/03/2020 showed interval decrease in the size of the spiculated left upper lobe mass measuring 2.7 x 2.1 cm compared to 3.4 x 2.2 cm on the prior study. A 9 mm right middle lobe nodule appeared stable. The metastatic lesion in the central right hepatic lobe had progressed slightly measuring 3.4 x 3.1 cm compared to approximately 3 cm on the prior study. The lytic metastatic osseous lesion involving the T8 vertebral body appeared stable. He was seen for a follow-up visit on 01/05/2020. At that time, he reported that he had developed significant fatigue and shortness of breath following his 3rd cycle of treatment. Given the CT findings, I assume this was most likely due to the chemotherapy. I opted to give him a treatment break and then transition him to maintenance immunotherapy. He returned on 01/26/2020. He was feeling much better. At that point he began cycle 1 of maintenance pembrolizumab. At his follow-up visit on 02/17/2020 he reported significant worsening of symptoms including weakness/fatigue and shortness of breath. He had become overtly hypoxic. His treatment was put on hold, and he was started on steroid therapy. During subsequent follow-up his symptoms did show some improvement, but he continued to have shortness of breath and limited activity tolerance. Restaging chest CT on 05/03/2020 showed increased in the left upper lobe lung mass measuring 3.5 x 2.5 cm. A new enhancing nodule abutting the pericardium of the left ventricle was suspicious for a metastatic deposit. There was moderate and slightly increased right pleural effusion. There was increase in size of the metastatic lesion in the central liver. There was no change in the appearance of the metastatic lesion involving the T8 vertebral body. 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 He unfortunately was deemed ineligible for the trial due to his borderline renal function. He was then given the option to have a trial of salvage chemotherapy with docetaxel as a single agent. He began cycle 1 on 06/22/2020. He had significant toxicities including weakness/fatigue, nausea, diarrhea, and neutropenia. The side effects were severe enough they did require IV hydration and a treatment delay. He then continued with cycle 2 on 07/26/2020, administered at a reduced dosage. He tolerated it better, though he continued to have weakness/fatigue and diarrhea. He was able to continue with cycle 3 on 08/16/2020 and with cycle 4 on 09/06/2020. In the meantime, he has restaging CT scans on 09/01/2020 showed a significant decrease in the spiculated left upper lobe mass measuring 1.4 x 1.9 cm. A previously described nodule abutting the pericardium was no longer present. A new 7 mm pleural-based nodule was noted in the right middle lobe. A moderate right pleural effusion appeared unchanged. However, there was a significant increase in the size of central metastatic mass in the liver measuring 5.2 x 6.5 cm compared to 4.3 x 4.1 cm on the prior study. The osteoblastic lesion at T8 appeared stable. With evidence of disease progression in the liver I did opt to stop his docetaxel after the 4th cycle. He was then referred to Dr. Reynolds for consideration of liver directed therapy, as there were no other known sites disease progression. He received his initial hepatic radioembolization procedure 2 weeks ago. He is due for a second procedure 4 weeks from now. He is seen for a follow-up visit, as the targeted therapy for the KRAS G12C mutation (sotorasib) has now been FDA approved for use and available commercially. He has not been feeling very good lately, as he has developed significant pain in his upper right chest wall/axillary area, enough that it is limiting his activity. It is also causing him to have difficulty sleeping, as the pain is worse when he is lying flat. He has been having to sleep in a recliner. His ECOG score is 2. His appetite is still okay. He does not have fever or night sweats. He has not had sore mouth or throat. He does not complain of shortness of breath or cough and he is otherwise not having chest pain. He does not complain of nausea, and his acid reflux is adequately managed with medication. He has bowel movements once or twice a day, and he is not having diarrhea now. He has no complaints. He has no other joint or bone pain. He does not complain of headache or dizziness. He still has some numbness/tingling in his fingers and feet. Medications: Flonase 2 Manteca(s) (of 50 mcg/act) Suspension Nasal daily PRN, Ibuprofen 1 Tablet (of 800 mg) Tablet Oral t.i.d., MiraLax 1 Powder Oral daily PRN, Neurontin 2 Tablet (of 300 mg) Oral t.i.d., Pantoprazole Sodium 1 Tablet (of 40 mg) Tablet, enteric coated Oral daily, Vitamin B6 1 Tablet Oral daily, Vitamin D3 1 Tablet (of 50 mcg ) Oral daily Allergies: Flomax Vital Signs: Performed on Nov 13, 2020 08:15 Height - 70.00 in Weight - 162.2 lbs (LOW) BSA - 1.91 sq.m BMI - 23.27 Temperature - 97.2 F (LOW) Pulse - 95 /min Respiration - 16 /min BP - 128/79 mm(hg) O2 Sat - 97 % Pain - 8 Physical Examination: Constitutional - He appears somewhat weak generally, Eyes - Sclerae nonicteric. Conjunctivae clear, ENMT - No lesions noted in the oral cavity, Hematologic/Lymphatic - No cervical, clavicular, or axillary adenopathy, Respiratory - Lungs sound clear with some decrease in air movement bilaterally, Cardiovascular - Heart rhythm is regular. There is no murmur, gallop, or rub noted, Abdomen - Soft. Liver and spleen are not enlarged. There is no abdominal mass or ascites noted and there is no inguinal adenopathy, Extremities - No edema, Integumentary - There is significant soft tissue swelling and induration in the upper right chest and axilla, most prominently in the area of the anterior axillary fold. There is associated mild erythema. It is not warm to touch. There is a similar area of involvement in the right flank subcutaneous tissue, Neurologic - No focal neurologic deficits noted. Lab/Imaging: CBC shows hemoglobin 13.5 g, white blood cell count 5500, and platelet count 227,000. Comprehensive metabolic profile shows elevated alkaline phosphatase at 179/130 IU/L and slightly elevated SGOT at 48/40 U/L. 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 This appeared to be a new primary malignancy. By clinical evaluation, his disease was stage IVB (T2a, N3, M1c). His PD-L1 expression was positive at 2%. 2. He had presented with metastatic involvement in the T8 vertebral body. He had significant symptomatic improvement following palliative radiation, completed on 09/16/2019 to a total dose of 3000 cGy. In October he began a trial of systemic therapy with carboplatin/pemetrexed in combination with pembrolizumab. He tolerated it very poorly. 3. History of differentiated non-small cell carcinoma of the right lung, stage IIIA with complete pathologic response to neoadjuvant chemotherapy with 2 cycles of carboplatin/Taxol. He then underwent right upper lobectomy/mediastinal lymph node dissection in August 2011 followed by 2 additional cycles of chemotherapy and radiation to the hilar/mediastinal node region, which he completed in January 2012. 4. 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 5. Benign prostatic hypertrophy. 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 He had presented with symptomatic metastatic involvement in the T8 vertebral body. His PD-L1 expression was positive at 2%. 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 He initially completed palliative radiation to the T8 vertebral body metastasis. He did show some response to a trial of systemic therapy with carboplatin/pemetrexed chemotherapy in combination with pembrolizumab. However, he tolerated the treatment poorly, and during maintenance pembrolizumab his treatment was put on hold due to worsening shortness of breath. His restaging CT scans on 05/03/2020 showed evidence of disease progression with increase in the left upper lobe lung mass, development of a new enhancing nodule abutting the pericardium, and increase in the size of a metastatic lesion in the central liver. At that point he was evaluated at [facility] for consideration and a clinical trial, but he was deemed ineligible due to borderline renal function. On 06/23/2019 when he began salvage therapy with docetaxel as a single agent. He had significant toxicities with his initial treatment, but tolerated it reasonably well at a reduced dosage. As of 09/06/2020 he completed his 4th cycle. His restaging CT scans at that point showed some decrease in the size of the primary lung tumor and the sclerotic metastasis involving the T8 vertebral body appeared stable. However, there was progression of the metastatic lesion in the liver. With that finding, his chemotherapy was stopped and he was referred to Dr. Reynolds for consideration of liver directed therapy. He then completed a radioembolization procedure to the liver 2 weeks ago, and he is to have a second procedure 6 weeks from now. In the meantime, the targeted agent for the KRAS G12C mutation has been approved and it is available commercially. He potentially would be eligible for the treatment, but he comes in now with significant pain associated with skin thickening and induration in his upper right chest wall/axillary area. There is a second area of involvement in the right flank area. The underlying cause is uncertain. It could just be inflammatory, and I am more concerned that it may represent a form of lymphangitic metastatic disease. The pain has been severe enough that I am giving him IV fluid and IV morphine here today, he will be given a prescription for MSIR 15 mg to take as needed. I am also going to have him start empiric treatment with prednisone 20 mg twice daily and Levaquin 500 mg daily pending outcome of restaging CT scans. Signed By: Jony Noriega M.D. <<Signature on File>>
== END 2020-11-13 10:00 | disposition home or self-care (01) ==
LOC: ONCMED 05:41
PROVIDERS: PCP Family Medicine; Visit Provider Internal Medicine Medical Oncology
DX: C34.11 Malignant neoplasm of upper lobe, right bronchus or lung (principal); C34.12 Malignant neoplasm of upper lobe, left bronchus or lung; C79.51 Secondary malignant neoplasm of bone; C78.7 Secondary malignant neoplasm of liver and intrahepatic bile duct; F17.211 Nicotine dependence, cigarettes, in remission; H81.03 Meniere's disease, bilateral; N40.0 Benign prostatic hyperplasia without lower urinary tract symptoms; Z79.899 Other long term (current) drug therapy; Z92.21 Personal history of antineoplastic chemotherapy; R59.1 Generalized enlarged lymph nodes; K76.9 Liver disease, unspecified
CPT/HCPCS: 36591; 71260; 74177; 80053; 85025; 96361; 96374; 99215; J2270; J7040; Q9967

== ENCOUNTER 2020-11-13 10:10 | Outpatient (CLI) | payer MEDICARE, OTHER, SELFPAY ==
--- NOTE | 2020-11-13 10:14 | CT_ITS ---
WS: [id number] Exam: CT chest abd pel w con* Date/Time of Exam: 11/13/2020 10:14 AM Reason For Exam: LUNG CANCER DLP: 2383.[address] scans at [facility] use at least one of these dose optimization techniques: automat ed exposure control; mA and/or kV adjustment per patient size (includes targeted exams where dose is matched to clinical indication); or iterative reconstruction. Comparison 09/04/2020. CT scan of the chest with IV contrast. Pulmonary density and atelectasis again noted in the lingular segment of the left upper lobe slightly smaller than noted on previous exam. Again noted is infiltrate or a mass in the posterior aspect of the right lung just behind the right hilum with associated loculated pleural effusion unchanged. The left upper lobe is surgically absent. Loculated effusion in the pleural fissure on the right. Additio nal loculated posterior right pleural effusion. The thoracic aorta is normal in caliber. The airway i s patent. A left-sided port appears to be in satisfactory location. Normal thyroid tissue. No signifi cant mediastinal lymphadenopathy. Right-sided subpectoral mass as well as lymphadenopathy. Right axil jacquie lymphadenopathy. The right subpectoral mass measures 5.6 x 3.2 cm and may represent conglomerate lymphadenopathy. Right chest wall edema. Osteoblastic changes in the T8 and T9 vertebra. Bony change s in T9 may be new since prior study. No pericardial effusion. Large effusion in the inferior right p leural cavity. CT/CT chest abd pel w con* IMPRESSION: 1. Pulmonary density and atelectasis seen in the lingular segment of the left u pper lobe slightly improved since previous study. 2. Infiltrate or masslike density seen along the posterior aspect of the right lung just behind the right hilum showing little change. The left upper lobe is surgically absent. Right-sided pleural effusion. 3. Large right-sided subpectoral mass as well as subpectoral and axillary lymph adenopathy on the right. Right chest wall edema. 4. Osteoblastic changes seen in T8 and T9 vertebra. The T9 changes may be new s simon previous study. CT scan of the abdomen and pelvis. 7.2 x 5.9 cm low-attenuation mass in the mayco tral liver. Representing a metastatic lesion. This is stable in appearance. No other liver lesions are seen. The stomach, spleen and pancreas appear normal. N ormal adrenal glands. Bilateral renal cysts. There is new retroperitoneal and m esenteric lymphadenopathy. The abdominal aorta is normal in caliber. The portal vein and IVC are patent. Normal gallbladder. Small bowel loops are not dilated . No significant large bowel abnormality seen. Normal appendix. There is new mi ld retroperitoneal and iliac chain lymphadenopathy in the pelvis bilaterally. T he urinary bladder is intact. No pelvic free fluid. Small fat filled bilateral inguinal hernias. No destructive bone lesions are seen in the pelvis. IMPRESSION: 1. Stable-appearing large central metastatic lesion in the liver. 2. New retroperitoneal and mesenteric lymphadenopathy in the abdomen. 3. New mild retroperitoneal and iliac chain lymphadenopathy in the pelvis. 4. Other minor stable findings as noted above.
[2020-11-13] MEDS: iohexol 300 mg/mL 50 mL Btl PO (10:15)
[2020-11-13] MEDS: iohexol 300 mg/mL 100 mL Btl IV (12:16)
== END 2020-11-13 10:11 | disposition home or self-care (01) ==
PROVIDERS: PCP Family Medicine; Visit Provider Internal Medicine Medical Oncology
DX: C34.11 Malignant neoplasm of upper lobe, right bronchus or lung (principal); C34.12 Malignant neoplasm of upper lobe, left bronchus or lung; R59.1 Generalized enlarged lymph nodes; K76.9 Liver disease, unspecified
CPT/HCPCS: 71260; 74177; Q9967

== ENCOUNTER 2020-11-15 06:23 | Outpatient (RCR) | payer MEDICARE, OTHER, SELFPAY ==
--- NOTE | 2020-11-15 | CT_ITS ---
Radiation Therapy Planning CT images; total exam DLP: 606.61 + 389.93 mGy-cm MTDD
--- NOTE | 2020-11-15 12:39 | ONCRAD EPV_ITS ---
Radiation Oncology Established Patient Visit Patient: Lillian [id number] : 1940> Age: 80> Sex: Male> Dictated by: Dr. Jama Navarro Date of Service: 11/15/2020 Referring Physician(s) : Jony Noriega M.D. Diagnosis: C78.7 - Secondary malignant neoplasm of liver and intrahepatic bile duct, Diagnosed 11/13/2020 (Active) C34.12 - Malignant neoplasm of upper lobe, left bronchus or lung, Diagnosed 10/19/2019 (Active) Stage IVB, T2a, N3, M1c C79.51 - Secondary malignant neoplasm of bone, Diagnosed 08/27/2019 (Active) Z85.118 - Personal history of other malignant neoplasm of bronchus and lung, Diagnosed 01/19/2018 (Active) F17.211 - Nicotine dependence, cigarettes, in remission, Diagnosed 08/16/2015 (Active) C34.11 - Malignant neoplasm of upper lobe, right bronchus or lung, Diagnosed 12/16/2011 (Active) Stage IIIA, T1b, N2, M0 Lung cancer. 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 He was found to have a 2.5 cm right upper lobe lung mass in 2011. He had mediastinal and hilar node involvement by trans-bronchial needle aspiration biopsy in May of 2011, with pathology reporting metastatic poorly differentiated non-small cell carcinoma. He was given neoadjuvant chemotherapy with 2 cycles of carboplatin/Taxol. He was found to have a complete pathologic response at right upper lobectomy/mediastinal lymph node dissection at [facility] in August of 2011. He completed 2 additional cycles of chemotherapy postoperatively, and he was then given radiation to the hilar/mediastinal node regions to a total dose of 50.4 Gy, which he completed on 02/13/12. He did have problems following his surgery, mainly due to a prolonged post thoracotomy pain syndrome. He also developed significant neuropathy with the chemotherapy, but he did show gradual recovery during subsequent follow-up on observation/expectant management. His surveillance CT of the chest on 08/15/2016 showed postoperative changes of right upper lobectomy. There was stable loculated pleural effusion at the right lung base with chronic right atelectasis. There ws no mediastinal or hilar lymphadenopathy or other evidence of disease progression. He was advised to continue observation/expectant anagement. As he was 5 years out from completion of his treatment, I had recommended that he just continue his regular follow-up at the [place]. I had seen him for a visit again on 01/19/2018. [facility] abnormalitites at the right lung base, but on review these were not significantly changed compared to prior studies. He continued on observation/expectant management. In June [address] Perla with complaints of pain on both sides of his mid back radiating around to the epigastric area. Evaluation was delayed to the pandemic restrictions. His CT abdomen/pelvis on 08/09/2019 showed a 3.1 x 2.8 x 2.6 cm mass near the gregory hepatis, concerning for neoplasm. An osteolytic lesion in the T8 vertebral body was concerning for metastatic disease. There was moderate sized right pleural effusion. There was a small amount of atelectasis or consolidation in the right lower lobe and the lingula, pneumonia not excluded. A 2.0 x 1.3 x 1.7 cm heterogeneous lesion in the inferior pole of the left kidney was indeterminate. An L4 vertebral compression fracture was of indeterminate age. He was seen for a visit here on 08/12/2019. He had further evaluation with PET/CT on 08/14/2019. It showed evidence of an FDG avid spiculated left upper lobe mass measuring 3.4 x 2.2 cm, SUV 20.8. A medial right middle lobe subcentimeter nodule adjacent to the mediastinum was also FDG positive as were bilateral hilar lymph nodes, consistent with metastatic adenopathy. There were 2 sites of diffuse activity in the body of the pancreas, felt to be more likely inflammatory in origin. A 3 cm hypodense mass in the central right hepatic lobe at the gregory hepatis head SUV 9.2, consistent with metastatic disease. A lytic osseous lesion at T8 had SUV of 17.2, consistent with metastatic disease. There were no other osseous lesions noted. MRI of the spine on 08/16/2019 showed abnormal signal within the majority of the T8 vertebral body with extension of tumor into the posterior elements. There was retropulsion of the posterior endplate by 3 mm with mild compression on the right lateral thecal sac. There was moderate stenosis of the T8-9 foramen due to tumor and bone expansion. There was significant soft tissue tumor enhancement within the T8-9 foramen. There was mild facet joint arthritis throughout the thoracic spine and there were degenerative changes noted in the cervical and lumbar spine. There were no other sites of metastatic disease noted. Given his symptoms and the findings on the imaging studies, he was referred for palliative radiation. He completed course of treatment from T7-T10 on 09/16/2019 to a total dose of 3000 cGy. During that time, he had also been seen in consultation by Dr. Puckett, and on 09/03/2019 he underwent bronchoscopy/EBUS with endobronchial biopsies and with transbronchial FNA biopsy of mediastinal lymph nodes. 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 The next generation sequencing study showed positive PD-L1 expression for 22c3 at 2%. There were no actionable mutations identified. With those findings, he was recommended to undergo systemic therapy with carboplatin/pemetrexed chemotherapy in combination with pembrolizumab. He has otherwise been in good health. 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 He does have a history of smoking 2 packs of cigarettes daily for approximately 40 years. He quit smoking in 1999. He indicated that he had significant asbestos exposure during service in the [employer]. INTERIM HISTORY: He began cycle 1 of carboplatin/pemetrexed/pembrolizumab on 11/03/2019. He tolerated it with acceptable toxicity, and he continued with cycle 2 on 11/24/2019 and with cycle 3 on 12/15/2019. Restaging CT scans of the chest, abdomen, and pelvis on 01/03/2020 showed interval decrease in the size of the spiculated left upper lobe mass measuring 2.7 x 2.1 cm compared to 3.4 x 2.2 cm on the prior study. A 9 mm right middle lobe nodule appeared stable. The metastatic lesion in the central right hepatic lobe had progressed slightly measuring 3.4 x 3.1 cm compared to approximately 3 cm on the prior study. The lytic metastatic osseous lesion involving the T8 vertebral body appeared stable. He was seen for a follow-up visit on 01/05/2020. At that time, he reported that he had developed significant fatigue and shortness of breath following his 3rd cycle of treatment. Given the CT findings, I assume this was most likely due to the chemotherapy. I opted to give him a treatment break and then transition him to maintenance immunotherapy. He returned on 01/26/2020. He was feeling much better. At that point he began cycle 1 of maintenance pembrolizumab. At his follow-up visit on 02/17/2020 he reported significant worsening of symptoms including weakness/fatigue and shortness of breath. He had become overtly hypoxic. His treatment was put on hold, and he was started on steroid therapy. During subsequent follow-up his symptoms did show some improvement, but he continued to have shortness of breath and limited activity tolerance. Restaging chest CT on 05/03/2020 showed increased in the left upper lobe lung mass measuring 3.5 x 2.5 cm. A new enhancing nodule abutting the pericardium of the left ventricle was suspicious for a metastatic deposit. There was moderate and slightly increased right pleural effusion. There was increase in size of the metastatic lesion in the central liver. There was no change in the appearance of the metastatic lesion involving the T8 vertebral body. 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 He unfortunately was deemed ineligible for the trial due to his borderline renal function. He was then given the option to have a trial of salvage chemotherapy with docetaxel as a single agent. He began cycle 1 on 06/22/2020. He had significant toxicities including weakness/fatigue, nausea, diarrhea, and neutropenia. The side effects were severe enough they did require IV hydration and a treatment delay. He then continued with cycle 2 on 07/26/2020, administered at a reduced dosage. He tolerated it better, though he continued to have weakness/fatigue and diarrhea. He was able to continue with cycle 3 on 08/16/2020 and with cycle 4 on 09/06/2020. In the meantime, he has restaging CT scans on 09/01/2020 showed a significant decrease in the spiculated left upper lobe mass measuring 1.4 x 1.9 cm. A previously described nodule abutting the pericardium was no longer present. A new 7 mm pleural-based nodule was noted in the right middle lobe. A moderate right pleural effusion appeared unchanged. However, there was a significant increase in the size of central metastatic mass in the liver measuring 5.2 x 6.5 cm compared to 4.3 x 4.1 cm on the prior study. The osteoblastic lesion at T8 appeared stable. With evidence of disease progression in the liver I did opt to stop his docetaxel after the 4th cycle. He was then referred to Dr. Reynolds for consideration of liver directed therapy, as there were no other known sites disease progression. He received his initial hepatic radioembolization procedure 2 weeks ago. He is due for a second procedure 4 weeks from now. He is seen for a follow-up visit, as the targeted therapy for the KRAS G12C mutation (sotorasib) has now been FDA approved for use and available commercially. He has not been feeling very good lately, as he has developed significant pain in his upper right chest wall/axillary area, enough that it is limiting his activity. It is also causing him to have difficulty sleeping, as the pain is worse when he is lying flat. He has been having to sleep in a recliner. His ECOG score is 2. His appetite is still okay. He does not have fever or night sweats. He has not had sore mouth or throat. He does not complain of shortness of breath or cough and he is otherwise not having chest pain. He does not complain of nausea, and his acid reflux is adequately managed with medication. He has bowel movements once or twice a day, and he is not having diarrhea now. He has no complaints. He has no other joint or bone pain. He does not complain of headache or dizziness. He still has some numbness/tingling in his fingers and feet. Radiotherapy to Date: Course: [id number], Treatment Site: [id number], Ref. ID: [id number], Energy: 15X, Dose/Fx (cGy): 300, #Fx: , Dose Correction (cGy): 0, Total Dose (cGy): 3,000, Start Date: 09/02/2019, End Date: 09/16/2019, Elapsed Days: 14 Course1, Treatment Site: LUNG, Ref. ID: LUNG/MED [id number], Energy: 15X, Dose/Fx (cGy): 180, #Fx: , Dose Correction (cGy): 0, Total Dose (cGy): 3,780, Start Date: 01/06/2012, End Date: 02/04/2012, Elapsed Days: 29 Course1, Treatment Site: LUNG OC BOOST, Ref. ID: LUNG/MED [id number], Energy: 15X, Dose/Fx (cGy): 180, #Fx: , Dose Correction (cGy): 0, Total Dose (cGy): 1,260, Start Date: 02/05/2012, End Date: 02/13/2012, Elapsed Days: 8 Current History: Mr. Snyder is a 80-year-old man with a history of bilateral lung cancer. He had a stage IIIa non-small cell carcinoma of the right lung in 2011 treated with surgery, chemotherapy, and postoperative radiation. He appears to be cured of that cancer. In August 2019, he was found to have large cell carcinoma of the upper lobe of the left lung. He has metastatic disease involving bone and liver. Approximately 1 year ago he received palliative radiation to the lower thoracic spine with excellent results. He has a large metastatic lesion in the liver which has recently been treated with Y 90 microspheres. He has another Y 90 treatment planned. Mr. Snyder recently developed pain and swelling in the right axilla. The pain originates in the medial axilla and radiates to the scapula, shoulder, and down to the right elbow. He saw Dr. Noriega and was placed on Levaquin, prednisone, and morphine. A CT of the chest abdomen pelvis was ordered. The patient had improvement in the swelling and pain after initiating the above medication regimen. However, he has urinary retention since starting the morphine and will be catheterized later this morning. A CT scan was performed 11/13/2020. Findings in the thorax are stable to improved. There are stable bone changes at T8 where palliative radiation was previously given. The large metastasis in his liver appears stable. There is new retroperitoneal and mesenteric lymphadenopathy. In the area of the right axilla, there is a right subpectoral mass that appears to represent lymphadenopathy. The mass measures approximately 5.6 x 3.2 cm. Other lymphadenopathy is also noted in the axilla. Current Medications: Dexamethasone, dexamethasone Sodium Phosphate, diphenhydrAMINE HCl, dOCEtaxel, ensure, famotidine, first-Mouthwash BLM, flonase, folic Acid, gabapentin, ibuprofen, levaquin, levaquin, lidocaine-Prilocaine, miraLax, morphine Sulfate, morphine Sulfate, neurontin, ondansetron HCl, pantoprazole Sodium, predniSONE, prochlorperazine Maleate, sotorasib, vitamin B6, vitamin D3. Allergies: Flomax. Current Complaints / Review of Systems: . Vital Signs: Performed on 11/15/2020 10:25 AM Height - 70.00 in, Weight - 163 lbs (high), BSA - 1.91 sq.m, BMI - 23.39, Temperature - 97.5 f (low), Pulse - 98 /min, Respiration - 18 /min, O2 Sat - 92 % (low), Pain - 4 and BP - 127/ 78 mm(hg). Physical Exam: Alert and oriented x 3. No acute distress. He appears chronically ill but relatively well-nourished. Lymph nodes: He has no cervical or supraclavicular lymphadenopathy. He has a large mass in the anterior right axilla extending into the subpectoral area. No other lymphadenopathy palpated. There is mild edema and erythema of the overlying skin. There is no tenderness of the pectoral muscle and no evidence of infection. Lungs: Clear to percussion. On auscultation no rales rhonchi or wheezes. Heart: Regular rhythm. No murmur or gallop or rub. Abdomen: no distention. No enlargement of the liver palpated. No masses or tenderness. Musculoskeletal: Normal gait without assistance. No areas of bone tenderness detected on percussion with special attention given to the lower thoracic area. Performance Status: ECOG 2 Lab: None pending. Test performed on 09/27/2020 9:55 AM HCT - 39.3 % (low), RDW - 18.1 % (high), Calcium - 8.3 mg/dl (low), Protein, Total - 5.4 g/dl (low) and Alkaline Phosphatase - 132 iu/l (high). Pathology: Primary, c78.7 - secondary malignant neoplasm of liver and intrahepatic bile duct, Diagnosed 11/13/2020 (active), Primary, c34.12 - malignant neoplasm of upper lobe, left bronchus or lung, Diagnosed 10/19/2019 (active) stage ivb, t2a, n3, m1c, Primary, c79.51 - secondary malignant neoplasm of bone, Diagnosed 08/27/2019 (active), Primary, z85.118 - personal history of other malignant neoplasm of bronchus and lung, Diagnosed 01/19/2018 (active), Primary, f17.211 - nicotine dependence, cigarettes, in remission, Diagnosed 08/16/2015 (active) and Primary, c34.11 - malignant neoplasm of upper lobe, right bronchus or lung, Diagnosed 12/16/2011 (active) stage iiia, t1b, n2, m0. Imaging: See current history for results of the CT of 11/13/2020. Impression: Mr. Snyder has symptomatic lymphadenopathy in the right axilla which is producing pain in the axilla, the scapular area, and the right upper extremity. I reviewed the treatment plans for his 2 previous courses of radiation. Treatment to the axilla will result in a small amount of overlap of the previously treated thorax field, particularly posteriorly in the area of the scapula. However a 2-week course of palliative radiation should be tolerated well with complications from this field overlap expected. Mr. Snyder had his had improvement of his pain since starting the Levaquin, prednisone, and morphine. He said that we could leave off the radiation if the medication regimen will control the pain. I explained that I think he has benefited from the prednisone, and possibly the Levaquin, although there was no clear-cut evidence of infection in the area. I told him those medications will not be used long-term and that the morphine, although giving benefit, has resulted in significant bladder dysfunction. I told him if we do not do the radiation now that I think that he will be back within a few weeks needing treatment. After that explanation, he decided to proceed with treatment now. I discussed the mild acute side effects that are anticipated. I told him there will be some overlap of his previously treated thorax field, particularly in the posterior soft tissues and scapular area. I told him I do not feel that this will result in any toxicity that will have any impact on quality of life. He wishes to proceed with treatment. Disposition: A catheter was placed by the chemotherapy nursing staff and slightly over 1000 cc of urine was obtained. The catheter was left in place and the patient was then simulated. Treatment will begin next week. Signed by: 11/15/2020 12:37:57 PM <<Signature on File>> Time spent with patient: CPT Code: CPT Code:
== END 2020-11-18 23:59 | disposition home or self-care (01) ==
LOC: ONCMED 06:23
PROVIDERS: PCP Family Medicine; Visit Provider Internal Medicine Medical Oncology
DX: Z51.0 Encounter for antineoplastic radiation therapy (principal); C34.12 Malignant neoplasm of upper lobe, left bronchus or lung; C79.51 Secondary malignant neoplasm of bone; C78.7 Secondary malignant neoplasm of liver and intrahepatic bile duct; F17.211 Nicotine dependence, cigarettes, in remission; Z79.899 Other long term (current) drug therapy; Z85.118 Personal history of other malignant neoplasm of bronchus and lung
CPT/HCPCS: 77290; 77295; 77300; 77334; 99215

== ENCOUNTER 2020-11-29 05:48 | Outpatient (RCR) | payer MEDICARE, OTHER, SELFPAY ==
--- NOTE | 2020-11-20 09:59 | ONCRAD TMN_ITS ---
Radiation Oncology Treatment Management Note Patient Name: Isaiah Snyder Date of : 1940 Date of Service: 11/20/2020 Attending Physician: Juan Dan M.D. Isaiah Snyder is a 80 year old white male diagnosed with metastatic non-small cell lung cancer (large cell in August 2019). He presented to the medical oncology office with pain and swelling of the right axilla. CT ordered on November 13, 2020 demonstrated a right axillary mass measuring 5.6 cm x 3.2 cm. The patient has received 3 Gy of a prescribed 30 Burden to the right axillary mass with a 3-dimensional conformal radiotherapy plan utilizing four treatment delgado. Upon review of systems, he denied any neurological complaints. On physical examination, the patient weighed 157 lbs. His temperature was 97.5 ???F with a blood pressure of 123/69 mmHg. His pulse was 84 bpm and his respiratory rate was 18. No erythema was present within the skin. Continue palliative radiotherapy to the right axillary mass as prescribed. Signed by: Dr. Juan Dan 11/20/2020 9:58:51 AM
[2020-11-20] MEDS: sodium chloride 0.9% 1,000 ML 999 ML IV (10:10)
[2020-11-22] MEDS: sodium chloride 0.9% 1,000 ML 999 ML IV (10:00)
[2020-11-22 11:07] LABS: Alanine Aminotransferase 20 U/L (0-41); Albumin Level 3.7 g/dL (3.5-5.2); Alkaline Phosphatase 141 IU/L (40-130); Aspartate Amino Transferase 41 U/L (0-40); Blood Urea Nitrogen 26 mg/dL (8-23); Calcium 9.4 mg/dL (8.5-10.5); Carbon Dioxide 27 mmol/L (22-29); Chloride 99 mmol/L (98-107); Globulin 2.5 g/dL (1.3-4.6); Glucose 111 mg/dL (65-115); Osmolality Calculated 287 mOsm/kg (285-295); Sodium 136 mmol/L (136-145); Total Bilirubin 0.4 mg/dL (0.15-1.2); Total Protein 6.2 g/dL (6.6-8.7)
[2020-11-22 11:36] LABS: Anion Gap 14.8 (5-19); Potassium 4.8 mmol/L (3.5-5.1)
--- NOTE | 2020-11-27 10:17 | ONCRAD TMN_ITS ---
Radiation Oncology Treatment Management Note Patient Name: Isaiah Snyder Date of : 1940 Date of Service: 11/27/2020 Attending Physician: Juan Dan M.D. Isaiah Snyder is a 80 year old white male diagnosed with metastatic non-small cell lung cancer (large cell in August 2019). He presented to the medical oncology office with pain and swelling of the right axilla. CT ordered on November 13, 2020 demonstrated a right axillary mass measuring 5.6 cm x 3.2 cm. The patient has received 18 Gy of a prescribed 30 Burden to the right axillary mass with a 3-dimensional conformal radiotherapy plan utilizing four treatment delgado. Upon review of systems, he did not report any improvement in his pain. On physical examination, the patient weighed 158 lbs. His temperature was 97.6 ???F with a blood pressure of 119/70 mmHg. His pulse was 104 bpm and his respiratory rate was 18. No erythema was present within the skin. Continue palliative radiotherapy to the right axillary mass as planned. Signed by: Dr. Juan Dan 11/27/2020 10:16:16 AM
[2020-11-28] MEDS: sodium chloride 0.9% 500 ML 999 ML IV (09:56)
[2020-11-29] MEDS: sodium chloride 0.9% 500 ML 999 ML IV (09:37)
[2020-11-29 10:05] LABS: Basophils % 0.1 %; Eosinophils % 0.3 %; Hematocrit 49.7 % (42.0-52.0); Hemoglobin 15.7 g/dL (11.7-16.6); Lymphocytes # 0.2 10^3/uL (0.8-4.8); Lymphocytes % 2.3 %; Mean Corpuscular HGB Conc 31.6 g/dL (30.0-36.0); Mean Corpuscular Hemoglobin 27.6 pg (28.0-34.0); Mean Corpuscular Volume 87.3 fL (80-94); Mean Platelet Volume 9.8 fL (7.4-10.4); Monocytes # 0.8 10^3/uL (0.2-0.9); Monocytes % 8.1 %; Neutrophils # 8.81 10^3/uL (1.8-7.7); Neutrophils % 88.7 %; Nucleated Red Blood Cells % 0 %; Platelet Count 245 10^3/cmm (130-400); Red Blood Count 5.69 10^6/uL (4.1-5.3); Red Cell Distribution Width 15.5 % (12.1-15.1); White Blood Count 9.9 10^3/uL (4.0-10.0)
[2020-11-29 10:17] LABS: Alanine Aminotransferase 23 U/L (0-41); Albumin Level 3.2 g/dL (3.5-5.2); Alkaline Phosphatase 156 IU/L (40-130); Anion Gap 15.5 (5-19); Aspartate Amino Transferase 44 U/L (0-40); Blood Urea Nitrogen 20 mg/dL (8-23); Calcium 8.5 mg/dL (8.5-10.5); Carbon Dioxide 25 mmol/L (22-29); Chloride 96 mmol/L (98-107); Globulin 2.4 g/dL (1.3-4.6); Glucose 97 mg/dL (65-115); Osmolality Calculated 277 mOsm/kg (285-295); Potassium 4.5 mmol/L (3.5-5.1); Sodium 132 mmol/L (136-145); Total Bilirubin 0.6 mg/dL (0.15-1.2); Total Protein 5.6 g/dL (6.6-8.7)
== END 2020-11-30 12:40 | disposition home or self-care (01) ==
LOC: ONCMED 05:48
PROVIDERS: Internal Medicine Medical Oncology; Nurse Practitioner; Absent Provider Radiology Radiation Oncology; PCP Family Medicine; Visit Provider Radiology Radiation Oncology
DX: Z51.0 Encounter for antineoplastic radiation therapy (principal); C34.12 Malignant neoplasm of upper lobe, left bronchus or lung; C79.51 Secondary malignant neoplasm of bone; C78.7 Secondary malignant neoplasm of liver and intrahepatic bile duct; F17.211 Nicotine dependence, cigarettes, in remission; Z85.118 Personal history of other malignant neoplasm of bronchus and lung; Z79.899 Other long term (current) drug therapy
CPT/HCPCS: 77387; 77412; 80053; 85025; 96360; J7030; J7040

== ENCOUNTER 2020-11-30 12:41 | Observation (INO) | payer MEDICARE, OTHER, SELFPAY ==
[2020-11-30 12:54] VITALS: BP 101/68; PULSE 122; RESP 18; TEMP 37.1; O2SAT 93; BMI 22.4
--- NOTE | 2020-11-30 12:58 | XR_ITS ---
WS: [id number] Portable AP upright chest, 11/30/2020 Clinical Data: sob Comparison: PA and lateral chest, 01/03/2016. CT chest abdomen and pelvis, 11/13/2020. Findings: There is a right pleural effusion with right pleural thickening extending to the apex. Ther e is a right hilar mass. There is expansion of the left lung with no masses. No left pleural effusion seen. The heart is probably normal. There is fullness in the right axilla probably from an enlarged right axillary lymph node. A left infusion port enters the subclavian vein and ends in the superior vena cava. XR/XR chest 1V portable [id number] Impression: 1. Right pleural effusion with pleural fluid or thickening extending superiorly to the right apex. 2. Right hilar mass. 3. Probable enlarged right axillary lymph nodes. 4. Satisfactory position of left Port-A-Cath.
--- NOTE | 2020-11-30 12:59 | ECG_ITS ---
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 Measurements Intervals [place] Rate: 123 P: 45 NE: 149 QRS: -54 QRSD: 73 T: 71 QT: 271 QTc: 389 Interpretive Statements SINUS TACHYCARDIA POSSIBLE ANTERIOR MYOCARDIAL INFARCTION [30 ms Q WAVE IN V3/V4, OR R < 0.2 mV IN V4], PROBABLY OLD INFERIOR MYOCARDIAL INFARCTION [40+ ms Q WAVE AND/OR ST/T ABNORMALITY IN II/aVF], PROBABLY OLD Compared to ECG 09/03/2019 06:10:19 Myocardial infarct finding now present Sinus rhythm no longer present Electronically Signed On 12-05-2020 16:14:18 CDT by Ainsley Dinh M.D. [id number]
--- NOTE | 2020-11-30 13:15 | W.ED.GENADLT ---
HPI - General Adult General: Chief complaint: General Medical Stated complaint: cannot eat, shaky, weak, been doing radiation Time Seen by Provider: 11/30/20 12:59 History of Present Illness: HPI narrative: Patient presents here with complaint of not feeling good since last night. Patient did have Cruz removed 2 days ago. He is able to urinate. Patient said he is not been able to take much fluid just has not felt well since yesterday. He is undergoing radiation therapy for cancer. Did not make a radiation appointment today because of feeling bad. Says he feels weak. Onset (ago): hour(s) Associated symptoms: Reports dyspnea and weakness; Deny chest pain, headache(s), nausea, rash or vomiting Review of Systems Const: Reports: other (Weakness); Denies: fever(s), chills or body aches Eyes: Denies: change in vision or blurry vision ENMT: Denies: throat pain or nasal congestion Card: Reports: other (Increased heart rate); Denies: chest pain or dyspnea on exertion Resp: Reports: dyspnea; Denies: productive cough or non-productive cough GI: Denies: abdominal pain, nausea or vomiting : Reports: difficulty urinating Musc: Denies: extremity pain Skin/Breast: Denies: rash Neuro: Denies: headache(s) Psych: Denies: anxiety or depression Miguelito/Lymph: Denies: easy bruising PFSH ED PFSH: Medical History (Updated 06/21/20 @ 13:13 by Rodrigo Osborne MD) Collagen vascular disease Meniere disease 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 Surgical History (Updated 06/21/20 @ 13:13 by Rodrigo Osborne MD) H/O shoulder surgery History of bronchoscopy History of thoracotomy Port-A-Cath in place (06/21/20) Family History Father , Age 89 Stroke Brother , Age 70 - Lung Cancer Cancer Brother , Age 32 - Melanoma Cancer Brother , Prostate Cancer Cancer Social History Smoking and tobacco status: former smoker Quit status (tobacco): has quit using tobacco Year quit tobacco: 2006 - 2PPD x 40 Years Alcohol intake: current Alcohol intake frequency: 0-2 Drinks per Day Lives independently: Yes Household members: spouse Marital status: service: Yes Current occupational status: retired History of recent travel: No Current gender identity: Male Physical Exam Const: COMMON NORMALS: no acute distress, average body habitus and patient oriented x3 HENMT: COMMON NORMALS: normocephalic HEAD & SCALP: normal to inspection and normocephalic FACE & SINUS: normal facial exam Eye: COMMON NORMALS: conjunctivae normal GENERAL EYE: appearance normal, both eyes and all related structures CONJUNCTIVA: Yes conjunctivae normal Neck/C-Spine: COMMON NORMALS: no JVD Resp: COMMON NORMALS: normal respiratory effort and No use of accessory muscles AUSCULTATION: diminished lung sounds on the right in the lower lung delgado Cardio: COMMON NORMALS: no JVD and regular rhythm RATE: tachycardic RHYTHM: regular rhythm GI: COMMON NORMALS: Normal to inspection, nondistended, normoactive bowel sounds present Extremity: COMMON NORMALS: normal to inspection and full ROM Neuro: COMMON NORMALS: patient oriented x3 Skin: GENERAL SKIN EXAM: abnormal elasticity Course Vital Signs: Vital signs: Vital Signs Temperature 98.7 F 11/30/20 12:54 Pulse Rate 122 H 11/30/20 12:54 Respiratory Rate 18 11/30/20 12:54 Blood Pressure 101/68 11/30/20 12:54 Pulse Oximetry 93 11/30/20 12:54 Discharge Plan Discharge Prescriptions: No Action fluticasone propionate [Flonase Allergy Relief] 50 mcg/actuation spray,suspension 2 spray INTRANASAL DAILY RF: 0 gabapentin [Neurontin] 300 mg capsule 600 mg PO TID RF: 0 pantoprazole 40 mg tablet,delayed release (DR/EC) 40 mg PO DAILY RF: 0 pyridoxine (vitamin B6) 50 mg capsule 50 mg PO DAILY RF: 0 cholecalciferol (vitamin D3) 50 mcg (2,000 unit) capsule 50 mcg PO DAILY RF: 0 senna 8.6 mg capsule 8.6 mg PO BID PRN (Reason: Constipation) RF: 0 polyethylene glycol 3350 [Miralax] 17 gram/dose powder 17 gm PO PRN RF: 0 oxycodone 30 mg tablet 30 mg PO Q8H PRN (Reason: Pain) RF: 0 ibuprofen 800 mg tablet 800 mg PO TID PRN (Reason: Pain) RF: 0 albuterol sulfate 90 mcg/actuation HFA aerosol inhaler 2 puff INHALATION Q6H PRN (Reason: shortness of breath or wheezing) 90 Days Qty: 18 RF: 3 Glucosamine Chondroitin 550-30-1 mg Capsule 1 cap PO DAILY RF: 0 Coding Level of Care Code ED Turnstile Attendant for Chris Mayes
[2020-11-30] MEDS: ondansetron 2 mg/ML SDV 2 mL 4 MG IVP (14:09)
[2020-11-30] MEDS: sodium chloride 0.9% 1,000 ML 999 ML IV (14:10)
[2020-11-30 14:17] LABS: Basophils % 0.4 %; Eosinophils % 0.4 %; Hematocrit 46.6 % (42.0-52.0); Hemoglobin 15.3 g/dL (11.7-16.6); Lymphocytes # 0.3 10^3/uL (0.8-4.8); Lymphocytes % 3.8 %; Mean Corpuscular HGB Conc 32.8 g/dL (30.0-36.0); Mean Corpuscular Hemoglobin 28.1 pg (28.0-34.0); Mean Corpuscular Volume 85.7 fL (80-94); Mean Platelet Volume 9.7 fL (7.4-10.4); Monocytes # 0.7 10^3/uL (0.2-0.9); Monocytes % 8.6 %; Neutrophils # 6.53 10^3/uL (1.8-7.7); Neutrophils % 86.4 %; Nucleated Red Blood Cells % 0 %; Platelet Count 231 10^3/cmm (130-400); Red Blood Count 5.44 10^6/uL (4.1-5.3); Red Cell Distribution Width 15.5 % (12.1-15.1); White Blood Count 7.6 10^3/uL (4.0-10.0)
[2020-11-30 14:50] LABS: Alanine Aminotransferase 22 U/L (0-41); Albumin Level 3.1 g/dL (3.5-5.2); Alkaline Phosphatase 137 IU/L (40-130); Anion Gap 12.3 (5-19); Aspartate Amino Transferase 47 U/L (0-40); Blood Urea Nitrogen 20 mg/dL (8-23); Calcium 8.9 mg/dL (8.5-10.5); Carbon Dioxide 26 mmol/L (22-29); Chloride 97 mmol/L (98-107); Globulin 2.4 g/dL (1.3-4.6); Glucose 100 mg/dL (65-115); Osmolality Calculated 275 mOsm/kg (285-295); Potassium 4.3 mmol/L (3.5-5.1); Sodium 131 mmol/L (136-145); Total Bilirubin 0.6 mg/dL (0.15-1.2); Total Protein 5.5 g/dL (6.6-8.7)
--- NOTE | 2020-11-30 14:53 | PM.HP ---
Providers/Chief Complaint Admitting Physician: Ivana Zamudio MD Primary Care Provider: Dylon Perla Chief Complaint: cannot eat, shaky, weak, been doing radiation History of Present Illness Isaiah Snyder is a 80 year old male who has established history of adenocarcinoma upper lobe of left lung, status post chemo, palliative radiation, with metastases to, multiorgans, pericardium, liver, T8 vertebra currently on Levaquin and steroids because of skin induration presented today with chief complaint of shortness of breath. He has completed a radio embolization procedure to the liver. Patient is stating that last night after his ensure and sandwich he started feeling abdominal cramps. This morning he started gagging, felt extremely weak he did not notice any fever, chest pain however shortness of breath on mild activities endorsed. No active vomiting, no recent diarrhea or change in urinary habits. No strokelike symptoms. He has been taking steroids and Levaquin on daily basis along morphine for his right-sided chest discomfort. He has skin induration from his cancer and intensity of chest pain has not changed at all. Diagnostics in the ER revealed hypoxic respiratory failure requiring 4 L nasal cannula, chest x-ray revealed moderate pleural effusion right side, he was chest pain-free no active shortness of breath around the time of my evaluation was able to lay flat No active signs of sepsis Endorsing constipation He got both doses of messenger RNA vaccine. Review of Systems Const: Reports: chills, body aches and fatigue; Denies: fever(s) Eyes: Denies: change in vision ENMT: Denies: throat pain Card: Reports: chest pain and dyspnea on exertion Resp: Reports: dyspnea and pain on inspiration GI: Reports: abdominal pain, nausea and constipation : Denies: flank pain Musc: Denies: neck pain Skin/Breast: Reports: erythema, skin pain, skin tenderness, sores and changes in skin color Neuro: Denies: headache(s) Psych: Denies: anxiety Endo: Denies: polyuria Miguelito/Lymph: Reports: easy bruising All/Imm: Denies: urticaria Medications/Allergies Home Medications Medication Instructions Recorded Confirmed Last Taken Type cholecalciferol (vitamin D3) 50 50 mcg PO DAILY 09/02/19 11/30/20 11/29/20 History mcg (2,000 unit) capsule fluticasone propionate 50 2 spray INTRANASAL DAILY 05/11/30/20 06/14/20 History mcg/actuation nasal spray,suspension gabapentin 300 mg capsule 600 mg PO TID cap 09/02/19 11/30/20 11/29/20 History ibuprofen 800 mg tablet 800 mg PO TID PRN 09/02/19 11/30/20 09/01/19 History pantoprazole 40 mg tablet,delayed 40 mg PO DAILY 09/02/19 11/30/20 11/29/20 History release polyethylene glycol 3350 17 17 gm PO PRN 09/02/19 11/30/20 Unknown History gram/dose oral powder pyridoxine (vitamin B6) 50 mg 200 mg PO TID 09/02/19 11/30/20 11/29/20 History capsule albuterol sulfate 90 mcg/actuation 2 puff INHALATION Q6H PRN 90 Days 09/06/19 11/30/20 06/14/20 Rx aerosol inhaler #18 gm Morphine Sulfate See Rx Instructions .ROUTE .COMPLEX 11/30/20 11/30/20 Unknown History glucosam-vit [id number] 1.5 tab PO DAILY 11/30/20 11/30/20 11/29/20 History [Glucosamine Complex] levofloxacin [Levaquin] 500 mg PO DAILY 11/30/20 11/30/20 11/29/20 History prednisone 20 mg PO DAILY 11/30/20 11/30/20 11/29/20 History Allergies Allergy/AdvReac Type Severity Reaction Status Date / Time tamsulosin [From Flomax] Allergy Severe ALGY-Joint Verified 06/21/20 13:15 Pain PFSH Acute PFSH: Medical History Collagen vascular disease Meniere disease 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 Surgical History H/O shoulder surgery History of bronchoscopy History of thoracotomy Port-A-Cath in place (06/21/20) Family History Father , Age 89 Stroke Brother , Age 70 - Lung Cancer Cancer Brother , Age 32 - Melanoma Cancer Brother , Prostate Cancer Cancer Social History Smoking and tobacco status: former smoker Quit status (tobacco): has quit using tobacco Year quit tobacco: 2006 - 2PPD x 40 Years Alcohol intake: current Alcohol intake frequency: 0-2 Drinks per Day Lives independently: Yes Household members: spouse Marital status: service: Yes Current occupational status: retired History of recent travel: No Current gender identity: Male Vitals/I&O/Wt Last Vital Signs Temp 98.7 F 11/30/20 12:54 Pulse 122 H 11/30/20 12:54 Resp 18 11/30/20 12:54 BP 101/68 11/30/20 12:54 Pulse Ox 93 11/30/20 12:54 Weight last 48 hrs Weight 70.76 kg Physical Exam Narrative: EXAM NARRATIVE: Pleasant cooperative elderly male Appears stated age Clinically euvolemic No active chest pain or shortness of breath Was able to lay flat was saturating well on 4 L nasal cannula Diminished right-sided breath sounds however good airflow noted in rest of her his lung zones, no active wheezing or crackles S1, S2 sinus rhythm Abdomen soft Lower extremity no edema gangrene or ulcer No strokelike findings No neurological deficits EOMI, PERRLA Data : 11/30/20 14:05 11/30/20 14:05 A&P Assessment and plan (1) Acute respiratory failure with hypoxia: Status: Acute (2) Non-small cell lung cancer metastatic to bone: Status: Acute (3) Shortness of breath: Status: Acute (4) Pleural effusion: Status: Acute Additional A&P Information Symptomatic pleural effusion Acute hypoxia requiring 4 L nasal cannula At home does not use any oxygen No signs of sepsis or pneumonia I would continue his prednisone and Levaquin for now DuoNeb every 4 as needed Ultrasound-guided thoracentesis in the morning, will make him n.p.o. after midnight Clinically does not look fluid overloaded This most likely is related to his underlying cancer, will request fluid cytology and culture Skin induration Patient is getting steroids for skin tenderness/lymphangitis No active sign of cellulitis Continue Levaquin Adenocarcinoma with metastases Follows up with Dr. Noriega Getting radiotherapy Please review oncology notes for detail DNR/DNI N.p.o. after midnight Cardiac diet for now DVT prophylaxis SCDs in anticipation of procedure tomorrow I would not use any anticoagulating agent For constipation yajaira Arriaza Attestations Medical Necessity Statement*: Anticipating discharge within 48 hours Time Spent in Patient Care: Greater than 35 minutes Coding Level of Care Code Acute Artificial Leather Calender Operator for Chris Mayes Diagnoses Acute respiratory failure with hypoxia J96.01 Non-small cell lung cancer metastatic to bone C34.90; C79.51 Shortness of breath R06.02 Pleural effusion J90
[2020-11-30] MEDS: morphine 4 mg/mL SDV 1 mL IVP (15:39)
[2020-11-30 15:47] VITALS: BP 109/62; PULSE 130; RESP 17; O2SAT 93
[2020-11-30 16:25] VITALS: BP 84/61; PULSE 122; RESP 18; O2SAT 94
[2020-11-30 16:50] VITALS: BP 104/69; PULSE 118; RESP 16; TEMP 36.3; O2SAT 95
--- NOTE | 2020-11-30 17:56 | PC.NURSE ---
patient states he has [employer] oxygen concentrator at home prn, he does not use it. patient has no other dme.
[2020-11-30] MEDS: morphine ER (12 HR) 30 mg tablet PO (18:39)
[2020-11-30 19:30] VITALS: BP 84/53; PULSE 115; RESP 17; TEMP 37.1; O2SAT 90
[2020-11-30 19:42] LABS: Partial Thromboplastin Time 32.3 SECONDS (23.9-36.7)
[2020-11-30] MEDS: gabapentin 300 mg Capsule 600 MG PO (21:40)
[2020-11-30 22:15] LABS: Lactate Dehydrogenase 367 U/L (135-225)
[2020-12-01] VITALS (9 sets, daily range): BP systolic 74–159; BP diastolic 49–80; PULSE 87–126; RESP 16–22; TEMP 36.2–36.8; O2SAT 90–93
[2020-12-01] MEDS: acetaminophen 500 mg Tablet PO (06:20)
[2020-12-01 06:51] LABS: Basophils % 0.4 %; Eosinophils # 0.1 10^3/uL (0.0-0.8); Eosinophils % 1.7 %; Hematocrit 42.6 % (42.0-52.0); Hemoglobin 13.5 g/dL (11.7-16.6); Lymphocytes # 0.3 10^3/uL (0.8-4.8); Lymphocytes % 4.9 %; Mean Corpuscular HGB Conc 31.7 g/dL (30.0-36.0); Mean Corpuscular Hemoglobin 27.8 pg (28.0-34.0); Mean Corpuscular Volume 87.8 fL (80-94); Mean Platelet Volume 10.4 fL (7.4-10.4); Monocytes # 0.4 10^3/uL (0.2-0.9); Monocytes % 7.9 %; Neutrophils # 4.49 10^3/uL (1.8-7.7); Neutrophils % 84.7 %; Nucleated Red Blood Cells % 0 %; Platelet Count 192 10^3/cmm (130-400); Red Blood Count 4.85 10^6/uL (4.1-5.3); Red Cell Distribution Width 15.7 % (12.1-15.1); White Blood Count 5.3 10^3/uL (4.0-10.0)
[2020-12-01 07:23] LABS: Blood Urea Nitrogen 19 mg/dL (8-23); Calcium 8.2 mg/dL (8.5-10.5); Carbon Dioxide 25 mmol/L (22-29); Chloride 99 mmol/L (98-107); Glucose 75 mg/dL (65-115); Osmolality Calculated 277 mOsm/kg (285-295); Sodium 133 mmol/L (136-145)
[2020-12-01] MEDS: levoFLOXacin 500 mg Tablet PO (09:38)
[2020-12-01] MEDS: gabapentin 300 mg Capsule 600 MG PO ×2 (09:38→14:47)
[2020-12-01] MEDS: pantoprazole DR 40 mg Tablet PO (09:38)
[2020-12-01] MEDS: sennosides-docusate Tablet 1 TAB PO (09:38)
[2020-12-01] MEDS: morphine ER (12 HR) 30 mg tablet PO (09:39)
[2020-12-01] MEDS: predniSONE 20 mg Tablet PO (09:39)
--- NOTE | 2020-12-01 10:42 | PC.CHAP ---
Pastoral Care Encounter/Spiritual Assessment Type of Contact [] Declined rpg programmer analyst visit [] Patient/Family/Request visit [] Outpatient visit [] Follow-up visit [] Physician referral [] Code/Alert [xx] Routine visit [] Staff referral [] Actively dying [] Patient sleeping [] Family support [] [] Out of room [] Palliative care [] [] Receiving care in room [] Pre-surgical visit [] Trauma [] Long length of stay [] ICU visit [] Other: Relational/Emotional Strength [] Patient feels connected with others/family/visitors/staff [] Distress [] Loneliness/isolation [] Abandonment Spirituality of Patient [xx] Person of Hilda [] Attends Islam of their Hilda [xx] Believes in Prayer [] Reads Bible or Denominational materials [] There are Spiritual issues to be addressed [employer] Interventions [xx] Prayer [xx] Active listening [xx] Non-anxious presence [] Spiritual/emotional support [] Crisis/trauma care [] Spiritual counseling [] Bereavement support [] Provided bereavement packet [] Provided Bible/devotional materials [] Provided toy/stuffed animal, coloring book to patient or family member [] Provided Communion [] Anointing/[place] [] Salvation [xx] Completed spiritual assessment [] Other: Impact on Illness or Injury [] Angry [] Fearful [] Anxious [] Often cries [] Exhaustion [] Unable to work [] Unable to attend yazidi [] Unable to walk/stand [] Unable to read [] Unable to drive [] Unable to eat/drink [] Unable to sleep [] Unable to be with family [] Patient intubated [] Other: Summary Patient was on oxygen. He was drowsy, sleepy and not wanting to talk. [employer] prayed and left. Time spent with patient 4 minutes
[2020-12-01 12:48] LABS: INR 1.04 (0.8-1.2)
[2020-12-01] MEDS: HYDROmorphone 1 mg/mL INJ 1 mL 0.4 MG IVP (14:46)
--- NOTE | 2020-12-01 17:43 | PM.DCS ---
Discharge Providers Date of Admission: 11/30/20 14:25 Date of Discharge: December 01, 2020 Attending Provider at Admission: Ivana Zamudio MD Attending Provider at Discharge: Ivana Zamudio MD Primary Care Provider: Dylon Perla Diagnoses at Discharge Discharge Diagnosis (1) Acute respiratory failure with hypoxia: Status: Acute (2) Non-small cell lung cancer metastatic to bone: Status: Acute (3) Shortness of breath: Status: Acute (4) Pleural effusion: Status: Acute Reason for Visit Reason for Visit: cannot eat, shaky, weak, been doing radiation Hospital Course Hospital Course HPI: Isaiah Snyder is a 80 year old male who has established history of adenocarcinoma upper lobe of left lung, status post chemo, palliative radiation, with metastases to, multiorgans, pericardium, liver, T8 vertebra currently on Levaquin and steroids because of skin induration presented today with chief complaint of shortness of breath. He has completed a radio embolization procedure to the liver. Patient is stating that last night after his ensure and sandwich he started feeling abdominal cramps. This morning he started gagging, felt extremely weak he did not notice any fever, chest pain however shortness of breath on mild activities endorsed. No active vomiting, no recent diarrhea or change in urinary habits. No strokelike symptoms. He has been taking steroids and Levaquin on daily basis along morphine for his right-sided chest discomfort. He has skin induration from his cancer and intensity of chest pain has not changed at all. Diagnostics in the ER revealed hypoxic respiratory failure requiring 4 L nasal cannula, chest x-ray revealed moderate pleural effusion right side, he was chest pain-free no active shortness of breath around the time of my evaluation was able to lay flat No active signs of sepsis Endorsing constipation He got both doses of messenger RNA vaccine. Hospital course Patient was admitted for management of acute hypoxic respiratory failure secondary to worsening pleural effusion. Plan was made for thoracentesis and this was discussed with the family in front of nurse Jean Baptiste. He was made n.p.o. after midnight however in the morning he refused thoracentesis and stated that he would like to go home. His chest pain is chronic with skin induration related to his underlying malignancy. No acute coronary syndrome was detected during his hospitalization. No active angina equivalent symptoms seen during hospitalization. On the day of discharge patient stated that he has oxygen tank at home and uses 2 to 3 L of oxygen on as needed basis. He also has morphine and steroids which she has been taking for his right-sided chest pain. I have not increase the doses of opioids however during hospitalization he required long-acting morphine 30 mg twice a day. We had a lengthy discussion at the time of admission regarding indication of thoracentesis in front of his nurse and however next day he stated that he misunderstood me and seemed pretty upset about it. He would like to follow-up on outpatient settings for thoracentesis. No changes were made in his medications Physical Exam Narrative: EXAM NARRATIVE: elderly male who appears very agitated today however saturating well on room air Clinically euvolemic No active chest pain or shortness of breath Diminished right-sided breath sounds however good airflow noted in rest of her his lung zones, no active wheezing or crackles S1, S2 sinus rhythm Abdomen soft Lower extremity no edema gangrene or ulcer No strokelike findings No neurological deficits EOMI, PERRLA Discharge Data Data Completed and Pending: Completed Studies During Hospitalization Category Date Time Status XR chest 1V gregory ble [id number] Urgent Exams 11/30/20 12:58 Completed Pending at discharge Category Date Time Status Anaerobic Culture Routine Lab 11/30/20 17:02 Ordered Body Fluid Analys is Routine Lab 11/30/20 17:02 Ordered Body Fluid Cultur e & GS Routine Lab 11/30/20 17:02 Ordered Glucose Body Flui d Routine Lab 11/30/20 17:02 Ordered LDH Body Fluid Ro utine Lab 11/30/20 17:02 Ordered Total Protein Ple ural Fluid Routine Lab 11/30/20 17:02 Ordered pH Body Fluid Rou belem Lab 11/30/20 17:02 Ordered Labs from last 24 hours 12/01/20 12/01/20 12/01/20 12:10 10:24 05:45 WBC RBC Hgb Hct MCV MCH MCHC RDW Plt Count MPV Neut % (Auto) Lymph % (Auto) [place] % (Auto) Eos % (Auto) Baso % (Auto) Neut # (Auto) Lymph # (Auto) [place] # (Auto) Eos # (Auto) Baso # (Auto) Nucleated RBC % (a uto) Nucleated RBCs # PT 13.90 Cancelled INR 1.04 Cancelled APTT Sodium 133 L Potassium 4.0 Chloride 99 Carbon Dioxide 25 Anion Gap 13.0 BUN 19 Creatinine 0.8 GFR Calculation Not Reportable Glucose 75 Calculated Osmolal ity 277 L Calcium 8.2 L Lactate Dehydrogen ase Procalcitonin 12/01/20 11/30/20 11/30/20 05:45 19:15 14:05 WBC 5.3 RBC 4.85 Hgb 13.5 Hct 42.6 MCV 87.8 MCH 27.8 L MCHC 31.7 RDW 15.7 H Plt Count 192 MPV 10.4 Neut % (Auto) 84.7 Lymph % (Auto) 4.9 [place] % (Auto) 7.9 Eos % (Auto) 1.7 Baso % (Auto) 0.4 Neut # (Auto) 4.49 Lymph # (Auto) 0.3 L [place] # (Auto) 0.4 Eos # (Auto) 0.1 Baso # (Auto) 0.0 Nucleated RBC % (a uto) 0 Nucleated RBCs # 0.0 PT INR APTT 32.3 Sodium Potassium Chloride Carbon Dioxide Anion Gap BUN Creatinine GFR Calculation Glucose Calculated Osmolal ity Calcium Lactate Dehydrogen ase 367 H Procalcitonin 11/30/20 14:05 WBC RBC Hgb Hct MCV MCH MCHC RDW Plt Count MPV Neut % (Auto) Lymph % (Auto) [place] % (Auto) Eos % (Auto) Baso % (Auto) Neut # (Auto) Lymph # (Auto) [place] # (Auto) Eos # (Auto) Baso # (Auto) Nucleated RBC % (a uto) Nucleated RBCs # PT INR APTT Sodium Potassium Chloride Carbon Dioxide Anion Gap BUN Creatinine GFR Calculation Glucose Calculated Osmolal ity Calcium Lactate Dehydrogen ase Procalcitonin 0.20 Vitals: Last Vital Signs Temp 97.5 F L 12/01/20 11:06 Pulse 94 12/01/20 11:06 Resp 22 H 12/01/20 16:06 BP 97/63 12/01/20 11:06 Pulse Ox 92 12/01/20 15:14 Discharge Plan Discharge Patient Disposition: Home Condition: Stable Prescriptions: Continued fluticasone propionate [Flonase Allergy Relief] 50 mcg/actuation spray,suspension 2 spray INTRANASAL DAILY RF: 0 gabapentin [Neurontin] 300 mg capsule 600 mg PO TID RF: 0 pantoprazole 40 mg tablet,delayed release (DR/EC) 40 mg PO DAILY RF: 0 pyridoxine (vitamin B6) 50 mg capsule 200 mg PO TID RF: 0 cholecalciferol (vitamin D3) 50 mcg (2,000 unit) capsule 50 mcg PO DAILY RF: 0 polyethylene glycol 3350 [Miralax] 17 gram/dose powder 17 gm PO PRN RF: 0 ibuprofen 800 mg tablet 800 mg PO TID PRN (Reason: Pain) RF: 0 albuterol sulfate 90 mcg/actuation HFA aerosol inhaler 2 puff INHALATION Q6H PRN (Reason: shortness of breath or wheezing) 90 Days Qty: 18 RF: 3 glucosam-vit I-[id number]-uvpi-Zn 500 mg Tablet 1.5 tab PO DAILY RF: 0 prednisone 20 mg Tablet 20 mg PO DAILY RF: 0 levofloxacin 500 mg Tablet 500 mg PO DAILY RF: 0 Morphine Sulfate See Rx Instructions .ROUTE .COMPLEX RF: 0 Discharge Orders: Discharge Order (Routine); Ordered 12/01/20 Ordered By: Ivana Zamudio Other Ambulatory Orders: DME: Oxygen (Order) Location: None Selected Ordered By: Ivana Zamudio Referrals: Jony Noriega MD [Hospitalist] - 4-7 days (Please call Friday, November 26, to schedule an appointment in 4-7 days. ) Discharge Diet: Cardiac Discharge Activity: Resume usual activity Patient Instructions: Pleural Effusion (DC), Opioid Safety Activity Restrictions/Additional Instructions: Please start Dr. Noriega as soon as possible Discharge Attestations Time Spent in Discharge Care*: less than 30 min Quality Metrics Clinical Quality Measures During this hospital stay, did patient experience: None Coding Level of Care Code Acute Chg FW DC note Diagnoses Acute respiratory failure with hypoxia J96.01 Non-small cell lung cancer metastatic to bone C34.90; C79.51 Shortness of breath R06.02 Pleural effusion J90
--- NOTE | 2020-12-05 12:28 | PC.SOCIAL ---
discharge follow up call made. Spoke with pts . Patient is feeling some better. Continuing to use home O2 at 3L. Patient has follow up appointment with Dr. Noriega tomorrow. No new medications prescribed at discharge
== END 2020-12-01 16:07 | disposition home or self-care (01) ==
LOC: ER 14:43 → MEDSURG 14:44
PROVIDERS: Emergency Medicine; Admitting Provider Internal Medicine; Emergency Provider Nurse Practitioner Family; PCP Family Medicine; Visit Provider Internal Medicine
DX: J96.01 Acute respiratory failure with hypoxia (principal); C34.90 Malignant neoplasm of unspecified part of unspecified bronchus or lung; C79.51 Secondary malignant neoplasm of bone; J90 Pleural effusion, not elsewhere classified; Z87.891 Personal history of nicotine dependence; Z66 Do not resuscitate
CPT/HCPCS: 71045; 80048; 80053; 83615; 84145; 85025; 85610; 85730; 93005; 96361; 96374; 96375; 99285; G0378; J1170; J2270; J2405; J7030; J7512

== ENCOUNTER 2020-12-13 14:30 | Outpatient (RCR) | payer MEDICARE, OTHER, SELFPAY ==
[2020-12-04] MEDS: sodium chloride 0.9% 500 ML IV (09:55)
--- NOTE | 2020-12-05 09:56 | N.ONRD TS_ITS ---
Radiation OncologyTreatment Summary Patient Name: Isaiah Snyder Date of : 1940 Date of Service: 12/05/2020 Attending Physician: Juan Dan M.D. 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 He presented to the medical oncology office with pain and swelling of the right axilla. A CT ordered on November 13, 2020 demonstrated a right axillary mass measuring 5.6 cm x 3.2 cm. Daily radiotherapy was administered between the dates of November 20, 2020 through December 05, 2020. A prescribed dose of 30 Gy was delivered in 10 fractions encompassing 16 elapsed days. The right axillary mass was treated utilizing a 3-dimensional conformal radiotherapy plan with a multi- field design. Gantry angles of 40???, 170???, 220???, and 350??? were designed with corresponding collimator angles 60???, 300???, 220???, and 240???. The field sizes were between 16.5 cm x 9 cm to 18.3 cm x 12.4 cm. The SSD measured a minimum of 88.5 cm to a maximum of 93.8 cm. The delgado delivered 119 MU, 35 MU, 118 MU, and 60 MU, respectively. All treatments were performed with the [employer] IX linear accelerator and an isocentric technique. The dose was calculated by Anisotropic Analytic Algorithm. A Photon energy of 15 MV was prescribed with the plan normalized to deliver 100% of the prescription dose to 95% of the planning target volume. The [facility] physician approved the plan. All treatments were performed with the [employer] IX linear accelerator and an isocentric technique. The dose was calculated by Anisotropic Analytic Algorithm. Photon energies of 6 MV and 10 MV were prescribed with the plan normalized to deliver 99% of the prescription dose to 100% of the planning target volume. Signed by: Dr. Juan Dan 12/05/2020 9:53:54 AM
[2020-12-05] MEDS: sodium chloride 0.9% 500 ML 999 ML IV (10:00)
[2020-12-05 10:15] VITALS: RESP 18; O2SAT 95
[2020-12-05] MEDS: morphine IR 15 mg Tablet PO (10:15)
--- NOTE | 2020-12-07 12:05 | ONC FU_ITS ---
Dr. Noriega Patient Follow-Up Note Patient: Isaiah Snyder Unit #: [id number]: 1940 Dicatated By: Jony Noriega M.D.Date of Visit:Dec 06, 2020 Onc Med Follow-up/Prog Note Chief Complaint: Lung cancer. 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 He was found to have a 2.5 cm right upper lobe lung mass in 2011. He had mediastinal and hilar node involvement by trans-bronchial needle aspiration biopsy in May of 2011, with pathology reporting metastatic poorly differentiated non-small cell carcinoma. He was given neoadjuvant chemotherapy with 2 cycles of carboplatin/Taxol. He was found to have a complete pathologic response at right upper lobectomy/mediastinal lymph node dissection at [facility] in August of 2011. He completed 2 additional cycles of chemotherapy postoperatively, and he was then given radiation to the hilar/mediastinal node regions to a total dose of 50.4 Gy, which he completed on 02/13/12. He did have problems following his surgery, mainly due to a prolonged post thoracotomy pain syndrome. He also developed significant neuropathy with the chemotherapy, but he did show gradual recovery during subsequent follow-up on observation/expectant management. His surveillance CT of the chest on 08/15/2016 showed postoperative changes of right upper lobectomy. There was stable loculated pleural effusion at the right lung base with chronic right atelectasis. There ws no mediastinal or hilar lymphadenopathy or other evidence of disease progression. He was advised to continue observation/expectant anagement. As he was 5 years out from completion of his treatment, I had recommended that he just continue his regular follow-up at the [facility]. I had seen him for a visit again on 01/19/2018. His surveillance chest xray thru the [facility] had reported abnormalitites at the right lung base, but on review these were not significantly changed compared to prior studies. He continued on observation/expectant management. In June [address] Perla with complaints of pain on both sides of his mid back radiating around to the epigastric area. Evaluation was delayed to the pandemic restrictions. His CT abdomen/pelvis on 08/09/2019 showed a 3.1 x 2.8 x 2.6 cm mass near the gregory hepatis, concerning for neoplasm. An osteolytic lesion in the T8 vertebral body was concerning for metastatic disease. There was moderate sized right pleural effusion. There was a small amount of atelectasis or consolidation in the right lower lobe and the lingula, pneumonia not excluded. A 2.0 x 1.3 x 1.7 cm heterogeneous lesion in the inferior pole of the left kidney was indeterminate. An L4 vertebral compression fracture was of indeterminate age. He was seen for a visit here on 08/12/2019. He had further evaluation with PET/CT on 08/14/2019. It showed evidence of an FDG avid spiculated left upper lobe mass measuring 3.4 x 2.2 cm, SUV 20.8. A medial right middle lobe subcentimeter nodule adjacent to the mediastinum was also FDG positive as were bilateral hilar lymph nodes, consistent with metastatic adenopathy. There were 2 sites of diffuse activity in the body of the pancreas, felt to be more likely inflammatory in origin. A 3 cm hypodense mass in the central right hepatic lobe at the gregory hepatis head SUV 9.2, consistent with metastatic disease. A lytic osseous lesion at T8 had SUV of 17.2, consistent with metastatic disease. There were no other osseous lesions noted. MRI of the spine on 08/16/2019 showed abnormal signal within the majority of the T8 vertebral body with extension of tumor into the posterior elements. There was retropulsion of the posterior endplate by 3 mm with mild compression on the right lateral thecal sac. There was moderate stenosis of the T8-9 foramen due to tumor and bone expansion. There was significant soft tissue tumor enhancement within the T8-9 foramen. There was mild facet joint arthritis throughout the thoracic spine and there were degenerative changes noted in the cervical and lumbar spine. There were no other sites of metastatic disease noted. Given his symptoms and the findings on the imaging studies, he was referred for palliative radiation. He completed course of treatment from T7-T10 on 09/16/2019 to a total dose of 3000 cGy. During that time, he had also been seen in consultation by Dr. Puckett, and on 09/03/2019 he underwent bronchoscopy/EBUS with endobronchial biopsies and with transbronchial FNA biopsy of mediastinal lymph nodes. 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 The next generation sequencing study showed positive PD-L1 expression for 22c3 at 2%. There were no actionable mutations identified. With those findings, he was recommended to undergo systemic therapy with carboplatin/pemetrexed chemotherapy in combination with pembrolizumab. He has otherwise been in good health. 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 He does have a history of smoking 2 packs of cigarettes daily for approximately 40 years. He quit smoking in 1999. He indicated that he had significant asbestos exposure during service in the [employer]. INTERIM HISTORY: He began cycle 1 of carboplatin/pemetrexed/pembrolizumab on 11/03/2019. He tolerated it with acceptable toxicity, and he continued with cycle 2 on 11/24/2019 and with cycle 3 on 12/15/2019. Restaging CT scans of the chest, abdomen, and pelvis on 01/03/2020 showed interval decrease in the size of the spiculated left upper lobe mass measuring 2.7 x 2.1 cm compared to 3.4 x 2.2 cm on the prior study. A 9 mm right middle lobe nodule appeared stable. The metastatic lesion in the central right hepatic lobe had progressed slightly measuring 3.4 x 3.1 cm compared to approximately 3 cm on the prior study. The lytic metastatic osseous lesion involving the T8 vertebral body appeared stable. He was seen for a follow-up visit on 01/05/2020. At that time, he reported that he had developed significant fatigue and shortness of breath following his 3rd cycle of treatment. Given the CT findings, I assume this was most likely due to the chemotherapy. I opted to give him a treatment break and then transition him to maintenance immunotherapy. He returned on 01/26/2020. He was feeling much better. At that point he began cycle 1 of maintenance pembrolizumab. At his follow-up visit on 02/17/2020 he reported significant worsening of symptoms including weakness/fatigue and shortness of breath. He had become overtly hypoxic. His treatment was put on hold, and he was started on steroid therapy. During subsequent follow-up his symptoms did show some improvement, but he continued to have shortness of breath and limited activity tolerance. Restaging chest CT on 05/03/2020 showed increased in the left upper lobe lung mass measuring 3.5 x 2.5 cm. A new enhancing nodule abutting the pericardium of the left ventricle was suspicious for a metastatic deposit. There was moderate and slightly increased right pleural effusion. There was increase in size of the metastatic lesion in the central liver. There was no change in the appearance of the metastatic lesion involving the T8 vertebral body. 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 He unfortunately was deemed ineligible for the trial due to his borderline renal function. He was then given the option to have a trial of salvage chemotherapy with docetaxel as a single agent. He began cycle 1 on 06/22/2020. He had significant toxicities including weakness/fatigue, nausea, diarrhea, and neutropenia. The side effects were severe enough they did require IV hydration and a treatment delay. He then continued with cycle 2 on 07/26/2020, administered at a reduced dosage. He tolerated it better, though he continued to have weakness/fatigue and diarrhea. He was able to continue with cycle 3 on 08/16/2020 and with cycle 4 on 09/06/2020. In the meantime, he has restaging CT scans on 09/01/2020 showed a significant decrease in the spiculated left upper lobe mass measuring 1.4 x 1.9 cm. A previously described nodule abutting the pericardium was no longer present. A new 7 mm pleural-based nodule was noted in the right middle lobe. A moderate right pleural effusion appeared unchanged. However, there was a significant increase in the size of central metastatic mass in the liver measuring 5.2 x 6.5 cm compared to 4.3 x 4.1 cm on the prior study. The osteoblastic lesion at T8 appeared stable. With evidence of disease progression in the liver I did opt to stop his docetaxel after the 4th cycle. He was then referred to Dr. Reynolds for consideration of liver directed therapy, as there were no other known sites disease progression. He received his initial hepatic radioembolization procedure last month. He would be due for now a second emobolization procedure. In the meantime, I had seen him for a follow-up visit on 11/13/2020 to discuss the possibility of trying targeted therapy for the KRAS G12C mutation. At that time, he noted recent onset of significant pain and swelling in the upper right chest wall/right axillary area. The CT findings were consistent with metastatic involvement in that area. In view of the severity of the pain he was having, he was referred for additional palliative radiation, which he completed on 12/05/2020 to a total dose of 3000 cGy administered in 10 fractions. He is seen now for a follow-up visit. He continues to have significant pain in the right upper chest wall, right shoulder, and right arm. Management has been somewhat problematic, as he has relatively poor tolerance for opiate pain medication. The pain does tend to be worse when he is lying down, and recently he has been having to sleep in a recliner to get some relief. He has significant weakness/fatigue and his activity is very limited. ECOG score is 3. He does not have much appetite, but his weight is stable. He has no fever or night sweats. He does not complain of cough. His breathing has been getting worse, and he is on oxygen now. He recently got nauseated on his protein supplement. He has no other GI complaints. Bowel function thus far remains adequate. He had developed urinary retention when he initially started his opiate pain medication. He required indwelling Cruz catheter on a temporary basis. His bladder function is better now. He does not complain of headache. He does have some numbness in his fingers. He has having difficulty sleeping. Medications: Flonase 2 Marvell(s) (of 50 mcg/act) Suspension Nasal daily PRN, Ibuprofen 1 Tablet (of 800 mg) Tablet Oral t.i.d., Levaquin 1 (500 mg) Tablet Oral daily for 10 days, MiraLax 1 Powder Oral daily PRN, Morphine Sulfate 1 - 3 (15 mg) Tablet Oral q 4 hours, Neurontin 2 Tablet (of 300 mg) Oral t.i.d., Pantoprazole Sodium 1 Tablet (of 40 mg) Tablet, enteric coated Oral daily, predniSONE (20 mg) Tablet Oral Take as Directed, Vitamin B6 1 Tablet Oral daily, Vitamin D3 1 Tablet (of 50 mcg ) Oral daily Allergies: Flomax Vital Signs: Performed on Dec 06, 2020 14:06 Height - 70.00 in Weight - 159.8 lbs (HIGH) BSA - 1.90 sq.m BMI - 22.93 Temperature - 98 F (LOW) Pulse - 124 /min (HIGH) Respiration - 18 /min BP - 154/89 mm(hg) (HIGH) O2 Sat - 92 % (LOW) Pain - 0 Fatigue - 10 Physical Examination: Constitutional - He appears generally weak, Eyes - Sclerae nonicteric. Conjunctivae clear, ENMT - No lesions noted in the oral cavity, Hematologic/Lymphatic - No cervical or clavicular adenopathy, Respiratory - Lungs show diminished air movement on the right, Cardiovascular - Heart rhythm is regular. There is no murmur, gallop, or rub noted, Chest - There is significant soft tissue swelling and induration in the upper lateral right chest wall extending into the right axillary area.There is no discrete mass palpable.There is no axillary adenopathy noted, Abdomen - There is an area of swelling/induration in the right flank.Liver is not enlarged or tender.Spleen is not palpable. There is no abdominal mass or ascites noted and there is no inguinal adenopathy, Extremities - No lower extremity edema, Neurologic - No focal neurologic deficits noted. Lab/Imaging: His laboratory studies from 12/01/2020 included CBC showing hemoglobin 13.5 g, white blood cell count 5300, and platelet count 192,000. Basic metabolic profile showed normal renal function with BUN 19 and creatinine 0.8 mg/dL. 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 This appeared to be a new primary malignancy. By clinical evaluation, his disease was stage IVB (T2a, N3, M1c). His PD-L1 expression was positive at 2%. 2. He had presented with metastatic involvement in the T8 vertebral body. He had significant symptomatic improvement following palliative radiation, completed on 09/16/2019 to a total dose of 3000 cGy. In October he began a trial of systemic therapy with carboplatin/pemetrexed in combination with pembrolizumab. He tolerated it very poorly. 3. History of differentiated non-small cell carcinoma of the right lung, stage IIIA with complete pathologic response to neoadjuvant chemotherapy with 2 cycles of carboplatin/Taxol. He then underwent right upper lobectomy/mediastinal lymph node dissection in August 2011 followed by 2 additional cycles of chemotherapy and radiation to the hilar/mediastinal node region, which he completed in January 2012. 4. 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 5. Benign prostatic hypertrophy. Problems Addressed with this Encounter and Plan: 1. 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 He had presented with symptomatic metastatic involvement in the T8 vertebral body. His PD-L1 expression was positive at 2%. 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 He initially completed palliative radiation to the T8 vertebral body metastasis. He did show some response to a trial of systemic therapy with carboplatin/pemetrexed chemotherapy in combination with pembrolizumab. However, he tolerated the treatment poorly, and during maintenance pembrolizumab his treatment was put on hold due to worsening shortness of breath. His restaging CT scans on 05/03/2020 showed evidence of disease progression with increase in the left upper lobe lung mass, development of a new enhancing nodule abutting the pericardium, and increase in the size of a metastatic lesion in the central liver. At that point he was evaluated at [facility] for consideration and a clinical trial, but he was deemed ineligible due to borderline renal function. On 06/23/2019 when he began salvage therapy with docetaxel as a single agent. He had significant toxicities with his initial treatment, but tolerated it reasonably well at a reduced dosage. As of 09/06/2020 he completed his 4th cycle. His restaging CT scans at that point showed some decrease in the size of the primary lung tumor and the sclerotic metastasis involving the T8 vertebral body appeared stable. However, there was progression of the metastatic lesion in the liver. With that finding, his chemotherapy was stopped and he was referred to Dr. Reynolds for consideration of liver directed therapy. He then completed a radioembolization procedure to the liver last month, and he had been scheduled to have a second procedure at a 6-week interval. In the meantime, he had presented here with pretty severe pain and soft tissue swelling/induration in the upper right chest wall and right axillary area. CT findings were consistent with metastatic disease progression. Due to the severity of his pain, he was given additional palliative radiation to that area, completed on 12/05/2020. I had previously discussed the possibility of a trial of targeted therapy for the KRAS G12C mutation (sotorasib), which is now FDA approved and available for use. I reviewed potential side effects which may include nausea, diarrhea, fatigue, musculoskeletal pain, and cough, among others. There is a small risk for both hepatotoxicity and interstitial lung disease, either of which could be very significant for him. The other option now would be to transition to palliative care with hospice. Given his recent disease progression, I do not think that he is going to benefit with any additional liver directed therapy, and that second embolization procedure will be canceled. At this point he does wish to try the sotorasib. He will start treatment tomorrow at the standard dosage of 960 mg daily. He will be scheduled for a follow-up visit in 1 week. In the meantime, he can be given additional IV hydration as needed. 2. At this point he is still having significant pain in the right chest wall, shoulder, and arm. His pain management has been somewhat problematic due to poor tolerance for opiate medication. The pain is worse when he is lying flat, and is severe enough that he is having to sleep in a recliner to get any relief during the night. As he does require positioning which is not feasible in an ordinary bed, I am going to request a hospital bed for home use. In the meantime, he will continue to take MSIR at the same dosage. I will have him try increasing his gabapentin dosage from 600 to 900 mg 3 times daily. In addition, he will be prescribed trazodone 50 mg at bedtime. Signed By: Jony Noriega M.D. <<Signature on File>>
[2020-12-13] MEDS: sodium chloride 0.9% 500 ML 999 ML IV (12:35)
[2020-12-13 12:46] LABS: Basophils % 0.5 %; Eosinophils # 0.1 10^3/uL (0.0-0.8); Eosinophils % 2.5 %; Hematocrit 42.4 % (42.0-52.0); Hemoglobin 13.3 g/dL (11.7-16.6); Lymphocytes # 0.5 10^3/uL (0.8-4.8); Lymphocytes % 10.6 %; Mean Corpuscular HGB Conc 31.4 g/dL (30.0-36.0); Mean Corpuscular Hemoglobin 27.2 pg (28.0-34.0); Mean Corpuscular Volume 86.7 fl (80-94); Mean Platelet Volume 9.7 fL (7.4-10.4); Monocytes # 0.4 10^3/uL (0.2-0.9); Monocytes % 8.4 %; Neutrophils # 3.43 10^3/uL (1.8-7.7); Neutrophils % 77.3 %; Nucleated Red Blood Cells % 0 %; Platelet Count 223 10^3/cmm (130-400); Red Blood Count 4.89 10^6/uL (4.1-5.3); Red Cell Distribution Width 15.2 % (12.1-15.1); White Blood Count 4.4 10^3/uL (4.0-10.0)
[2020-12-13 13:13] LABS: Alanine Aminotransferase 16 U/L (0-41); Albumin Level 3.2 g/dL (3.5-5.2); Alkaline Phosphatase 152 IU/L (40-130); Anion Gap 13.2 (5-19); Aspartate Amino Transferase 42 U/L (0-40); Blood Urea Nitrogen 16 mg/dL (8-23); Carbon Dioxide 26 mmol/L (22-29); Chloride 100 mmol/L (98-107); Globulin 2.6 g/dL (1.3-4.6); Glucose 100 mg/dL (65-115); Osmolality Calculated 281 mOsm/kg (285-295); Potassium 4.2 mmol/L (3.5-5.1); Sodium 135 mmol/L (136-145); Total Bilirubin 0.6 mg/dL (0.15-1.2); Total Protein 5.8 g/dL (6.6-8.7)
--- NOTE | 2020-12-13 14:12 | ONC FU_ITS ---
Dr. Noriega Patient Follow-Up Note Patient: Isaiah Snyder Unit #: [id number]: 1940 Dicatated By: Jony Noriega M.D.Date of Visit:Dec 13, 2020 Onc Med Follow-up/Prog Note Chief Complaint: Lung cancer. 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 He was found to have a 2.5 cm right upper lobe lung mass in 2011. He had mediastinal and hilar node involvement by trans-bronchial needle aspiration biopsy in May of 2011, with pathology reporting metastatic poorly differentiated non-small cell carcinoma. He was given neoadjuvant chemotherapy with 2 cycles of carboplatin/Taxol. He was found to have a complete pathologic response at right upper lobectomy/mediastinal lymph node dissection at [facility] in August of 2011. He completed 2 additional cycles of chemotherapy postoperatively, and he was then given radiation to the hilar/mediastinal node regions to a total dose of 50.4 Gy, which he completed on 02/13/12. He did have problems following his surgery, mainly due to a prolonged post thoracotomy pain syndrome. He also developed significant neuropathy with the chemotherapy, but he did show gradual recovery during subsequent follow-up on observation/expectant management. His surveillance CT of the chest on 08/15/2016 showed postoperative changes of right upper lobectomy. There was stable loculated pleural effusion at the right lung base with chronic right atelectasis. There ws no mediastinal or hilar lymphadenopathy or other evidence of disease progression. He was advised to continue observation/expectant anagement. As he was 5 years out from completion of his treatment, I had recommended that he just continue his regular follow-up at the [facility]. I had seen him for a visit again on 01/19/2018. His surveillance chest xray thru the [facility] had reported abnormalitites at the right lung base, but on review these were not significantly changed compared to prior studies. He continued on observation/expectant management. In June [address] Prela with complaints of pain on both sides of his mid back radiating around to the epigastric area. Evaluation was delayed to the pandemic restrictions. His CT abdomen/pelvis on 08/09/2019 showed a 3.1 x 2.8 x 2.6 cm mass near the gregory hepatis, concerning for neoplasm. An osteolytic lesion in the T8 vertebral body was concerning for metastatic disease. There was moderate sized right pleural effusion. There was a small amount of atelectasis or consolidation in the right lower lobe and the lingula, pneumonia not excluded. A 2.0 x 1.3 x 1.7 cm heterogeneous lesion in the inferior pole of the left kidney was indeterminate. An L4 vertebral compression fracture was of indeterminate age. He was seen for a visit here on 08/12/2019. He had further evaluation with PET/CT on 08/14/2019. It showed evidence of an FDG avid spiculated left upper lobe mass measuring 3.4 x 2.2 cm, SUV 20.8. A medial right middle lobe subcentimeter nodule adjacent to the mediastinum was also FDG positive as were bilateral hilar lymph nodes, consistent with metastatic adenopathy. There were 2 sites of diffuse activity in the body of the pancreas, felt to be more likely inflammatory in origin. A 3 cm hypodense mass in the central right hepatic lobe at the gregory hepatis head SUV 9.2, consistent with metastatic disease. A lytic osseous lesion at T8 had SUV of 17.2, consistent with metastatic disease. There were no other osseous lesions noted. MRI of the spine on 08/16/2019 showed abnormal signal within the majority of the T8 vertebral body with extension of tumor into the posterior elements. There was retropulsion of the posterior endplate by 3 mm with mild compression on the right lateral thecal sac. There was moderate stenosis of the T8-9 foramen due to tumor and bone expansion. There was significant soft tissue tumor enhancement within the T8-9 foramen. There was mild facet joint arthritis throughout the thoracic spine and there were degenerative changes noted in the cervical and lumbar spine. There were no other sites of metastatic disease noted. Given his symptoms and the findings on the imaging studies, he was referred for palliative radiation. He completed course of treatment from T7-T10 on 09/16/2019 to a total dose of 3000 cGy. During that time, he had also been seen in consultation by Dr. Puckett, and on 09/03/2019 he underwent bronchoscopy/EBUS with endobronchial biopsies and with transbronchial FNA biopsy of mediastinal lymph nodes. 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 The next generation sequencing study showed positive PD-L1 expression for 22c3 at 2%. There were no actionable mutations identified. With those findings, he was recommended to undergo systemic therapy with carboplatin/pemetrexed chemotherapy in combination with pembrolizumab. He has otherwise been in good health. 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 He does have a history of smoking 2 packs of cigarettes daily for approximately 40 years. He quit smoking in 1999. He indicated that he had significant asbestos exposure during service in the [employer]. INTERIM HISTORY: He began cycle 1 of carboplatin/pemetrexed/pembrolizumab on 11/03/2019. He tolerated it with acceptable toxicity, and he continued with cycle 2 on 11/24/2019 and with cycle 3 on 12/15/2019. Restaging CT scans of the chest, abdomen, and pelvis on 01/03/2020 showed interval decrease in the size of the spiculated left upper lobe mass measuring 2.7 x 2.1 cm compared to 3.4 x 2.2 cm on the prior study. A 9 mm right middle lobe nodule appeared stable. The metastatic lesion in the central right hepatic lobe had progressed slightly measuring 3.4 x 3.1 cm compared to approximately 3 cm on the prior study. The lytic metastatic osseous lesion involving the T8 vertebral body appeared stable. He was seen for a follow-up visit on 01/05/2020. At that time, he reported that he had developed significant fatigue and shortness of breath following his 3rd cycle of treatment. Given the CT findings, I assume this was most likely due to the chemotherapy. I opted to give him a treatment break and then transition him to maintenance immunotherapy. He returned on 01/26/2020. He was feeling much better. At that point he began cycle 1 of maintenance pembrolizumab. At his follow-up visit on 02/17/2020 he reported significant worsening of symptoms including weakness/fatigue and shortness of breath. He had become overtly hypoxic. His treatment was put on hold, and he was started on steroid therapy. During subsequent follow-up his symptoms did show some improvement, but he continued to have shortness of breath and limited activity tolerance. Restaging chest CT on 05/03/2020 showed increased in the left upper lobe lung mass measuring 3.5 x 2.5 cm. A new enhancing nodule abutting the pericardium of the left ventricle was suspicious for a metastatic deposit. There was moderate and slightly increased right pleural effusion. There was increase in size of the metastatic lesion in the central liver. There was no change in the appearance of the metastatic lesion involving the T8 vertebral body. 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 He unfortunately was deemed ineligible for the trial due to his borderline renal function. He was then given the option to have a trial of salvage chemotherapy with docetaxel as a single agent. He began cycle 1 on 06/22/2020. He had significant toxicities including weakness/fatigue, nausea, diarrhea, and neutropenia. The side effects were severe enough they did require IV hydration and a treatment delay. He then continued with cycle 2 on 07/26/2020, administered at a reduced dosage. He tolerated it better, though he continued to have weakness/fatigue and diarrhea. He was able to continue with cycle 3 on 08/16/2020 and with cycle 4 on 09/06/2020. In the meantime, he has restaging CT scans on 09/01/2020 showed a significant decrease in the spiculated left upper lobe mass measuring 1.4 x 1.9 cm. A previously described nodule abutting the pericardium was no longer present. A new 7 mm pleural-based nodule was noted in the right middle lobe. A moderate right pleural effusion appeared unchanged. However, there was a significant increase in the size of central metastatic mass in the liver measuring 5.2 x 6.5 cm compared to 4.3 x 4.1 cm on the prior study. The osteoblastic lesion at T8 appeared stable. With evidence of disease progression in the liver I did opt to stop his docetaxel after the 4th cycle. He was then referred to Dr. Reynolds for consideration of liver directed therapy, as there were no other known sites disease progression. He received his initial hepatic radioembolization procedure last month. He would be due for now a second emobolization procedure. In the meantime, I had seen him for a follow-up visit on 11/13/2020 to discuss the possibility of trying targeted therapy for the KRAS G12C mutation. At that time, he noted recent onset of significant pain and swelling in the upper right chest wall/right axillary area. The CT findings were consistent with metastatic involvement in that area. In view of the severity of the pain he was having, he was referred for additional palliative radiation, which he completed on 12/05/2020 to a total dose of 3000 cGy administered in 10 fractions. He was seen for follow-up visit on 12/06/2020. At that point he was showing further decline in his performance status, he was still having significant pain in the upper right chest wall/right axillary area. We talked about the possibility of transitioning to symptomatic/supportive care, but at that point he was still motivated to try the targeted therapy for the KRAS G12C mutation, and he then began treatment with sotorasib 960 mg daily. He is seen now for a follow-up visit. He has not been feeling good. He is having difficulty getting around. Some of that is related to feeling generally weak, but it is mainly due to shortness of breath. His activity now is very limited. He is having difficulty even walking to the bathroom. His ECOG score is 3. He has no appetite. His says he is eating 3 tiny meals each day. He has not had fever. He had one episode of night sweating. He has had no mouth sores or sore throat. He does not complain of cough, and he has not been having chest pain. He has nausea most of the time. He has had some diarrhea off and on. He is managing it with Lomotil. Bladder function has been okay. He is not having much pain now, and he has not been having to take the morphine very often. He does not complain of headache or dizziness. He has no numbness/paresthesia or other focal neurologic symptoms. Medications: Flonase 2 [place](s) (of 50 mcg/act) Suspension Nasal daily PRN, Ibuprofen 1 Tablet (of 800 mg) Tablet Oral t.i.d., Levaquin 1 (500 mg) Tablet Oral daily for 10 days, MiraLax 1 Powder Oral daily PRN, Morphine Sulfate 1 - 3 (15 mg) Tablet Oral q 4 hours, Neurontin 2 Tablet (of 300 mg) Oral t.i.d., Pantoprazole Sodium 1 Tablet (of 40 mg) Tablet, enteric coated Oral daily, predniSONE (20 mg) Tablet Oral Take as Directed, Vitamin B6 1 Tablet Oral daily, Vitamin D3 1 Tablet (of 50 mcg ) Oral daily Allergies: Flomax Vital Signs: Performed on Dec 13, 2020 13:40 Height - 70.00 in Weight - 150.2 lbs (LOW) BSA - 1.85 sq.m BMI - 21.55 Temperature - 97.1 F (LOW) Pulse - 112 /min (HIGH) Respiration - 18 /min BP - 129/76 mm(hg) O2 Sat - 93 % (LOW) Pain - 0 Fatigue - 9 Physical Examination: Constitutional - He appears generally weak, Eyes - Sclerae nonicteric. Conjunctivae clear, ENMT - No lesions noted in the oral cavity, Hematologic/Lymphatic - No cervical or clavicular adenopathy, Respiratory - Lungs show markedly diminished air movement on the right, Cardiovascular - Heart rhythm is regular. There is no murmur, gallop, or rub noted, Chest - There does appear to be some improvement in the swelling/induration and tenderness in the upper right chest wall/right axillary area. There is no axillary adenopathy noted, Abdomen - There is an area of swelling/induration in the right flank, which is unchanged. Liver is not enlarged or tender. Spleen is not palpable. There is no abdominal mass or ascites noted and there is no inguinal adenopathy, Extremities - No lower extremity edema, Neurologic - No focal neurologic deficits noted. Lab/Imaging: Test performed on Dec 13, 2020 12:25 Sodium 135 mmol/L Potassium 4.2 mmol/L Chloride 100 mmol/L CO2 26 mmol/L Anion Gap 13.2 BUN 16 mg/dL Creatinine 0.8 mg/dL Cr Clearance (Est) 72.15 mL/min Glucose 100 mg/dL Osmolality - Calculated 281 mOsm/kg Calcium 9.0 mg/dL Protein, Total 5.8 g/dL Albumin 3.2 g/dL Globulin 2.6 g/dL Bilirubin, Total 0.6 mg/dL ALT (SGPT) 16 U/L AST (SGOT) 42 U/L Alkaline Phosphatase 152 IU/L WBC 4.4 10 3/uL RBC 4.89 10 6/uL HGB 13.3 g/dL HCT 42.4 % MCV 86.7 fl MCH 27.2 pg MCHC 31.4 g/dL RDW 15.2 % Platelet Count 223 10 3/cmm MPV 9.7 fL Neutrophils 3.43 10 3/uL Lymphocytes 0.5 10 3/uL Monocytes 0.4 10 3/uL Eosinophils 0.1 10 3/uL Basophils 0.0 10 3/uL Neutrophil % 77.3 % Lymphocyte % 10.6 % Monocyte % 8.4 % Eosinophil % 2.5 % Basophils % 0.5 % NRBC % 0 % 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 This appeared to be a new primary malignancy. By clinical evaluation, his disease was stage IVB (T2a, N3, M1c). His PD-L1 expression was positive at 2%. 2. He had presented with metastatic involvement in the T8 vertebral body. He had significant symptomatic improvement following palliative radiation, completed on 09/16/2019 to a total dose of 3000 cGy. In October he began a trial of systemic therapy with carboplatin/pemetrexed in combination with pembrolizumab. He tolerated it very poorly. 3. History of differentiated non-small cell carcinoma of the right lung, stage IIIA with complete pathologic response to neoadjuvant chemotherapy with 2 cycles of carboplatin/Taxol. He then underwent right upper lobectomy/mediastinal lymph node dissection in August 2011 followed by 2 additional cycles of chemotherapy and radiation to the hilar/mediastinal node region, which he completed in January 2012. 4. 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 5. Benign prostatic hypertrophy. Problems Addressed with this Encounter and Plan: 1. 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 He had presented with symptomatic metastatic involvement in the T8 vertebral body. His PD-L1 expression was positive at 2%. 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 He initially completed palliative radiation to the T8 vertebral body metastasis. He did show some response to a trial of systemic therapy with carboplatin/pemetrexed chemotherapy in combination with pembrolizumab. However, he tolerated the treatment poorly, and during maintenance pembrolizumab his treatment was put on hold due to worsening shortness of breath. His restaging CT scans on 05/03/2020 showed evidence of disease progression with increase in the left upper lobe lung mass, development of a new enhancing nodule abutting the pericardium, and increase in the size of a metastatic lesion in the central liver. At that point he was evaluated at [facility] for consideration and a clinical trial, but he was deemed ineligible due to borderline renal function. On 06/23/2019 when he began salvage therapy with docetaxel as a single agent. He had significant toxicities with his initial treatment, but tolerated it reasonably well at a reduced dosage. As of 09/06/2020 he completed his 4th cycle. His restaging CT scans at that point showed some decrease in the size of the primary lung tumor and the sclerotic metastasis involving the T8 vertebral body appeared stable. However, there was progression of the metastatic lesion in the liver. With that finding, his chemotherapy was stopped and he was referred to Dr. Reynolds for consideration of liver directed therapy. He then completed a radioembolization procedure to the liver last month, and he had been scheduled to have a second procedure at a 6-week interval. In the meantime, he had presented here with pretty severe pain and soft tissue swelling/induration in the upper right chest wall and right axillary area. CT findings were consistent with metastatic disease progression. Due to the severity of his pain, he was given additional palliative radiation to that area, completed on 12/05/2020. Following his visit on 12/06/2020 he began a trial of targeted therapy with sotorasib 960 mg daily. Since then there has been some improvement in the pain in his upper right chest wall/right axillary area. He continues to have shortness of breath. At least some component of that is very likely due to his pleural effusion. He has had some nausea and diarrhea, but overall he appears to be tolerating the sotorasib with acceptable toxicity. For the time being we will continue the sotorasib at 960 mg daily. He will be scheduled for repeat chest x-ray today, and I will then schedule him for ultrasound-guided thoracentesis, as indicated. I will see him again in 2 weeks, or sooner as needed. 2. In the meantime, as he now has very limited activity tolerance, and he has a limitation in mobility which is significant enough to impair his ability to perform MADLs, I am going to request a standard wheelchair for him. At this point it will improve his ability to perform MADLs, and his is present with him and able to provide assistance with the use of a wheelchair. Signed By: Jony Noriega M.D. <<Signature on File>>
--- NOTE | 2020-12-13 14:21 | XR_ITS ---
WS: [id number] Exam: XR chest 2V* [id number] Date/Time of Exam: 12/13/2020 2:21 PM Reason For Exam: LUNG CANCER, SHORTNESS OF BREATH Comparison 11/30/2020. Right basal pleural effusion is noted and shows little change since prior study. Diffuse infiltrate i n the ventilated mid and upper right lung with pleural thickening. Pleural thickening has improved. T he left lung is fully expanded and clear. The heart is not enlarged. A left subclavian port ends in t he lower one third of the SVC. XR/XR chest 2V* [id number] IMPRESSION: 1. Right-sided pleural effusion showing little change since previous study. 2. Diffuse infiltrate in the ventilated mid and upper right lung. Right sided p leural thickening and/or fluid showing some improvement since prior study. No o ther change.
== END 2020-12-19 23:59 | disposition home or self-care (01) ==
LOC: ONCMED 14:30
PROVIDERS: Absent Provider Radiology Radiation Oncology; PCP Family Medicine; Visit Provider Internal Medicine Medical Oncology
DX: Z51.0 Encounter for antineoplastic radiation therapy (principal); C34.12 Malignant neoplasm of upper lobe, left bronchus or lung; C79.51 Secondary malignant neoplasm of bone; H81.03 Meniere's disease, bilateral; N40.0 Benign prostatic hyperplasia without lower urinary tract symptoms; Z85.118 Personal history of other malignant neoplasm of bronchus and lung; Z79.899 Other long term (current) drug therapy; Z92.21 Personal history of antineoplastic chemotherapy; Z92.3 Personal history of irradiation
CPT/HCPCS: 71046; 77014; 77336; 77387; 77412; 80053; 85025; 96360; 99214; 99215; J7040

== ENCOUNTER 2020-12-26 05:32 | Outpatient (RCR) | payer MEDICARE, OTHER, SELFPAY ==
--- NOTE | 2020-12-20 09:13 | US_ITS ---
WS: [id number] ULTRASOUND-GUIDED THORACENTESIS, RIGHT HISTORY: malignant neoplasm of upper lobe Procedure, risks, and complications were explained to the patient. With the patient in an upright pos ition, the skin over the RIGHT posterior thorax was cleansed with ChloraPrep and anesthetized with 1% buffered lidocaine. A 5 [place] Yueh needle is inserted into the pleural fluid without complication. Approximately 1100 cc of dark red pleural fluid is removed without difficulty. Specimen collected for analysis as requested. / thoracentesis [id number] IMPRESSION: 1. RIGHT thoracentesis yielding 1100 cc of fluid. 2. Chest radiograph to follow to evaluate for pneumothorax.
[2020-12-20 09:15] VITALS: BP 117/74; PULSE 96; RESP 18; TEMP 36.3; O2SAT 96; BMI 21.5
[2020-12-20 09:30] LABS: INR 1.06 (0.8-1.2)
--- NOTE | 2020-12-20 10:15 | XR_ITS ---
WS: [id number] PORTABLE CHEST HISTORY: post thoracentesis COMPARISON: 12/13/2020 Moderate improvement in aeration of the RIGHT lung. There is still a small residual RIGHT pleural eff usion. RIGHT hilar soft tissue nodule measures 2.7 x 1.7 cm and is been previously described. No pneu mothorax. LEFT lung is clear. Left-sided Mediport with tip in the distal SVC. Cardiac size: Normal. Mediastinum/Aorta: Mild atherosclerosis aorta. No osseous abnormality seen. XR/XR chest 1V portable [id number] IMPRESSION: 1. Status post RIGHT thoracentesis. No complications. 2. Marked improvement of the RIGHT pleural effusion. Small residual pleural ef fusion. 3. RIGHT hilar soft tissue nodule is reidentified measuring 2.7 x 1.7 cm.
[2020-12-20 10:21] VITALS: BP 98/72; PULSE 91; RESP 18; O2SAT 98
[2020-12-20 10:28] LABS: Body Fluid Polynuclear #Cells 0.005; Body Fluid WBC 115 /uL
[2020-12-20 10:35] VITALS: BP 102/68; PULSE 98; RESP 18; TEMP 36.8; O2SAT 95
[2020-12-20 10:46] LABS: Apprearance, Body Fluid CLOUDY; Color, Body Fluid AMBER; PATH Referral YES
[2020-12-20 10:50] LABS: LDH Body Fluid 462 U/L; Total Protein Pleural Fluid 3.3 g/dL
[2020-12-22 10:13] LABS: Basophils % 0.4 %; Eosinophils # 0.1 10^3/uL (0.0-0.8); Eosinophils % 1.1 %; Hematocrit 41.4 % (42.0-52.0); Lymphocytes # 0.8 10^3/uL (0.8-4.8); Lymphocytes % 15.7 %; Mean Corpuscular HGB Conc 31.4 g/dL (30.0-36.0); Mean Corpuscular Hemoglobin 27.5 pg (28.0-34.0); Mean Corpuscular Volume 87.7 fl (80-94); Mean Platelet Volume 9.4 fL (7.4-10.4); Monocytes # 0.5 10^3/uL (0.2-0.9); Neutrophils # 3.84 10^3/uL (1.8-7.7); Neutrophils % 73.4 %; Nucleated Red Blood Cells % 0 %; Platelet Count 259 10^3/cmm (130-400); Red Blood Count 4.72 10^6/uL (4.1-5.3); Red Cell Distribution Width 15.7 % (12.1-15.1); White Blood Count 5.2 10^3/uL (4.0-10.0)
[2020-12-22 10:38] LABS: Alanine Aminotransferase 25 U/L (0-41); Albumin Level 3.1 g/dL (3.5-5.2); Alkaline Phosphatase 171 IU/L (40-130); Anion Gap 12.9 (5-19); Aspartate Amino Transferase 50 U/L (0-40); Blood Urea Nitrogen 19 mg/dL (8-23); Calcium 8.9 mg/dL (8.5-10.5); Carbon Dioxide 24 mmol/L (22-29); Chloride 106 mmol/L (98-107); Creatinine Clr Calc Pharmacy 75.2075; Globulin 2.6 g/dL (1.3-4.6); Glucose 93 mg/dL (65-115); Osmolality Calculated 290 mOsm/kg (285-295); Potassium 3.9 mmol/L (3.5-5.1); Sodium 139 mmol/L (136-145); Total Bilirubin 0.4 mg/dL (0.15-1.2); Total Protein 5.7 g/dL (6.6-8.7)
--- NOTE | 2020-12-26 08:51 | ONC FU_ITS ---
Dr. Noriega Patient Follow-Up Note Patient: Isaiah Snyder Unit #: [id number]: 1940 Dicatated By: Jony Noriega M.D.Date of Visit:Dec 26, 2020 Onc Med Follow-up/Prog Note Chief Complaint: Lung cancer. 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 He was found to have a 2.5 cm right upper lobe lung mass in 2011. He had mediastinal and hilar node involvement by trans-bronchial needle aspiration biopsy in May of 2011, with pathology reporting metastatic poorly differentiated non-small cell carcinoma. He was given neoadjuvant chemotherapy with 2 cycles of carboplatin/Taxol. He was found to have a complete pathologic response at right upper lobectomy/mediastinal lymph node dissection at [facility] in August of 2011. He completed 2 additional cycles of chemotherapy postoperatively, and he was then given radiation to the hilar/mediastinal node regions to a total dose of 50.4 Gy, which he completed on 02/13/12. He did have problems following his surgery, mainly due to a prolonged post thoracotomy pain syndrome. He also developed significant neuropathy with the chemotherapy, but he did show gradual recovery during subsequent follow-up on observation/expectant management. His surveillance CT of the chest on 08/15/2016 showed postoperative changes of right upper lobectomy. There was stable loculated pleural effusion at the right lung base with chronic right atelectasis. There ws no mediastinal or hilar lymphadenopathy or other evidence of disease progression. He was advised to continue observation/expectant anagement. As he was 5 years out from completion of his treatment, I had recommended that he just continue his regular follow-up at the [facility]. I had seen him for a visit again on 01/19/2018. His surveillance chest xray thru the [facility] had reported abnormalitites at the right lung base, but on review these were not significantly changed compared to prior studies. He continued on observation/expectant management. In June [address] Perla with complaints of pain on both sides of his mid back radiating around to the epigastric area. Evaluation was delayed to the pandemic restrictions. His CT abdomen/pelvis on 08/09/2019 showed a 3.1 x 2.8 x 2.6 cm mass near the gregory hepatis, concerning for neoplasm. An osteolytic lesion in the T8 vertebral body was concerning for metastatic disease. There was moderate sized right pleural effusion. There was a small amount of atelectasis or consolidation in the right lower lobe and the lingula, pneumonia not excluded. A 2.0 x 1.3 x 1.7 cm heterogeneous lesion in the inferior pole of the left kidney was indeterminate. An L4 vertebral compression fracture was of indeterminate age. He was seen for a visit here on 08/12/2019. He had further evaluation with PET/CT on 08/14/2019. It showed evidence of an FDG avid spiculated left upper lobe mass measuring 3.4 x 2.2 cm, SUV 20.8. A medial right middle lobe subcentimeter nodule adjacent to the mediastinum was also FDG positive as were bilateral hilar lymph nodes, consistent with metastatic adenopathy. There were 2 sites of diffuse activity in the body of the pancreas, felt to be more likely inflammatory in origin. A 3 cm hypodense mass in the central right hepatic lobe at the gregory hepatis head SUV 9.2, consistent with metastatic disease. A lytic osseous lesion at T8 had SUV of 17.2, consistent with metastatic disease. There were no other osseous lesions noted. MRI of the spine on 08/16/2019 showed abnormal signal within the majority of the T8 vertebral body with extension of tumor into the posterior elements. There was retropulsion of the posterior endplate by 3 mm with mild compression on the right lateral thecal sac. There was moderate stenosis of the T8-9 foramen due to tumor and bone expansion. There was significant soft tissue tumor enhancement within the T8-9 foramen. There was mild facet joint arthritis throughout the thoracic spine and there were degenerative changes noted in the cervical and lumbar spine. There were no other sites of metastatic disease noted. Given his symptoms and the findings on the imaging studies, he was referred for palliative radiation. He completed course of treatment from T7-T10 on 09/16/2019 to a total dose of 3000 cGy. During that time, he had also been seen in consultation by Dr. Puckett, and on 09/03/2019 he underwent bronchoscopy/EBUS with endobronchial biopsies and with transbronchial FNA biopsy of mediastinal lymph nodes. 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 The next generation sequencing study showed positive PD-L1 expression for 22c3 at 2%. There were no actionable mutations identified. With those findings, he was recommended to undergo systemic therapy with carboplatin/pemetrexed chemotherapy in combination with pembrolizumab. He has otherwise been in good health. 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 He does have a history of smoking 2 packs of cigarettes daily for approximately 40 years. He quit smoking in 1999. He indicated that he had significant asbestos exposure during service in the [employer] INTERIM HISTORY: He began cycle 1 of carboplatin/pemetrexed/pembrolizumab on 11/03/2019. He tolerated it with acceptable toxicity, and he continued with cycle 2 on 11/24/2019 and with cycle 3 on 12/15/2019. Restaging CT scans of the chest, abdomen, and pelvis on 01/03/2020 showed interval decrease in the size of the spiculated left upper lobe mass measuring 2.7 x 2.1 cm compared to 3.4 x 2.2 cm on the prior study. A 9 mm right middle lobe nodule appeared stable. The metastatic lesion in the central right hepatic lobe had progressed slightly measuring 3.4 x 3.1 cm compared to approximately 3 cm on the prior study. The lytic metastatic osseous lesion involving the T8 vertebral body appeared stable. He was seen for a follow-up visit on 01/05/2020. At that time, he reported that he had developed significant fatigue and shortness of breath following his 3rd cycle of treatment. Given the CT findings, I assume this was most likely due to the chemotherapy. I opted to give him a treatment break and then transition him to maintenance immunotherapy. He returned on 01/26/2020. He was feeling much better. At that point he began cycle 1 of maintenance pembrolizumab. At his follow-up visit on 02/17/2020 he reported significant worsening of symptoms including weakness/fatigue and shortness of breath. He had become overtly hypoxic. His treatment was put on hold, and he was started on steroid therapy. During subsequent follow-up his symptoms did show some improvement, but he continued to have shortness of breath and limited activity tolerance. Restaging chest CT on 05/03/2020 showed increased in the left upper lobe lung mass measuring 3.5 x 2.5 cm. A new enhancing nodule abutting the pericardium of the left ventricle was suspicious for a metastatic deposit. There was moderate and slightly increased right pleural effusion. There was increase in size of the metastatic lesion in the central liver. There was no change in the appearance of the metastatic lesion involving the T8 vertebral body. 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 for consideration of participation in a clinical trial. He unfortunately was deemed ineligible for the trial due to his borderline renal function. He was then given the option to have a trial of salvage chemotherapy with docetaxel as a single agent. He began cycle 1 on 06/22/2020. He had significant toxicities including weakness/fatigue, nausea, diarrhea, and neutropenia. The side effects were severe enough they did require IV hydration and a treatment delay. He then continued with cycle 2 on 07/26/2020, administered at a reduced dosage. He tolerated it better, though he continued to have weakness/fatigue and diarrhea. He was able to continue with cycle 3 on 08/16/2020 and with cycle 4 on 09/06/2020. In the meantime, he has restaging CT scans on 09/01/2020 showed a significant decrease in the spiculated left upper lobe mass measuring 1.4 x 1.9 cm. A previously described nodule abutting the pericardium was no longer present. A new 7 mm pleural-based nodule was noted in the right middle lobe. A moderate right pleural effusion appeared unchanged. However, there was a significant increase in the size of central metastatic mass in the liver measuring 5.2 x 6.5 cm compared to 4.3 x 4.1 cm on the prior study. The osteoblastic lesion at T8 appeared stable. With evidence of disease progression in the liver I did opt to stop his docetaxel after the 4th cycle. He was then referred to Dr. Reynolds for consideration of liver directed therapy, as there were no other known sites disease progression. He received his initial hepatic radioembolization procedure last month. He would be due for now a second emobolization procedure. In the meantime, I had seen him for a follow-up visit on 11/13/2020 to discuss the possibility of trying targeted therapy for the KRAS G12C mutation. At that time, he noted recent onset of significant pain and swelling in the upper right chest wall/right axillary area. The CT findings were consistent with metastatic involvement in that area. In view of the severity of the pain he was having, he was referred for additional palliative radiation, which he completed on 12/05/2020 to a total dose of 3000 cGy administered in 10 fractions. He was seen for follow-up visit on 12/06/2020. At that point he was showing further decline in his performance status, he was still having significant pain in the upper right chest wall/right axillary area. We talked about the possibility of transitioning to symptomatic/supportive care, but at that point he was still motivated to try the targeted therapy for the KRAS G12C mutation, and he then began treatment with sotorasib 960 mg daily. As of his follow-up visit on 12/13/2020 he appeared to be tolerating it with acceptable toxicity. At that time he was significantly more short of breath, and he underwent an ultrasound-guided thoracentesis on 12/20/2020. He is seen now for a follow-up visit. He has been feeling a little bit better generally, at least to the point that he is now able to get up and around. His ECOG score is 2. He has very little appetite, but he is eating 3 small meals per day. He has not had fever. He says that the night before last he sweated all night. He complains of having dry mouth. He does not have cough. His breathing improved significantly after the thoracentesis, though he is still requiring oxygen. He still has some pain on the right side of his chest and in the right shoulder area. It is managed adequately with the morphine. He has had mild nausea, but it has improved since he restarted his pantoprazole at bedtime. He had another episode of constipation and urinary retention after taking morphine, but that has resolved. He currently has no other joint or bone pain. He does not complain of headache or dizziness. He has some numbness/tingling in his toes. He still complains that he cannot sleep at night. Medications: Flonase 2 [place](s) (of 50 mcg/act) Suspension Nasal daily PRN, Ibuprofen 1 Tablet (of 800 mg) Tablet Oral t.i.d., Levaquin 1 (500 mg) Tablet Oral daily for 10 days, MiraLax 1 Powder Oral daily PRN, Morphine Sulfate 1 - 3 (15 mg) Tablet Oral q 4 hours, Neurontin 2 Tablet (of 300 mg) Oral t.i.d., Pantoprazole Sodium 1 Tablet (of 40 mg) Tablet, enteric coated Oral daily, predniSONE (20 mg) Tablet Oral Take as Directed, Vitamin B6 1 Tablet Oral daily, Vitamin D3 1 Tablet (of 50 mcg ) Oral daily Allergies: Flomax Vital Signs: Performed on Dec 26, 2020 08:19 Height - 70.00 in Weight - 142.8 lbs (LOW) BSA - 1.81 sq.m BMI - 20.49 Temperature - 98.0 F (LOW) Pulse - 112 /min (HIGH) Respiration - 18 /min BP - 127/79 mm(hg) O2 Sat - 92 % (LOW) Pain - 0 Fatigue - 6 Physical Examination: Constitutional - He appears somewhat weak generally., Eyes - Sclerae nonicteric. Conjunctivae clear, ENMT - No lesions noted in the oral cavity, Hematologic/Lymphatic - There are multiple small nodes palpable in the right supraclavicular fossa. There is no axillary adenopathy noted, Respiratory - Lungs show some decrease in air movement on the right, Cardiovascular - Heart rhythm is regular. There is no murmur, gallop, or rub noted, Abdomen - There is an area of swelling/induration in the right flank, which is unchanged. Liver is not enlarged or tender. Spleen is not palpable. There is no abdominal mass or ascites noted and there is no inguinal adenopathy, Extremities - There is currently no edema. There are purpuric lesions on both arms, Neurologic - No focal neurologic deficits noted. Lab/Imaging: Test performed on Dec 22, 2020 09:39 Sodium 139 mmol/L Potassium 3.9 mmol/L Chloride 106 mmol/L CO2 24 mmol/L Anion Gap 12.9 BUN 19 mg/dL Creatinine 0.7 mg/dL Cr Clearance (Est) 82.4600 mL/min Glucose 93 mg/dL Osmolality - Calculated 290 mOsm/kg Calcium 8.9 mg/dL Protein, Total 5.7 g/dL Albumin 3.1 g/dL Globulin 2.6 g/dL Bilirubin, Total 0.4 mg/dL ALT (SGPT) 25 U/L AST (SGOT) 50 U/L Alkaline Phosphatase 171 IU/L WBC 5.2 10 3/uL RBC 4.72 10 6/uL HGB 13.0 g/dL HCT 41.4 % MCV 87.7 fl MCH 27.5 pg MCHC 31.4 g/dL RDW 15.7 % Platelet Count 259 10 3/cmm MPV 9.4 fL Neutrophils 3.84 10 3/uL Lymphocytes 0.8 10 3/uL Monocytes 0.5 10 3/uL Eosinophils 0.1 10 3/uL Basophils 0.0 10 3/uL Neutrophil % 73.4 % Lymphocyte % 15.7 % Monocyte % 9.0 % Eosinophil % 1.1 % Basophils % 0.4 % NRBC % 0 % 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 This appeared to be a new primary malignancy. By clinical evaluation, his disease was stage IVB (T2a, N3, M1c). His PD-L1 expression was positive at 2%. 2. He had presented with metastatic involvement in the T8 vertebral body. He had significant symptomatic improvement following palliative radiation, completed on 09/16/2019 to a total dose of 3000 cGy. In October he began a trial of systemic therapy with carboplatin/pemetrexed in combination with pembrolizumab. He tolerated it very poorly. 3. History of differentiated non-small cell carcinoma of the right lung, stage IIIA with complete pathologic response to neoadjuvant chemotherapy with 2 cycles of carboplatin/Taxol. He then underwent right upper lobectomy/mediastinal lymph node dissection in August 2011 followed by 2 additional cycles of chemotherapy and radiation to the hilar/mediastinal node region, which he completed in January 2012. 4. 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 5. Benign prostatic hypertrophy. 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 He had presented with symptomatic metastatic involvement in the T8 vertebral body. His PD-L1 expression was positive at 2%. 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 He initially completed palliative radiation to the T8 vertebral body metastasis. He did show some response to a trial of systemic therapy with carboplatin/pemetrexed chemotherapy in combination with pembrolizumab. However, he tolerated the treatment poorly, and during maintenance pembrolizumab his treatment was put on hold due to worsening shortness of breath. His restaging CT scans on 05/03/2020 showed evidence of disease progression with increase in the left upper lobe lung mass, development of a new enhancing nodule abutting the pericardium, and increase in the size of a metastatic lesion in the central liver. At that point he was evaluated at [facility] for consideration and a clinical trial, but he was deemed ineligible due to borderline renal function. On 06/23/2019 when he began salvage therapy with docetaxel as a single agent. He had significant toxicities with his initial treatment, but tolerated it reasonably well at a reduced dosage. As of 09/06/2020 he completed his 4th cycle. His restaging CT scans at that point showed some decrease in the size of the primary lung tumor and the sclerotic metastasis involving the T8 vertebral body appeared stable. However, there was progression of the metastatic lesion in the liver. With that finding, his chemotherapy was stopped and he was referred to Dr. Reynolds for consideration of liver directed therapy. He then completed a radioembolization procedure to the liver last month, and he had been scheduled to have a second procedure at a 6-week interval. In the meantime, he had presented here with pretty severe pain and soft tissue swelling/induration in the upper right chest wall and right axillary area. CT findings were consistent with metastatic disease progression. Due to the severity of his pain, he was given additional palliative radiation to that area, completed on 12/05/2020. Following his visit on 12/06/2020 he began a trial of targeted therapy with sotorasib 960 mg daily. Thus far he has been able to tolerate the treatment with no significant adverse effects. He continues to have some pain in his right shoulder area and right chest, but is adequately managed with morphine. His breathing improved significantly following ultrasound-guided thoracentesis. Overall, he has been doing a little bit better generally. He does have opiate associated constipation and urinary retention, I am going to see if I get him approved [facility] with [facility]. He continues treatment with sotorasib 960 mg daily. I will see him again in 1 month. Signed By: Jony Noriega M.D. <<Signature on File>>
== END 2021-01-11 14:00 | disposition home or self-care (01) ==
LOC: ONCMED 05:32
PROVIDERS: Internal Medicine Hematology & Oncology; Radiology Diagnostic Radiology; PCP Family Medicine; Visit Provider Internal Medicine Medical Oncology
DX: C34.12 Malignant neoplasm of upper lobe, left bronchus or lung (principal); C77.8 Secondary and unspecified malignant neoplasm of lymph nodes of multiple regions; C79.51 Secondary malignant neoplasm of bone; C78.01 Secondary malignant neoplasm of right lung; C78.7 Secondary malignant neoplasm of liver and intrahepatic bile duct; H81.03 Meniere's disease, bilateral; N40.0 Benign prostatic hyperplasia without lower urinary tract symptoms; R33.9 Retention of urine, unspecified; K59.00 Constipation, unspecified; Z79.899 Other long term (current) drug therapy; Z92.21 Personal history of antineoplastic chemotherapy
CPT/HCPCS: 32555; 36591; 71045; 80053; 80500; 82945; 83615; 84157; 84315; 85025; 85610; 87015; 87070; 87075; 87102; 87116; 87205; 87206; 87801; 88112; 88305; 89050; 99214

== ENCOUNTER 2021-01-11 14:03 | Outpatient (CLI) | payer MEDICARE, OTHER, SELFPAY ==
[2021-01-11 14:18] VITALS: BP 112/70; PULSE 112; RESP 22; TEMP 36.8; O2SAT 94
[2021-01-11 15:03] LABS: INR 1.06 (0.8-1.2)
--- NOTE | 2021-01-11 15:08 | XR_ITS ---
WS: [id number] Portable AP upright chest, 01/11/2021 Clinical Data: Shortness of breath Comparison: Portable chest, 12/20/2020. Findings: The right pleural effusion has increased. The right hilar mass may also have increased. The left lung remains clear. The heart size is not changed. The left subclavian catheter remains in the same position. XR/XR chest 1V portable [id number] Impression: 1. Increase in right pleural effusion. 2. Increase in size of right hilar mass.
--- NOTE | 2021-01-11 15:31 | US_ITS ---
WS: [id number] ULTRASOUND-GUIDED THORACENTESIS CLINICAL INFORMATION: shortness of breath COMPARISON: None. PROCEDURE: Informed consent: The risks, benefits, and alternatives of the procedure were discussed with the emma ent. Verbal and written consent was obtained. Timeout: A timeout was performed to confirm the correct patient, procedure, and site. Site: Right Chest Preparation: A suitable skin site was identified. The patient was prepped and draped in usual sterile fashion. Lidocaine 1% was used for local anesthesia. Catheter: 4 [place] One-Step catheter. Fluid Volume: 1000 ml Color: Clear celso Discarded safely. Complications: None. Patient disposition: Discharged from the department in stable condition. / thoracentesis [id number] IMPRESSION: 1. Uncomplicated ultrasound-guided right thoracentesis with removal of 1000 cc . 2. No pneumothorax on the postthoracentesis radiograph
--- NOTE | 2021-01-11 16:08 | XR_ITS ---
WS: [id number] CHEST XRAY TECHNIQUE: Portable chest. CLINICAL INFORMATION: thoracentisis COMPARISON: January 11, 2021 FINDINGS: Left Port-A-Cath with tip in SVC. Heart: Normal cardiac silhouette. Lungs: Stable right hilar neoplasm. Significantly improved right pleural effusion post thoracentesis. No pneumothorax. Left lung is well aerated. Bones: Normal visualized bony structures. XR/XR chest 1V portable [id number] IMPRESSION: Significantly improved right pleural effusion post thoracentesis. No pneumothor ax.
[2021-01-11 16:15] VITALS: BP 128/84; PULSE 102; RESP 20; O2SAT 98
[2021-01-11 16:47] VITALS: BP 109/87; PULSE 105; RESP 20; O2SAT 98
== END 2021-01-11 14:04 | disposition home or self-care (01) ==
LOC: GILAB 14:07
PROVIDERS: Radiology Neuroradiology; PCP Family Medicine; Visit Provider Internal Medicine Medical Oncology
DX: R06.02 Shortness of breath (principal)
CPT/HCPCS: 32555; 36591; 71045; 85610

== ENCOUNTER 2021-01-22 06:15 | Outpatient (RCR) | payer MEDICARE, OTHER, SELFPAY ==
[2021-01-19 10:44] LABS: Basophils % 0.5 %; Eosinophils # 0.1 10^3/uL (0.0-0.8); Eosinophils % 0.8 %; Hemoglobin 13.2 g/dL (11.7-16.6); Lymphocytes % 14.9 %; Mean Corpuscular HGB Conc 31.4 g/dL (30.0-36.0); Mean Corpuscular Hemoglobin 27.8 pg (28.0-34.0); Mean Corpuscular Volume 88.4 fl (80-94); Mean Platelet Volume 9.9 fL (7.4-10.4); Monocytes # 0.5 10^3/uL (0.2-0.9); Monocytes % 8.1 %; Neutrophils % 74.9 %; Nucleated Red Blood Cells % 0 %; Platelet Count 309 10^3/cmm (130-400); Red Blood Count 4.75 10^6/uL (4.1-5.3); Red Cell Distribution Width 16.7 % (12.1-15.1); White Blood Count 6.7 10^3/uL (4.0-10.0)
[2021-01-19 11:11] LABS: Alanine Aminotransferase 17 U/L (0-41); Albumin Level 3.1 g/dL (3.5-5.2); Alkaline Phosphatase 158 IU/L (40-130); Anion Gap 11.9 (5-19); Aspartate Amino Transferase 42 U/L (0-40); Blood Urea Nitrogen 16 mg/dL (8-23); Calcium 9.3 mg/dL (8.5-10.5); Carbon Dioxide 25 mmol/L (22-29); Chloride 104 mmol/L (98-107); Globulin 2.5 g/dL (1.3-4.6); Glucose 105 mg/dL (65-115); Osmolality Calculated 286 mOsm/kg (285-295); Potassium 3.9 mmol/L (3.5-5.1); Sodium 137 mmol/L (136-145); Total Bilirubin 0.4 mg/dL (0.15-1.2); Total Protein 5.6 g/dL (6.6-8.7)
--- NOTE | 2021-01-22 09:20 | ONC FU_ITS ---
Dr. Noriega Patient Follow-Up Note Patient: Isaiah Snyder Unit #: [id number]: [id number] Dicatated By: Jony Noriega M.D.Date of Visit:Jan 22, 2021 Onc Med Follow-up/Prog Note Chief Complaint: Lung cancer. 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 He was found to have a 2.5 cm right upper lobe lung mass in 2011. He had mediastinal and hilar node involvement by trans-bronchial needle aspiration biopsy in May of 2011, with pathology reporting metastatic poorly differentiated non-small cell carcinoma. He was given neoadjuvant chemotherapy with 2 cycles of carboplatin/Taxol. He was found to have a complete pathologic response at right upper lobectomy/mediastinal lymph node dissection at [facility] in August of 2011. He completed 2 additional cycles of chemotherapy postoperatively, and he was then given radiation to the hilar/mediastinal node regions to a total dose of 50.4 Gy, which he completed on 02/13/12. He did have problems following his surgery, mainly due to a prolonged post thoracotomy pain syndrome. He also developed significant neuropathy with the chemotherapy, but he did show gradual recovery during subsequent follow-up on observation/expectant management. His surveillance CT of the chest on 08/15/2016 showed postoperative changes of right upper lobectomy. There was stable loculated pleural effusion at the right lung base with chronic right atelectasis. There ws no mediastinal or hilar lymphadenopathy or other evidence of disease progression. He was advised to continue observation/expectant anagement. As he was 5 years out from completion of his treatment, I had recommended that he just continue his regular follow-up at the [facility]. I had seen him for a visit again on 01/19/2018. His surveillance chest xray thru the [facility] had reported abnormalitites at the right lung base, but on review these were not significantly changed compared to prior studies. He continued on observation/expectant management. In June [address] Perla with complaints of pain on both sides of his mid back radiating around to the epigastric area. Evaluation was delayed to the pandemic restrictions. His CT abdomen/pelvis on 08/09/2019 showed a 3.1 x 2.8 x 2.6 cm mass near the gregory hepatis, concerning for neoplasm. An osteolytic lesion in the T8 vertebral body was concerning for metastatic disease. There was moderate sized right pleural effusion. There was a small amount of atelectasis or consolidation in the right lower lobe and the lingula, pneumonia not excluded. A 2.0 x 1.3 x 1.7 cm heterogeneous lesion in the inferior pole of the left kidney was indeterminate. An L4 vertebral compression fracture was of indeterminate age. He was seen for a visit here on 08/12/2019. He had further evaluation with PET/CT on 08/14/2019. It showed evidence of an FDG avid spiculated left upper lobe mass measuring 3.4 x 2.2 cm, SUV 20.8. A medial right middle lobe subcentimeter nodule adjacent to the mediastinum was also FDG positive as were bilateral hilar lymph nodes, consistent with metastatic adenopathy. There were 2 sites of diffuse activity in the body of the pancreas, felt to be more likely inflammatory in origin. A 3 cm hypodense mass in the central right hepatic lobe at the gregory hepatis head SUV 9.2, consistent with metastatic disease. A lytic osseous lesion at T8 had SUV of 17.2, consistent with metastatic disease. There were no other osseous lesions noted. MRI of the spine on 08/16/2019 showed abnormal signal within the majority of the T8 vertebral body with extension of tumor into the posterior elements. There was retropulsion of the posterior endplate by 3 mm with mild compression on the right lateral thecal sac. There was moderate stenosis of the T8-9 foramen due to tumor and bone expansion. There was significant soft tissue tumor enhancement within the T8-9 foramen. There was mild facet joint arthritis throughout the thoracic spine and there were degenerative changes noted in the cervical and lumbar spine. There were no other sites of metastatic disease noted. Given his symptoms and the findings on the imaging studies, he was referred for palliative radiation. He completed course of treatment from T7-T10 on 09/16/2019 to a total dose of 3000 cGy. During that time, he had also been seen in consultation by Dr. Puckett, and on 09/03/2019 he underwent bronchoscopy/EBUS with endobronchial biopsies and with transbronchial FNA biopsy of mediastinal lymph nodes. 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 The next generation sequencing study showed positive PD-L1 expression for 22c3 at 2%. There were no actionable mutations identified. With those findings, he was recommended to undergo systemic therapy with carboplatin/pemetrexed chemotherapy in combination with pembrolizumab. He has otherwise been in good health. 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 He does have a history of smoking 2 packs of cigarettes daily for approximately 40 years. He quit smoking in 1999. He indicated that he had significant asbestos exposure during service in the [employer]. INTERIM HISTORY: He began cycle 1 of carboplatin/pemetrexed/pembrolizumab on 11/03/2019. He tolerated it with acceptable toxicity, and he continued with cycle 2 on 11/24/2019 and with cycle 3 on 12/15/2019. Restaging CT scans of the chest, abdomen, and pelvis on 01/03/2020 showed interval decrease in the size of the spiculated left upper lobe mass measuring 2.7 x 2.1 cm compared to 3.4 x 2.2 cm on the prior study. A 9 mm right middle lobe nodule appeared stable. The metastatic lesion in the central right hepatic lobe had progressed slightly measuring 3.4 x 3.1 cm compared to approximately 3 cm on the prior study. The lytic metastatic osseous lesion involving the T8 vertebral body appeared stable. He was seen for a follow-up visit on 01/05/2020. At that time, he reported that he had developed significant fatigue and shortness of breath following his 3rd cycle of treatment. Given the CT findings, I assume this was most likely due to the chemotherapy. I opted to give him a treatment break and then transition him to maintenance immunotherapy. He returned on 01/26/2020. He was feeling much better. At that point he began cycle 1 of maintenance pembrolizumab. At his follow-up visit on 02/17/2020 he reported significant worsening of symptoms including weakness/fatigue and shortness of breath. He had become overtly hypoxic. His treatment was put on hold, and he was started on steroid therapy. During subsequent follow-up his symptoms did show some improvement, but he continued to have shortness of breath and limited activity tolerance. Restaging chest CT on 05/03/2020 showed increased in the left upper lobe lung mass measuring 3.5 x 2.5 cm. A new enhancing nodule abutting the pericardium of the left ventricle was suspicious for a metastatic deposit. There was moderate and slightly increased right pleural effusion. There was increase in size of the metastatic lesion in the central liver. There was no change in the appearance of the metastatic lesion involving the T8 vertebral body. 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 for consideration of participation in a clinical trial. He unfortunately was deemed ineligible for the trial due to his borderline renal function. He was then given the option to have a trial of salvage chemotherapy with docetaxel as a single agent. He began cycle 1 on 06/22/2020. He had significant toxicities including weakness/fatigue, nausea, diarrhea, and neutropenia. The side effects were severe enough they did require IV hydration and a treatment delay. He then continued with cycle 2 on 07/26/2020, administered at a reduced dosage. He tolerated it better, though he continued to have weakness/fatigue and diarrhea. He was able to continue with cycle 3 on 08/16/2020 and with cycle 4 on 09/06/2020. In the meantime, he has restaging CT scans on 09/01/2020 showed a significant decrease in the spiculated left upper lobe mass measuring 1.4 x 1.9 cm. A previously described nodule abutting the pericardium was no longer present. A new 7 mm pleural-based nodule was noted in the right middle lobe. A moderate right pleural effusion appeared unchanged. However, there was a significant increase in the size of central metastatic mass in the liver measuring 5.2 x 6.5 cm compared to 4.3 x 4.1 cm on the prior study. The osteoblastic lesion at T8 appeared stable. With evidence of disease progression in the liver I did opt to stop his docetaxel after the 4th cycle. He was then referred to Dr. Reynolds for consideration of liver directed therapy, as there were no other known sites disease progression. He received his initial hepatic radioembolization procedure last month. He would be due for now a second emobolization procedure. In the meantime, I had seen him for a follow-up visit on 11/13/2020 to discuss the possibility of trying targeted therapy for the KRAS G12C mutation. At that time, he noted recent onset of significant pain and swelling in the upper right chest wall/right axillary area. The CT findings were consistent with metastatic involvement in that area. In view of the severity of the pain he was having, he was referred for additional palliative radiation, which he completed on 12/05/2020 to a total dose of 3000 cGy administered in 10 fractions. He was seen for follow-up visit on 12/06/2020. At that point he was showing further decline in his performance status, he was still having significant pain in the upper right chest wall/right axillary area. We talked about the possibility of transitioning to symptomatic/supportive care, but at that point he was still motivated to try the targeted therapy for the KRAS G12C mutation, and he then began treatment with sotorasib 960 mg daily. As of his follow-up visit on 12/13/2020 he appeared to be tolerating it with acceptable toxicity. At that time he was significantly more short of breath, and he underwent an ultrasound-guided thoracentesis on 12/20/2020. As of his follow-up visit on 12/26/2020 he appeared stable clinically. He continued sotorasib 960 mg daily. He then required outpatient thoracentesis again on 01/11/2021. He is seen for a scheduled visit. He has not been feeling good. He has very poor energy and he has virtually no activity. ECOG score is 3. Appetite also is poor. He has not had fever. He has had 2 episodes of significant night sweating during the past week. Within the past 2 days he has started taking morphine again due to worsening pain. It starts in the right side of his neck and extends down to the right upper quadrant area. Since restarting the morphine he has developed constipation and urinary retention. His breathing has been okay on oxygen, and he has had only a little bit of cough. He does not complain of nausea. He does not have headache or dizziness. He still has some numbness in his fingers. Medications: Flonase 2 [place](s) (of 50 mcg/act) Suspension Nasal daily PRN, Ibuprofen 1 Tablet (of 800 mg) Tablet Oral t.i.d., Levaquin 1 (500 mg) Tablet Oral daily for 10 days, MiraLax 1 Powder Oral daily PRN, Morphine Sulfate 1 - 3 (15 mg) Tablet Oral q 4 hours, Neurontin 2 Tablet (of 300 mg) Oral t.i.d., Pantoprazole Sodium 1 Tablet (of 40 mg) Tablet, enteric coated Oral daily, predniSONE (20 mg) Tablet Oral Take as Directed, Vitamin B6 1 Tablet Oral daily, Vitamin D3 1 Tablet (of 50 mcg ) Oral daily Allergies: Flomax Vital Signs: Performed on Jan 22, 2021 08:55 Height - 70.00 in Weight - 146 lbs (HIGH) BSA - 1.83 sq.m BMI - 20.95 Temperature - 97.6 F (LOW) Pulse - 92 /min Respiration - 18 /min BP - 103/70 mm(hg) O2 Sat - 91 % (LOW) Pain - 0 Fatigue - 0 Physical Examination: Constitutional - He appears generally weak, Eyes - Sclerae nonicteric. Conjunctivae clear, ENMT - Mouth is dry. There ar no lesions noted in the oral cavity, Hematologic/Lymphatic - There is an enlarging leonides mass in the right supraclavicular fossa. There is no axillary adenopathy noted, Respiratory - Lungs show diminished air movement bilaterally, worse on the right. There are coarse rales on the right, Cardiovascular - Heart rhythm is regular. There is no murmur, gallop, or rub noted, Abdomen - Soft. Liver is not enlarged or tender. Spleen is not palpable. There is no abdominal mass or ascites noted and there is no inguinal adenopathy, Extremities - No edema, Neurologic - No focal neurologic deficits noted. Lab/Imaging: Test performed on Jan 19, 2021 10:16 Sodium 137 mmol/L Potassium 3.9 mmol/L Chloride 104 mmol/L CO2 25 mmol/L Anion Gap 11.9 BUN 16 mg/dL Creatinine 0.6 mg/dL Cr Clearance (Est) 91.4600 mL/min Glucose 105 mg/dL Osmolality - Calculated 286 mOsm/kg Calcium 9.3 mg/dL Protein, Total 5.6 g/dL Albumin 3.1 g/dL Globulin 2.5 g/dL Bilirubin, Total 0.4 mg/dL ALT (SGPT) 17 U/L AST (SGOT) 42 U/L Alkaline Phosphatase 158 IU/L WBC 6.7 10 3/uL RBC 4.75 10 6/uL HGB 13.2 g/dL HCT 42.0 % MCV 88.4 fl MCH 27.8 pg MCHC 31.4 g/dL RDW 16.7 % Platelet Count 309 10 3/cmm MPV 9.9 fL Neutrophils 5.00 10 3/uL Lymphocytes 1.0 10 3/uL Monocytes 0.5 10 3/uL Eosinophils 0.1 10 3/uL Basophils 0.0 10 3/uL Neutrophil % 74.9 % Lymphocyte % 14.9 % Monocyte % 8.1 % Eosinophil % 0.8 % Basophils % 0.5 % NRBC % 0 % 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 This appeared to be a new primary malignancy. By clinical evaluation, his disease was stage IVB (T2a, N3, M1c). His PD-L1 expression was positive at 2%. 2. He had presented with metastatic involvement in the T8 vertebral body. He had significant symptomatic improvement following palliative radiation, completed on 09/16/2019 to a total dose of 3000 cGy. In October he began a trial of systemic therapy with carboplatin/pemetrexed in combination with pembrolizumab. He tolerated it very poorly. 3. History of differentiated non-small cell carcinoma of the right lung, stage IIIA with complete pathologic response to neoadjuvant chemotherapy with 2 cycles of carboplatin/Taxol. He then underwent right upper lobectomy/mediastinal lymph node dissection in August 2011 followed by 2 additional cycles of chemotherapy and radiation to the hilar/mediastinal node region, which he completed in January 2012. 4. 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 5. Benign prostatic hypertrophy. 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 He had presented with symptomatic metastatic involvement in the T8 vertebral body. His PD-L1 expression was positive at 2%. 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 He initially completed palliative radiation to the T8 vertebral body metastasis. He did show some response to a trial of systemic therapy with carboplatin/pemetrexed chemotherapy in combination with pembrolizumab. However, he tolerated the treatment poorly, and during maintenance pembrolizumab his treatment was put on hold due to worsening shortness of breath. His restaging CT scans on 05/03/2020 showed evidence of disease progression with increase in the left upper lobe lung mass, development of a new enhancing nodule abutting the pericardium, and increase in the size of a metastatic lesion in the central liver. At that point he was evaluated at [facility] for consideration and a clinical trial, but he was deemed ineligible due to borderline renal function. On 06/23/2019 when he began salvage therapy with docetaxel as a single agent. He had significant toxicities with his initial treatment, but tolerated it reasonably well at a reduced dosage. As of 09/06/2020 he completed his 4th cycle. His restaging CT scans at that point showed some decrease in the size of the primary lung tumor and the sclerotic metastasis involving the T8 vertebral body appeared stable. However, there was progression of the metastatic lesion in the liver. With that finding, his chemotherapy was stopped and he was referred to Dr. Reynolds for consideration of liver directed therapy. He then completed a radioembolization procedure to the liver last month, and he had been scheduled to have a second procedure at a 6-week interval. In the meantime, he had presented here with pretty severe pain and soft tissue swelling/induration in the upper right chest wall and right axillary area. CT findings were consistent with metastatic disease progression. Due to the severity of his pain, he was given additional palliative radiation to that area, completed on 12/05/2020. Following his visit on 12/06/2020 he began a trial of targeted therapy with sotorasib 960 mg daily. During followup he was been able to tolerate the treatment with no significant adverse effects. However, he subsequently required outpatient thoracentesis on 2 occasions, he has shown obvious progression of lymph node mass in the right supraclavicular fossa, and he has had further decline in his performance status. He also has had worsening pain in the right neck/chest area, significant enough that he has had to start taking morphine again with subsequent development of constipation and urinary retention. As his overall condition is obviously declining, he will now stop the sotorasib. He will have Cruz catheter placed in the office today, and I will arrange for hospice referral, as his prognosis is very poor. He will be given a prescription for morphine 20 mg/mL to take as needed. He will continue his bowel regimen with senna/docusate and Relistor as needed. Signed By: Jony Noriega M.D. <<Signature on File>>
== END 2021-02-02 23:59 | disposition home or self-care (01) ==
LOC: ONCMED 06:15
PROVIDERS: PCP Family Medicine; Visit Provider Internal Medicine Medical Oncology
DX: C34.12 Malignant neoplasm of upper lobe, left bronchus or lung (principal); C79.51 Secondary malignant neoplasm of bone; C78.01 Secondary malignant neoplasm of right lung; H81.03 Meniere's disease, bilateral; N40.0 Benign prostatic hyperplasia without lower urinary tract symptoms; Z79.899 Other long term (current) drug therapy
CPT/HCPCS: 36591; 80053; 85025; 99215